=== PATIENT | female | born 1985 | race Caucasian/White ===

== ENCOUNTER → 2017-10-07 16:07 | Outpatient (REF) | payer MEDICARE, MEDICAID, SELFPAY ==
[2017-10-07 19:36] LABS: Amphetamine/Metha Screen,Urine Negative ng/mL (<1000); Barbiturates Screen,Urine Negative ng/mL (<200); Benzodiazepines Screen,Urine Negative ng/mL (<200); Cannabinoid Screen,Urine Negative ng/mL (<50); Cocaine Screen,Urine Negative ng/mL (<300); Methadone Screen,Urine Negative ng/mL (<300); Opiate Screen,Urine Positive ng/mL (<300); Phencyclidine Screen,Urine Negative ng/mL (<25)
== END ==
LOC: LAB 16:07
PROVIDERS: Visit Provider Emergency Medicine
DX: Z79.899 Other long term (current) drug therapy (principal)
CPT/HCPCS: 80305

== ENCOUNTER → 2017-11-17 16:52 | Outpatient (REF) | payer MEDICARE, MEDICAID, SELFPAY | LOC: LAB 16:52 | PROVIDERS: Visit Provider Emergency Medicine | DX: M54.9 Dorsalgia, unspecified (principal); R82.90 Unspecified abnormal findings in urine | CPT/HCPCS: 87086; 87088; 87186 ==

== ENCOUNTER → 2018-01-18 18:11 | Outpatient (CLI) | payer MEDICARE, MEDICAID, SELFPAY ==
[2018-01-18 18:49] LABS: Amphetamine/Metha Screen,Urine Negative ng/mL (<1000); Barbiturates Screen,Urine Negative ng/mL (<200); Benzodiazepines Screen,Urine Negative ng/mL (<200); Cannabinoid Screen,Urine Negative ng/mL (<50); Cocaine Screen,Urine Negative ng/mL (<300); Methadone Screen,Urine Negative ng/mL (<300); Opiate Screen,Urine Negative ng/mL (<300); Phencyclidine Screen,Urine Negative ng/mL (<25)
== END ==
PROVIDERS: Visit Provider Emergency Medicine
DX: Z79.899 Other long term (current) drug therapy (principal)
CPT/HCPCS: 80305

== ENCOUNTER → 2018-02-19 18:17 | Outpatient (CLI) | payer MEDICARE, MEDICAID, SELFPAY ==
[2018-02-19 21:27] LABS: Amphetamine/Metha Screen,Urine Negative ng/mL (<1000); Barbiturates Screen,Urine Negative ng/mL (<200); Benzodiazepines Screen,Urine Negative ng/mL (<200); Cannabinoid Screen,Urine Negative ng/mL (<50); Cocaine Screen,Urine Negative ng/mL (<300); Methadone Screen,Urine Negative ng/mL (<300); Opiate Screen,Urine Negative ng/mL (<300); Phencyclidine Screen,Urine Negative ng/mL (<25)
== END ==
PROVIDERS: Visit Provider Nurse Practitioner Family
DX: Z79.899 Other long term (current) drug therapy (principal)
CPT/HCPCS: 80305

== ENCOUNTER → 2018-02-22 18:06 | Outpatient (CLI) | payer MEDICARE, MEDICAID, SELFPAY ==
[2018-02-22 20:52] LABS: Amphetamine/Metha Screen,Urine Negative ng/mL (<1000); Barbiturates Screen,Urine Negative ng/mL (<200); Benzodiazepines Screen,Urine Negative ng/mL (<200); Cannabinoid Screen,Urine Negative ng/mL (<50); Cocaine Screen,Urine Negative ng/mL (<300); Methadone Screen,Urine Negative ng/mL (<300); Opiate Screen,Urine Positive ng/mL (<300); Phencyclidine Screen,Urine Negative ng/mL (<25)
== END ==
PROVIDERS: Visit Provider Nurse Practitioner Family
DX: Z79.899 Other long term (current) drug therapy (principal)
CPT/HCPCS: 80305

== ENCOUNTER 2019-04-12 18:39 | Observation (INO) ==
--- NOTE | 2019-04-12 19:00 | Emergency Department Note ---
ED Disposition Clinical Impression: Acute exacerbation of chronic low back pain, Severe pain, Cervicodynia, Intractable pain Disposition: Admitted as Observation Condition on Discharge: Good Additional Instructions: Her primary care is Dr. Stephan Lim was covering for Dr. Rothman he agreed to go ahead admit the patient for observation for pain control overnight. Referrals: Kleber Rothman MD [Primary Care Provider] - - Critical Care Critical Care Time: No Attestation: On 04/12/19, the high probability of a clinically significant, sudden or life threatening deterioration of the following system(s) required my full and direct attention, intervention and personal management. The time I documented below is in addition to time spent performing reported procedures but includes the following listed in this critical care notation. Medical Decision Making - Medical Records Medical records reviewed: Yes: I reviewed the patient's medical records. - Juan Luis Inquiry Pt receiving controlled substance: No Vital Signs: 04/12/19 18:41 Temperature 98 F Temperature Source Oral Pulse Rate [Right] 72 Respiratory Rate 20 Blood Pressure [Right Arm] 109/65 L Blood Pressure Mean [Right Arm] 79 02 Sat by Pulse Oximetry 95 - Lab Data Lab results reviewed: Yes: I reviewed the patient's lab results. Lab Results 04/12/19 18:50: WBC 7.9, RBC 4.02 L, Hgb 12.9, Hct 37.8, MCV 93.9, MCH 32.0 H, MCHC 34.0, RDW 12.5, Plt Count 242, MPV 8.1, Neut % (Auto) 55.6, Lymph % (Auto) 36.0, Vance % (Auto) 6.1, Eos % (Auto) 2.0, Baso % (Auto) 0.4, Neut # (Auto) 4.4, Lymph # (Auto) 2.9, Vance # (Auto) 0.5, Eos # (Auto) 0.2, Baso # (Auto) 0.0 04/12/19 18:50: Sodium 134 L, Potassium 3.3 L, Chloride 105, Carbon Dioxide 24, Anion Gap 8.3, BUN 14, Creatinine 0.70, Estimated Creat Clear 150, Estimated GFR 98, Est GFR ( Amer) 118, Glucose 91, Calcium 9.3 Result diagrams: 04/12/19 18:50 04/12/19 18:50 Orders (Tests/Meds): ED MEDICATIONS Generic Name Dose Route Start Last Admin Trade Name Freq PRN Reason Stop Dose Admin Sodium Chloride 1,000 mls @ 999 mls/hr 04/12/19 19:00 04/12/19 19:11 Sod Chlor 0.9% 1000ml Bag IV 04/12/19 20:00 999 mls/hr .Q1H1M MIGUEL A Administration Discontinued Medications Generic Name Dose Route Start Last Admin Trade Name Freq PRN Reason Stop Dose Admin Diazepam 10 mg 04/12/19 18:52 04/12/19 19:11 Valium 10mg/2ml Syringe IV 04/12/19 18:53 10 mg ONCE ONE Administration Hydromorphone HCl 1 mg 04/12/19 19:20 04/12/19 19:25 Dilaudid 2mg/Ml Syringe IM 04/12/19 19:21 1 mg ONCE ONE Administration Ketorolac Tromethamine 30 mg 04/12/19 18:52 04/12/19 19:11 Toradol 30mg/Ml Vial IV 04/12/19 18:53 30 mg ONCE ONE Administration Methylprednisolone Sodium Succinate 125 mg 04/12/19 18:52 04/12/19 19:11 Solu-Medrol 125mg/2ml Vial IV 04/12/19 18:53 125 mg ONCE ONE Administration ORDERS Category Date Time Status Urinalysis and Microscopic Stat Lab 04/12/19 19:18 Received Medical Decision Narrative: Patient did not get any pain relief with the IV Toradol 30 mg she was then given 4 mg of morphine IV no relief and then ultimately she was given 1 mg of Dilaudid and she is finally resting comfortably. General Adult HPI - General Chief complaint: PAIN Stated complaint: increase pain,seizure Time Seen by Provider: 04/12/19 18:55 Mode of Arrival: Ambulatory Limitations: No Limitations Description of Symptoms (Recalled from ER Triage Doc. by RN): C/O PAIN IN HER HEAD AND LEFT ARM AFTER AN ABLASION EARLIER TODAY FOR PAIN DONE AT . - History of Present Illness HPI narrative: 33-year-old female presents to the ED with cervical pain. Patient does have chronic cervical pain and lumbar pain issues. She had a nerve ablation done in her cervical spine today at [facility] pain [facility]. And since then she has been having a lot of spasms in her neck. She denies any motor deficits or any numbness or tingling in her extremities. She rates her pain 7 out of 10 and she classifies it as sharp and it comes and goes and crescendos. She states the exacerbating factors include movement and alleviating factors include lying still. 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 She also has been out of her clonazepam for 2 days as well. She denies any recent fever shakes or chills. No shortness of breath. Patient did tolerate the procedure this morning well. Otherwise patient has no other symptoms. - Related Data Home Medications Medication Instructions Recorded Confirmed Trazodone HCl 100 mg PO DAILY 11/18/18 12/19/18 SUMAtriptan succinate [Sumatriptan 50 mg PO DAILY 12/19/18 12/19/18 Succinate] clonazePAM [Clonazepam] 0.5 mg PO BID 12/19/18 12/19/18 levoFLOXacin [Levaquin 500mg 500 mg PO DAILY 12/19/18 12/19/18 tab] predniSONE [Prednisone 20mg 20 mg PO BID 12/19/18 12/19/18 Tab] Previous Rx's Medication Instructions Recorded metoprolol tartrate 50 mg tablet 50 mg PO BID #180 tab 02/19/18 nitrofurantoin 100 mg PO DAILY PRN #30 cap 02/19/18 monohydrate/macrocrystals 100 mg capsule Benzonatate [Tessalon Perle 100mg 100 mg PO TID PRN #15 cap 12/05/18 Cap*] Albuterol Sulfate [Albuterol HFA 2 puffs IH Q6HP PRN #1 inh 12/10/18 Inhaler] Hydrocodone/Acetaminophen 1 each PO Q6HP PRN 3 Days #12 tab 12/19/18 [Hydrocodone-Acetamin 5-325 mg] Metoprolol Tartrate 50 mg PO BID 3 Days #6 tab 12/19/18 Nitrofurantoin Monohyd/M-Cryst 100 mg PO BID 3 Days #6 cap 12/19/18 [Macrobid 100 mg Capsule] SUMAtriptan succinate [Sumatriptan 50 mg PO DAILY 3 Days #3 tab 12/19/18 Succinate] Trazodone HCl 100 mg PO DAILY 3 Days #3 tab 12/19/18 clonazePAM [Clonazepam] 0.5 mg PO BID 3 Days #6 tab 12/19/18 lamoTRIgine [Lamictal] 100 mg PO BID 3 Days #6 tab 12/19/18 methocarbamoL [Methocarbamol 500mg 500 mg PO BID PRN 5 Days #10 tab 12/22/18 Tablet] cephALEXin [Keflex 500mg Cap] 500 mg PO Q12 7 Days #14 cap 01/02/19 Allergies Allergy/AdvReac Type Severity Reaction Status Date / Time aripiprazole [From Abilify] Allergy Intermediate Seizure Verified 05/29/18 15:10 [facility] History - Hepatitis A Screen Drug use history?: No High risk sexual behaviors?: No History of sexually transmitted infection?: No Currently employed?: No Childcare worker?: No Do you have indoor plumbing?: Yes Do you have electricity?: Yes Attestation statement:: This patient has been screened for Hepatitis A risk factors. I have reviewed the patient's past medical history: Yes Medical History: Reports:: Anxiety, Arrhythmia, Depression, Migraine, Seizures Denies:: Cancer, Diabetes Mellitus Type 1, Diabetes Mellitus Type 2, Internal Pacemaker, MRSA Other Medical History: Reports: Other Other Surgeries: Yes: Other. No: Pacemaker Amputation: No Fractures: No Comment: lipoma removed from spine, spine stimulator removed - Social History Smoking Status: Current every day smoker Tobacco Type: cigarettes # Packs/Day (cigarettes): 1 Alcohol Intake: never Substance Use Type: denies use Occupational Status: disabled Housing: house - Psychiatric History Pschychiatric History:: Reports:: Anxiety, Depression Family Hx:: No significant family history ROS Obtained: Yes All systems reviewed & no additional complaints - Constitutional Constitutional: Reports system reviewed and no additional complaints, except as docu - Eyes Eyes: Reports system reviewed and no additional complaints, except as docu, Denies blurry vision - ENT Ears, Nose, Mouth, and Throat: Reports system reviewed and no additional complaints, except as docu - Cardiovascular Cardiovascular: Reports system reviewed and no additional complaints, except as docu - Respiratory Respiratory: Yes system reviewed and no additional complaints, except as docu - Gastrointestinal Gastrointestingal: Reports: system reviewed and no additional complaints, except as docu - Genitourinary Male Genitourinary: Reports system reviewed and no additional complaints, except as docu Female Genitourinary: Reports system reviewed and no additional complaints, except as docu - Musculoskeletal Musculoskeletal: Reports system reviewed and no additional complaints, except as docu - Integumentary/Breasts Skin/Breast: Reports system reviewed and no additional complaints, except as docu - Neurologic Neurologic: Reports system reviewed and no additional complaints, except as docu - Endocrine Endocrine: Reports system reviewed and no additional complaints, except as docu - Hematologic/Lymphatic Henatologic/Lymphatic: Reports system reviewed and no additional complaints, except as docu - Allergic/Immunologic Allergic/Immunologic: Reports system reviewed and no additional complaints, except as docu Physical Exam - General General appearance: alert, in no apparent distress - Head Head exam: atraumatic, normocephalic - Eye Eye exam: Present: normal appearance - ENT ENT exam: Present: normal exam - Neck Neck exam: Present: normal inspection - Chest Chest inspection: Present: normal inspection - Respiratory Respiratory exam: Present: normal lung sounds bilaterally - Cardiovascular Cardiovascular exam: Present: regular rate - Abdominal Exam Abdominal exam: Present: soft - Extremities Exam Extremities exam: Present: normal inspection - Back Exam Back exam: Present: normal inspection - Neurological Exam Neurological exam: Present: alert, oriented X3 - Psychiatric Psychiatric exam: Present: normal affect - Skin Skin exam: Present: warm, dry, intact - Lymphatic Lymphatic Findings: no adenopathy
[2019-04-12 19:01] LABS: Basophils % 0.4 % (0.1-2.0); Eosinophils # 0.2 K/mm3 (0.0-0.4); Hematocrit 37.8 % (37.0-47.0); Hemoglobin 12.9 g/dL (12.2-16.2); Lymphocytes # 2.9 K/mm3 (0.7-4.5); Mean Corpuscular Volume 93.9 fl (81-99); Mean Platelet Volume 8.1 fl (7.4-10.4); Monocytes # 0.5 K/mm3 (0.1-1.0); Monocytes % 6.1 % (1.7-9.3); Neutrophils # 4.4 K/mm3 (1.8-7.8); Neutrophils % 55.6 % (37.0-80.0); Platelet Count 242 K/mm3 (142-424); Red Blood Count 4.02 M/mm3 (4.20-5.40); Red Cell Distribution Width 12.5 % (11.5-17.5); White Blood Count 7.9 K/mm3 (4.8-10.8)
[2019-04-12 19:06] LABS: Anion Gap 8.3 mEq/L (5-15); Calcium 9.3 mg/dl (8.4-10.2)
[2019-04-12 19:22] LABS: Microscopic, Urine URINE MICROSCOPIC (MICROSCOPIC)
[2019-04-12 19:31] LABS: Appearance,Urine CLEAR (Clear); Bilirubin,Urine Negative (Negative); Blood, Urine Negative (Negative); Color,Urine YELLOW (Yellow); Glucose,Urine (UA) Negative (Negative); Ketones,Urine Negative (Negative); Leukocyte Esterase,Urine Negative (Negative); PH,Urine 6.5 (5.0-8.5); Protein,Urine Negative (Negative); Specific Gravity, Urine 1.025 (1.005-1.030); Urobilinogen,Urine 0.2 EU/dl (0.2)
[2019-04-12 19:41] LABS: Bacteria,Urine Trace /lpf; WBC,Urine Occasional #/hpf (0-3)
--- NOTE | 2019-04-13 07:43 | Pharmacy Consult Notes ---
[facility] Pharmacy VTE Monitoring - Patient Demographics Admission date: 04/12/19 Report Date: 04/13/19 Time: 07:42 Allergies/Adverse Reactions: Patient Allergies aripiprazole [From Abilify] Allergy (Intermediate, Verified 05/29/18 15:10) Seizure Height: 1.65 m Weight: 87.317 kg Patient Problems: Current Active Problems Acute exacerbation of chronic low back pain (Acute) Severe pain (Acute) Cervicodynia (Acute) Intractable pain (Acute) - VTE Risk Labs: VTE Related Lab Results Hgb 12.9 g/dL (12.2-16.2) 04/12/19 18:50 Hct 37.8 % (37.0-47.0) 04/12/19 18:50 Plt Count 242 K/mm3 (142-424) 04/12/19 18:50 BUN 14 mg/dl (7-17) 04/12/19 18:50 Creatinine 0.70 mg/dl (0.52-1.04) 04/12/19 18:50 Estimated Creat Clear 150 mL/min (50-200) 04/12/19 18:50 Was VTE Risk Assessment Performed: No VTE Score: 5 VTE Risk Level: Low Risk - Prophylaxis VTE Prophylaxis Ordered?: Yes Types of VTE Prophylaxis: TEDS Knee High Location of Applied Device: Bilateral Lower Extremeties
--- NOTE | 2019-04-13 08:19 | History & Physical Report ---
*Admission Date: 04/12/19 <Macrina Farrell 04/13/19 08:28> *Chief complaint: neck pain <Macrina Farrell 04/13/19 08:28> *History of present illness: Ms. Harry is a 33-year-old female who presented to the ED with cervical pain. Patient does have chronic cervical pain and lumbar pain issues. She had a nerve ablation done of C2 and C3 yesterday at [facility]. She states she had nerve blocks before the procedure but felt most of the procedure. She continued with significant pain after the procedure and went to try to eat with her mother. She began having pain and spasms in her neck that were so bad they cause pseudoseizures. She had pain that radiated down her shoulder blades and into her arms and down into her hips. She states the left side is worse than the right. Exacerbating factors include movement and alleviating factors include lying still. The interventional pain clinic was closed by the time her symptoms began, therefore she presented to [facility] ED. Of note, patient does have a mood disorder and also chronic pain and pseudoseizures. She has been out of her clonazepam for 2 days as well. She also has a nerve stimulator in her low back and one of the leads has been fractured. She is scheduled for surgery to fix this in the near future. She is always short of breath. She denies any recent fever shakes or chills. <Macrina Farrell 04/13/19 08:28> [facility] History I have reviewed the patient's past medical history: Yes <Macrina Farrell 04/13/19 08:28> Medical History: Reports:: Anxiety, Arrhythmia, Congestive Heart Failure, Depression, Migraine, Seizures Denies:: Cancer, Diabetes Mellitus Type 1, Diabetes Mellitus Type 2, Internal Pacemaker, MRSA <Macrina Farrell 04/13/19 08:28> *Have you ever received a pneumonia vaccine?: No <Macrina Farrell 04/13/19 08:28> *Have you received a flu vaccine this season?: No <Macrina Farrell 04/13/19 08:28> Other Medical History: Reports: Other <Macrina Farrell 04/13/19 08:28> Comment:: Bipolar disorder, intrathecal lipoma, tethered cord s/p resection, neurogenic bowel and bladder, complex regional pain sydrome, cervical spinal stenosis <Macrina Farrell 04/13/19 08:28> Other Surgeries: Yes: Other ([facility] intrathecal lipoma, L4-S1 laminectomy, spinal cord stimulator, ablation). No: Pacemaker <Macrina Farrell 04/13/19 08:28> Amputation: No <Macrina Farrell 04/13/19 08:28> Fractures: No <Macrina Farrell 04/13/19 08:28> - *Social History Educational Level: Completed College <Macrina Farrell 04/13/19 08:28> Smoking Status: Current every day smoker <Macrina Farrell 04/13/19 08:28> Tobacco Type: cigarettes <Macrina Farrell 04/13/19 08:28> # Packs/Day (cigarettes): 1 <Macrina Farrell 04/13/19 08:28> Alcohol Intake: never <Macrina Farrell 04/13/19 08:28> Substance Use Type: denies use <Macrina Farrell 04/13/19 08:28> *Occupational Status:: disabled <Macrina Farrell 04/13/19 08:28> Housing: house <Macrina Farrell 04/13/19 08:28> Household Members: significant other <Macrina Farrell 04/13/19 08:28> *Travel in the last 8 weeks: None <Macrina Farrell 04/13/19 08:28> - Psychiatric History Pschychiatric History:: Reports:: Anxiety, Depression <Macrina Farrell 04/13/19 08:28> Family Hx:: Coronary Artery Disease, Diabetes, Hyperlipidemia, Hypertension <Macrina Farrell 04/13/19 08:28> Review of Systems - Constitutional Reports fatigue, Reports weakness, Denies chills, Denies fever(s) <Macrina Farrell 04/13/19 08:28> - Eyes Denies blurry vision, Denies double vision <Macrina Farrell 04/13/19 08:28> - ENT Denies nasal congestion, Denies sore throat <Macrina Farrell 04/13/19 08:28> - *Cardiovascular Reports shortness of breath, Denies chest pain <Macrina Farrell - 04/13/19 08 :28> - *Respiratory Reports shortness of breath, Denies chest congestion, Denies cough <Macrina Farrell 04/13/19 08:28> - *Gastrointestinal Reports loose stools, Reports nausea, Denies abdominal pain, Denies vomiting <Macrina Farrell 04/13/19 08:28> - *Genitourinary Reports difficulty urinating, Denies painful urination <Macrina Farrell 04/13/19 08:28> - *Musculoskeletal Reports back pain, Reports muscle weakness, Reports neck pain <Macrina Farrell 04/13/19 08:28> - *Neurologic Reports burning sensations (neck), Reports seizure-like activity, Reports numbness, Reports tingling/numbness/burning sensations, Reports weakness <Macrina Farrell 04/13/19 08:28> Meds Home Medications Medication Instructions Recorded Confirmed Type Albuterol Sulfate [Albuterol HFA 2 puffs IH Q6HP PRN #1 inh 12/10/18 04/13/19 Rx Inhaler] SUMAtriptan succinate [Sumatriptan 50 mg PO DAILY PRN 12/19/18 04/13/19 History Succinate] clonazePAM [Clonazepam] 0.5 mg PO BID PRN 12/19/18 04/13/19 History Metoprolol Tartrate 50 mg PO BID 04/12/19 04/13/19 History lamoTRIgine [Lamictal] 100 mg PO BID 04/12/19 04/13/19 History Duloxetine HCl 60 mg PO DAILY 04/13/19 04/13/19 History Hydrocodone/Acetaminophen 1 - 2 tab PO Q6HP PRN 04/13/19 04/13/19 History [Hydrocodone-Acetamin 5-325 mg] Hydromorphone HCl [Dilaudid 2mg 2 mg PO Q4HP PRN #24 tab 04/13/19 Rx tablet] Nitrofurantoin Monohyd/M-Cryst 100 mg PO DAILY 04/13/19 04/13/19 History [Nitrofurantoin Randall-Mcr 100 mg] Trazodone HCl 100 - 300 mg PO HS PRN 04/13/19 04/13/19 History <Kleber Rothman - 04/13/19 15:16> Allergies Allergy/AdvReac Type Severity Reaction Status Date / Time aripiprazole [From Abiliy] Allergy Intermediate Seizure Verified 05/29/18 15:10 <Kleber Rothman - 04/13/19 15:16> Exam Vital signs and Labs for Last 24 Hours: Temp Pulse Resp BP Pulse Ox 98 F 74 18 100/60 L 94 L 04/13/19 08:00 04/13/19 08:00 04/13/19 08:00 04/13/19 08:00 04/13/19 08:00 Laboratory Results - last 24 hr 04/12/19 18:50: WBC 7.9, RBC 4.02 L, Hgb 12.9, Hct 37.8, MCV 93.9, MCH 32.0 H, MCHC 34.0, RDW 12.5, Plt Count 242, MPV 8.1, Neut % (Auto) 55.6, Lymph % (Auto) 36.0, Randall % (Auto) 6.1, Eos % (Auto) 2.0, Baso % (Auto) 0.4, Neut # (Auto) 4.4, Lymph # (Auto) 2.9, Randall # (Auto) 0.5, Eos # (Auto) 0.2, Baso # (Auto) 0.0 04/12/19 18:50: Sodium 134 L, Potassium 3.3 L, Chloride 105, Carbon Dioxide 24, Anion Gap 8.3, BUN 14, Creatinine 0.70, Estimated Creat Clear 150, Estimated GFR 98, Est GFR ( Amer) 118, Glucose 91, Calcium 9.3 04/12/19 19:18: Urine Color Yellow, Urine Appearance Clear, Urine pH 6.5, Ur Specific [place] 1.025, Urine Protein Negative, Urine Glucose (UA) Negative, Urine Ketones Negative, Urine Blood Negative, Urine Nitrate Negative, Urine Bilirubin Negative, Urine Urobilinogen 0.2, Ur Leukocyte Esterase Negative, Urine WBC Occasional, Ur Squamous Epith Cells 3-5, Urine Bacteria Trace <Kleber Rothman - 04/13/19 15:16> Temp Pulse Resp BP Pulse Ox 97.5 F L 67 16 102/55 L 94 L 04/13/19 04:00 04/13/19 04:00 04/13/19 04:00 04/13/19 04:00 04/13/19 04:00 Laboratory Results - last 24 hr 04/12/19 18:50: WBC 7.9, RBC 4.02 L, Hgb 12.9, Hct 37.8, MCV 93.9, MCH 32.0 H, MCHC 34.0, RDW 12.5, Plt Count 242, MPV 8.1, Neut % (Auto) 55.6, Lymph % (Auto) 36.0, Randall % (Auto) 6.1, Eos % (Auto) 2.0, Baso % (Auto) 0.4, Neut # (Auto) 4.4, Lymph # (Auto) 2.9, Randall # (Auto) 0.5, Eos # (Auto) 0.2, Baso # (Auto) 0.0 04/12/19 18:50: Sodium 134 L, Potassium 3.3 L, Chloride 105, Carbon Dioxide 24, Anion Gap 8.3, BUN 14, Creatinine 0.70, Estimated Creat Clear 150, Estimated GFR 98, Est GFR ( Amer) 118, Glucose 91, Calcium 9.3 04/12/19 19:18: Urine Color Yellow, Urine Appearance Clear, Urine pH 6.5, Ur Specific [place] 1.025, Urine Protein Negative, Urine Glucose (UA) Negative, Urine Ketones Negative, Urine Blood Negative, Urine Nitrate Negative, Urine Bilirubin Negative, Urine Urobilinogen 0.2, Ur Leukocyte Esterase Negative, Urine WBC Occasional, Ur Squamous Epith Cells 3-5, Urine Bacteria Trace <Macrina Farrell - 04/13/19 08:28> I & O for Last 24 hours: Intake & Output 04/11/19 04/12/19 04/13/19 04/14/19 11:59 11:59 11:59 11:59 Intake Total 1360 / 1360 Output Total 2300 / 2300 Balance -940 / -940 Weight 192 lb 8 oz <Kleber Rothman - 04/13/19 15:16> Intake & Output 04/10/19 04/11/19 04/12/19 04/13/19 11:59 11:59 11:59 11:59 Intake Total 1000 / 1000 Output Total 2300 / 2300 Balance -1300 / -1300 Weight 192 lb 8 oz <Macrina Farrell 04/13/19 08:28> - Constitutional no acute distress <Macrina Farrell 04/13/19 08:28> - *Routine HEENT Exam Head: Present: normocephalic <Macrina Farrell 04/13/19 08:28> Eye: Present: EOMI, PERRL <Hardy Farrella 04/13/19 08:28> ENT: Present: mucous membranes moist <Hardy Farrella 04/13/19 08:28> - *Routine Neck Exam Present: supple, tenderness (along c-spine). Absent: lymphadenopathy <Hardy Farrella 04/13/19 08:28> Comments: bandages in place along the C-spine, no erythema or drainage <Hardy Farrella 04/13/19 08:28> - *Routine Respiratory Exam Present: CTA bilaterally <Hardy Farrella 04/13/19 08:28> - *Routine Cardiovascular Exam Present: RRR <Hardy Farrella 04/13/19 08:28> - *Routine Abdominal Exam Present: soft, normoactive bowel sounds. Absent: tenderness <Hardy Farrella 04/13/19 08:28> - *Routine Extremities Exam Absent: cyanosis, clubbing, edema <Hardy Farrella 04/13/19 08:28> - *Routine Skin Exam Present: warm. Absent: rash <Hardy Farrella 04/13/19 08:28> - *Routine Neurological Exam Present: alert, oriented X3, sensory deficit (left side of head), motor deficit (weakness upper extremities and lower extremities) <Macrina Farrell 04/13/19 08:28> Assessment and Plan (1) Acute exacerbation of chronic low back pain Status: Acute Category: Medical Code(s): M54.5 - Low back pain; G89.29 - Other chronic pain (2) Cervicodynia Problem details: S/P C2/C3 ablation Status: Acute Category: Medical Code(s): M54.2 - Cervicalgia (3) Hypokalemia Status: Acute Category: Medical Code(s): E87.6 - Hypokalemia (4) Intractable pain Status: Acute Category: Medical Code(s): R52 - Pain, unspecified (5) Seizure Status: Acute Category: Medical Code(s): R56.9 - Unspecified convulsions (6) History of pseudoseizure Status: Chronic Category: Medical Code(s): Z86.69 - Personal history of other diseases of the nervous system and sense organs <Macrina Farrell - 04/13/19 08:14> (1) Acute exacerbation of chronic low back pain Status: Acute Category: Medical Code(s): M54.5 - Low back pain; G89.29 - Other chronic pain (2) Cervicodynia Problem details: S/P C2/C3 ablation Status: Acute Category: Medical Code(s): M54.2 - Cervicalgia (3) Hypokalemia Status: Acute Category: Medical Code(s): E87.6 - Hypokalemia (4) Intractable pain Status: Acute Category: Medical Code(s): R52 - Pain, unspecified (5) Seizure Status: Acute Category: Medical Code(s): R56.9 - Unspecified convulsions (6) History of pseudoseizure Status: Chronic Category: Medical Code(s): Z86.69 - Personal history of other diseases of the nervous system and sense organs <Kleber Rothman - 04/13/19 15:16> - Assessment and plan all Dx Assessment and Plan for all problems:: Patient seen and examined this morning. She seems comfortable at present although states she is still having quite a bit of pain in her neck. She seems a bit anxious. Concur with above assessment. Fiona's mother will contact Dr. Lima with [facility] as to further direction at this point. I think she is experiencing a normal pain response from her procedure yesterday albeit, more exaggerated than anticipated. <Kleber Rothman - 04/13/19 15:16> Patient has been started on Dilaudid which is the only medication that she states helps her pain. She states she still has pain this morning in the left side of her neck and down her left side. The right side of her neck is starting to hurt as well. She has not had a seizure since she has been on the floor. Will discuss further management with Dr. Rothman. <Macrina Farrell - 04/13/19 08:28>
--- NOTE | 2019-04-13 15:20 | Progress Note ---
Internal Medicine - PN: Subj *Date: 04/13/19 *Time: 15:16 Interval history: Marily was able to contact Dr. Lima's office nurse, Ariane, and discussed the situation. Fiona has a follow-up appointment on 04/26/[address] Lima and they wish for her to keep this appointment. In the meantime, he is okay with Dr. Rothman prescribing a small quantity of Dilaudid to get her through the weekend. Exam Vital signs and Labs for Last 24 Hours: Temp Pulse Resp BP Pulse Ox 98 F 74 18 100/60 L 94 L 04/13/19 08:00 04/13/19 08:00 04/13/19 08:00 04/13/19 08:00 04/13/19 08:00 Laboratory Results - last 24 hr 04/12/19 18:50: WBC 7.9, RBC 4.02 L, Hgb 12.9, Hct 37.8, MCV 93.9, MCH 32.0 H, MCHC 34.0, RDW 12.5, Plt Count 242, MPV 8.1, Neut % (Auto) 55.6, Lymph % (Auto) 36.0, Preston % (Auto) 6.1, Eos % (Auto) 2.0, Baso % (Auto) 0.4, Neut # (Auto) 4.4, Lymph # (Auto) 2.9, Preston # (Auto) 0.5, Eos # (Auto) 0.2, Baso # (Auto) 0.0 04/12/19 18:50: Sodium 134 L, Potassium 3.3 L, Chloride 105, Carbon Dioxide 24, Anion Gap 8.3, BUN 14, Creatinine 0.70, Estimated Creat Clear 150, Estimated GFR 98, Est GFR ( Amer) 118, Glucose 91, Calcium 9.3 04/12/19 19:18: Urine Color Yellow, Urine Appearance Clear, Urine pH 6.5, Ur Specific [place] 1.025, Urine Protein Negative, Urine Glucose (UA) Negative, Urine Ketones Negative, Urine Blood Negative, Urine Nitrate Negative, Urine Bilirubin Negative, Urine Urobilinogen 0.2, Ur Leukocyte Esterase Negative, Urine WBC Occasional, Ur Squamous Epith Cells 3-5, Urine Bacteria Trace I & O for Last 24 hours: Intake & Output 0204/12/19 04/13/19 04/14/19 11:59 11:59 11:59 11:59 Intake Total 1360 / 1360 Output Total 2300 / 2300 Balance -940 / -940 Weight 192 lb 8 oz Assessment and Plan (1) Postoperative pain Status: Acute Category: Medical Code(s): G89.18 - Other acute postprocedural pain (2) Cervicodynia Problem details: S/P C2/C3 ablation Status: Acute Category: Medical Code(s): M54.2 - Cervicalgia (3) Acute exacerbation of chronic low back pain Status: Acute Category: Medical Code(s): M54.5 - Low back pain; G89.29 - Oth er chronic pain (4) Hypokalemia Status: Acute Category: Medical Code(s): E87.6 - Hypokalemia (5) Intractable pain Status: Acute Category: Medical Code(s): R52 - Pain, unspecified (6) Pseudoseizure Status: Acute Category: Medical Code(s): F44.5 - Conversion disorder with seizures or convulsions (7) History of pseudoseizure Status: Chronic Category: Medical Code(s): Z86.69 - Personal history of other diseases of the nervous system and sense organs - Assessment and plan all Dx Assessment and Plan for all problems:: She will be discharged home today with a small quantity of Dilaudid for the next 5 days. She will then transition to her hydrocodone which she has at home. She is to follow-up with Dr. Lima on 04/26/2019
--- NOTE | 2019-04-18 13:41 | Discharge Summary ---
General - General Admission date:: 04/12/19 <Kleber Rothman - 04/30/19 08:43> 04/12/19 <Macrina Farrell - 04/18/19 13:42> Discharge date: 04/13/19 <Macrina Farrell - 04/18/19 13:42> HPI HPI: Ms. Harry is a 33-year-old female who presented to the ED with cervical pain. Patient does have chronic cervical pain and lumbar pain issues. She had a nerve ablation done of C2 and C3 on the day of admission at interventional pain clinic. She states she had nerve blocks before the procedure but felt most of the procedure. She continued with significant pain after the procedure and went to try to eat with her mother. She began having pain and spasms in her neck that were so bad they caused pseudoseizures. She had pain that radiated down her shoulder blades and into her arms and down into her hips. She states the left side is worse than the right. Exacerbating factors include movement and alleviating factors include lying still. The [facility] interventional pain clinic was closed by the time her symptoms began, therefore she presented to [facility] ED. Of note, patient does have a mood disorder and also chronic pain and pseudoseizures. She has been out of her clonazepam for 2 days as well. She also has a nerve stimulator in her low back and one of the leads has been fractured. She is scheduled for surgery to fix this in the near future. She is always short of breath. She denies any recent fever shakes or chills. <Macrina Farrell - 04/18/19 13:42> Hospital Course Hospital Course: The patient was admitted for pain control and monitoring. She was started on Dilaudid, which she stated was the only medication that helped her pain. The patient's mother contacted [facility] pain management as for further direction. The patient had a follow-up in their office on 04/26/19 and they wished for her to keep that appointment. In the meantime, they gave permission for Dr. Rothman to prescribe a small quantity of oral Dilaudid to get her through the weekend. She was discharged with Dilaudid for 5 days and will then transition to hydrocodone which she already had at home. <Macrina Farrell - 04/18/19 13:42> Objective Vital signs: Temp Pulse Resp BP Pulse Ox 98 F 74 18 100/60 L 94 L 04/13/19 08:00 04/13/19 08:00 04/13/19 08:00 04/13/19 08:00 04/13/19 08:00 <Kleber Rothman - 04/30/19 08:43> Temp Pulse Resp BP Pulse Ox 98 F 74 18 100/60 L 94 L 04/13/19 08:00 04/13/19 08:00 04/13/19 08:00 04/13/19 08:00 04/13/19 08:00 <Macrina Farrell - 04/18/19 13:42> Narrative: - Constitutional no acute distress - *Routine HEENT Exam Head: Present: normocephalic Eye: Present: EOMI, PERRL ENT: Present: mucous membranes moist - *Routine Neck Exam Present: supple, tenderness (along c-spine). Absent: lymphadenopathy bandages in place along the C-spine, no erythema or drainage - *Routine Respiratory Exam Present: CTA bilaterally - *Routine Cardiovascular Exam Present: RRR - *Routine Abdominal Exam Present: soft, normoactive bowel sounds. Absent: tenderness - *Routine Extremities Exam Absent: cyanosis, clubbing, edema - *Routine Skin Exam Present: warm. Absent: rash - *Routine Neurological Exam Present: alert, oriented X3, sensory deficit (left side of head), motor deficit (weakness upper extremities and lower extremities) <Macrina Farrell - 04/18/19 13:42> DS: Diagnosis - Discharge Diagnosis (1) Postoperative pain Status: Acute (2) Cervicodynia Status: Acute Problem details: S/P C2/C3 ablation (3) Acute exacerbation of chronic low back pain Status: Acute (4) Hypokalemia Status: Acute (5) Intractable pain Status: Acute (6) Pseudoseizure Status: Acute (7) History of pseudoseizure Status: Chronic <Macrina Farrell - 04/18/19 13:37> (1) Postoperative pain Status: Acute (2) Cervicodynia Status: Acute Problem details: S/P C2/C3 ablation (3) Acute exacerbation of chronic low back pain Status: Acute (4) Hypokalemia Status: Acute (5) Intractable pain Status: Acute (6) Pseudoseizure Status: Acute (7) History of pseudoseizure Status: Chronic <Kleber Rothman - 04/30/19 08:43> Discharge Plan - Patient Discharge Instructions ACTIVITY: Continue current activity <Macrina Farrell - 04/18/19 13:42> DIET: continue same diet <Macrina Farrell - 04/18/19 13:42> Patient Instructions: DI for Chronic Pain -- Adult <Kleber Rothman - 04/30/19 08:43> Forms: <Kleber Rothman - 04/30/19 08:43> - Follow up Plan Follow up with: Gavino Lima [Referring] - 04/26/19 1:45 pm <Kleber Rothman - 04/30/19 08:43> Disposition: Home, Self-Care <Kleber Rothman - 04/30/19 08:43> Home Medications: Home Medications Medication Instructions Recorded Confirmed Type Albuterol Sulfate [Albuterol HFA 2 puffs IH Q6HP PRN #1 inh 12/10/18 04/13/19 Rx Inhaler] SUMAtriptan succinate [Sumatriptan 50 mg PO DAILY PRN 12/19/18 04/13/19 History Succinate] clonazePAM [Clonazepam] 0.5 mg PO BID PRN 12/19/18 04/13/19 History Metoprolol Tartrate 50 mg PO BID 04/12/19 04/13/19 History lamoTRIgine [Lamictal] 100 mg PO BID 04/12/19 04/13/19 History Duloxetine HCl 60 mg PO DAILY 04/13/19 04/13/19 History Hydrocodone/Acetaminophen 1 - 2 tab PO Q6HP PRN 04/13/19 04/13/19 History [Hydrocodone-Acetamin 5-325 mg] Hydromorphone HCl [Dilaudid 2mg 2 mg PO Q4HP PRN #24 tab 04/13/19 Rx tablet] Nitrofurantoin Monohyd/M-Cryst 100 mg PO DAILY 04/13/19 04/13/19 History [Nitrofurantoin Custer-Mcr 100 mg] Trazodone HCl 100 - 300 mg PO HS PRN 04/13/19 04/13/19 History <Kleber Rothman - 04/30/19 08:43> Prescriptions/Medication Reconciliation: New Hydromorphone HCl [Dilaudid 2mg tablet] 2 mg PO Q4HP PRN #24 tab PRN Reason: Severe Pain Continued SUMAtriptan succinate [Sumatriptan Succinate] 50 mg PO DAILY PRN PRN Reason: migraines clonazePAM [Clonazepam] 0.5 mg PO BID PRN PRN Reason: Anxiety lamoTRIgine [Lamictal] 100 mg PO BID Metoprolol Tartrate 50 mg PO BID Trazodone HCl 100 - 300 mg PO HS PRN PRN Reason: Sleep Albuterol Sulfate [Albuterol HFA Inhaler] 2 puffs IH Q6HP PRN #1 inh PRN Reason: Shortness Of Breath Or Wheezing Duloxetine HCl 60 mg PO DAILY Hydrocodone/Acetaminophen [Hydrocodone-Acetamin 5-325 mg] 1 - 2 tab PO Q6HP PRN PRN Reason: pain Nitrofurantoin Monohyd/M-Cryst [Nitrofurantoin [place]uster-Mcr 100 mg] 100 mg PO DAILY <Kleber Rothman - 04/30/19 08:43> - Problem Reconciliation Problems Reviewed?: Yes <Kleber Rothman - 04/30/19 08:43> Yes <Macrina Farrell - 04/18/19 13:42> - Additional Information Additional Information: Concur with plan for discharge as outlined above. <Kleber Rothman - 04/30/19 08:43>
== END 2019-04-13 14:06 | disposition home or self-care (01) ==
LOC: 2ND 18:39 → ER 18:39 → 2ND 20:40
PROVIDERS: ADMIT Family Medicine; ATTEND Family Medicine
CPT/HCPCS: 80048; 81001; 85025; 96365; 96375; 99284; G0378

== ENCOUNTER → 2019-06-23 09:18 | Outpatient (CLI) | payer MEDICARE, MEDICAID, SELFPAY ==
--- NOTE | 2019-06-23 | CA_ITS ---
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 Diastolic parameters are inconclusive. Right Ventricle Right atrium and right ventricular normal size and contractility. Aortic Valve Aortic valve is grossly normal, there is no aortic stenosis aortic insufficiency. Mitral Valve Mitral valve is grossly normal, there is trace mitral regurgitation. Tricuspid Valve Tricuspid valve is grossly normal, there is trace tricuspid regurgitation. Pulmonic Valve Pulmonic valve is poorly visualized. Great Vessels Aortic root is normal size. Pericardium No significant pericardial effusion noted. Conclusion 1. Normal left ventricular size, preserved left ventricular systolic function, visually estimated ejection fraction 55% with no regional wall motion abnormality, diastolic parameters are inconclusive. 2. Trace mitral and tricuspid regurgitation. 3. No significant pericardial effusion noted. Electronically signed by : Sohail Dean, 06/23/2019 15:42:57
--- NOTE | 2019-06-23 10:06 | ECG_ITS ---
APPROVED REPORT Exam: Resting ECG HR:67 bpm ECG Measurements Heart Rate 67 AXES SD 134 P 47 QRSd 86 QRS 6 QT 414 T 13 QTc 437 <Conclusion> Normal sinus rhythm Possible Anterior infarct, age undetermined Abnormal ECG Electronically signed by : Faheem Archuleta, 06/23/2019 21:54:53
== END ==
PROVIDERS: PCP Family Medicine; Visit Provider Neurological Surgery
DX: Z01.818 Encounter for other preprocedural examination (principal); D17.79 Benign lipomatous neoplasm of other sites; R06.02 Shortness of breath; Z96.89 Presence of other specified functional implants
CPT/HCPCS: 93005; 93306

== ENCOUNTER 2019-09-29 10:00 | Outpatient (RCR) | payer MEDICARE, MEDICAID, SELFPAY | END 2019-09-29 11:02 | disposition home or self-care (01) | LOC: PT 10:00 | PROVIDERS: PCP Family Medicine; Visit Provider Anesthesiology Pain Medicine | DX: M54.5 Low back pain (principal) | CPT/HCPCS: 97010; 97110; 97112; 97140; 97163; 97164 ==

== ENCOUNTER 2019-10-29 09:08 | Emergency (ER) | payer OTHER, MEDICARE, MEDICAID, SELFPAY ==
[2019-10-29 09:18] VITALS: BP 96/56; PULSE 77; RESP 16; TEMP 36.6; O2SAT 100; BMI 34.1
--- NOTE | 2019-10-29 09:22 | XR_ITS ---
PROCEDURE: XR ELBOW LT MIN 3V Referring Doctor: Gavino Nguyen Patient Age:34Y CLINICAL INDICATION: blunt trauma elbow pain blunt trauma from a pallet, that fell and hit bent elbow. Abrasion, posterior lateral aspect left elbow. COMPARISON: No exams were available for comparison FINDINGS: No fracture or dislocation. No joint effusion. Radial head intact and joint space well maintained No lytic or blastic change. There is normal mineralization. The joint spaces are well-preserved. No significant degenerative/arthritic changes. No erosive changes evident. There may be some scant edema in soft tissues posterior lateral aspect elbow/above elbow joint. IMPRESSION: No fracture. No joint effusion. Left elbow intact Dictated by: Phil Brooks MD 10/29/2019 12:03 Phil Brooks MD in [place] 10/29/2019 12:03
--- NOTE | 2019-10-29 09:26 | HMH.EDGENADL ---
ED Disposition Clinical Impression: Elbow contusion Qualifiers: Encounter type: initial encounter Laterality: left Qualified Code(s): S50.02XA - Contusion of left elbow, initial encounter Disposition: Home, Self-Care Condition on Discharge: Good Instructions: DI for Acute Pain -- Adult Referrals: Kleber Rothman MD [Primary Care Provider] - - Critical Care Critical Care Time: No Attestation: On 10/29/19, the high probability of a clinically significant, sudden or life threatening deterioration of the following system(s) required my full and direct attention, intervention and personal management. The time I documented below is in addition to time spent performing reported procedures but includes the following listed in this critical care notation. Medical Decision Making - Medical Records Medical records reviewed: Yes: I reviewed the patient's medical records. - Juan Luis Inquiry Pt receiving controlled substance: No Vital Signs: 10/29/19 09:18 Temperature 98 F Temperature Source Oral Pulse Rate [Left Radial] 77 Respiratory Rate 16 Blood Pressure [Right Arm] 96/56 L Blood Pressure Mean [Right Arm] 69 Blood Pressure Position [Right Arm] Sitting 02 Sat by Pulse Oximetry 100 Oxygen Delivery Method Room Air Orders (Tests/Meds): ED MEDICATIONS Discontinued Medications Generic Name Dose Route Start Last Admin Trade Name Freq PRN Reason Stop Dose Admin Ketorolac Tromethamine 60 mg 10/29/19 09:23 10/29/19 09:26 Toradol 60mg/2ml Vial IM 10/29/19 09:24 Not Given ONCE ONE ORDERS Category Date Time Status Elbow XR left mininum 3 views [XR elbow LT min 3V] Stat Exams 10/29/19 09:22 Taken - Radiology Data #1 Image(s): Elbow Image Reviewed: Yes I reviewed the patient's radiology image Preliminary Findings: Normal/NAD General Adult HPI - General Chief complaint: PAIN Stated complaint: [id number] left elbow swollen Time Seen by Provider: 10/29/19 09:15 Mode of Arrival: Ambulatory Source of Information: Patient Limitations: No Limitations Description of Symptoms (Recalled from ER Triage Doc. by RN): to ed per pvt car pt c/o lt elbow and arm pain states at work and a 50lb pallet fell on lt arm. abrasion noted to elbow. motrin 800mg given at work - History of Present Illness HPI narrative: This is a 34-year-old female who presents from work due to acute blunt trauma sustained to the left elbow. Patient reports that a plastic palate carrying approximately 50 pounds of material tipped onto her elbow causing an abrasion. Patient reports sharp constant pain. Pain rated at 5 out of 10 in intensity without radiation. Pain worse with extension of the elbow. No other injury or complaint. Onset (ago): minute(s) (Is on hydrocodone) - Related Data Home Medications Medication Instructions Recorded Confirmed SUMAtriptan succinate [Sumatriptan 50 mg PO DAILY PRN 12/19/18 04/13/19 Succinate] clonazePAM [Clonazepam] 0.5 mg PO BID PRN 12/19/18 04/13/19 Metoprolol Tartrate 50 mg PO BID 04/12/19 04/13/19 lamoTRIgine [Lamictal] 100 mg PO BID 04/12/19 04/13/19 Duloxetine HCl 60 mg PO DAILY 04/13/19 04/13/19 Hydrocodone/Acetaminophen 1 - 2 tab PO Q6HP PRN 04/13/19 04/13/19 [Hydrocodone-Acetamin 5-325 mg] Nitrofurantoin Monohyd/M-Cryst 100 mg PO DAILY 04/13/19 04/13/19 [Nitrofurantoin Saunders-Mcr 100 mg] Trazodone HCl 100 - 300 mg PO HS PRN 04/13/19 04/13/19 Previous Rx's Medication Instructions Recorded Albuterol Sulfate [Ventolin HFA 2 puffs IH Q6HP PRN #1 inh 12/10/18 Inhaler] Hydromorphone HCl [Dilaudid 2mg 2 mg PO Q4HP PRN #24 tab 04/13/19 tablet] Allergies Allergy/AdvReac Type Severity Reaction Status Date / Time aripiprazole [From Abilify] Allergy Intermediate Seizure Verified 05/29/18 15:10 [facility] History - Hepatitis A Screen Drug use history?: No High risk sexual behaviors?: No History of sexually transmitted infection?: No
[2019-10-29 09:54] VITALS: BP 100/58; PULSE 79; RESP 15; TEMP 36.6; O2SAT 99
== END 2019-10-29 09:55 | disposition home or self-care (01) ==
PROVIDERS: Emergency Provider Emergency Medicine; PCP Family Medicine
DX: S50.02XA Contusion of left elbow, initial encounter (principal); W22.8XXA Striking against or struck by other objects, initial encounter; Y92.69 Other specified industrial and construction area as the place of occurrence of the external cause; Y99.0 Civilian activity done for income or pay; F41.8 Other specified anxiety disorders; G43.709 Chronic migraine without aura, not intractable, without status migrainosus; G40.909 Epilepsy, unspecified, not intractable, without status epilepticus; F17.210 Nicotine dependence, cigarettes, uncomplicated; Z79.899 Other long term (current) drug therapy
CPT/HCPCS: 73080; 99282

== ENCOUNTER 2019-11-28 12:55 | Emergency (ER) | payer OTHER, MEDICAID, SELFPAY ==
[2019-11-28 13:49] VITALS: BP 126/88; PULSE 76; RESP 19; TEMP 36.9; O2SAT 98; BMI 29.0
--- NOTE | 2019-11-28 14:07 | HMH.EDUTC ---
[facility] [place] Impression: Encounter for laboratory testing for COVID-19 virus Disposition: Home, Self-Care Condition on Discharge: Good Instructions: Preventing the Spread of Coronavirus Discharge Instructions Additional Instructions: *Monitor Temp, Over the counter Motrin or Tylenol as directed/as needed Tylenol every 4 hours and Motrin every 6 hours (as long as your family doctor has told you that you can take it) for fever or pain. and straight to ER if unable to lower temp less than 101.0 after medication given *Warm salt water gargles may help to soothe the throat *Throat Lozenges *Warm fluids like tea with honey may help to soothe the throat *Sleep elevated *Humidifier/Vaporizer Follow up IMMEDIATELY for new or worsening symptoms or no Noticeable improvement over the next 48-72 hours. 911 for difficulty breathing or swallowing You was tested for today for COVID19 your test result should be back later this evening, you may call back later this evening to see if your test results are back and the result You was given a handout with instructions for Self Quarantine and Self isolation for while you wait on test results and what to do if they are positive Referrals: Kleber Rothman MD [Primary Care Provider] - As needed Forms: Work/School Release Time of Disposition: 14:36 Medical Decision Making - Juan Luis Inquiry Pt receiving controlled substance: No Juan Luis was queried for this patient: No Vital Signs: 11/28/19 13:49 11/28/19 14:23 Temperature 98.4 F 98.4 F Temperature Source Oral Pulse Rate 76 Pulse Rate [Right Brachial] 76 Respiratory Rate 19 19 Blood Pressure 126/88 Blood Pressure [Right Arm] 126/88 Blood Pressure Mean [Right Arm] 100 Blood Pressure Source [Right Arm] Automatic Cuff Blood Pressure Position [Right Arm] Sitting 02 Sat by Pulse Oximetry 98 Oxygen Delivery Method Room Air Orders (Tests/Meds): ORDERS Category Date Time Status Covid-19 Nasal PCR ([facility]) Routine Lab 11/28/19 13:43 Received Medical Decision Narrative: Patient was tested in [facility] for COVID, Patient reports that she had cough, Nausea, diarrhea and SOA at times after coughing. Patient was complaining of nausea and viewed medication list to assess for reactions of medications and seen that patient was recently prescribed zofran, asked patient if she had any at home and she started acting irate, patient began yelling and asking if we thought she was abusing her zofran and tried to explain to patient that we asked if she recently got a prescription for zofran due to patient complaining of nausea and appears like patient had zofran filled today which will help with nausea Patient begin yelling and cursing at staff and insulting and swinging her hands Patient informed no one was accusing her of anything just trying to make sure that she had something at home for her nausea and vomiting since that was one of her complaints and again she cursed staff and jumped off the table toward the provider and said I just want tested for COVID I am done and started walking out again tried to explain to patient that she was tested for COVID but she had listed other complaints other than being tested for COVID and we wanted to address those to make sure she didnt have infection and she yelled at staff Patient [place] [facility] [place] - General Stated complaint: sob, nasuea, v/d, fever Time Seen by Provider: 11/28/19 14:08 Mode of Arrival: Ambulatory Source of Information: Patient Limitations: No Limitations Description of Symptoms (Recalled from Triage Doc. by RN): PATIENT C/O NAUSEA, VOMITING, DIARRHEA, FEVER, DRY COUGH, SOA AND HEADACHE. REQUESTING COVID TEST. STATES A COWORKER RECENTLY TESTED POSITIVE HEENT Symptoms (Recalled from RN notes): Yes Resp Symptoms (Recalled from RN notes): No Skin Symptoms (Recalled from RN notes): No MS Symptoms (Recalled from RN notes): No Functional Status (Recalled from RN notes): WNL - His
[2019-11-28 14:23] VITALS: BP 126/88; PULSE 76; RESP 19; TEMP 36.9; O2SAT 98
== END 2019-11-28 14:25 | disposition home or self-care (01) ==
PROVIDERS: Emergency Provider Nurse Practitioner; PCP Family Medicine
DX: Z20.828 Contact with and (suspected) exposure to other viral communicable diseases (principal)
CPT/HCPCS: 99201; U0003

== ENCOUNTER 2020-01-03 12:17 | Emergency (ER) | payer OTHER, MEDICAID, SELFPAY ==
[2020-01-03 12:34] VITALS: BP 112/83; PULSE 71; RESP 14; TEMP 36.7; O2SAT 98; BMI 30.7
--- NOTE | 2020-01-03 12:55 | HMH.EDUTC ---
[facility] [place] Clinical Impression: Viral syndrome UTI (urinary tract infection) Qualifiers: Urinary tract infection type: site unspecified Hematuria presence: without hematuria Qualified Code(s): N39.0 - Urinary tract infection, site not specified Disposition: Home, Self-Care Condition on Discharge: Good Instructions: Urinary Tract Infection, Preventing the Spread of Coronavirus Discharge Instructions Additional Instructions: Drink plenty of fluids. Take tylenol for pain or fever. Return if you begin to have difficulty breathing. Follow up with your regular doctor. GO TO THE ER FOR ANY WORSENING SYMPTOMS Prescriptions: Ciprofloxacin HCl [Cipro 500mg Tab] 500 mg PO BID 7 Days #14 tab Transmission Status: Received by [facility] Referrals: Mono Rothman [Primary Care Provider] - Forms: Work/School Release Time of Disposition: 13:05 Medical Decision Making - Medical Records Medical records reviewed: No: I reviewed the patient's medical records. - Juan Luis Inquiry Pt receiving controlled substance: No Vital Signs: 01/03/20 12:34 01/03/20 13:10 Temperature 98.1 F 98.1 F Temperature Source Oral Oral Pulse Rate 71 Pulse Rate [Radial] 71 Respiratory Rate 14 14 Blood Pressure 112/83 Blood Pressure [Right Arm] 112/83 Blood Pressure Mean [Right Arm] 92 Blood Pressure Source Automatic Cuff Blood Pressure Source [Right Arm] Automatic Cuff Blood Pressure Position Sitting Blood Pressure Position [Right Arm] Sitting 02 Sat by Pulse Oximetry 98 Oxygen Delivery Method Room Air Room Air - Lab Data Lab results reviewed: Yes: I reviewed the patient's lab results. Lab Results 01/03/20 12:23: Urine Color Straw, Urine Appearance Cloudy, Urine pH 5.5, Ur Specific [place] 1.025, Urine Protein 1+, Urine Glucose (UA) Negative, Urine Ketones Negative, Urine Blood 2+, Urine Nitrate Negative, Urine Bilirubin Negative, Urine Urobilinogen 0.2, Ur Leukocyte Esterase 2+ A Orders (Tests/Meds): ORDERS Category Date Time Status Covid-19 Nasal PCR ([facility]) Routine Lab 01/03/20 12:30 Received Urine Culture Stat Micro 01/03/20 12:30 Received [facility] [place] HPI - General Stated complaint: covid test possible uti, drainage Time Seen by Provider: 01/03/20 12:56 Mode of Arrival: Ambulatory Source of Information: Patient Limitations: No Limitations Description of Symptoms (Recalled from Triage Doc. by RN): possible uti, wants covid test. HEENT Symptoms (Recalled from RN notes): No Resp Symptoms (Recalled from RN notes): No Skin Symptoms (Recalled from RN notes): No MS Symptoms (Recalled from RN notes): No Functional Status (Recalled from RN notes): wnl - History of Present Illness Provider Complaint: She c/o that over the past 3 days she has been having nasal congestion, chilling and diarrhea. She also has had strong smelling urine. She has a history of having to self-cath for urination, so she has frequent utis. - Related Data Home Medications Medication Instructions Recorded Confirmed SUMAtriptan succinate [Sumatriptan 50 mg PO DAILY PRN 12/19/18 04/13/19 Succinate] clonazePAM [Clonazepam] 0.5 mg PO BID PRN 12/19/18 04/13/19 Metoprolol Tartrate 50 mg PO BID 04/12/19 04/13/19 lamoTRIgine [Lamictal] 100 mg PO BID 04/12/19 04/13/19 Duloxetine HCl 60 mg PO DAILY 04/13/19 04/13/19 Hydrocodone/Acetaminophen 1 - 2 tab PO Q6HP PRN 04/13/19 04/13/19 [Hydrocodone-Acetamin 5-325 mg] Nitrofurantoin Monohyd/M-Cryst 100 mg PO DAILY 04/13/19 04/13/19 [Nitrofurantoin Arthur-Mcr 100 mg] Trazodone HCl 100 - 300 mg PO HS PRN 04/13/19 04/13/19 Previous Rx's Medication Instructions Recorded Albuterol Sulfate [Ventolin HFA 2 puffs IH Q6HP PRN #1 inh 12/10/18 Inhaler] Hydromorphone HCl [Dilaudid 2mg 2 mg PO Q4HP PRN #24 tab 04/13/19 tablet] Ciprofloxacin HCl [Cipro 500mg 500 mg PO BID 7 Days #14 tab 01/03/20 Tab] Allergies Allergy/AdvReac Type Severit
[2020-01-03 12:58] LABS: Color,Urine Straw (Yellow)
[2020-01-03 12:59] LABS: Apearance,Urine Cloudy (Clear); Glucose,Urine (UA) Negative (Negative); PH,Urine 5.5 (5.0-8.5); Protein,Urine 1+ (Negative); Specific Gravity, Urine 1.025 (1.005-1.030)
[2020-01-03 13:00] LABS: Bilirubin,Urine Negative (Negative); Blood, Urine 2+ (Negative); Ketones,Urine Negative (Negative); UTC Leukocyte Esterase,Urine 2+ (Negative); UTC Nitrate,Urine Negative (Negative); Urobilinogen,Urine 0.2 EU/dl (0.2)
[2020-01-03 13:10] VITALS: BP 112/83; PULSE 71; RESP 14; TEMP 36.7; O2SAT 98
== END 2020-01-03 13:19 | disposition home or self-care (01) ==
PROVIDERS: Emergency Provider Nurse Practitioner Family; PCP Family Medicine
DX: Z20.828 Contact with and (suspected) exposure to other viral communicable diseases (principal); B34.9 Viral infection, unspecified; N39.0 Urinary tract infection, site not specified; G40.919 Epilepsy, unspecified, intractable, without status epilepticus; G43.709 Chronic migraine without aura, not intractable, without status migrainosus; F31.89 Other bipolar disorder; F17.210 Nicotine dependence, cigarettes, uncomplicated; Z79.899 Other long term (current) drug therapy
CPT/HCPCS: 81003; 87086; 99202; U0003

== ENCOUNTER 2020-03-10 14:00 | Emergency (ER) | payer OTHER, SELFPAY ==
[2020-03-10 14:30] VITALS: BP 136/92; PULSE 94; RESP 19; TEMP 36.6; O2SAT 98; BMI 28.7
--- NOTE | 2020-03-10 14:56 | HMH.EDUTC ---
[facility] Clinical Impression: Migraine Qualifiers: Migraine type: unspecified Status migrainosus presence: without status migrainosus Intractability: not intractable Qualified Code(s): G43.909 - Migraine, unspecified, not intractable, without status migrainosus Disposition: Home, Self-Care Condition on Discharge: Good Instructions: Migraine -- Adult, DI for COVID-19 (Suspected or Confirmed ), Coronavirus Disease 2019, Preventing the Spread of Coronavirus Discharge Instructions Additional Instructions: GO home lay down and try to sleep off remainder of Migraine Headache Straight to ER if any life threatening symptoms Return if needed FOllow up with your Family Doctor if no improvement or any worsening of symptoms in the next 48-72 hours You were tested for today for COVID19 your test result should be back in the next 24-48 hours, you may call to the [facility] to see if your test results are back in the next 48 hours [phone] [facility] hours are 9am-9pm You was given a handout with instructions for Self Quarantine and Self isolation for while you wait on test results and what to do if they are positive If you are positive the Health Dept will be contacting you also Referrals: Kleber Rothman MD [Primary Care Provider] - As needed Forms: Work/School Release Time of Disposition: 15:21 Medical Decision Making - Juan Luis Inquiry Pt receiving controlled substance: No Juan Luis was queried for this patient: No Vital Signs: 03/10/20 14:30 03/10/20 15:23 Temperature 97.8 F 97.8 F Temperature Source Oral Pulse Rate 94 H Pulse Rate [Right Brachial] 94 H Respiratory Rate 19 19 Blood Pressure 136/92 H Blood Pressure [Right Arm] 136/92 H Blood Pressure Mean [Right Arm] 106 Blood Pressure Source [Right Arm] Automatic Cuff Blood Pressure Position [Right Arm] Sitting 02 Sat by Pulse Oximetry 98 Oxygen Delivery Method Room Air - Lab Data Lab results reviewed: Yes: I reviewed the patient's lab results. Lab Results 03/10/20 14:48: Urine Color Yellow, Urine Appearance Clear, Urine pH 6.0, Ur Specific Bayard 1.030, Urine Protein Trace, Urine Glucose (UA) Negative, Urine Ketones Trace, Urine Blood 1+, Urine Nitrate Negative, Urine Bilirubin 1+ A, Urine Urobilinogen 0.2, Ur Leukocyte Esterase Negative Orders (Tests/Meds): ED MEDICATIONS Discontinued Medications Generic Name Dose Route Start Last Admin Trade Name Ariel PRN Reason Stop Dose Admin Diphenhydramine HCl 25 mg 03/10/20 14:55 03/10/20 15:03 Diphenhydramine 50mg/Ml Vial IM 03/10/20 14:56 25 mg ONCE ONE Administration Ketorolac Tromethamine 60 mg 03/10/20 14:55 03/10/20 15:03 Ketorolac 60mg/2ml Vial IM 03/10/20 14:56 60 mg ONCE ONE Administration Ondansetron HCl 4 mg 03/10/20 14:55 03/10/20 15:03 Ondansetron 4mg Odt SL 03/10/20 14:56 4 mg ONCE ONE Administration Medical Decision Narrative: Denies , Mother reports that patient has taken Migraine cocktail before without complications or reactions, Torodol, benadryl and zofran Medication discussed with pharmacy Patient reports headache much better after medication Patient advised to go home lay down and sleep off remainder of migraine headache mother agreed pateint to be dc'd [place] [facility] [place] - General Stated complaint: UTI, Covid Test, Headache Time Seen by Provider: 03/10/20 14:57 Mode of Arrival: Ambulatory Source of Information: Patient, Parent(s) Limitations: No Limitations Description of Symptoms (Recalled from Triage Doc. by RN): PATIENT NEEDING COVID TEST TO RETURN TO WORK. C/O MIGRAINE AND POSSIBLE UTI X 2 DAYS HEENT Symptoms (Recalled from RN notes): Yes Resp Symptoms (Recalled from RN notes): No Skin Symptoms (Recalled from RN notes): No MS Symptoms (Recalled from RN notes): No Functional Status (Recalled from RN notes): WNL - History of Present Illness Provider Complaint: Patient state that she has history of migraine headaches and sometimes
[2020-03-10 15:23] VITALS: BP 136/92; PULSE 94; RESP 19; TEMP 36.6; O2SAT 98
[2020-03-10 20:27] LABS: Apearance,Urine Clear (Clear); Color,Urine Yellow (Yellow); Glucose,Urine (UA) Negative (Negative); Ketones,Urine TRACE (Negative); Protein,Urine Trace (Negative)
[2020-03-10 20:28] LABS: Blood, Urine 1+ (Negative)
[2020-03-10 20:29] LABS: Bilirubin,Urine 1+ (Negative); UTC Leukocyte Esterase,Urine Negative (Negative); UTC Nitrate,Urine Negative (Negative); Urobilinogen,Urine 0.2 EU/dl (0.2)
== END 2020-03-10 15:25 | disposition home or self-care (01) ==
PROVIDERS: Emergency Provider Nurse Practitioner; PCP Family Medicine
DX: Z20.822 Contact with and (suspected) exposure to COVID-19 (principal); G43.909 Migraine, unspecified, not intractable, without status migrainosus; G40.909 Epilepsy, unspecified, not intractable, without status epilepticus; F41.8 Other specified anxiety disorders; F17.210 Nicotine dependence, cigarettes, uncomplicated; Z79.899 Other long term (current) drug therapy
CPT/HCPCS: 81003; 96372; 99202; G0463; U0003

== ENCOUNTER 2020-03-11 19:00 | Emergency (ER) | payer MEDICARE, OTHER, MEDICAID, SELFPAY ==
[2020-03-11 19:00] VITALS: BP 114/75; PULSE 102; RESP 16; TEMP 36.7; O2SAT 98; BMI 29.6
[2020-03-11 19:30] VITALS: BP 110/77; PULSE 81; RESP 17; O2SAT 100
[2020-03-11 19:43] LABS: Basophils % 0.4 % (0.1-2.0); Eosinophils # 0.2 K/mm3 (0.0-0.4); Eosinophils % 1.5 % (0.1-12.0); Hematocrit 40.1 % (37.0-47.0); Hemoglobin 13.7 g/dL (12.2-16.2); Lymphocytes # 2.8 K/mm3 (0.7-4.5); Lymphocytes % 26.6 % (10-50); Mean Corpuscular HGB Conc 34.2 g/dL (31.8-35.4); Mean Corpuscular Hemoglobin 30.9 pg (27.0-31.2); Mean Corpuscular Volume 90.3 fl (81-99); Mean Platelet Volume 7.3 fl (7.4-10.4); Monocytes # 0.7 K/mm3 (0.1-1.0); Monocytes % 6.6 % (1.7-9.3); Neutrophils # 6.9 K/mm3 (1.8-7.8); Neutrophils % 64.9 % (37.0-80.0); Platelet Count 240 K/mm3 (142-424); Red Blood Count 4.44 M/mm3 (4.20-5.40); Red Cell Distribution Width 12.6 % (11.5-17.5); White Blood Count 10.7 K/mm3 (4.8-10.8)
[2020-03-11 20:00] VITALS: BP 107/68; PULSE 83; RESP 17; O2SAT 100
[2020-03-11 20:03] LABS: Alanine Aminotransferase 12 U/L (12-78); Albumin Level 4.1 g/dl (3.5-5.0); Albumin/Globulin Ratio 1.4 (1.1-1.8); Alkaline Phosphatase 61 U/L (38-126); Anion Gap 11.4 mEq/L (5-15); Aspartate Amino Transferase 32 U/L (14-36); Bilirubin,Total 0.3 mg/dl (0.2-1.3); Blood Urea Nitrogen 18 mg/dl (7-17); Calcium 9.1 mg/dl (8.4-10.2); Carbon Dioxide 24 mmol/L (22.0-30.0); Chloride 106 mmol/L (98-107); Creatinine Clearance Estimated 172 mL/min (50-200); Estimated Glomerular Filt Rate 116 ml/min (>60); GFR (African American) 140 ML/MIN (>60); Glucose 101 mg/dl (74-100); Potassium 3.4 mmoL/L (3.5-5.1); Sodium 138 mmol/L (136-145); Total Protein,Serum 7.1 g/dl (6.3-8.2)
--- NOTE | 2020-03-11 20:09 | HMH.EDHA ---
ED Disposition Clinical Impression: Headache Qualifiers: Headache type: unspecified Headache chronicity pattern: acute headache Intractability: not intractable Qualified Code(s): R51.9 - Headache, unspecified Disposition: Home, Self-Care Condition on Discharge: Good Instructions: DI for Headache Additional Instructions: call pcp in am Referrals: Kleber Rothman MD [Primary Care Provider] - - Critical Care Critical Care Time: No Attestation: On 03/11/20, the high probability of a clinically significant, sudden or life threatening deterioration of the following system(s) required my full and direct attention, intervention and personal management. The time I documented below is in addition to time spent performing reported procedures but includes the following listed in this critical care notation. Medical Decision Making - Medical Records Medical records reviewed: Yes: I reviewed the patient's medical records. - Juan Luis Inquiry Pt receiving controlled substance: No Vital Signs: 03/11/20 19:00 03/11/20 19:30 03/11/20 20:00 Temperature 98.0 F Temperature Source Oral Pulse Rate [Right] 102 H 81 83 Respiratory Rate 16 17 17 Blood Pressure [Right Arm] 114/75 110/77 107/68 L Blood Pressure Mean [Right Arm] 88 88 81 Blood Pressure Source [Right Arm] Automatic Cuff Automatic Cuff Blood Pressure Position [Right Arm] Supine Supine 02 Sat by Pulse Oximetry 98 100 100 Oxygen Delivery Method Room Air Room Air - Lab Data Lab results reviewed: Yes: I reviewed the patient's lab results. Lab Results 03/11/20 19:15: WBC 10.7, RBC 4.44, Hgb 13.7, Hct 40.1, MCV 90.3, MCH 30.9, MCHC 34.2, RDW 12.6, Plt Count 240, MPV 7.3 L, Neut % (Auto) 64.9, Lymph % (Auto) 26.6, [place] % (Auto) 6.6, Eos % (Auto) 1.5, Baso % (Auto) 0.4, Neut # (Auto) 6.9, Lymph # (Auto) 2.8, [place] # (Auto) 0.7, Eos # (Auto) 0.2, Baso # (Auto) 0.0 03/11/20 19:15: Sodium 138, Potassium 3.4 L, Chloride 106, Carbon Dioxide 24, Anion Gap 11.4, BUN 18 H, Creatinine 0.60, Estimated Creat Clear 172, Estimated GFR 116, Est GFR ( Amer) 140, Glucose 101 H, Calcium 9.1, Total Bilirubin 0.3, AST 32, ALT 12, Alkaline Phosphatase 61, Total Protein 7.1, Albumin 4.1, Globulin 3.0, Albumin/Globulin Ratio 1.4 03/11/20 19:15: ESR 16 03/11/20 19:15: C-Reactive Protein 2.0 Result diagrams: 03/11/20 19:15 03/11/20 19:15 Orders (Tests/Meds): ED MEDICATIONS Generic Name Dose Route Start Last Admin Trade Name Freq PRN Reason Stop Dose Admin Sodium Chloride 1,000 mls @ 999 mls/hr 03/11/20 19:30 03/11/20 19:26 Sod Chlor 0.9% 1000ml Bag IV 03/11/20 20:30 999 mls/hr .Q1H1M MIGUEL A Administration Sodium Chloride 1,000 mls @ 999 mls/hr 03/11/20 20:30 03/11/20 20:22 Sod Chlor 0.9% 1000ml Bag IV 03/11/20 21:30 999 mls/hr .Q1H1M MIGUEL A Administration Sodium Chloride 10 ml 03/11/20 20:46 Sodium Chloride 0.9% 10ml Vial IV 04/10/20 20:45 NEEDED PRN to Dilute Lorazepam inj Discontinued Medications Generic Name Dose Route Start Last Admin Trade Name Freq PRN Reason Stop Dose Admin Diphenhydramine HCl 50 mg 03/11/20 19:17 03/11/20 19:26 Diphenhydramine 50mg/Ml Vial IV 03/11/20 19:18 50 mg ONCE ONE Administration Ketorolac Tromethamine 30 mg 03/11/20 19:17 03/11/20 19:26 Ketorolac 30mg/Ml Vial IV 03/11/20 19:18 30 mg ONCE ONE Administration Lorazepam 0.5 mg 03/11/20 20:46 03/11/20 20:50 Lorazepam 2mg/Ml Vial IV 03/11/20 20:47 0.5 mg ONCE ONE Administration Methylprednisolone Sodium Succinate 125 mg 03/11/20 19:17 03/11/20 19:26 Methylprednisolone Sod Succ 125mg Vial IV 03/11/20 19:18 125 mg ONCE ONE Administration Prochlorperazine Edisylate 10 mg 03/11/20 20:10 03/11/20 20:12 Prochlorperazine 10mg/2ml Vial IV 03/11/20 20:11 10 mg ONCE ONE Administration Promethazine HCl 25 mg 03/11/20 19:17 03/11/20 19:26 Promethazine Hcl 25mg/Ml 1ml Vial IV 03/11/20 19:18 2
[2020-03-11 20:16] LABS: Erythrocyte Sedimentation Rate 16 mm/hr (0-20)
[2020-03-11 21:16] VITALS: BP 125/87; PULSE 80; RESP 14; TEMP 36.8; O2SAT 98
== END 2020-03-11 21:22 | disposition home or self-care (01) ==
PROVIDERS: Emergency Medicine; Emergency Provider Emergency Medicine; PCP Family Medicine
DX: G43.909 Migraine, unspecified, not intractable, without status migrainosus (principal); F41.8 Other specified anxiety disorders; F17.210 Nicotine dependence, cigarettes, uncomplicated; Z79.899 Other long term (current) drug therapy
CPT/HCPCS: 80053; 85025; 85651; 86140; 96366; 96375; 99282

== ENCOUNTER 2020-03-24 16:31 | Emergency (ER) | payer MEDICARE, OTHER, MEDICAID, SELFPAY ==
[2020-03-24 16:34] VITALS: BP 127/80; PULSE 87; RESP 18; TEMP 36.8; O2SAT 98; BMI 25.0
--- NOTE | 2020-03-24 16:59 | HMH.EDGENADL ---
ED Disposition Clinical Impression: Chest wall pain, Pseudoseizure Disposition: Home, Self-Care Condition on Discharge: Good Additional Instructions: Continue your current pain medication and also take ibuprofen for pain. Follow-up with your primary care provider. Referrals: Kleber Rothman MD [Primary Care Provider] - Forms: Work/School Release - Critical Care Critical Care Time: No Attestation: On 03/24/20, the high probability of a clinically significant, sudden or life threatening deterioration of the following system(s) required my full and direct attention, intervention and personal management. The time I documented below is in addition to time spent performing reported procedures but includes the following listed in this critical care notation. Medical Decision Making - Juan Luis Inquiry Pt receiving controlled substance: Yes Juan Luis was queried for this patient: Yes Reference #:: [id number] Risks and benefits of using a controlled substance: were not discussed with pt by me Comment: 26 rxs. last opioid rx 60 norco on 01/17/20 Vital Signs: 03/24/20 16:34 03/24/20 17:14 03/24/20 17:32 Temperature 98.2 F Temperature Source Oral Pulse Rate [Right Radial] 87 73 90 Respiratory Rate 18 Blood Pressure [Right Arm] 127/80 129/84 148/57 H Blood Pressure Mean [Right Arm] 95 99 87 Blood Pressure Source [Right Arm] Automatic Cuff Automatic Cuff Automatic Cuff Blood Pressure Position [Right Arm] Sitting Sitting Sitting 02 Sat by Pulse Oximetry 98 97 97 Oxygen Delivery Method Room Air Room Air Room Air 03/24/20 18:18 Temperature Temperature Source Pulse Rate [Right Radial] 74 Respiratory Rate Blood Pressure [Right Arm] 110/58 L Blood Pressure Mean [Right Arm] 75 Blood Pressure Source [Right Arm] Automatic Cuff Blood Pressure Position [Right Arm] Sitting 02 Sat by Pulse Oximetry 97 Oxygen Delivery Method Room Air - Lab Data Lab Results 03/24/20 17:42: WBC 10.9 H, RBC 4.43, Hgb 13.8, Hct 42.2, MCV 95.4, MCH 31.2, MCHC 32.7, RDW 12.4, Plt Count 250, MPV 7.6, Neut % (Auto) 66.8, Lymph % (Auto) 26.3, Shannon % (Auto) 4.4, Eos % (Auto) 2.1, Baso % (Auto) 0.4, Neut # (Auto) 7.3, Lymph # (Auto) 2.9, Shannon # (Auto) 0.5, Eos # (Auto) 0.2, Baso # (Auto) 0.0 03/24/20 17:42: D-Dimer 0.75 H 03/24/20 17:42: Sodium 139, Potassium 4.0, Chloride 107, Carbon Dioxide 25, Anion Gap 11.0, BUN 14, Creatinine 0.70, Estimated Creat Clear 124, Estimated GFR 97, Est GFR ( Amer) 117, Glucose 106 H, Calcium 9.5, Total Bilirubin 0.3, AST 24, ALT 15, Alkaline Phosphatase 65, Total Protein 7.2, Albumin 4.2, Globulin 3.0, Albumin/Globulin Ratio 1.4, Lipase 61 03/24/20 17:42: Serum HCG, Qual Negative 03/24/20 17:42: Troponin I < 0.01 Result diagrams: 03/24/20 17:42 03/24/20 17:42 Orders (Tests/Meds): ED MEDICATIONS Discontinued Medications Generic Name Dose Route Start Last Admin Trade Name Ariel PRN Reason Stop Dose Admin Iopamidol 70 ml 03/24/20 19:09 03/24/20 19:11 Iopamidol-370 (76%);100ml Bottle IV 03/24/20 19:10 70 ml ONCE ONE Administration Morphine Sulfate 4 mg 03/24/20 17:19 03/24/20 17:50 Morphine 4mg/Ml Syringe IV 03/24/20 17:20 4 mg ONCE ONE Administration Morphine Sulfate 4 mg 03/24/20 19:30 03/24/20 19:31 Morphine 4mg/Ml Syringe IV 03/24/20 19:31 4 mg ONCE ONE Administration Ondansetron HCl 4 mg 03/24/20 17:19 03/24/20 17:50 Ondansetron 4mg/2ml Vial IV 03/24/20 17:20 4 mg ONCE ONE Administration Sodium Chloride 50 ml 03/24/20 19:09 03/24/20 19:11 0.9 % Sodium Chloride 50 Ml Vial IV 03/24/20 19:10 50 ml ONCE ONE Administration Sodium Chloride 10 ml 03/24/20 19:09 03/24/20 19:11 Sodium Chloride 0.9% 10ml Syr (Rad Only) IV 03/24/20 19:10 10 ml ONCE ONE Administration ORDERS Category Date Time Status CT angio chest Stat Cat Scan 03/24/20 18:28 Taken Chest XR 2 view (NOT portable) [XR chest 2V] Stat Exams 03/24/20 17:
[2020-03-24 17:14] VITALS: BP 129/84; PULSE 73; O2SAT 97
--- NOTE | 2020-03-24 17:18 | XR_ITS ---
PROCEDURE: XR CHEST 2V Referring Doctor: Sanjeev Fay Patient Age:34Y CLINICAL HISTORY: right side pain COMPARISON: CR CXR1 CHEST-PORTABLE from 02/15/2015 CR ABDACU ABD ACUTE(MUL VIEWS) from 04/24/2016 CR CXR1VP XR chest portable from 06/03/2017 CR XR CHEST 2V from 11/18/2018 CR XR CHEST 2V from 12/05/2018 FINDINGS: PA and lateral chest performed. The chest appears stable with no significant new findings. The lungs are well expanded and clear The heart is normal in size-cardiomediastinal silhouette and pulmonary vascularity are within normal limits. The lungs are clear without infiltrates, suspicious nodules, or pleural effusions. But stable small density project over the anterior 3rd rib unchanged since April 2016 upright CXR and most compatible with a small old granulomatous density approximate 6 mm size no pneumothorax nor pleural effusion No acute bony abnormalities.. Chest wall in T-spine a satisfactory. There is a stimulator device projected over the posterior aspect of the lower thoracic spinal canal approximately T8-T9 level-this appears to been revised since the November 2018 exam IMPRESSION: No acute findings. The lower lungs clear with nothing acute Dictated by: Phil Brooks MD 03/25/2020 09:12 Phil Brooks MD in [facility] 03/25/2020 09:12
[2020-03-24 17:32] VITALS: BP 148/57; PULSE 90; O2SAT 97
[2020-03-24 18:01] LABS: Basophils % 0.4 % (0.1-2.0); Eosinophils # 0.2 K/mm3 (0.0-0.4); Eosinophils % 2.1 % (0.1-12.0); Hematocrit 42.2 % (37.0-47.0); Hemoglobin 13.8 g/dL (12.2-16.2); Lymphocytes # 2.9 K/mm3 (0.7-4.5); Lymphocytes % 26.3 % (10-50); Mean Corpuscular HGB Conc 32.7 g/dL (31.8-35.4); Mean Corpuscular Hemoglobin 31.2 pg (27.0-31.2); Mean Corpuscular Volume 95.4 fl (81-99); Mean Platelet Volume 7.6 fl (7.4-10.4); Monocytes # 0.5 K/mm3 (0.1-1.0); Monocytes % 4.4 % (1.7-9.3); Neutrophils # 7.3 K/mm3 (1.8-7.8); Neutrophils % 66.8 % (37.0-80.0); Platelet Count 250 K/mm3 (142-424); Red Blood Count 4.43 M/mm3 (4.20-5.40); Red Cell Distribution Width 12.4 % (11.5-17.5); White Blood Count 10.9 K/mm3 (4.8-10.8)
[2020-03-24 18:08] LABS: Chloride 107 mmol/L (98-107); Sodium 139 mmol/L (136-145)
[2020-03-24 18:10] LABS: Blood Urea Nitrogen 14 mg/dl (7-17); Creatinine Clearance Estimated 124 mL/min (50-200); Estimated Glomerular Filt Rate 97 ml/min (>60); GFR (African American) 117 ML/MIN (>60)
[2020-03-24 18:11] LABS: Alanine Aminotransferase 15 U/L (12-78); Albumin Level 4.2 g/dl (3.5-5.0); Albumin/Globulin Ratio 1.4 (1.1-1.8); Alkaline Phosphatase 65 U/L (38-126); Aspartate Amino Transferase 24 U/L (14-36); Bilirubin,Total 0.3 mg/dl (0.2-1.3); Calcium 9.5 mg/dl (8.4-10.2); Carbon Dioxide 25 mmol/L (22.0-30.0); Glucose 106 mg/dl (74-100); Lipase 61 U/L (23-300); Total Protein,Serum 7.2 g/dl (6.3-8.2)
[2020-03-24 18:15] LABS: D-Dimer 0.75 ug/mL (0.0-0.5)
[2020-03-24 18:16] LABS: HCG Qualitative, Serum Negative (Negative)
[2020-03-24 18:18] VITALS: BP 110/58; PULSE 74; O2SAT 97
--- NOTE | 2020-03-24 18:28 | CT_ITS ---
PROCEDURE: CT ANGIO CHEST Referring Doctor: Nya Sanjeev Patient Age:34Y CLINCIAL INDICATION: chest pain, high d-dimer Right-sided chest pain the COMPARISON: CR XR CHEST 2V from 03/24/2020 TECHNIQUE: IV Contrast: Bolus 70ML Isovue 370 followed by 40 mL normal saline Thin-section helical axial images obtained with thick slab MIP volume sagittal and coronal reformats performed by lead cytogenetic technologist on independent workstation, CTA technique. All CT scans at the facility use one or more dose reduction, viz: automated exposure control, ma/kV adjustment per patient size (including targeted exams where dose is matched to indication, i.e. head), or iterative reconstruction technique. FINDINGS: PULMONARY ARTERIES: No pulmonary embolus evident. Excellent enhancement and visualization of pulmonary arteries with no evidence of PE AORTA: No acute finding. No thoracic aortic aneurysm or dissection evident LUNGS: Unremarkable. Well expanded and clear. No mass or consolidation. Airways-there is perhaps borderline thickening of some of the central airways. PLEURAL SPACES: No significant effusion. No evidence of pneumothorax. HEART: Unremarkable. Normal heart size. No significant pericardial effusion. MEDIASTINAL AND HILAR STRUCTURES: No mediastinal or hilar mass evident. No dominant adenopathy minimal residual density anterior mediastinum of from likely regressing thymus BONY STRUCTURES: No acute bony abnormalities apparent. Neurostimulator dorsal column stimulator device is seen at the posterior aspect of thecal sac at lower thoracic spine. LYMPH NODES: No enlarged lymph nodes evident. UPPER ABDOMEN: A prominent solid stool throughout the visualized portions of colon Moderately distended food filled stomach. Generous volume pancreas throughout with no focal mass or inflammatory changes. IMPRESSION: No acute findings no evidence of pulmonary embolism-good quality study Lungs clear no active disease. Dictated by: Phil Brooks MD 03/26/2020 11:22 Phil Brooks MD in [facility] 03/26/2020 11:22
--- NOTE | 2020-03-24 18:32 | ECG_ITS ---
APPROVED REPORT Exam: Resting ECG HR:70 bpm ECG Measurements Heart Rate 70 AXES IN 140 P 50 QRSd 78 QRS 23 QT 394 T 25 QTc 425 Conclusion Normal sinus rhythm Late r wave progression - unchanged from prior Otherwise normal ECG Electronically signed by : Faheem Archuleta, 03/25/2020 06:48:45
[2020-03-24 18:58] LABS: Troponin I < 0.01 ng/ml (0.00-0.034)
[2020-03-24 20:22] VITALS: BP 117/79; PULSE 81; RESP 14; TEMP 36.6; O2SAT 98
== END 2020-03-24 20:26 | disposition home or self-care (01) ==
PROVIDERS: Emergency Provider Emergency Medicine; PCP Family Medicine
DX: F44.5 Conversion disorder with seizures or convulsions (principal); R07.89 Other chest pain; F41.8 Other specified anxiety disorders; G43.709 Chronic migraine without aura, not intractable, without status migrainosus; F17.210 Nicotine dependence, cigarettes, uncomplicated; Z79.899 Other long term (current) drug therapy; Z88.8 Allergy status to other drugs, medicaments and biological substances
CPT/HCPCS: 71046; 71275; 80053; 83690; 84484; 84703; 85025; 85378; 93005; 96375; 96376; 99283; J2405; Q9967

== ENCOUNTER → 2020-03-30 11:13 | Outpatient (CLI) | payer MEDICARE, OTHER, MEDICAID, SELFPAY ==
--- NOTE | 2020-03-30 11:20 | XR_ITS ---
PROCEDURE: XR RIBS RT MIN 3V W CXR1V CLINICAL INDICATION: Unspecified injury of thorax, initial encounter Posttraumatic pain COMPARISON: CR XR CHEST 2V from 11/18/2018 CR XR CHEST 2V from 12/05/2018 CR XR CHEST 2V from 03/24/[address] ANGIO CHEST from 03/24/2020 FINDINGS: A frontal view of the chest shows no acute finding. There is evidence of old granulomatous disease. Multiple views of the right ribs show no obvious fracture. No lytic or blastic change. Consider follow-up in 7-[address] with 3D reformats if pain persists Frontal view of the chest shows no acute finding. There is an epidural stimulator device present in the lower thoracic region. IMPRESSION: No acute findings. Dictated by: Gennaro Bentley MD 03/30/2020 11:43 Gennaro Bentley MD in [facility] 03/30/2020 11:43
== END ==
PROVIDERS: PCP Family Medicine; Visit Provider Family Medicine
DX: S29.9XXA Unspecified injury of thorax, initial encounter (principal)
CPT/HCPCS: 71101

== ENCOUNTER → 2020-04-06 08:31 | Outpatient (CLI) | payer MEDICARE, OTHER, MEDICAID, SELFPAY ==
--- NOTE | 2020-04-06 08:45 | CT_ITS ---
PROCEDURE: CT CHEST WO CON CLINICAL INDICATION: CHEST WALL INJURY Right-sided chest wall pain x1 week, no injury COMPARISON: CT CT ANGIO CHEST from 03/24/2020 TECHNIQUE: Axial images obtained with sagittal and coronal reformats. All CT scans at the facility use one or more dose reduction, viz: automated exposure control, ma/kV adjustment per patient size (including targeted exams where dose is matched to indication, i.e. head), or iterative reconstruction technique. FINDINGS: There has been interval development of a small infiltrate in the right middle lobe with associated atelectasis. There are no suspicious lung nodules or masses. Thyroid gland has an unremarkable unenhanced appearance. Residual thymus tissue is incidentally noted. There is no suspicious thoracic adenopathy. There is no pleural effusion. Aorta and pulmonary arteries are unremarkable at an unremarkable unenhanced appearance. The great vessels have a normal configuration. Limited images of the upper abdomen reveal a nonobstructing 3 millimeter left renal stone. Unenhanced appearance of the upper abdomen is otherwise unremarkable. Spinal stimulator leads are present in the posterior epidural space at the T8 level. IMPRESSION: No right middle lobe infiltrate. 3 millimeter nonobstructing left renal stone. Dictated by: Sharon Iqbal MD 04/06/2020 09:53 Sharon Iqbal MD in [facility] 04/06/2020 09:53
== END ==
PROVIDERS: PCP Family Medicine; Visit Provider Family Medicine
DX: S29.9XXA Unspecified injury of thorax, initial encounter (principal); S20.211A Contusion of right front wall of thorax, initial encounter
CPT/HCPCS: 71250

== ENCOUNTER 2020-05-27 14:06 | Emergency (ER) | payer MEDICARE, OTHER, MEDICAID, SELFPAY ==
[2020-05-27 14:08] VITALS: BP 133/88; PULSE 104; RESP 16; TEMP 36.6; O2SAT 98; BMI 29.9
--- NOTE | 2020-05-27 14:15 | HMH.EDGENADL ---
ED Disposition Clinical Impression: Viral syndrome Disposition: Home, Self-Care Condition on Discharge: Good Referrals: Kleber Rothman MD [Primary Care Provider] - 3 days Time of Disposition: 15:48 - Critical Care Critical Care Time: No Attestation: On , the high probability of a clinically significant, sudden or life threatening deterioration of the following system(s) required my full and direct attention, intervention and personal management. The time I documented below is in addition to time spent performing reported procedures but includes the following listed in this critical care notation. Medical Decision Making - Juan Luis Inquiry Pt receiving controlled substance: No Vital Signs: 05/27/20 14:08 05/27/20 15:00 Temperature 97.8 F Temperature Source Oral Pulse Rate 84 Pulse Rate [Right] 104 H Respiratory Rate 16 Blood Pressure 115/77 Blood Pressure [Right Arm] 133/88 Blood Pressure Mean 87 Blood Pressure Mean [Right Arm] 103 02 Sat by Pulse Oximetry 98 96 - Lab Data Lab results reviewed: Yes: I reviewed the patient's lab results. Lab Results 05/27/20 14:50: WBC 6.5, RBC 4.28, Hgb 12.9, Hct 39.0, MCV 91.0, MCH 30.0, MCHC 33.0, RDW 12.8, Plt Count 214, MPV 7.5, Neut % (Auto) 56.5, Lymph % (Auto) 35.6, [place] % (Auto) 5.7, Eos % (Auto) 1.8, Baso % (Auto) 0.4, Neut # (Auto) 3.7, Lymph # (Auto) 2.3, [place] # (Auto) 0.4, Eos # (Auto) 0.1, Baso # (Auto) 0.0 05/27/20 14:50: Sodium 139, Potassium 4.2, Chloride 111 H, Carbon Dioxide 23, Anion Gap 9.2, BUN 20 H, Creatinine 0.80, Estimated Creat Clear 130, Estimated GFR 83, Est GFR ( Amer) 101, Glucose 102 H, Calcium 9.1, Total Bilirubin 0.3, AST 21, ALT 13, Alkaline Phosphatase 55, Troponin I < 0.01, Total Protein 6.9, Albumin 4.1, Globulin 2.8, Albumin/Globulin Ratio 1.5 Result diagrams: 05/27/20 14:50 05/27/20 14:50 Orders (Tests/Meds): ED MEDICATIONS Discontinued Medications Generic Name Dose Route Start Last Admin Trade Name Jayq PRN Reason Stop Dose Admin Ketorolac Tromethamine 15 mg 05/27/20 15:07 05/27/20 15:16 Ketorolac 30mg/Ml Vial IV 05/27/20 15:08 15 mg ONCE ONE Administration Ondansetron HCl 4 mg 05/27/20 14:24 05/27/20 14:35 Ondansetron 4mg Odt SL 05/27/20 14:25 4 mg ONCE ONE Administration ORDERS Category Date Time Status Troponin I Q3H Lab 05/27/20 17:30 Ordered Troponin I Q3H Lab 05/27/20 20:30 Ordered - Radiology Data #1 Image(s): Chest Image Reviewed: Yes I reviewed the patient's radiology image Preliminary Findings: Normal/NAD No acute finding on chest x-ray and no change as compared to previous study - ECG Data Tracing #1 83 bpm, normal sinus rhythm, no ST elevation or depression, no ectopy, normal intervals. ECG initial impression date: 05/27/20 ECG initial impression time: 14:39 Normal Sinus Rhythm: No Medical Decision Narrative: 34yo F evaluated the emergency department with multiple complaints. Patient is in no acute distress on initial evaluation. Patient received Zofran and Toradol for her symptom management. Her EKG is unremarkable as above. Patient's laboratory studies are benign. Chest x-ray is unchanged from previous study and clear. Reassured the patient and her mother at bedside there is no sign of pneumothorax or hypoinflation. Discussed with the patient her symptoms may be secondary to the fact that she received her second Covid shot on Thursday. Encourage patient stay well-hydrated and follow-up with her PCP in 1 to 2 days. Patient has had no episodes of emesis during her observation in the emergency department. General Adult HPI - General Stated complaint: nausea,lung pain Time Seen by Provider: 05/27/20 14:15 - History of Present Illness HPI narrative: 34yo F with complicated past medical history well-known to the emergency department staff reports the emergency department secondary to rib pain, shortness of breath, one episo
--- NOTE | 2020-05-27 14:16 | XR_ITS ---
PROCEDURE: XR CHEST 2V CLINICAL HISTORY: cough COMPARISON: CR XR CHEST 2V from 12/05/2018 CR XR CHEST 2V from 03/24/2020 CR XR RIBS RT MIN 3V W CXR1V from 03/30/[address] CHEST WO CON from 04/06/2020 FINDINGS: The cardiomediastinal silhouette and pulmonary vascularity are within normal limits. The lungs are clear without infiltrates, suspicious nodules, or pleural effusions. Calcified granuloma is present in the right upper lobe. Epidural stimulator device is present in the mid to lower thoracic region IMPRESSION: No acute findings. Dictated by: Gennaro Bentley MD 05/27/2020 15:30 Gennaro Bentley MD in [facility] 05/27/2020 15:30
[2020-05-27 15:00] VITALS: BP 115/77; PULSE 84; O2SAT 96
[2020-05-27 15:08] LABS: Basophils % 0.4 % (0.1-2.0); Eosinophils # 0.1 K/mm3 (0.0-0.4); Eosinophils % 1.8 % (0.1-12.0); Hemoglobin 12.9 g/dL (12.2-16.2); Lymphocytes # 2.3 K/mm3 (0.7-4.5); Lymphocytes % 35.6 % (10-50); Mean Platelet Volume 7.5 fl (7.4-10.4); Monocytes # 0.4 K/mm3 (0.1-1.0); Monocytes % 5.7 % (1.7-9.3); Neutrophils # 3.7 K/mm3 (1.8-7.8); Neutrophils % 56.5 % (37.0-80.0); Platelet Count 214 K/mm3 (142-424); Red Blood Count 4.28 M/mm3 (4.20-5.40); Red Cell Distribution Width 12.8 % (11.5-17.5); White Blood Count 6.5 K/mm3 (4.8-10.8)
[2020-05-27 15:09] LABS: Chloride 111 mmol/L (98-107); Potassium 4.2 mmoL/L (3.5-5.1); Sodium 139 mmol/L (136-145)
[2020-05-27 15:11] LABS: Blood Urea Nitrogen 20 mg/dl (7-17); Creatinine Clearance Estimated 130 mL/min (50-200); Estimated Glomerular Filt Rate 83 ml/min (>60); GFR (African American) 101 ML/MIN (>60)
[2020-05-27 15:12] LABS: Alanine Aminotransferase 13 U/L (12-78); Albumin Level 4.1 g/dl (3.5-5.0); Albumin/Globulin Ratio 1.5 (1.1-1.8); Alkaline Phosphatase 55 U/L (38-126); Anion Gap 9.2 mEq/L (5-15); Aspartate Amino Transferase 21 U/L (14-36); Bilirubin,Total 0.3 mg/dl (0.2-1.3); Calcium 9.1 mg/dl (8.4-10.2); Carbon Dioxide 23 mmol/L (22.0-30.0); Globulin 2.8 g/dL (1.3-3.2); Glucose 102 mg/dl (74-100); Total Protein,Serum 6.9 g/dl (6.3-8.2)
[2020-05-27 15:31] LABS: Troponin I < 0.01 ng/ml (0.00-0.034)
[2020-05-27 15:51] VITALS: BP 109/76; PULSE 84; RESP 16; TEMP 36.9; O2SAT 97
--- NOTE | 2020-05-28 14:39 | ECG_ITS ---
APPROVED REPORT Exam: Resting ECG HR:83 bpm ECG Measurements Heart Rate 83 AXES MN 128 P 34 QRSd 78 QRS 13 QT 358 T 18 QTc 420 Conclusion Normal sinus rhythm Late r wave progression Abnormal ECG Electronically signed by : Faheem Archuleta, 05/31/2020 14:01:40
== END 2020-05-27 15:53 | disposition home or self-care (01) ==
PROVIDERS: Emergency Provider Family Medicine; PCP Family Medicine
DX: B34.9 Viral infection, unspecified (principal); F41.8 Other specified anxiety disorders; F44.5 Conversion disorder with seizures or convulsions; F17.210 Nicotine dependence, cigarettes, uncomplicated; Z79.899 Other long term (current) drug therapy
CPT/HCPCS: 71046; 80053; 84484; 85025; 93005; 96375; 99283

== ENCOUNTER 2020-05-31 15:00 | Outpatient (RCR) | payer MEDICARE, OTHER, MEDICAID, SELFPAY | END 2020-05-31 15:05 | disposition home or self-care (01) | LOC: PT 15:00 | PROVIDERS: PCP Family Medicine; Visit Provider Family Medicine | DX: R07.89 Other chest pain (principal) | CPT/HCPCS: 97110; 97140; 97163; 97164 ==

== ENCOUNTER 2020-09-27 10:08 | Emergency (ER) | payer MEDICARE, OTHER, MEDICAID, SELFPAY ==
[2020-09-27 10:09] VITALS: BP 142/91; PULSE 103; RESP 18; TEMP 37; O2SAT 98; BMI 29.9
--- NOTE | 2020-09-27 10:46 | HMH.EDUTC ---
[facility] – [place] Disposition Clinical Impression: Scabies Disposition: Home, Self-Care Condition on Discharge: Good Instructions: Scabies, DI for Scabies, Permethrin Topical Additional Instructions: Use cream as prescribed Over the counter benadryl and hydrocortisone cream may help with itching Follow up with your Family Doctor if no improvement or any worsening of symptoms Return if needed Straight to ER if any life threatening symptoms Prescriptions: Permethrin [Elimite 5% cream 60gm tube] 1 applicatio TP ONCE #1 tube Transmission Status: Received by [facility] Referrals: Kleber Rothman MD [Primary Care Provider] - As needed Forms: Work/School Release Medical Decision Making - Juan Luis Inquiry Pt receiving controlled substance: No Juan Luis was queried for this patient: No Vital Signs: 09/27/20 10:09 09/27/20 11:07 Temperature 98.6 F 98.6 F Temperature Source Oral Pulse Rate 103 H Pulse Rate [Left Radial] 103 H Respiratory Rate 18 18 Blood Pressure 142/91 H Blood Pressure [Right Arm] 142/91 H Blood Pressure Mean [Right Arm] 108 Blood Pressure Source [Right Arm] Automatic Cuff Blood Pressure Position [Right Arm] Sitting 02 Sat by Pulse Oximetry 98 Oxygen Delivery Method Room Air Room Air Orders (Tests/Meds): ORDERS Category Date Time Status Covid-19 Nasal PCR ([facility]) Routine Lab 09/27/20 10:15 Received [facility] [place] HPI - General Stated complaint: rash throughout body Time Seen by Provider: 09/27/20 10:47 Mode of Arrival: Ambulatory Source of Information: Patient Limitations: No Limitations Description of Symptoms (Recalled from Triage Doc. by RN): c/o itching, nauseated, welps, blood blisters, toes, legs, hands and head for 2 weeks. congestion, sore throat and cough HEENT Symptoms (Recalled from RN notes): Yes Resp Symptoms (Recalled from RN notes): No Skin Symptoms (Recalled from RN notes): Yes MS Symptoms (Recalled from RN notes): No Functional Status (Recalled from RN notes): na - History of Present Illness Provider Complaint: Patient states that she has had a rash from head to toe and itching in her head, on her belly and on her arms and legs State that she has scratched so much at times it was like blood blisters from the scratching States that she itches worse when she lays down to sleep State that she thought it may have been her detergent but she has changed it all and still having rash so she came in to get checked State that she has also been having stuffy nose and cough and wanted to get tested for COVID - Related Data Home Medications Medication Instructions Recorded Confirmed clonazePAM [Clonazepam] 0.5 mg PO BID PRN 12/19/18 09/27/20 Metoprolol Tartrate 50 mg PO BID 04/12/19 09/27/20 lamoTRIgine [Lamictal] 100 mg PO BID 04/12/19 09/27/20 Hydrocodone/Acetaminophen 1 - 2 tab PO Q6HP PRN 04/13/19 09/27/20 [Hydrocodone-Acetamin 5-325 mg] Trazodone HCl 100 - 300 mg PO HS PRN 04/13/19 09/27/20 Previous Rx's Medication Instructions Recorded Permethrin [Elimite 5% cream 60gm 1 applicatio TP ONCE #1 tube 09/27/20 tube] Allergies Allergy/AdvReac Type Severity Reaction Status Date / Time aripiprazole [From Abilify] Allergy Intermediate Seizure Verified 05/29/18 15:10 - Worker's Comp Is this a Worker's Comp case?: No [facility] History - Hepatitis A Screen Drug use history?: No High risk sexual behaviors?: No History of sexually transmitted infection?: No Currently employed?: No Childcare worker?: No Do you have indoor plumbing?: Yes Do you have electricity?: Yes Attestation statement:: This patient has been screened for Hepatitis A risk factors. I have reviewed the patient's past medical history: Yes Medical History: Reports:: Anxiety, Arrhythmia, Congestive Heart Failure, Depression, Migraine, Seizures Denies:: Cancer, Diabetes Mellitus Type 1, Diabetes Mellitus Type 2, Internal Pacemaker, MRSA Other Medical History: Reports: Other Comment: Bip
[2020-09-27 11:07] VITALS: BP 142/91; PULSE 103; RESP 18; TEMP 37; O2SAT 96
== END 2020-09-27 11:08 | disposition home or self-care (01) ==
PROVIDERS: Emergency Provider Nurse Practitioner; PCP Family Medicine
DX: B86 Scabies (principal); Z20.822 Contact with and (suspected) exposure to COVID-19; F41.8 Other specified anxiety disorders; Z79.899 Other long term (current) drug therapy; F17.210 Nicotine dependence, cigarettes, uncomplicated
CPT/HCPCS: G0463; 99202; U0003

== ENCOUNTER 2020-10-04 14:11 | Emergency (ER) | payer BC, SELFPAY ==
[2020-10-04 15:01] VITALS: BP 00/00; PULSE 0; RESP 0; TEMP -17.7; TEMP 0; O2SAT 0
== END 2020-10-04 15:02 | disposition left against medical advice (07) ==
PROVIDERS: Emergency Provider Nurse Practitioner Family; PCP Family Medicine
DX: Z53.21 Procedure and treatment not carried out due to patient leaving prior to being seen by health care provider (principal)

== ENCOUNTER 2020-10-11 12:13 | Emergency (ER) | payer BC, MEDICARE, MEDICAID, SELFPAY ==
[2020-10-11 13:27] VITALS: BP 137/87; PULSE 92; RESP 18; TEMP 36.8; O2SAT 100; BMI 24.7
--- NOTE | 2020-10-11 13:43 | HMH.EDUTC ---
[facility] [place] Impression: Rash and nonspecific skin eruption Disposition: Home, Self-Care Condition on Discharge: Good Instructions: DI for Rash Additional Instructions: Follow up with Dermatology for further evaluation and treatment of rash Call the office and make appointment Over the counter hydrocortisone cream and Bendadryl may help with itching Follow up with your Family Doctor if needed Referrals: Kleber Rothman MD [Primary Care Provider] - Antwan Nguyen MD [Referring] - (Call office for appointment) Carolina Grajeda MD [Referring] - Medical Decision Making - Juan Luis Inquiry Pt receiving controlled substance: No Juan Luis was queried for this patient: No Vital Signs: 10/11/20 13:27 10/11/20 14:00 Temperature 98.2 F 98.2 F Temperature Source Temporal Artery Scan Oral Pulse Rate 92 H Pulse Rate [Right Brachial] 92 H Respiratory Rate 18 18 Blood Pressure 130/77 Blood Pressure [Right Arm] 137/87 Blood Pressure Mean [Right Arm] 103 Blood Pressure Source [Right Arm] Automatic Cuff 02 Sat by Pulse Oximetry 100 Oxygen Delivery Method Room Air Orders (Tests/Meds): ED MEDICATIONS Discontinued Medications Generic Name Dose Route Start Last Admin Trade Name Freq PRN Reason Stop Dose Admin Methylprednisolone Sodium Succinate 125 mg 10/11/20 13:49 10/11/20 13:57 Methylprednisolone Sod Succ 125mg Vial IM 10/11/20 13:50 125 mg ONCE ONE Administration [facility] - General Stated complaint: itching on arms and legs Time Seen by Provider: 10/11/20 13:43 Mode of Arrival: Ambulatory Source of Information: Patient Limitations: No Limitations Description of Symptoms (Recalled from Triage Doc. by RN): itching on arms and legs HEENT Symptoms (Recalled from RN notes): No Resp Symptoms (Recalled from RN notes): No Skin Symptoms (Recalled from RN notes): Yes MS Symptoms (Recalled from RN notes): No Functional Status (Recalled from RN notes): n/a - History of Present Illness Provider Complaint: Patient state that she has been seen multiple times here and PCP and rash continues to come back and is itchy States that she is here today to see if she can get steriod shot and referral to Dermatology to see what is going on - Related Data Home Medications Medication Instructions Recorded Confirmed clonazePAM [Clonazepam] 0.5 mg PO BID PRN 12/19/18 10/11/20 Metoprolol Tartrate 50 mg PO BID 04/12/19 10/11/20 lamoTRIgine [Lamictal] 100 mg PO BID 04/12/19 10/11/20 Hydrocodone/Acetaminophen 1 - 2 tab PO Q6HP PRN 04/13/19 10/11/20 [Hydrocodone-Acetamin 5-325 mg] Trazodone HCl 100 - 300 mg PO HS PRN 04/13/19 10/11/20 Permethrin [Elimite 5% cream 60gm 1 applicatio TP ONCE 10/11/20 10/11/20 tube] Allergies Allergy/AdvReac Type Severity Reaction Status Date / Time aripiprazole [From Abilify] Allergy Intermediate Seizure Verified 10/11/20 13:25 - Worker's Comp Is this a Worker's Comp case?: No [facility] History - Hepatitis A Screen Drug use history?: No High risk sexual behaviors?: No History of sexually transmitted infection?: No Currently employed?: No Childcare worker?: No Do you have indoor plumbing?: Yes Do you have electricity?: Yes Attestation statement:: This patient has been screened for Hepatitis A risk factors. I have reviewed the patient's past medical history: Yes Medical History: Reports:: Anxiety, Arrhythmia, Congestive Heart Failure, Depression, Migraine, Seizures Denies:: Cancer, Diabetes Mellitus Type 1, Diabetes Mellitus Type 2, Internal Pacemaker, MRSA Other Medical History: Reports: Other Comment: Bipolar disorder, intrathecal lipoma, tethered cord s/p resection, neurogenic bowel and bladder, complex regional pain sydrome, cervical spinal stenosis Laterality Cases: Bilateral: Tonsillectomy Other Surgeries: Yes: Other ( intrathecal lipoma, L4-S1 laminectomy, spinal cord stimulator, ablation). No: Pacemaker Amputation: No Fractures: N
[2020-10-11 14:00] VITALS: BP 130/77; PULSE 92; RESP 18; TEMP 36.8; O2SAT 98
== END 2020-10-11 14:07 | disposition home or self-care (01) ==
PROVIDERS: Emergency Provider Nurse Practitioner; PCP Family Medicine
DX: R21 Rash and other nonspecific skin eruption (principal); F41.8 Other specified anxiety disorders; G40.909 Epilepsy, unspecified, not intractable, without status epilepticus; F31.9 Bipolar disorder, unspecified; F17.210 Nicotine dependence, cigarettes, uncomplicated
CPT/HCPCS: 99202; G0463

== ENCOUNTER 2020-11-22 18:30 | Emergency (ER) | payer BC, MEDICARE, MEDICAID, SELFPAY ==
[2020-11-22 19:33] VITALS: BP 123/84; PULSE 107; RESP 22; TEMP 36.6; O2SAT 100; BMI 29.9
--- NOTE | 2020-11-22 19:38 | HMH.EDUTC ---
[facility] [place] Clinical Impression: Contact dermatitis Qualifiers: Contact dermatitis type: unspecified Contact dermatitis trigger: unspecified trigger Qualified Code(s): L25.9 - Unspecified contact dermatitis, unspecified cause Disposition: Home, Self-Care Condition on Discharge: Good Instructions: DI for Contact Dermatitis, Hydrocortisone Topical Additional Instructions: Use cream as prescribed FOllow up with Dermatology as advised Return if needed Straight to ER If any life threatening symptoms Follow up with Family Doctor if no improvement or any worsening of symptoms Prescriptions: Hydrocortisone [Hydrocortisone 1% Cream 30gm Tube] 1 applicatio TP BID #28.4 gm Transmission Status: Received by [facility] Referrals: Kleber Rothman MD [Primary Care Provider] - As needed Forms: Work/School Release Time of Disposition: 19:47 Medical Decision Making - Juan Luis Inquiry Pt receiving controlled substance: No Juan Luis was queried for this patient: No Vital Signs: 11/22/20 19:33 Temperature 97.9 F Temperature Source Oral Pulse Rate [Right Brachial] 107 H Respiratory Rate 22 Blood Pressure [Right Arm] 123/84 Blood Pressure Mean [Right Arm] 97 Blood Pressure Source [Right Arm] Automatic Cuff Blood Pressure Position [Right Arm] Sitting 02 Sat by Pulse Oximetry 100 Orders (Tests/Meds): ED MEDICATIONS Discontinued Medications Generic Name Dose Route Start Last Admin Trade Name Jayq PRN Reason Stop Dose Admin Methylprednisolone Sodium Succinate 125 mg 11/22/20 19:46 11/22/20 20:05 Methylprednisolone Sod Succ 125mg Vial IM 11/22/20 19:47 125 mg ONCE ONE Administration Medical Decision Narrative: Patient reports no changes since last visit and has taken solu medrol in the past without complications or reactions [facility] [place]PI - General Stated complaint: Rash on stomach Time Seen by Provider: 11/22/20 19:38 Description of Symptoms (Recalled from Triage Doc. by RN): pt c/o rash that extends fom stomach to tops of thighs that has been accuring off and on over the last few months HEENT Symptoms (Recalled from RN notes): No Resp Symptoms (Recalled from RN notes): No Skin Symptoms (Recalled from RN notes): Yes MS Symptoms (Recalled from RN notes): No Functional Status (Recalled from RN notes): wnl - History of Present Illness Provider Complaint: Patient has been breaking out periodically on and off for the last couple of months States that now she is starting to break out again on her abdomen and upper legs States that it is itching and like it has been in the past - Related Data Home Medications Medication Instructions Recorded Confirmed clonazePAM [Clonazepam] 0.5 mg PO BID PRN 12/19/18 10/11/20 Metoprolol Tartrate 50 mg PO BID 04/12/19 10/11/20 lamoTRIgine [Lamictal] 100 mg PO BID 04/12/19 10/11/20 Hydrocodone/Acetaminophen 1 - 2 tab PO Q6HP PRN 04/13/19 10/11/20 [Hydrocodone-Acetamin 5-325 mg] Trazodone HCl 100 - 300 mg PO HS PRN 04/13/19 10/11/20 Permethrin [Elimite 5% cream 60gm 1 applicatio TP ONCE 10/11/20 10/11/20 tube] Previous Rx's Medication Instructions Recorded Hydrocortisone [Hydrocortisone 1% 1 applicatio TP BID #28.4 gm 11/22/20 Cream 30gm Tube] Allergies Allergy/AdvReac Type Severity Reaction Status Date / Time aripiprazole [From Abilify] Allergy Intermediate Seizure Verified 10/11/20 13:25 - Worker's Comp Is this a Worker's Comp case?: No [facility] History - Hepatitis A Screen Drug use history?: No High risk sexual behaviors?: No History of sexually transmitted infection?: No Currently employed?: No Childcare worker?: No Do you have indoor plumbing?: Yes Do you have electricity?: Yes Attestation statement:: This patient has been screened for Hepatitis A risk factors. I have reviewed the patient's past medical history: Yes Medical History: Reports:: Anxiety, Arrhythmia, Congestive Heart Failure, Depression, Migraine, Seizure
[2020-11-22 20:20] VITALS: BP 123/84; PULSE 107; RESP 22; TEMP 36.6; O2SAT 100
== END 2020-11-22 20:24 | disposition home or self-care (01) ==
PROVIDERS: Emergency Provider Nurse Practitioner; PCP Family Medicine
DX: L25.9 Unspecified contact dermatitis, unspecified cause (principal); F17.210 Nicotine dependence, cigarettes, uncomplicated
CPT/HCPCS: 96372; 99202; G0463

== ENCOUNTER → 2020-11-29 11:16 | Outpatient (CLI) | payer BC, SELFPAY | PROVIDERS: PCP Family Medicine; Visit Provider Nurse Practitioner | DX: Z20.822 Contact with and (suspected) exposure to COVID-19 (principal) | CPT/HCPCS: C9803; U0003; U0005 ==

== ENCOUNTER → 2020-12-03 12:33 | Outpatient (CLI) | payer BC, SELFPAY | PROVIDERS: PCP Family Medicine; Visit Provider Nurse Practitioner | DX: Z20.822 Contact with and (suspected) exposure to COVID-19 (principal) | CPT/HCPCS: C9803; U0003; U0005 ==

== ENCOUNTER 2020-12-06 15:58 | Emergency (ER) | payer BC, SELFPAY ==
[2020-12-06 16:21] VITALS: BP 121/81; PULSE 104; RESP 16; TEMP 36.6; O2SAT 98; BMI 29.9
--- NOTE | 2020-12-06 16:44 | HMH.EDUTC ---
[facility] [place]: Ne[place] Disposition: Home, Self-Care Condition on Discharge: Good Instructions: DI for Chronic Pain -- Adult, DI for Chronic Neck Pain, Neck Pain (Alternative Therapy) Additional Instructions: follow up with [place] if symptoms worsen or do not improve return or be seen in ed Referrals: Kleber Rothman MD [Primary Care Provider] - Time of Disposition: 16:48 Medical Decision Making - Juan Luis Inquiry Pt receiving controlled substance: No Vital Signs: 12/06/20 16:21 Temperature 97.9 F Temperature Source Oral Pulse Rate [Left Radial] 104 H Respiratory Rate 16 Blood Pressure [Left Arm] 121/81 Blood Pressure Mean [Left Arm] 94 Blood Pressure Source [Left Arm] Automatic Cuff Blood Pressure Position [Left Arm] Sitting 02 Sat by Pulse Oximetry 98 Oxygen Delivery Method Room Air [facility] [place] - General Chief complaint: [facility] Stated complaint: neck pain Time Seen by Provider: 12/06/20 16:44 Mode of Arrival: Ambulatory Source of Information: Patient Limitations: No Limitations Description of Symptoms (Recalled from Triage Doc. by RN): Pt c/o neck pain HEENT Symptoms (Recalled from RN notes): No Resp Symptoms (Recalled from RN notes): No Skin Symptoms (Recalled from RN notes): No MS Symptoms (Recalled from RN notes): Yes (neck pain) Functional Status (Recalled from RN notes): n/a - History of Present Illness Provider Complaint: 35 yr old female presnets for neck pain. pt states chronic neck pain but over the last 2 days pain has increased. pt states she sees pain mangement [place] and has had injections in the past but none since 2019. pt states she has taken her reg meds and otc meds but nothing helping. - Related Data Home Medications Medication Instructions Recorded Confirmed clonazePAM [Clonazepam] 0.5 mg PO BID PRN 12/19/18 10/11/20 Metoprolol Tartrate 50 mg PO BID 04/12/19 10/11/20 lamoTRIgine [Lamictal] 100 mg PO BID 04/12/19 10/11/20 Hydrocodone/Acetaminophen 1 - 2 tab PO Q6HP PRN 04/13/19 10/11/20 [Hydrocodone-Acetamin 5-325 mg] Trazodone HCl 100 - 300 mg PO HS PRN 04/13/19 10/11/20 Permethrin [Elimite 5% cream 60gm 1 applicatio TP ONCE 10/11/20 10/11/20 tube] Previous Rx's Medication Instructions Recorded Hydrocortisone [Hydrocortisone 1% 1 applicatio TP BID #28.4 gm 11/22/20 Cream 30gm Tube] Allergies Allergy/AdvReac Type Severity Reaction Status Date / Time aripiprazole [From Abilify] Allergy Intermediate Seizure Verified 10/11/20 13:25 - Worker's Comp Is this a Worker's Comp case?: No [facility] History - Hepatitis A Screen Drug use history?: No High risk sexual behaviors?: No History of sexually transmitted infection?: No Currently employed?: No Childcare worker?: No Do you have indoor plumbing?: Yes Do you have electricity?: Yes Attestation statement:: This patient has been screened for Hepatitis A risk factors. I have reviewed the patient's past medical history: Yes Medical History: Reports:: Anxiety, Arrhythmia, Congestive Heart Failure, Depression, Migraine, Seizures Denies:: Cancer, Diabetes Mellitus Type 1, Diabetes Mellitus Type 2, Internal Pacemaker, MRSA Other Medical History: Reports: Other Comment: Bipolar disorder, intrathecal lipoma, tethered cord s/p resection, neurogenic bowel and bladder, complex regional pain sydrome, cervical spinal stenosis Laterality Cases: Bilateral: Tonsillectomy Other Surgeries: Yes: Other ( intrathecal lipoma, L4-S1 laminectomy, spinal cord stimulator, ablation). No: Pacemaker Amputation: No Fractures: No Comment: lipoma removed from spine, spine stimulator removed - Social History Smoking Status: Current every day smoker Tobacco Type: cigarettes # Packs/Day (cigarettes): 1 Alcohol Intake: never Substance Use Type: denies use Occupational Status: employed Housing: house Household Members: family - Psychiatric History Pschychiatric History:: Reports:: Anx
[2020-12-06 16:56] VITALS: BP 121/81; PULSE 104; RESP 16; TEMP 36.6; O2SAT 98
== END 2020-12-06 16:57 | disposition home or self-care (01) ==
PROVIDERS: Emergency Provider Nurse Practitioner Family; PCP Family Medicine
DX: M54.2 Cervicalgia (principal); F41.8 Other specified anxiety disorders; F17.210 Nicotine dependence, cigarettes, uncomplicated
CPT/HCPCS: 96372; 99202; G0463

== ENCOUNTER 2020-12-31 07:58 | Outpatient (RCR) | payer BC, MEDICARE, MEDICAID, SELFPAY | END 2020-12-31 07:59 | disposition home or self-care (01) | LOC: PT 07:58 | PROVIDERS: PCP Family Medicine; Visit Provider Family Medicine | DX: S16.1XXA Strain of muscle, fascia and tendon at neck level, initial encounter (principal) | CPT/HCPCS: 97163 ==

== ENCOUNTER → 2021-01-25 14:50 | Outpatient (CLI) | payer BC, SELFPAY | PROVIDERS: PCP Family Medicine; Visit Provider Nurse Practitioner | DX: Z20.822 Contact with and (suspected) exposure to COVID-19 (principal) | CPT/HCPCS: C9803; U0003; U0005 ==

== ENCOUNTER → 2021-01-31 13:09 | Outpatient (CLI) | payer BC, SELFPAY | PROVIDERS: PCP Family Medicine; Visit Provider Nurse Practitioner | DX: Z20.822 Contact with and (suspected) exposure to COVID-19 (principal) | CPT/HCPCS: C9803; U0003; U0005 ==

== ENCOUNTER 2021-03-22 16:03 | Emergency (ER) | payer BC, SELFPAY ==
[2021-03-22 17:00] VITALS: BP 136/84; PULSE 86; RESP 18; TEMP 37.3; O2SAT 98; BMI 29.9
[2021-03-22 17:11] LABS: UTC Influenza A Antigen Negative (Negative); UTC Influenza B Antigen Negative (Negative)
[2021-03-22 17:18] LABS: Strep Scrn Group A (Rapid) Negative (Negative)
--- NOTE | 2021-03-22 17:20 | HMH.EDUTC ---
[facility] [place] Disposition Clinical Impression: Viral syndrome Pharyngitis Qualifiers: Pharyngitis/tonsillitis etiology: unspecified etiology Qualified Code(s): J02.9 - Acute pharyngitis, unspecified Disposition: Home, Self-Care Condition on Discharge: Good Instructions: Preventing the Spread of Coronavirus Discharge Instructions, DI for COVID-19 (Suspected or Confirmed ) Additional Instructions: Drink plenty of fluids. Take tylenol or ibuprofen for pain or fever. Take the medications as directed. Follow up with your regular doctor. GO TO THE ER FOR ANY WORSENING SYMPTOMS Quarantine until you know the results of your covid-19 test. Notify your school or workplace of your results and follow their instructions regarding return to work/school. The cough medication (promethazine dm) will make you drowsy, so don't drive or operate heavy machinery after taking it. Prescriptions: Promethazine/Dextromethorphan [Promethazine-Dm Syrup] 5 ml PO Q6HP PRN #240 ml PRN Reason: Cough Transmission Status: Pending to [facility] Ondansetron [Zofran 4mg ODT] 4 mg PO Q8HP PRN #20 tab PRN Reason: Nausea Transmission Status: Pending to [facility] guaiFENesin [Mucinex 600mg tablet] 1 - 2 tab PO BIDP PRN #30 tab PRN Reason: Congestion Transmission Status: Pending to [facility] Azithromycin [Z-Sylvester 250mg Tab*] 250 mg PO UD DOSE PK #6 tab Transmission Status: Pending to [facility] Referrals: Kleber Rothman MD [Primary Care Provider] - Forms: Work/School Release Time of Disposition: 17:40 Medical Decision Making - Medical Records Medical records reviewed: No: I reviewed the patient's medical records. - Juan Luis Inquiry Pt receiving controlled substance: No Vital Signs: 03/22/21 17:00 Temperature 99.2 F Temperature Source Oral Pulse Rate [Right Brachial] 86 Respiratory Rate 18 Blood Pressure [Right Arm] 136/84 Blood Pressure Mean [Right Arm] 101 Blood Pressure Source [Right Arm] Automatic Cuff Blood Pressure Position [Right Arm] Sitting 02 Sat by Pulse Oximetry 98 Oxygen Delivery Method Room Air - Lab Data Lab results reviewed: Yes: I reviewed the patient's lab results. Lab Results 03/22/21 16:58: Influenza Type A Ag Negative, Influenza Type B Ag Negative 03/22/21 16:58: Group A Strep Rapid Negative Orders (Tests/Meds): ORDERS Category Date Time Status Covid-19 Nasal PCR ([facility]) Routine Lab 03/22/21 16:50 Received Strep Screen Confirmation Stat Micro 03/22/21 16:58 Received [facility] UTC HPI - General Stated complaint: covid test, sore throat,SOA cough [place]A Time Seen by Provider: 03/22/21 17:21 Mode of Arrival: Ambulatory Source of Information: Patient Limitations: No Limitations Description of Symptoms (Recalled from Triage Doc. by RN): PATIENT C/O CONGESTION, COUGH, SNEEZING, SORE THROAT, AND DRAINAGE X 2 DAYS HEENT Symptoms (Recalled from RN notes): Yes Resp Symptoms (Recalled from RN notes): Yes Skin Symptoms (Recalled from RN notes): No MS Symptoms (Recalled from RN notes): No Functional Status (Recalled from RN notes): WNL - History of Present Illness Provider Complaint: She states that for the past 2 days she has been feeling progressively worse. She c/o sore throat, nonproductive cough, body aches, and low grade fever. She has been vaccinated against covid-19. - Related Data Home Medications Medication Instructions Recorded Confirmed clonazePAM [Clonazepam] 0.5 mg PO BID PRN 12/19/18 03/22/21 Metoprolol Tartrate 50 mg PO BID 04/12/19 03/22/21 Hydrocodone/Acetaminophen 1 - 2 tab PO Q6HP PRN 04/13/19 03/22/21 [Hydrocodone-Acetamin 5-325 mg] Trazodone HCl 100 - 300 mg PO HS PRN 04/13/19 03/22/21 Nitrofurantoin Monohyd/M-Cryst 100 mg PO BID 03/22/21 03/22/21 [Macrobid 100 mg Capsule] Previous Rx's Medication Instructions Recorded Azithromycin [Z-Sylvester 250mg Tab*] 250 mg PO UD DOSE PK #6 tab 03/22/21 Ondansetron [Zofran 4mg O
[2021-03-22 17:42] VITALS: BP 136/84; PULSE 86; RESP 18; TEMP 37.3; O2SAT 98
== END 2021-03-22 17:45 | disposition home or self-care (01) ==
PROVIDERS: Emergency Provider Nurse Practitioner Family; PCP Family Medicine
DX: B34.9 Viral infection, unspecified (principal); U07.1 COVID-19
CPT/HCPCS: 87430; 87804; 99203; C9803; G0463; U0003; U0005

== ENCOUNTER 2021-03-24 13:06 | Emergency (ER) | payer BC, MEDICARE, MEDICAID, SELFPAY ==
[2021-03-24 13:07] VITALS: BP 130/95; PULSE 73; RESP 18; TEMP 36.8; O2SAT 96; BMI 29.9
--- NOTE | 2021-03-24 13:16 | XR_ITS ---
PROCEDURE INFORMATION: Exam: XR Chest Exam date and time: 03/24/2021 1:16 PM Age: 35 years old Clinical indication: Patient HX: Shortness of breath. Covid positive! ; Additional info: Soa/ covid + TECHNIQUE: Imaging protocol: XR of the chest. Views: 1 view. COMPARISON: CR XR CHEST 2V 05/27/2020 2:36 PM FINDINGS: Airway: Patent Lungs: Unremarkable. No consolidation. Pleural spaces: Unremarkable. No pleural effusion. No pneumothorax. Heart/Mediastinum: Unremarkable. No cardiomegaly. Bones/joints: No acute skeletal abnormality or aggressive osseous lesion. IMPRESSION: No acute findings.
--- NOTE | 2021-03-24 13:19 | HMH.EDGENADL ---
ED Disposition Clinical Impression: COVID-19 virus infection Disposition: Home, Self-Care Condition on Discharge: Good Instructions: DI for COVID-19 (Suspected or Confirmed ) Additional Instructions: Rest, drink plenty of fluids. Tylenol or Ibuprofen for fever and/or aches and pains. Monitor your symptoms. IF YOU HAVE AN EMERGENCY WARNING SIGN (INCLUDING WORSENING TROUBLE BREATHING), SEEK EMERGENCY MEDICAL CARE IMMEDIATELY. COVID-19 Isolation: People with COVID-19 should isolate for 5 days. Then if they are asymptomatic (no symptoms) or their symptoms are resolving (without fever for 24 hours), follow that by 5 days of wearing a mask when around others to minimize the risk of infecting people you encounter. If you test positive for COVID-19 and never develop symptoms, day 0 is the day of your positive viral test (based on the date you were tested) and day 1 is the first full day after your positive test. If you develop symptoms after testing positive, your 5-day isolation period must start over. Day 0 is your first day of symptoms. Day 1 is the first full day after your symptoms developed. What to do: Stay in a separate room from other household members, if possible. Use a separate bathroom, if possible. Avoid contact with other members of the household and pets. Don?t share personal household items, like cups, towels, and utensils. Wear a mask when around other people if able. Referrals: Kleber Rothman MD [Primary Care Provider] - - Critical Care Critical Care Time: No Attestation: On 03/24/21, the high probability of a clinically significant, sudden or life threatening deterioration of the following system(s) required my full and direct attention, intervention and personal management. The time I documented below is in addition to time spent performing reported procedures but includes the following listed in this critical care notation. Medical Decision Making - Juan Luis Inquiry Pt receiving controlled substance: No Vital Signs: 03/24/21 13:07 03/24/21 13:46 03/24/21 13:55 Temperature 98.2 F Temperature Source Oral Pulse Rate 71 71 Pulse Rate [Left Radial] 73 Respiratory Rate 18 16 Blood Pressure 139/101 H 140/100 H Blood Pressure [Right Arm] 130/95 H Blood Pressure Mean 116 Blood Pressure Mean [Right Arm] 106 02 Sat by Pulse Oximetry 96 92 L 97 Oxygen Delivery Method Room Air - Lab Data Lab Results 03/24/21 13:40: WBC 5.8, RBC 4.52, Hgb 14.2, Hct 42.9, MCV 95.0, MCH 31.4 H, MCHC 33.0, RDW 12.7, Plt Count 219, MPV 7.9, Neut % (Auto) 51.1, Lymph % (Auto) 37.2, Swisher % (Auto) 7.1, Eos % (Auto) 2.5, Baso % (Auto) 2.0, Neut # (Auto) 3.0, Lymph # (Auto) 2.2, Swisher # (Auto) 0.4, Eos # (Auto) 0.2, Baso # (Auto) 0.1 03/24/21 13:40: Sodium 134 L, Potassium 4.1, Chloride 108 H, Carbon Dioxide 22, Anion Gap 8.1, BUN 12, Creatinine 0.60, Estimated Creat Clear 172, Estimated GFR 115, Est GFR ( Amer) 139, Glucose 101 H, Calcium 8.7, Total Bilirubin 0.3, AST 28, ALT 20, Alkaline Phosphatase 53, Total Protein 7.0, Albumin 4.2, Globulin 2.8, Albumin/Globulin Ratio 1.5 Result diagrams: 03/24/21 13:40 03/24/21 13:40 - Radiology Data #1 Image(s): Chest Image Reviewed: Yes I reviewed the patient's radiology image, Yes I have reviewed radiologist's interpretation Preliminary Findings: Normal/NAD PROCEDURE INFORMATION: Exam: XR Chest Exam date and time: 03/24/2021 1:16 PM Age: 35 years old Clinical indication: Patient HX: Shortness of breath. Covid positive! ; Additional info: Soa/ covid + TECHNIQUE: Imaging protocol: XR of the chest. Views: 1 view. COMPARISON: CR XR CHEST 2V 05/27/2020 2:36 PM FINDINGS: Airway: Patent Lungs: Unremarkable. No consolidation. Pleural spaces: Unremarkable. No pleural effusion. No pneumothorax. Heart/Mediastinum: Unremarkable. No cardiomegaly. Bones/joints: No acute skeletal abnormality or aggressive osseous lesion.
--- NOTE | 2021-03-24 13:23 | ECG_ITS ---
APPROVED REPORT Exam: Resting ECG HR:67 bpm ECG Measurements Heart Rate 67 AXES WA 142 P 39 QRSd 92 QRS -8 QT 382 T 9 QTc 398 Conclusion SINUS RHYTHM POSSIBLE ANTERIOR MYOCARDIAL INFARCTION , PROBABLY OLD [30 ms Q WAVE IN V3/V4, OR R < 0.2 mV IN V4] BORDERLINE ECG UNCONFIRMED REPORT Electronically signed by : Faheem Archuleta MD 03/25/2021 20:36:28
[2021-03-24 13:46] VITALS: BP 139/101; PULSE 71; O2SAT 92
[2021-03-24 13:54] LABS: Chloride 108 mmol/L (98-107)
[2021-03-24 13:55] VITALS: BP 140/100; PULSE 71; RESP 16; O2SAT 97
[2021-03-24 13:55] LABS: Potassium 4.1 mmoL/L (3.5-5.1); Sodium 134 mmol/L (136-145)
[2021-03-24 13:56] LABS: Basophils # 0.1 K/mm3 (0-0.2); Eosinophils # 0.2 K/mm3 (0.0-0.4); Eosinophils % 2.5 % (0.1-12.0); Hematocrit 42.9 % (37.0-47.0); Hemoglobin 14.2 g/dL (12.2-16.2); Lymphocytes # 2.2 K/mm3 (0.7-4.5); Lymphocytes % 37.2 % (10-50); Mean Corpuscular Hemoglobin 31.4 pg (27.0-31.2); Mean Platelet Volume 7.9 fl (7.4-10.4); Monocytes # 0.4 K/mm3 (0.1-1.0); Monocytes % 7.1 % (1.7-9.3); Neutrophils % 51.1 % (37.0-80.0); Platelet Count 219 K/mm3 (142-424); Red Blood Count 4.52 M/mm3 (4.20-5.40); Red Cell Distribution Width 12.7 % (11.5-17.5); White Blood Count 5.8 K/mm3 (4.8-10.8)
[2021-03-24 13:57] LABS: Blood Urea Nitrogen 12 mg/dl (7-17); Creatinine Clearance Estimated 172 mL/min (50-200); Estimated Glomerular Filt Rate 115 ml/min (>60); GFR (African American) 139 ML/MIN (>60)
--- NOTE | 2021-03-24 13:57 | PC.NURSE ---
pt to radiology at this time via wheelchair
[2021-03-24 13:58] LABS: Alanine Aminotransferase 20 U/L (12-78); Albumin Level 4.2 g/dl (3.5-5.0); Albumin/Globulin Ratio 1.5 (1.1-1.8); Alkaline Phosphatase 53 U/L (38-126); Anion Gap 8.1 mEq/L (5-15); Aspartate Amino Transferase 28 U/L (14-36); Bilirubin,Total 0.3 mg/dl (0.2-1.3); Calcium 8.7 mg/dl (8.4-10.2); Carbon Dioxide 22 mmol/L (22.0-30.0); Globulin 2.8 g/dL (1.3-3.2); Glucose 101 mg/dl (74-100)
[2021-03-24 14:54] VITALS: BP 137/89; PULSE 74; RESP 17; TEMP 36.8; O2SAT 97
== END 2021-03-24 14:55 | disposition home or self-care (01) ==
PROVIDERS: Emergency Provider Emergency Medicine; PCP Family Medicine
DX: U07.1 COVID-19 (principal); Z79.899 Other long term (current) drug therapy
CPT/HCPCS: 71045; 80053; 85025; 93005; 99283

== ENCOUNTER 2021-07-18 17:00 | Outpatient (RCR) | payer BC, MEDICARE, MEDICAID, SELFPAY | END 2021-07-18 17:05 | disposition home or self-care (01) | LOC: PT 17:00 | PROVIDERS: Visit Provider Nurse Practitioner Family | DX: M62.838 Other muscle spasm (principal); M54.2 Cervicalgia; M54.12 Radiculopathy, cervical region; G95.9 Disease of spinal cord, unspecified | CPT/HCPCS: 20560; 97110; 97140; 97163; 97164 ==

== ENCOUNTER → 2021-09-03 10:03 | Outpatient (CLI) | payer BC, MEDICARE, MEDICAID, SELFPAY ==
--- NOTE | 2021-09-03 | US_ITS ---
PROCEDURE INFORMATION: Exam: US Right Breast, Complete Exam date and time: 09/03/2021 10:33 AM Age: 36 years old Clinical indication: Right breast pain and focal palpable lump. TECHNIQUE: Imaging protocol: Complete ultrasound of all four quadrants of the Right breast and the retroareolar regions, including ultrasound of the axilla when performed. COMPARISON: No relevant prior studies available. FINDINGS: Breast: Normal dense glandular structures are present. Specifically, in the 10 o'clock region of right breast only dense glandular structures are present. No suspicious solid or cystic mass is present. No benign-appearing solid or cystic mass is present. No architectural distortion or shadowing is present. No axillary adenopathy is present. IMPRESSION: Diagnostic mammogram with spot compression views in the region of palpable concern is recommended in a patient with focal breast symptoms over the age of 30 years No sonographic evidence of malignancy. ASSESSMENT: BI-RADS 0, incomplete, needs additional imaging evaluation
--- NOTE | 2021-09-03 10:05 | US_ITS ---
FINAL REPORT CLINICAL HISTORY: palpable area at xyphoid FINDINGS: US CHEST SOFT TISSUE Limited sonographic images were obtained at a palpable area at the level of the xiphoid. No cyst, mass, or nodule is identified. IMPRESSION: No cyst, mass, or nodule identified at the area of interest. Reviewed, Interpreted and Dictated by David Soliz III, MD Transcribed by Ronnie Duron Authenticated and [facility]
== END ==
PROVIDERS: PCP Family Medicine; Visit Provider Family Medicine
DX: R22.2 Localized swelling, mass and lump, trunk (principal)
CPT/HCPCS: 76604; 76641

== ENCOUNTER → 2021-09-13 13:45 | Outpatient (CLI) | payer BC, MEDICARE, MEDICAID, SELFPAY ==
--- NOTE | 2021-09-13 13:49 | MM_ITS ---
PROCEDURE INFORMATION: Exam: Bilateral Diagnostic Breast Tomosynthesis Exam date and time: 09/13/2021 1:50 PM Age: 36 years old Clinical indication: Right breast pain; palpable abnormality in the right upper inner quadrant. Positive family history of breast cancer: Mother TECHNIQUE: Imaging protocol: Bilateral Diagnostic tomosynthesis and 2D mammography including computer-aided detection (CAD) when performed. Unilateral or bilateral exam. COMPARISON: US BREAST RT COMPLETE 09/03/2021 10:33 AM FINDINGS: Breast composition: The breasts are heterogeneously dense, which may obscure small masses. MAMMOGRAPHY: A skin marker was placed over the palpable abnormality in the right upper inner quadrant. The spot compression views demonstrate normal overlapping fibroglandular structures. There is no stellate mass, architectural distortion or suspicious microcalcifications in either breast to suggest malignancy. No skin thickening or axillary adenopathy. Right breast ultrasound performed 09/03/2021 was reviewed and no suspicious findings were identified. IMPRESSION: Palpable abnormality in the right breast corresponds both mammographically and sonographically to normal fibroglandular structures. There is no mammographic evidence of malignancy. Further evaluation of a palpable abnormality should be based on clinical grounds regardless of radiographic findings or lack thereof. Annual bilateral mammographic screening is recommended to commence at the age of 40 unless otherwise clinically indicated. ASSESSMENT: BI-RADS Category 1: Negative
== END ==
PROVIDERS: PCP Family Medicine; Visit Provider Family Medicine
DX: R92.8 Other abnormal and inconclusive findings on diagnostic imaging of breast (principal); Z80.3 Family history of malignant neoplasm of breast
CPT/HCPCS: 77062; 77066; G0279

== ENCOUNTER → 2021-12-30 10:04 | Outpatient (POV) | payer BC, SELFPAY | PROVIDERS: PCP Family Medicine; Visit Provider Nurse Practitioner Family | DX: M51.16 Intervertebral disc disorders with radiculopathy, lumbar region (principal); M47.26 Other spondylosis with radiculopathy, lumbar region; M47.812 Spondylosis without myelopathy or radiculopathy, cervical region; G89.29 Other chronic pain | CPT/HCPCS: 99202; G0463 ==

== ENCOUNTER 2022-01-07 16:00 | Outpatient (RCR) | payer BC, SELFPAY ==
[2021-12-30 11:05] VITALS: BP 125/89; PULSE 93; RESP 20; O2SAT 96; BMI 36.1
--- NOTE | 2021-12-30 13:10 | EXP.PAIN.OV ---
HPI Data of Consult Patient: new to practice Consult date: 12/30/21 Requesting Physician: Referral Provider, Primary Care Provider: Kleber Rothman MD Consult Narrative Reason for consult: Back pain, bilateral lower extremity pain History of present illness: Ms. Harry is a 36 year old female who presents today as a new patient. She is a referral from Dr. Rothman's office. Patient rates her pain today a 7 out of 10. She states her pain is all along her back with radiating symptoms into her lower extremities. Patient states this is a aching, throbbing sensation that is worse with increased activity. She does states she has numbness and tingling in her bilateral lower extremities. Patient is currently managed at pain management and has an [employer] spinal cord stimulator in place however she presents today for pain pump trial evaluation. Patient states she was just reprogrammed by [employer] in October and this does provide some improvement of her symptoms however she continues to experience significant pain that affects her activities of daily living and ability to function. Patient states she did previously have another stimulator in place however the lead was broken and had to be replaced in 2019. Patient states she is unable to work due to her pain. 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 Patient would like to get back to work and states she has done some injections in the past that have helped a little however have not provided significant long-term relief. Patient states her current pain management facility will not do a pain pump. 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 Patient previously had been very active with golf, soccer, basketball. Patient was sent to [facility] for recovery following this surgery. Patient does continue to have to self cath and take medication daily for her bowels due to the previous tumor. Patient does go yearly to for scans. Patient did have a cervical spine fusion in April 2021. Patient states she continues to have limited range of motion due to her surgery and pain. Patient states she was previously given Lyrica however it caused significant swelling and edema and possible issues with CHF. Patient is currently managed with Neurontin 800 mg 3 times a day. Patient denies any side effects from this medication. Patient does state this medication does help take the edge off her pain however she deals with constant pain. Patient previously had to use a wheelchair due to her inability to walk with the pain however today she is using a cane for ambulation. Patient currently is seeing physical therapy however this only provides minimal improvement patient is also been prescribed Percocet 7.5 mg twice a day and compounding cream from an outside provider. Patient was also prescribed Sachse 7.5 mg in the past. Her Juan Luis is [phone]. It has been reviewed and appropriate. CC: Referral Provider, [facility] Medical History (Updated 12/30/21 @ 13:27 by Eva Lepe APRN) Anxiety Arrhythmia Bipolar 1 disorder CHF (congestive heart failure) Chronic pain Depression Migraines Seizures Spinal cord stimulator status Surgical History (Updated 12/30/21 @ 11:11 by Piedad Cristina RN) H/O neck surgery Previous back surgery Social History (Updated 12/30/21 @ 11:12 by Piedad Cristina RN) Smoking Status: Current every day smoker tobacco type: cigarettes packs per day: 1 second hand exposure: Yes alcohol intake: never substance use type: denies use current occupational status: employed and unemployed Travel in the last 8 weeks: None household members: family housing: house current occupational exp
== END 2022-01-07 16:05 | disposition home or self-care (01) ==
LOC: PT 16:00
PROVIDERS: PCP Family Medicine
DX: M54.50 Low back pain, unspecified (principal)
CPT/HCPCS: 97010; 97110; 97140; 97163; 97164; 97530; 99202; G0463

== ENCOUNTER 2022-02-21 10:00 | Day surgery (SDC) | payer BC, MEDICARE, MEDICAID, SELFPAY ==
[2022-02-21] VITALS (7 sets, daily range): BP systolic 115–142; BP diastolic 80–91; PULSE 70–84; RESP 18; TEMP 36.3; O2SAT 98–100; BMI 36.6
--- NOTE | 2022-02-21 13:26 | EXP.PAIN.PRO ---
Procedure Date: 02/21/22 Time: 13:26 Anesthesiologist:: Mainor Bradshaw MD Complications:: None Pre-procedure Diagnosis:: Postlaminectomy syndrome lumbar spine with lumbar radiculopathy symptoms Post-procedure Diagnosis:: Same Indications for Procedure:: This patient is a pleasant 36-year-old white female who had previous surgery by Dr. Barry. She has history of spina bifida with previous cauda equina syndrome after surgery. She has increasing back pain with lumbar radicular symptoms. She does have a spinal cord stimulator in place. However she still has significant pain. At this point due to her pain symptoms in her back and down her legs it is affecting her function. She is unable to work with this increased pain for symptoms. She has a successful psychological evaluation. She presents for intrathecal pump trial today. Procedure Details:: Pain pump trial Informed consent was obtained and the risk and benefits of the procedure was explained to the patient. The patient was taken to the procedure room and placed prone on the procedure table. Patient was prepped and draped in sterile fashion. C-arm fluoroscopy was used to view the lumbar spine. The skin and subcutaneous tissues were anesthetized using lidocaine. I placed a 18-gauge spinal needle into the L4-5 interspace and advanced until clear CSF was obtained. After this intrathecal catheter was inserted and advanced very easily to the L1 vertebral body. The needle was withdrawn. We were able to freely withdraw clear CSF through the catheter. We then injected intrathecal fentanyl single shot bolus of 25 mcg followed by saline and followed by the previous CSF that was withdrawn. The needle and catheter were then removed and a Band-Aid was placed. Patient tolerated the procedure well with no complications. We reevaluated the patient after 30 minutes to 1 hour. She was also reassessed by physical therapy. Patient had 90 to 100% relief in pain symptoms. She was much more functional. She is walking better and standing longer. This was by all indications of a successful intrathecal pump trial. Patient was discharged home neurologically intact with good relief of pain symptoms. Plan and Disposition:: We will follow-up with this patient in 2 weeks. Will reevaluate symptoms at that time. This seemed to be a successful intrathecal pump trial. We will plan on permanent implant hopefully on March 07. We will plan on implanting her with intrathecal morphine 1 mg/mL to start at 0.1 mg/day. Catheter tip will be the T8 vertebral body. She can remain off of work until she is implanted and recovered 4 weeks after. Given her current pain symptoms is significantly affecting activities of daily living and function patient is unable to work given her current state. Hopefully she will be able to go back to work by middle of March. We will also plan on taking over her gabapentin from Dr. Lima. We will renew gabapentin 800 mg 3 times a day. Juan Luis injection all appropriate.
== END 2022-02-21 13:25 | disposition home or self-care (01) ==
PROVIDERS: PCP Family Medicine; Visit Provider Anesthesiology
DX: M51.16 Intervertebral disc disorders with radiculopathy, lumbar region (principal)
CPT/HCPCS: 62323

== ENCOUNTER → 2022-03-27 10:28 | Outpatient (CLI) | payer MEDICARE, MEDICAID, SELFPAY ==
[2022-03-27 12:12] LABS: Basophils # 0.1 K/mm3 (0-0.2); Basophils % 0.9 % (0.1-2.0); Eosinophils # 0.2 K/mm3 (0.0-0.4); Eosinophils % 2.1 % (0.1-12.0); Hemoglobin 13.3 g/dL (12.2-16.2); Lymphocytes # 2.3 K/mm3 (0.7-4.5); Lymphocytes % 28.7 % (10-50); Mean Corpuscular Hemoglobin 31.6 pg (27.0-31.2); Mean Corpuscular Volume 92.8 fl (81-99); Mean Platelet Volume 7.8 fl (7.4-10.4); Monocytes # 0.5 K/mm3 (0.1-1.0); Monocytes % 5.9 % (1.7-9.3); Neutrophils % 62.4 % (37.0-80.0); Platelet Count 296 K/mm3 (142-424); Red Blood Count 4.21 M/mm3 (4.20-5.40)
[2022-03-27 12:13] LABS: Amphetamine/Metha Screen,Urine Negative ng/ml (<1000); Barbiturates Screen,Urine Negative ng/ml (<200); Benzodiazepines Screen,Urine Negative ng/ml (<200); Cannabinoid Screen,Urine Negative ng/ml (<50); Cocaine Screen,Urine Negative ng/ml (<300); Methadone Screen,Urine Negative ng/ml (<300); Opiate Screen,Urine Negative ng/ml (<300); Phencyclidine Screen,Urine Negative ng/ml (<25)
[2022-03-27 12:48] LABS: Blood Urea Nitrogen 19 mg/dl (7-17); Calcium 8.9 mg/dl (8.4-10.2); Carbon Dioxide 22 mmol/L (22.0-30.0); Chloride 108 mmol/L (98-107); Creatinine Clearance Estimated 119 mL/min (50-200); Estimated Glomerular Filt Rate 114 ml/min (>60); GFR (African American) 138 ML/MIN (>60); Glucose 96 mg/dl (74-100); Sodium 139 mmol/L (136-145)
== END ==
PROVIDERS: PCP Family Medicine; Visit Provider Anesthesiology
DX: Z01.812 Encounter for preprocedural laboratory examination (principal); M51.36 Other intervertebral disc degeneration, lumbar region
CPT/HCPCS: 36415; 80048; 80305; 85025

== ENCOUNTER 2022-03-28 08:03 | Day surgery (SDC) | payer BC, MEDICARE, MEDICAID, SELFPAY ==
[2022-03-25 13:30] VITALS: BMI 53.2
[2022-03-28] VITALS (7 sets, daily range): BP systolic 118–140; BP diastolic 74–94; PULSE 72–83; RESP 16–18; TEMP 36.7–43; O2SAT 97–100
[2022-03-28 08:42] LABS: Urine Pregnancy, HCG Qual. Negative (Negative)
--- NOTE | 2022-03-28 08:50 | EXP.ANES.CKL ---
[facility] Disclaimer: The information contained in this section may have been updated after the patient was seen, as this information can be updated by other users. Medical History Anxiety Arrhythmia Bipolar 1 disorder CHF (congestive heart failure) Chronic pain Depression Emphysema/COPD History of urinary incontinence History of urinary self-catheterization Hypertension Migraines Seizures Sleep apnea Spinal cord stimulator status SVT (supraventricular tachycardia) Surgical History H/O neck surgery Previous back surgery Family History Other Family history of COPD (chronic obstructive pulmonary disease) Family history of cancer Family history of diabetes mellitus type II Family history of hypertension Family history of myocardial infarction No significant family history Social History Smoking Status: Current every day smoker tobacco type: cigarettes packs per day: 1 second hand exposure: Yes alcohol intake: never substance use type: denies use current occupational status: unemployed Travel in the last 8 weeks: None household members: family housing: house current occupational exposures/hazards: No caffeine: Yes [facility] Anesthesia Checklist Patient Identification Patient Identification: Verbal (Name & ) Structural Data Admitted From: Home Planned Operative Procedure/s: pain pump insertion Consent for Planned Operative Procedure(s) Verified: Yes Additional verifications Anesthesia Reactions: No Hx Blood Transfusions: No Airway Assessment C-Spine Mobility Assessed: Yes TMJ Mobility Assessed: Yes Dentition: Good Dentition Neurological Assessment Level of Consciousness: Awake, Alert and Appropriate Anesthesia Plan Anesthesia Risk discussed: Yes Anesthesia Plan: Verified ASA Class: II Anesthesia Type: MAC
--- NOTE | 2022-03-28 09:52 | EXP.ANES.CKL ---
[facility] Disclaimer: The information contained in this section may have been updated after the patient was seen, as this information can be updated by other users. Medical History Anxiety Arrhythmia Bipolar 1 disorder CHF (congestive heart failure) Chronic pain Depression Emphysema/COPD History of urinary incontinence History of urinary self-catheterization Hypertension Migraines Seizures Sleep apnea Spinal cord stimulator status SVT (supraventricular tachycardia) Surgical History H/O neck surgery Previous back surgery Family History Other Family history of COPD (chronic obstructive pulmonary disease) Family history of cancer Family history of diabetes mellitus type II Family history of hypertension Family history of myocardial infarction No significant family history Social History Smoking Status: Current every day smoker tobacco type: cigarettes packs per day: 1 second hand exposure: Yes alcohol intake: never substance use type: denies use current occupational status: unemployed Travel in the last 8 weeks: None household members: family housing: house current occupational exposures/hazards: No caffeine: Yes [facility] Anesthesia Checklist Patient Identification Patient Identification: Verbal (Name & ) Structural Data Admitted From: Home Planned Operative Procedure/s: pain pump insertion Consent for Planned Operative Procedure(s) Verified: Yes Additional verifications Anesthesia Reactions: No Hx Blood Transfusions: No Airway Assessment C-Spine Mobility Assessed: Yes TMJ Mobility Assessed: Yes Dentition: Good Dentition Neurological Assessment Level of Consciousness: Awake, Alert and Appropriate Anesthesia Plan Anesthesia Risk discussed: Yes Anesthesia Plan: Verified ASA Class: II Anesthesia Type: MAC
--- NOTE | 2022-03-28 13:11 | EXP.OP.NOTE ---
Date of procedure: 03/28/22 Pre-op Diagnosis:: Postlaminectomy syndrome lumbar spine with lumbar radiculopathy symptoms Post-op Diagnosis:: Same Procedure performed:: Intrathecal pump implant with catheter and tunneling and pain pump battery implant Surgeon:: Mainor Bradshaw MD Anesthesia: MAC Estimated blood loss (mL): 5 Clinical Note:: This patient is a pleasant 36-year-old white female who had previous surgery by Dr. Barry. She does have a history of spina bifida with previous cauda equina syndrome after surgery. She has increasing back pain with lumbar radicular symptoms. She does have a spinal cord stimulator in place. She does have significant axial low back pain. Pain symptoms in her back and down her legs affect her function. She did very well with her intrathecal pump trial. She also does have a successful psychological evaluation. She presents for permanent placement of her intrathecal pain pump today. Operative findings:: None Operative note:: Informed consent was obtained and the risk and benefits of the procedure were explained to the patient. The patient was taken the operating room placed prone on the procedure table. The patient was prepped and draped in sterile fashion. C-arm fluoroscopy was used to view the right flank. An incision was made between the 12th rib and the iliac crest. A pocket was created for the pump. Ray-Maria Esther's were placed in the pocket for hemostasis. C-arm fluoroscopy was then used to view the lumbar spine. The skin and subcutaneous tissues adjacent to the L4-5 and L5-S1 interspace were Using lidocaine. An incision was made. We dissected down to the lumbar paraspinous fascia. A 17-gauge spinal needle was inserted and advanced into the L5-S1 interspace until clear CSF was obtained. After this intrathecal catheter was inserted and advanced very easily to the T8 vertebral body. Catheter placement was posterior based on lateral view. The stylette of the catheter and the needle withdrawn. The catheter was secured to the fascia with an anchoring vice and 2-0 Prolene. I feel the pump was 20 mils of intrathecal bupivacaine 5 mg per ml. I tunneled catheter from the back to the pump pocket and attached catheter to the pump. The Ray-Maria Esther's were removed from the pocket. We were able to freely withdraw clear fluid from the sideport again. Both incisions were irrigated with antibiotic solution. Both incisions were then closed with 2-0 Vicryl followed by 4-0 nylon and christa. A wound VAC was placed over both incisions. The patient was placed in an abdominal binder and taken recovery in stable condition. Pump was interrogated and started 2.5 mg/day of intrathecal bupivacaine. Patient was discharged home neurologically intact with good relief of pain symptoms. Plan and disposition: We will follow-up with this patient in 1 week for wound check and reprogramming if needed. We will follow-up in 2 to 3 weeks for suture and staple. If patient has any problems or questions they are to call us back in the pain clinic. Condition: stable Disposition: PACU Complications:: None
== END 2022-03-28 11:40 | disposition home or self-care (01) ==
PROVIDERS: PCP Family Medicine; Visit Provider Anesthesiology
DX: M96.1 Postlaminectomy syndrome, not elsewhere classified; M54.16 Radiculopathy, lumbar region; F17.210 Nicotine dependence, cigarettes, uncomplicated; Z79.899 Other long term (current) drug therapy
CPT/HCPCS: 62350; 62362; 36415; 80048; 80305; 81025; 85025; 96374; C1755; C1772; J3370

== ENCOUNTER → 2022-04-04 11:00 | Outpatient (POV) | payer BC, MEDICARE, MEDICAID, SELFPAY ==
[2022-04-04 12:36] VITALS: BP 147/99; PULSE 108; RESP 20; O2SAT 97; BMI 37.4
--- NOTE | 2022-04-04 12:38 | EXP.PAIN.SOA ---
[facility] Pain Management SOAP Note Subjective:: This patient is a very pleasant 36-year-old female that comes our clinic today for follow-up visit after receiving intrathecal pain pump implant on 03/28/2022. Patient has a history of spina bifida and previous cauda equina syndrome following surgery. Also, degenerative disc multiple levels lumbar spine. Patient currently being managed with morphine sulfate 1 mg/mL at 0.1 mg/day. Patient states today overall she is 75% better than prior to the intrathecal pain pump placement. However, she does have a complaint today of intermittent bilateral lower leg radiculopathy symptoms. Minimal to no lumbar back pain. Patient states 4 out of the last 7 days she has been up, dressed, outdoors and active with minimal pain. Other than the bilateral leg radicular symptoms. Patient and her mother today are requesting an increase in the intrathecal pain pump rate. Also, we will set her up with PTM ability. Patient's incisions are clean and dry. No sign of infection. Objective:: Patient is awake alert [place] x3. In no acute distress. Flexion-extension lumbar spine somewhat guarded secondary to pain. Deep tendon reflexes upper lower extremities normal. Motor strength upper and lower extremities normal. There is no gross sensory deficit. Gait is normal Assessment:: Degenerative disc disease lumbar spine multilevels. Lumbar radiculopathy. Lumbar postlaminectomy syndrome Plan:: Discussed in detail treatment options with the patient and her mother. They are requesting an increase in the intrathecal pain pump rate. Also, implementing PTM doses. I think this will be reasonable. Her new intrathecal pain pump rate will be 0.11 mg/day. Her PTM rate will be 0.01 mg 4 times daily. Patient continues taking gabapentin 800 mg 1 p.o. 3 times daily. Her Juan Luis #[id number] is been reviewed and appropriate. Her UDS is been appropriate in the past patient will return to the clinic in 2 weeks for staple/suture removal. [facility] Disclaimer: The information contained in this section may have been updated after the patient was seen, as this information can be updated by other users. Medical History Anxiety Arrhythmia Bipolar 1 disorder CHF (congestive heart failure) Chronic pain Depression Emphysema/COPD History of urinary incontinence History of urinary self-catheterization Hypertension Migraines Seizures Sleep apnea Spinal cord stimulator status SVT (supraventricular tachycardia) Surgical History H/O neck surgery Previous back surgery Family History Other Family history of COPD (chronic obstructive pulmonary disease) Family history of cancer Family history of diabetes mellitus type II Family history of hypertension Family history of myocardial infarction No significant family history Social History Smoking Status: Current every day smoker tobacco type: cigarettes packs per day: 1 second hand exposure: Yes alcohol intake: never substance use type: denies use current occupational status: unemployed Travel in the last 8 weeks: None household members: family housing: house current occupational exposures/hazards: No caffeine: Yes
== END ==
PROVIDERS: PCP Family Medicine; Visit Provider Nurse Anesthetist, Certified Registered
DX: Z45.1 Encounter for adjustment and management of infusion pump (principal); M51.16 Intervertebral disc disorders with radiculopathy, lumbar region; M96.1 Postlaminectomy syndrome, not elsewhere classified; F17.210 Nicotine dependence, cigarettes, uncomplicated; Z79.899 Other long term (current) drug therapy
CPT/HCPCS: 62368; 99213; G0463

== ENCOUNTER → 2022-04-21 14:10 | Outpatient (POV) | payer BC, MEDICARE, MEDICAID, SELFPAY ==
--- NOTE | 2022-04-21 14:40 | EXP.PAIN.PRO ---
Procedure Date: 04/21/22 Time: 14:40 Anesthesiologist:: Eva Lepe APRN Complications:: None Pre-procedure Diagnosis:: Degenerative disc disease of lumbar spine with lumbar radiculopathy symptoms, postlaminectomy syndrome Post-procedure Diagnosis:: Same Indications for Procedure:: Patient is a pleasant 36-year-old female who presents today for follow-up of intrathecal pain pump implant on 03/28/2022. We are currently treating the patient for degenerative disc disease of lumbar spine multilevels with lumbar radiculopathy symptoms, postlaminectomy syndrome. Today she rates her pain a 5 out of 10. Patient denies any new trauma or injury following her procedure. Patient denies any change to location or type of pain she experiences. She does state that she has some incisional pain as well as some pain around her midline scar from her previous surgery. Patient does have a history of spina bifida and cauda equina syndrome in her past following surgeries. She is currently managed with intrathecal morphine 1 mg/mL with a daily dose of 0.11 mg/day. Patient denies any side effects from this medication. She is also managed with gabapentin 800 mg 3 times a day. Patient denies any side effects from this medication. She is requesting a refill at today's visit. Her Juan Luis is [id number]. Its been reviewed and appropriate. Physical exam General: Alert and oriented x3, no acute distress, pleasant and cooperative Lungs: Respirations even and unlabored, symmetrical chest expansion Eyes: PERRL Musculoskeletal: Flexion and extension of lumbar [spine] somewhat guarded secondary to pain, [antalgic gait noted] Neurological: Speech clear, no gross sensory deficit Procedure Details:: Informed consent was obtained and the risk and benefits of the procedure were explained to the patient. Patient was taken to the procedure room where noninvasive monitoring was placed including noninvasive blood pressure cuff and pulse oximeter. Patient's pump was interrogated and was reprogrammed to morphine 0.1 to 1 mg/day. The patient tolerated the procedure well with no complications. Plan and Disposition:: I will refill the patient's gabapentin 800 mg 3 times a day and provide a 1 month supply of this medication. I have counseled the patient continue her postop restrictions including minimal bending, lifting, twisting no submerging in water and to continue wearing her abdominal binder. Patient's incision site was clean, dry, well approximated with minimal erythema. Her christa were all removed during today's visit except for 2 at her midline incision. Sutures will be removed at her next appointment next week if indicated. Patient will return to clinic in 1 week for reevaluation of symptoms and plan of care. Patient has been instructed to contact the clinic with any concerns before the next appointment. Dr. Bradshaw has reviewed this note and agrees with this plan of care. This note was dictated using voice recognition software and make contain errors or omissions. -- It Is medically necessary for this patient to continue to have their intrathecal pump refilled at regular intervals. This patient had an intrathecal pain pump implanted after meeting criteria of chronic intractable pain for greater than 3 months and failing conservative treatments. Patient has committed and been compliant to the treatment plan and all planned follow up care. Since implantation of the intrathecal pain pump, the patient has had decreased pain and been more functional. Oral medications have been reduced including intake of oral opioids. Patient continues to do well with intrathecal therapy with decrease in pain symptoms and increase in functional status. Stopping intrathecal medications can lead to life threatening withdrawal, seizures, cardiac arrest, severe pain, and possible . Pumps that are not refilled at regular intervals can be damages and cause and need for replacement. We continually ti
[2022-04-21 15:41] VITALS: BP 155/98; PULSE 112; RESP 20; O2SAT 97; BMI 37.4
== END | disposition home or self-care (01) ==
PROVIDERS: PCP Family Medicine; Visit Provider Nurse Practitioner Family
DX: Z45.1 Encounter for adjustment and management of infusion pump (principal); M51.16 Intervertebral disc disorders with radiculopathy, lumbar region; M96.1 Postlaminectomy syndrome, not elsewhere classified
CPT/HCPCS: 62368; 99213; G0463

== ENCOUNTER → 2022-04-28 14:19 | Outpatient (POV) | payer BC, SELFPAY ==
--- NOTE | 2022-04-28 15:22 | EXP.PAIN.PRO ---
Procedure Date: 04/28/22 Time: 14:30 Anesthesiologist:: Eva Lepe APRN Complications:: None Pre-procedure Diagnosis:: Degenerative disc disease of lumbar spine multilevels with lumbar radiculopathy symptoms, postlaminectomy syndrome Post-procedure Diagnosis:: Same Indications for Procedure:: Patient is a pleasant 36-year-old female who presents today for intrathecal reprogramming adjustment.? We are currently treating the patient for degenerative disc disease of lumbar spine multilevels with lumbar radiculopathy symptoms, postlaminectomy syndrome.? Today she rates her pain a 6 out of 10.? Patient denies any new trauma or injury following her procedure.? Patient denies any change to location or type of pain she experiences.? Patient did have her intrathecal pain pump placed 03/28/2022. Patient denies any problems following this procedure. She does state that she has increased her activity over the last week and is having some additional pain in her low back and legs. She does states she is continuing to wear her back brace and abdominal binder. Patient does have a history of spina bifida and cauda equina syndrome in her past following surgeries.? She is currently managed with intrathecal morphine 1 mg/mL with a daily dose of 0.121 mg/day.? Patient denies any side effects from this medication.? She is also managed with gabapentin 800 mg 3 times a day.? Patient denies any side effects from this medication.? Her Juan Luis is [id number].? Its been reviewed and appropriate. Physical Exam: General: Alert and oriented x3, no acute distress, pleasant and cooperative Lungs: Respirations even and unlabored, symmetrical chest expansion Eyes: PERRL Musculoskeletal: Flexion and extension of lumbar [spine] somewhat guarded secondary to pain, [antalgic gait noted] Neurological: Speech clear, no gross sensory deficit Skin: Incision sites clean, dry, well approximated with minimal erythema and christa intact Procedure Details:: Informed consent was obtained and the risk and benefits of the procedure were explained to the patient. Patient was taken to the procedure room where noninvasive monitoring was placed including noninvasive blood pressure cuff and pulse oximeter. Patient's pump was interrogated and was reprogrammed to morphine 0.1329 mg/day. The patient tolerated the procedure well with no complications. Plan and Disposition:: Patient was given a 10% increase during today's visit for her increased pain in her low back and legs. She did have the remainder of her christa removed at today's visit with Steri-Strips applied. I have counseled the patient to continue her postop restrictions with minimal bending, lifting and twisting and no submerging in water until her incision is fully healed. I have counseled the patient that she can discontinue her back brace if she is not getting additional improvement with this device however did continue to use her abdominal binder to minimize seroma formation. Patient will return to clinic in 2 weeks for reevaluation of symptoms and plan of care. Patient has been instructed to contact the clinic with any concerns before the next appointment. Dr. Bradshaw has reviewed this note and agrees with this plan of care. This note was dictated using voice recognition software and make contain errors or omissions. -- It Is medically necessary for this patient to continue to have their intrathecal pump refilled at regular intervals. This patient had an intrathecal pain pump implanted after meeting criteria of chronic intractable pain for greater than 3 months and failing conservative treatments. Patient has committed and been compliant to the treatment plan and all planned follow up care. Since implantation of the intrathecal pain pump, the patient has had decreased pain and been more functional. Oral medications have been reduced including intake of oral opioids. Patient continues to do well with intrathecal therapy with decrease in pain sym
[2022-04-28 15:57] VITALS: BP 134/98; PULSE 90; RESP 18; O2SAT 98; BMI 35.7
== END | disposition home or self-care (01) ==
PROVIDERS: PCP Family Medicine; Visit Provider Nurse Practitioner Family
DX: M51.16 Intervertebral disc disorders with radiculopathy, lumbar region (principal); M96.1 Postlaminectomy syndrome, not elsewhere classified; Z45.1 Encounter for adjustment and management of infusion pump
CPT/HCPCS: 62368; 99213; G0463

== ENCOUNTER → 2022-05-14 10:03 | Outpatient (POV) | payer BC, SELFPAY ==
--- NOTE | 2022-05-14 10:30 | EXP.PAIN.PRO ---
Procedure Date: 05/14/22 Time: 10:30 Anesthesiologist:: Eva Lepe APRN Complications:: None Pre-procedure Diagnosis:: Degenerative disc disease of lumbar spine multilevels with lumbar radiculopathy symptoms, postlaminectomy syndrome Post-procedure Diagnosis:: Same Indications for Procedure:: Patient is a pleasant 36-year-old female who presents today for intrathecal pain pump reprogramming adjustment. The patient is being treated for degenerative disc disease of lumbar spine with lumbar radiculopathy symptoms, postlaminectomy syndrome lumbar spine. Patient is currently being managed with morphine 1 mg/mL with a daily dose of 0.1329 mg/day. Patient is also managed with gabapentin 800 mg 3 times a day. Patient denies any side effects from this medication. She does get clonazepam 0.5 mg twice a day from her primary care doctor. Patient denies any side effects from these medications. She does state that she has noticed some rash on her chest and upper shoulder/neck. Patient does state that her recently tried a new laundry detergent and believes this is from this change and unrelated to her pump. Patient rates pain a 7 out of 10. Drug screen is appropriate. Juan Luis [id number] has been reviewed and is appropriate. Physical exam General: Alert and oriented x3, no acute distress, pleasant and cooperative Lungs: Respirations even and unlabored, symmetrical chest expansion Eyes: PERRL Musculoskeletal: Flexion and extension of lumbar [spine] somewhat guarded secondary to pain, [antalgic gait noted] Neurological: Speech clear, no gross sensory deficit Skin: Incisions are clean, dry, well approximated with no erythema noted Procedure Details:: Informed consent was obtained and the risk and benefits of the procedure were explained to the patient. Patient was taken to the procedure room where noninvasive monitoring was placed including noninvasive blood pressure cuff and pulse oximeter. Patient's pump was interrogated and was reprogrammed to morphine 0.1461 mg/day. The patient tolerated the procedure well with no complications. Plan and Disposition:: Patient was given a 10% increase in her intrathecal pump settings during today's visit. Patient was monitored in the clinic setting for a short period of time following in discharge neurologically intact. Patient will return to clinic in 2 weeks for reevaluation of symptoms and plan of care. Patient has been instructed to contact the clinic with any concerns before the next appointment. Dr. Bradshaw has reviewed this note and agrees with this plan of care. This note was dictated using voice recognition software and make contain errors or omissions. -- It Is medically necessary for this patient to continue to have their intrathecal pump refilled at regular intervals. This patient had an intrathecal pain pump implanted after meeting criteria of chronic intractable pain for greater than 3 months and failing conservative treatments. Patient has committed and been compliant to the treatment plan and all planned follow up care. Since implantation of the intrathecal pain pump, the patient has had decreased pain and been more functional. Oral medications have been reduced including intake of oral opioids. Patient continues to do well with intrathecal therapy with decrease in pain symptoms and increase in functional status. Stopping intrathecal medications can lead to life threatening withdrawal, seizures, cardiac arrest, severe pain, and possible . Pumps that are not refilled at regular intervals can be damages and cause and need for replacement. We continually titrate dose and concentration to optimize pain relief and function. We are limited in concentration for certain drugs to safely deliver medications through the pump and stay within the recommendations from the [employer] Guidelines. Depending on dose and concentration these pumps may need to be refilled sooner than 3 months
[2022-05-14 10:47] VITALS: BP 130/77; PULSE 90; RESP 18; O2SAT 98; BMI 37.3
== END | disposition home or self-care (01) ==
PROVIDERS: Visit Provider Nurse Practitioner Family
DX: Z45.1 Encounter for adjustment and management of infusion pump (principal); M51.16 Intervertebral disc disorders with radiculopathy, lumbar region; M96.1 Postlaminectomy syndrome, not elsewhere classified
CPT/HCPCS: 62368; 99213; G0463

== ENCOUNTER → 2022-05-28 11:10 | Outpatient (POV) | payer BC, SELFPAY ==
--- NOTE | 2022-05-28 11:39 | EXP.PAIN.PRO ---
Procedure Date: 05/28/22 Time: 11:39 Anesthesiologist:: Eva Lepe APRN Complications:: None Pre-procedure Diagnosis:: Degenerative disc disease of lumbar spine with lumbar radiculopathy symptoms, postlaminectomy syndrome Post-procedure Diagnosis:: Same Indications for Procedure:: Patient is a pleasant 36-year-old female who presents today for intrathecal pain pump reprogramming adjustment. The patient is being treated for degenerative disc disease of lumbar spine with lumbar radiculopathy symptoms, postlaminectomy syndrome. Patient is currently being managed with morphine 1 mg/mL with a daily dose of 0.1461 mg/day. Patient denies any side effects from this medication. Patient rates pain a 7 out of 10. Patient denies any new trauma or injury. She states she has been increasing her activity and helping out at home with cleaning or doing yard work which has caused a little bit more pain. She is also managed with gabapentin 800 mg 3 times a day from our office and clonazepam 0.5 mg twice a day from her primary care doctor. Patient denies any side effects from these medications. Drug screen is appropriate. [facility] [id number]. It has been reviewed and is appropriate. Physical exam General: Alert and oriented x3, no acute distress, pleasant and cooperative Lungs: Respirations even and unlabored, symmetrical chest expansion Eyes: PERRL Musculoskeletal: Flexion and extension of lumbar [spine] somewhat guarded secondary to pain, [antalgic gait noted] Neurological: Speech clear, no gross sensory deficit Procedure Details:: Informed consent was obtained and the risk and benefits of the procedure were explained to the patient. Patient was taken to the procedure room where noninvasive monitoring was placed including noninvasive blood pressure cuff and pulse oximeter. Patient's pump was interrogated and was reprogrammed to morphine 0.1606 mg/day. The patient tolerated the procedure well with no complications. Plan and Disposition:: Patient's incision sites are fully healed following her intrathecal pain pump implant. I have counseled the patient that she is no longer on postop restrictions. Patient tolerated her intrathecal increase with no complication and was discharged neurologically intact. I will refill her gabapentin 800 mg 3 times a day and provide a 1 month supply of this medication. Patient will return to clinic in 2 weeks for reevaluation of her symptoms, possible intrathecal adjustment and plan of care. Patient has been instructed to contact the clinic with any concerns before the next appointment. Dr. Bradshaw has reviewed this note and agrees with this plan of care. This note was dictated using voice recognition software and make contain errors or omissions. -- It Is medically necessary for this patient to continue to have their intrathecal pump refilled at regular intervals. This patient had an intrathecal pain pump implanted after meeting criteria of chronic intractable pain for greater than 3 months and failing conservative treatments. Patient has committed and been compliant to the treatment plan and all planned follow up care. Since implantation of the intrathecal pain pump, the patient has had decreased pain and been more functional. Oral medications have been reduced including intake of oral opioids. Patient continues to do well with intrathecal therapy with decrease in pain symptoms and increase in functional status. Stopping intrathecal medications can lead to life threatening withdrawal, seizures, cardiac arrest, severe pain, and possible . Pumps that are not refilled at regular intervals can be damages and cause and need for replacement. We continually titrate dose and concentration to optimize pain relief and function. We are limited in concentration for certain drugs to safely deliver medications through the pump and stay within the recommendations from the [employer] Consensus Committee Guidelines. Depending on dose and
[2022-05-28 12:49] VITALS: BP 105/83; PULSE 96; RESP 19; O2SAT 96; BMI 36.6
== END | disposition home or self-care (01) ==
PROVIDERS: PCP Family Medicine; Visit Provider Nurse Practitioner Family
DX: M51.16 Intervertebral disc disorders with radiculopathy, lumbar region (principal); M96.1 Postlaminectomy syndrome, not elsewhere classified; Z45.1 Encounter for adjustment and management of infusion pump
CPT/HCPCS: 62368; 99213; G0463

== ENCOUNTER → 2022-07-03 09:01 | Outpatient (POV) | payer BC, SELFPAY ==
[2022-07-03 09:52] VITALS: BP 138/93; PULSE 79; RESP 20; BMI 36.6
--- NOTE | 2022-07-03 10:00 | EXP.PAIN.PRO ---
Procedure Date: 07/03/22 Time: 09:44 Anesthesiologist:: Eva Lepe APRN Complications:: None Pre-procedure Diagnosis:: Degenerative disc disease of lumbar spine with lumbar radiculopathy symptoms, postlaminectomy syndrome Post-procedure Diagnosis:: Pain Indications for Procedure:: Patient is a pleasant 36-year-old female who presents today for follow-up and intrathecal pain pump reprogramming adjustment.? The patient is being treated for degenerative disc disease of lumbar spine with lumbar radiculopathy symptoms, postlaminectomy syndrome. She rates her pain today a 7 out of 10. She denies any change to location or type of pain she experiences. She does state that she has had a few falls since our last visit. She states that she will just randomly be walking and her legs give out. Patient states that she does believe this is completely unrelated to her intrathecal pain pump medication. She does state that she has had previous issues with numbness in her lower extremities prior to the device being implanted. Patient is currently being managed with morphine 1 mg/mL with a daily dose of 0. 02/21/2005 mg/day. Patient denies any side effects from this medication. She is also managed with gabapentin 800 mg 3 times a day from our office and clonazepam 0.5 mg twice a day from her primary care doctor.? Patient denies any side effects from these medications.? Patient did just have her gabapentin refilled and does not need any additional prescriptions on this drug screen is appropriate.? Juan Luis [id number]. It has been reviewed and is appropriate.? ? Physical exam General: Alert and oriented x3, no acute distress, pleasant and cooperative Lungs: Respirations even and unlabored, symmetrical chest expansion Eyes: PERRL Musculoskeletal: Flexion and extension of lumbar [spine] somewhat guarded secondary to pain, [antalgic gait noted] Neurological: Speech clear,? no gross sensory deficit ? Procedure Details:: Informed consent was obtained and the risk and benefits of the procedure were explained to the patient. Patient was taken to the procedure room where noninvasive monitoring was placed including noninvasive blood pressure cuff and pulse oximeter. Patient's pump was interrogated and was reprogrammed to morphine 0.1764 mg/day. The patient tolerated the procedure well with no complications. Plan and Disposition:: I have counseled the patient that she may benefit from using her cane again when walking long distances or going downstairs as a precaution to minimize injury from possible falls since her legs give out at random times. I have also discussed with the patient regarding her spinal cord stimulator with [employer] Patient states that it has been sometime since she has had this device reprogrammed. I will contact [employer] goodwill representative and give them her follow-up visit so someone can be present and do reprogramming for her device. Patient did tolerate her intrathecal increase with no complications and was discharged neurologically intact. Patient is scheduled for a intrathecal refill on her before July 19. Patient will return to clinic for her intrathecal refill and spinal cord stimulator reprogramming on July 15 at 1:30 PM. We will see the patient back in the clinic at the next intrathecal refill. Patient has been instructed to contact the clinic with any concerns before the next appointment. Dr. Bradshaw has reviewed this note and agrees with this plan of care. This note was dictated using voice recognition software and make contain errors or omissions. -- It Is medically necessary for this patient to continue to have their intrathecal pump refilled at regular intervals. This patient had an intrathecal pain pump implanted after meeting criteria of chronic intractable pain for greater than 3 months and failing conservative treatments. Patient has committed and been compliant to the treatment plan and all planned follow up care. Since implantation of the intrathec
== END | disposition home or self-care (01) ==
PROVIDERS: PCP Family Medicine; Visit Provider Nurse Practitioner Family
DX: Z45.1 Encounter for adjustment and management of infusion pump (principal); M51.16 Intervertebral disc disorders with radiculopathy, lumbar region; M96.1 Postlaminectomy syndrome, not elsewhere classified
CPT/HCPCS: 62368

== ENCOUNTER 2022-07-15 13:26 | Day surgery (SDC) | payer BC, SELFPAY ==
[2022-07-15 13:48] VITALS: BP 148/89; PULSE 80; RESP 18; TEMP 36.2; O2SAT 97; BMI 35.6
--- NOTE | 2022-07-15 14:31 | EXP.PAIN.PRO ---
Procedure Date: 07/15/22 Time: 14:30 Anesthesiologist:: Jae Marino CRNA Complications:: None Pre-procedure Diagnosis:: Degenerative disc sees lumbar spine multilevels. Lumbar radiculopathy. Lumbar postlaminectomy syndrome Post-procedure Diagnosis:: Same. Indications for Procedure:: Patient is a very pleasant 36-year-old female comes our clinic today for intrathecal pain pump interrogation refill. Patient currently being managed with morphine sulfate 1 mg/mL at 0.16 mg/day. Patient requesting a increase in her rate today. Having some increased soreness in the lumbar area. We will increase the rate to 0.1764 mg/day Procedure Details:: Details of procedure explained to the patient. Patient taken to procedure room placed in sitting position. The area over the pump was cleansed using chlorhexidine as a cleansing solution. The pump was interrogated. The pump was accessed with ease using a 22-gauge inch and a half needle. 3 mL of solution was withdrawn and discarded appropriately. Pump was then filled incrementally with 20 cc of morphine sulfate 1 mg/mL. The rate was increased by 10%. The new rate is 0.1764 mg/day. Patient tolerated procedure without difficulty. There are no complications Plan and Disposition:: Patient was discharged without incident.
[2022-07-15 14:35] VITALS: BP 129/89; PULSE 71; RESP 18; O2SAT 97
== END 2022-07-15 14:35 | disposition home or self-care (01) ==
PROVIDERS: PCP Family Medicine; Visit Provider Nurse Anesthetist, Certified Registered
DX: M51.16 Intervertebral disc disorders with radiculopathy, lumbar region (principal); M96.1 Postlaminectomy syndrome, not elsewhere classified; Z45.1 Encounter for adjustment and management of infusion pump
CPT/HCPCS: 62370

== ENCOUNTER → 2022-08-11 09:49 | Outpatient (POV) | payer BC, SELFPAY ==
--- NOTE | 2022-08-11 10:45 | EXP.PAIN.PRO ---
Procedure Date: 08/11/22 Time: 10:45 Anesthesiologist:: Eva Lepe APRN Complications:: None Pre-procedure Diagnosis:: Degenerative disc disease of cervical and lumbar spine with cervical and lumbar radiculopathy symptoms, lumbar postlaminectomy syndrome, status post cervical fusion, bilateral hip pain Post-procedure Diagnosis:: Same Indications for Procedure:: Degenerative disc disease of cervical and lumbar spine with cervical and lumbar radiculopathy symptoms, lumbar postlaminectomy syndrome, status post cervical fusion. Today she rates her pain a 8 out of 10. Patient denies any new trauma or injury. Patient does state that she has been experiencing more pain in her bilateral hips as well as some numbness into her left arm. She does describe the pain in her hips as an aching sensation that is worse with increased activity and is often affected with the weather. Patient does state the pain does interfere with her ability perform activities of daily living such as cooking and cleaning. Patient also states she continues to have low back pain as she has been increasing her activity following her intrathecal pain pump placement. Patient is currently managed with morphine 1 mg/mL with a daily dose of 0.194mg/day. Patient denies any side effects from this medication. She does state that this medication does help manage some of her pain symptoms. She is requesting an increase at today's visit. Patient is managed with gabapentin 800 mg 3 times a day. Patient denies any side effects from this medication. Her Juan Luis is [phone]. Its been reviewed and appropriate. Physical Exam: General: Alert and oriented x3, no acute distress, pleasant and cooperative Lungs: Respirations even and unlabored, symmetrical chest expansion Eyes: PERRL Musculoskeletal: Flexion and extension of lumbar [spine] somewhat guarded secondary to pain, [antalgic gait noted] Neurological: Speech clear, no gross sensory deficit Procedure Details:: Informed consent was obtained and the risk and benefits of the procedure were explained to the patient. Patient was taken to the procedure room where noninvasive monitoring was placed including noninvasive blood pressure cuff and pulse oximeter. Patient's pump was interrogated and was reprogrammed to morphine 0.2132 mg/day. The patient tolerated the procedure well with no complications. Plan and Disposition:: Patient is experiencing significant pain in her bilateral hips as well as increased numbness into her left arm. I have discussed with the patient that I will order x-ray imaging of her cervical spine and bilateral hips. I have also discussed with the patient that she may benefit from bilateral hip intra-articular injections. Risk and benefits were discussed with the patient and she would like to proceed forward with this plan of care. I have discussed with her that in the future following her imaging she may benefit from cervical epidural however we will discuss this at future visits. We will schedule the patient for bilateral hip intra-articular injections. Patient has been instructed to contact the clinic with any concerns before the next appointment. Dr. Bradshaw has reviewed this note and agrees with this plan of care. This note was dictated using voice recognition software and make contain errors or omissions. -- It Is medically necessary for this patient to continue to have their intrathecal pump refilled at regular intervals. This patient had an intrathecal pain pump implanted after meeting criteria of chronic intractable pain for greater than 3 months and failing conservative treatments. Patient has committed and been compliant to the treatment plan and all planned follow up care. Since implantation of the intrathecal pain pump, the patient has had decreased pain and been more functional. Oral medications have been reduced including intake of oral opioids. Patient continues to do well with intrathecal therapy with decrease
[2022-08-11 11:41] VITALS: BP 158/94; PULSE 78; RESP 18; O2SAT 98; BMI 36.3
== END | disposition home or self-care (01) ==
PROVIDERS: PCP Family Medicine; Visit Provider Nurse Practitioner Family
DX: M50.10 Cervical disc disorder with radiculopathy, unspecified cervical region (principal); M51.16 Intervertebral disc disorders with radiculopathy, lumbar region; M96.1 Postlaminectomy syndrome, not elsewhere classified; M43.22 Fusion of spine, cervical region; M25.551 Pain in right hip; M25.552 Pain in left hip
CPT/HCPCS: 62368; 99213; G0463

== ENCOUNTER → 2022-08-11 10:49 | Outpatient (CLI) | payer BC, SELFPAY ==
--- NOTE | 2022-08-11 10:55 | XR_ITS ---
FINAL REPORT CLINICAL HISTORY: Left hip pain without known injury COMPARISON: None FINDINGS: LEFT HIP: Three views of the left hip including the AP view of the pelvis demonstrate no acute fracture or dislocation. The joint spaces appear normal. The visualized bony structures are well aligned. No soft tissue abnormality is seen. IMPRESSION: No acute bony abnormality. Reviewed, Interpreted and Dictated by David Soliz III, MD Transcribed by Aleksandra Kate Authenticated and . [facility]
--- NOTE | 2022-08-11 10:56 | XR_ITS ---
FINAL REPORT CLINICAL HISTORY: Neck pain without known injury COMPARISON: None FINDINGS: CERVICAL SPINE 5 views were obtained. Postoperative changes from fusion of C5-6. There is no acute fracture or malalignment. Inter-vertebral disc and vertebral body heights are preserved. Cervical lordosis is preserved. Facet joints are properly aligned. No significant degenerative changes are present. IMPRESSION: No acute process. Reviewed, Interpreted and Dictated by David Soliz III, MD Transcribed by Aleksandra Kate Authenticated and [facility]
--- NOTE | 2022-08-11 12:05 | XR_ITS ---
FINAL REPORT CLINICAL HISTORY: Right hip pain COMPARISON: None FINDINGS: RIGHT HIP Two views of the right hip demonstrate no acute fracture or dislocation. The joint spaces appear normal. The visualized bony structures are well aligned. No soft tissue abnormality is seen. IMPRESSION: No acute bony abnormality. Reviewed, Interpreted and Dictated by David Soliz III, MD Transcribed by Aleksandra Kate Authenticated and . [facility]
== END ==
PROVIDERS: PCP Family Medicine; Visit Provider Nurse Practitioner Family
DX: M54.2 Cervicalgia (principal); M25.551 Pain in right hip; M25.552 Pain in left hip
CPT/HCPCS: 72050; 73502

== ENCOUNTER → 2022-08-20 12:14 | Outpatient (CLI) | payer MEDICARE, MEDICAID, SELFPAY ==
[2022-08-20 13:45] LABS: Hemoglobin A1C 5.5 % (4.0-6.0)
[2022-08-20 13:46] LABS: Alanine Aminotransferase 21 U/L (12-78); Albumin Level 4.3 g/dl (3.5-5.0); Albumin/Globulin Ratio 1.6 (1.1-1.8); Alkaline Phosphatase 86 U/L (38-126); Anion Gap 12.6 mEq/L (5-15); Aspartate Amino Transferase 27 U/L (14-36); Bilirubin,Total 0.2 mg/dl (0.2-1.3); Blood Urea Nitrogen 18 mg/dl (7-17); Carbon Dioxide 24 mmol/L (22.0-30.0); Chloride 108 mmol/L (98-107); Chol/HDL Ratio 4.7 (1-3.5); Cholesterol 198 mg/dl (140-200); Estimated Glomerular Filt Rate 114 ml/min (>60); GFR (African American) 138 ML/MIN (>60); Globulin 2.7 g/dL (1.3-3.2); Glucose 123 mg/dl (74-100); HDL Cholesterol 42 mg/dl (40-60); Potassium 3.6 mmoL/L (3.5-5.1); Sodium 141 mmol/L (136-145); Triglycerides 324 mg/dl (30-150); VLDL Cholesterol 65 mg/dL (0-40)
[2022-08-20 13:58] LABS: Direct LDL Cholesterol 95.97 mg/dL (100-129)
[2022-08-20 14:17] LABS: Thyroid Stimulating Hormone 2.79 uIU/mL (0.465-4.68)
== END ==
PROVIDERS: PCP Family Medicine; Visit Provider Family Medicine
DX: M79.2 Neuralgia and neuritis, unspecified (principal); R63.1 Polydipsia; F41.8 Other specified anxiety disorders; Z13.220 Encounter for screening for lipoid disorders; Z79.899 Other long term (current) drug therapy
CPT/HCPCS: 36415; 80053; 80061; 83036; 84443

== ENCOUNTER 2022-08-26 10:39 | Day surgery (SDC) | payer MEDICARE, MEDICAID, SELFPAY ==
[2022-08-26 10:55] VITALS: BP 116/69; PULSE 90; RESP 18; TEMP 36.4; O2SAT 98; BMI 34.1
[2022-08-26 10:59] VITALS: BP 134/86; PULSE 90; RESP 18; O2SAT 96
[2022-08-26 11:00] VITALS: BP 134/86; PULSE 87; RESP 18; O2SAT 96
--- NOTE | 2022-08-26 11:02 | EXP.PAIN.PRO ---
Procedure Date: 08/26/22 Time: 10:50 Anesthesiologist:: Jae Marino CRNA Complications:: None Pre-procedure Diagnosis:: Chronic bilateral hip pain. Degenerative disc disease cervical spine multilevels. Postlaminectomy syndrome lumbar spine. Lumbar postlaminectomy syndrome. Lumbar radiculopathy. Lumbar back pain. Bilateral hip pain. Post-procedure Diagnosis:: Same. Indications for Procedure:: Patient is a pleasant 37-year-old female that comes our clinic today for bilateral hip injections. Patient complains of bilateral hip pain and rates her pain 8/10. Patient also complains of low back pain as well as bilateral leg radicular symptoms at times. Patient states pain increases when standing or ambulating for any length of time. Procedure Details:: Details of the procedure were explained to the patient. The patient was taken to procedure room placed in the supine position. The area over the bilateral hip was cleaned using chlorhexidine as a cleansing solution. Using fluoroscopy guidance a 3 and half inch 22-gauge spinal needle was used to access the bilateral hip joint without difficulty. After negative aspiration 3 cc of 1% lidocaine +3 cc of 0.25% Marcaine and 40 mg of Depo-Medrol was injected. Needle was withdrawn. Band-Aid applied. Patient tolerated procedure without difficulty. There are no complications. Plan and Disposition:: Patient was discharged without incident.
[2022-08-26 11:06] VITALS: BP 113/79; PULSE 96; RESP 18; O2SAT 98
== END 2022-08-26 11:06 | disposition home or self-care (01) ==
PROVIDERS: PCP Family Medicine; Visit Provider Nurse Anesthetist, Certified Registered
DX: M25.551 Pain in right hip (principal); M25.552 Pain in left hip; G89.29 Other chronic pain; M96.1 Postlaminectomy syndrome, not elsewhere classified; M54.16 Radiculopathy, lumbar region
CPT/HCPCS: 20610; 77002; J1040

== ENCOUNTER → 2022-09-10 13:50 | Outpatient (POV) | payer MEDICARE, SELFPAY ==
[2022-09-10 14:00] VITALS: BP 129/88; PULSE 80; RESP 20; BMI 32.3
--- NOTE | 2022-09-10 14:31 | EXP.PAIN.PRO ---
Procedure Date: 09/10/22 Time: 14:31 Anesthesiologist:: Eva Lepe APRN Complications:: None Pre-procedure Diagnosis:: Degenerative disc disease of cervical and lumbar spine with cervical and lumbar radiculopathy symptoms, lumbar postlaminectomy syndrome, low back pain, bilateral hip pain Post-procedure Diagnosis:: Same Indications for Procedure:: Patient is a pleasant 37-year-old female who presents today for intrathecal pain pump reprogramming adjustment. The patient is being treated for degenerative disc disease of cervical and lumbar spine with cervical and lumbar radiculopathy symptoms, lumbar postlaminectomy syndrome, low back pain, bilateral hip pain. Patient is currently being managed with morphine 1 mg/mL with a daily dose of 0.2132 mg/day. Patient denies any side effects from this medication. Patient rates pain a 8 out of 10. Drug screen is appropriate. Patient is also managed with gabapentin 800 mg 3 times a day from our office and clonazepam 0.5 mg twice a day from her primary care doctor. Juan Luis [id number] has been reviewed and is appropriate. Physical exam General: Alert and oriented x3, no acute distress, pleasant and cooperative Lungs: Respirations even and unlabored, symmetrical chest expansion Eyes: PERRL Musculoskeletal: Flexion and extension of cervical, lumbar [spine] somewhat guarded secondary to pain, [antalgic gait noted] Neurological: Speech clear, no gross sensory deficit Procedure Details:: Informed consent was obtained and the risk and benefits of the procedure were explained to the patient. Patient was taken to the procedure room where noninvasive monitoring was placed including noninvasive blood pressure cuff and pulse oximeter. Patient's pump was interrogated and was reprogrammed to morphine 0.256 mg/day. The patient tolerated the procedure well with no complications. Plan and Disposition:: Patient tolerated her intrathecal increase with no complications and was discharged neurologically intact. I will refill the patient's gabapentin 800 mg 3 times a day and provide a 1 month supply of this medication. Patient will return to clinic in 2 weeks for reevaluation of symptoms and plan of care. Patient has been instructed to contact the clinic with any concerns before the next appointment. Dr. Bradshaw has reviewed this note and agrees with this plan of care. This note was dictated using voice recognition software and make contain errors or omissions. -- It Is medically necessary for this patient to continue to have their intrathecal pump refilled at regular intervals. This patient had an intrathecal pain pump implanted after meeting criteria of chronic intractable pain for greater than 3 months and failing conservative treatments. Patient has committed and been compliant to the treatment plan and all planned follow up care. Since implantation of the intrathecal pain pump, the patient has had decreased pain and been more functional. Oral medications have been reduced including intake of oral opioids. Patient continues to do well with intrathecal therapy with decrease in pain symptoms and increase in functional status. Stopping intrathecal medications can lead to life threatening withdrawal, seizures, cardiac arrest, severe pain, and possible . Pumps that are not refilled at regular intervals can be damages and cause and need for replacement. We continually titrate dose and concentration to optimize pain relief and function. We are limited in concentration for certain drugs to safely deliver medications through the pump and stay within the recommendations from the Polyanalges[employer] Consensus Committee Guidelines. Depending on dose and concentration these pumps may need to be refilled sooner than 3 months as we titrate.
== END | disposition home or self-care (01) ==
PROVIDERS: PCP Family Medicine; Visit Provider Nurse Practitioner Family
DX: M50.10 Cervical disc disorder with radiculopathy, unspecified cervical region (principal); M51.16 Intervertebral disc disorders with radiculopathy, lumbar region; M96.1 Postlaminectomy syndrome, not elsewhere classified; M25.551 Pain in right hip; M25.552 Pain in left hip
CPT/HCPCS: 62368

== ENCOUNTER 2022-09-16 12:57 | Day surgery (SDC) | payer MEDICARE, MEDICAID, SELFPAY ==
[2022-09-16 13:06] VITALS: BP 141/96; PULSE 80; RESP 18; O2SAT 98
[2022-09-16 13:09] VITALS: BP 136/89; PULSE 71; RESP 18; O2SAT 98; BMI 33.9
--- NOTE | 2022-09-16 13:11 | EXP.PAIN.PRO ---
Procedure Date: 09/16/22 Time: 13:15 Anesthesiologist:: Jae Marino CRNA Complications:: None Pre-procedure Diagnosis:: Degenerative disease lumbar spine multilevels. Lumbar radiculopathy. Lumbar postlaminectomy syndrome. Chronic lumbar back pain. Post-procedure Diagnosis:: Same. Indications for Procedure:: Patient is a pleasant 37-year-old female comes our clinic for intrathecal pain pump interrogation refill. Patient currently being managed with morphine sulfate 1 mg/mL. She is currently running at 0.2560 mg/day. Patient complaining of low back pain she describes as constant, dull, aching. Patient also complained of bilateral hip and leg radicular symptoms to the knees. She rates her pain 8/10. Patient had 20% increase 6 days ago. Patient requesting increase today as well. Procedure Details:: Details of the procedure explained to the patient. The patient taken to procedure room placed in sitting position. The area of the pump was cleansed using chlorhexidine cleansing solution. The pump was interrogated. The pump was accessed with ease using a 22-gauge inch and half needle. 6 mL of solution was drawn discarded appropriately. The pump was then filled with 20 cc of morphine sulfate 1 mg/mL. The pump rate will be increased to 0.3070 mg/day. Patient tolerated procedure without difficulty. No complications. Plan and Disposition:: Patient was discharged without incident.
[2022-09-16 13:34] VITALS: BP 118/83; PULSE 75; RESP 18; O2SAT 98
== END 2022-09-16 13:34 | disposition home or self-care (01) ==
PROVIDERS: PCP Family Medicine; Visit Provider Nurse Anesthetist, Certified Registered
DX: M51.16 Intervertebral disc disorders with radiculopathy, lumbar region (principal); M96.1 Postlaminectomy syndrome, not elsewhere classified; M54.50 Low back pain, unspecified; G89.29 Other chronic pain
CPT/HCPCS: 95991

== ENCOUNTER 2022-10-21 13:28 | Day surgery (SDC) | payer MEDICARE, MEDICAID, SELFPAY ==
[2022-10-21 13:46] VITALS: BP 139/94; PULSE 75; RESP 18; O2SAT 98; BMI 35.6
[2022-10-21 14:00] VITALS: BP 151/91; PULSE 74; RESP 18
[2022-10-21 14:01] VITALS: BP 151/91; PULSE 74; RESP 18; O2SAT 97
--- NOTE | 2022-10-21 14:13 | EXP.PAIN.PRO ---
Procedure Date: 10/21/22 Time: 14:00 Anesthesiologist:: Jae Marino CRNA Complications:: None Pre-procedure Diagnosis:: Degenerative disc lumbar spine multilevels. Lumbar radiculopathy. Lumbar postlaminectomy syndrome. Chronic low back pain. Post-procedure Diagnosis:: Same Indications for Procedure:: Patient is a very pleasant 37-year-old female that comes our clinic today for intrathecal pain pump interrogation refill. Patient currently being managed with morphine sulfate 1 mg/mL. Intrathecal pain pump rate is 0.3070 mg/day. We will change the patient's concentration to 2 mg/mL of morphine sulfate. Also, we will increase patient by 10% in terms of rate today. Her new rate will be 0.3380 mg/day Procedure Details:: Details of the procedure explained to the patient. Patient taken the procedure room placed in the sitting position. The area of the pump was cleansed using chlorhexidine as a cleansing solution. The pump was interrogated. The pump was accessed with ease using 22-gauge inch and half needle. 6 mL of solution was withdrawn and discarded appropriately. The pump was then filled incrementally with 20 cc of a solution containing morphine sulfate 2 mg/mL. The pump will be increased by 10% to 0.3380 mg/day. Patient tolerated procedure without difficulty. There are no complications. Plan and Disposition:: Patient was discharged without incident.
[2022-10-21 14:30] VITALS: BP 132/97; PULSE 65; RESP 20
[2022-10-25 19:38] LABS: Acetone <.010 g/dL (0.000-0.010); Butalbital <1 ug/mL (1-10); Chlordiazepoxide <0.1 ug/mL (0.1-0.9); Diazepam <0.1 ug/mL (0.1-0.9); Ethanol <.010 g/dL (0.000-0.010); Isopropanol <.010 g/dL (0.000-0.010); Pentobarbital <1 ug/mL (1-5)
== END 2022-10-21 14:30 | disposition home or self-care (01) ==
PROVIDERS: Anesthesiology; PCP Family Medicine; Visit Provider Nurse Anesthetist, Certified Registered
DX: M51.16 Intervertebral disc disorders with radiculopathy, lumbar region (principal); M96.1 Postlaminectomy syndrome, not elsewhere classified; G89.29 Other chronic pain; Z97.8 Presence of other specified devices
CPT/HCPCS: 36415; 80306; 80307; 95991

== ENCOUNTER → 2022-10-29 09:49 | Outpatient (CLI) | payer MEDICARE, MEDICAID, SELFPAY ==
--- NOTE | 2022-10-29 09:49 | US_ITS ---
PROCEDURE: US TRANSVAGINAL CLINICAL INDICATION: pelvic pain; abnormal uterine bleeding COMPARISON: No exams were available for comparison FINDINGS: Transvaginal sonographic images of the pelvis were obtained. UTERUS: 7.2 cm x 3.8 cmx 4.2 cm with a combined endometrial thickness of 6.3mm. Uterus is retroflexed. LEFT OVARY: 5.3 cmx3.6 cmx2.8 cm with a volume of 28.7ml.There are 2 follicles within the left ovary. The left ovary is enlarged. Follicle 1. Measures 3.0 cm x 2.4 cm x 2.3 cm. It has a simple appearance. Follicle 2. Measures 2.0 cm x 2.0 cm. It has a lacy appearance consistent with old blood. RIGHT OVARY: 3.0 cmx 1.8x 2.5 cm with a volume of 7.2ml. It has a polycystic appearance. Both ovaries are seen. Doppler flow to both ovaries are seen. There is no fluid in the cul-de-sac. IMPRESSION: 1. Retroflexed uterus normal shaped size. The endometrium appears normal. 2. The left ovary is enlarged. It measures 5.3 cm. 3. The left ovary has 2 follicles. Follicle 1 measures 3 cm and the 2nd follicle measures 2 cm and has a lacy appearance consistent with old blood. 4. The right ovary has a polycystic appearance. 5. No fluid in the cul sac Dictated by: Bairon Bro MD 10/30/2022 08:47 Bairon Bro MD in [place] 10/30/2022 08:47
== END ==
PROVIDERS: PCP Family Medicine; Visit Provider Obstetrics & Gynecology
DX: N93.9 Abnormal uterine and vaginal bleeding, unspecified (principal); R10.2 Pelvic and perineal pain
CPT/HCPCS: 76830

== ENCOUNTER 2022-11-29 16:05 | Emergency (ER) | payer MEDICARE, SELFPAY ==
[2022-11-29 16:06] VITALS: BP 128/83; PULSE 73; RESP 17; TEMP 36.4; O2SAT 100; BMI 32.3
[2022-11-29 16:30] VITALS: BP 123/78; PULSE 70; RESP 16; O2SAT 100
--- NOTE | 2022-11-29 16:37 | XR_ITS ---
PROCEDURE INFORMATION: Exam: XR Right Femur Exam date and time: 11/29/2022 5:30 PM Age: 37 years old Clinical indication: Injury or trauma; Fall; Blunt trauma; Thigh or upper leg; Right; Additional info: Fall, acute on chronic R hip pain TECHNIQUE: Imaging protocol: Radiologic exam of the right femur. Views: 2 views. COMPARISON: CT BONY PELVIS 11/29/2022 5:26 PM FINDINGS: Tubes, catheters and devices: Partial visualization of a spinal stimulator. Bones/joints: The osseous structures appear intact with no evidence of acute fracture, dislocation, or malalignment. Joint spaces are preserved. No abnormal bone density or destructive lesions are noted. Soft tissues: Soft tissues appear unremarkable. Gastrointestinal tract: There is moderate stool in the rectal vault. IMPRESSION: At the time of imaging, there is no evidence for acute osseous abnormalities. Clinical correlation is advised for comprehensive assessment.
--- NOTE | 2022-11-29 16:37 | XR_ITS ---
PROCEDURE INFORMATION: Exam: XR Right Ankle Exam date and time: 11/29/2022 5:26 PM Age: 37 years old Clinical indication: Injury or trauma; Fall; Blunt trauma; Ankle; Right; Additional info: Fall, acute on chronic R ankle pain TECHNIQUE: Imaging protocol: Radiologic exam of the right ankle. Views: 3 or more views. COMPARISON: CR XR FOOT RT MIN 3V 11/29/2022 5:25 PM FINDINGS: Bones/joints: Multiple views were obtained. The osseous structures appear intact with no evidence of acute fracture, dislocation, or malalignment. Joint spaces are preserved. No abnormal bone density or destructive lesions are noted. There is an os trigonum . Soft tissues: Soft tissue swelling is observed, and further clinical correlation is advised. IMPRESSION: At the time of imaging, the skeletal radiograph demonstrates no acute osseous abnormalities but does show soft tissue swelling. Clinical correlation is strongly advised for a comprehensive assessment.
--- NOTE | 2022-11-29 16:37 | CT_ITS ---
PROCEDURE INFORMATION: Exam: CT Pelvis Without Contrast; Skeletal Exam date and time: 11/29/2022 5:26 PM Age: 37 years old Clinical indication: Injury or trauma; Fall; Blunt trauma (contusions or hematomas); Right; Hip; Additional info: Fall, acute on chronic R hip pain TECHNIQUE: Imaging protocol: Computed tomography of the pelvis without contrast. Exam focused on the skeleton. Radiation optimization: All CT scans at this facility use at least one of these dose optimization techniques: automated exposure control; mA and/or kV adjustment per patient size (includes targeted exams where dose is matched to clinical indication); or iterative reconstruction. REPORTING DATA: Count of CT and Cardiac NM exams in prior 12 months: This patient has received 0 known CTs and 0 known cardiac nuclear medicine studies in the 12 months prior to the current study. COMPARISON: CR XR HIP LT 2-3V W/PELVIS 08/11/2022 11:21 AM FINDINGS: Tubes, catheters and devices: Two spinal stimulators are in place. Stomach and bowel: There is large volume stool throughout the colon. There is moderate stool in the rectal vault. Appendix: The appendix is normal. Urinary bladder: There is mild bladder wall thickening, possibly due to under distention and a nonspecific finding. Reproductive: There is prominence of the right adnexa with a suspected underlying cyst measuring up to 3.6 cm (image 51 series 4), consider ultrasound for more complete evaluation. Mild prominence of the left adnexa is also noted although this appears to be within the realm of normal in a premenopausal female. Bones/joints: Unremarkable. No acute fracture. No dislocation. Soft tissues: There is a small fat containing umbilical hernia. IMPRESSION: 1. There is prominence of the right adnexa with a suspected underlying cyst measuring up to 3.6 cm (image 51 series 4), consider ultrasound for more complete evaluation. 2. No acute osseous abnormalities are identified.
--- NOTE | 2022-11-29 16:37 | XR_ITS ---
PROCEDURE INFORMATION: Exam: XR Right Foot Exam date and time: 11/29/2022 5:25 PM Age: 37 years old Clinical indication: Injury or trauma; Fall; Blunt trauma; Foot; Right; Additional info: Fall, acute on chronic R ankle pain TECHNIQUE: Imaging protocol: Radiologic exam of the right foot. Views: 3 or more views. COMPARISON: No relevant prior studies available. FINDINGS: Bones/joints: There is some lucency through the intermediate cuneiform which may reflect prominent nutrient foramina and is best seen on the oblique radiograph, correlate with any point tenderness. No definite fracture or dislocation. Soft tissues: Mild diffuse soft tissue swelling. IMPRESSION: There is some lucency through the intermediate cuneiform which may reflect prominent nutrient foramina and is best seen on the oblique radiograph, correlate with any point tenderness.
--- NOTE | 2022-11-29 16:37 | XR_ITS ---
PROCEDURE INFORMATION: Exam: XR Right Hip Exam date and time: 11/29/2022 5:29 PM Age: 37 years old Clinical indication: Injury or trauma; Fall; Blunt trauma (contusions or hematomas); Right; Hip; Additional info: Fall, acute on chronic R hip pain TECHNIQUE: Imaging protocol: Radiologic exam of the right hip. Views: 2 or 3 views hip with pelvis when performed. COMPARISON: CT BONY PELVIS 11/29/2022 5:26 PM FINDINGS: Tubes, catheters and devices: Two spinal stimulators are noted. Bones/joints: The osseous structures appear intact with no evidence of acute fracture, dislocation, or malalignment. Joint spaces are preserved. No abnormal bone density or destructive lesions are noted. Soft tissues: Soft tissues appear unremarkable. IMPRESSION: At the time of imaging, there is no evidence for acute osseous abnormalities. Clinical correlation is advised for comprehensive assessment.
--- NOTE | 2022-11-29 16:37 | CT_ITS ---
PROCEDURE INFORMATION: Exam: CT Lumbar Spine Without Contrast Exam date and time: 11/29/2022 5:22 PM Age: 37 years old Clinical indication: Injury or trauma; Fall; Blunt trauma (contusions or hematomas); Additional info: Fall, acute on chronic midline pain TECHNIQUE: Imaging protocol: Computed tomography of the lumbar spine without contrast. Radiation optimization: All CT scans at this facility use at least one of these dose optimization techniques: automated exposure control; mA and/or kV adjustment per patient size (includes targeted exams where dose is matched to clinical indication); or iterative reconstruction. REPORTING DATA: Count of CT and Cardiac NM exams in prior 12 months: This patient has received 0 known CTs and 0 known cardiac nuclear medicine studies in the 12 months prior to the current study. COMPARISON: CR XR HIP LT 2-3V W/PELVIS 08/11/2022 11:21 AM FINDINGS: Tubes, catheters and devices: There are two spinal stimulators in place. Bones/joints: Nonspecific lower thoracic wedge deformities without compression injury identified. The osseous structures appear intact with no evidence of acute fracture, dislocation, or malalignment. Joint spaces are preserved. No abnormal bone density or destructive lesions are noted. Stomach and bowel: There is moderate stool in the rectal vault. Soft tissues: Soft tissues appear unremarkable. IMPRESSION: At the time of imaging, there is no evidence for acute osseous abnormalities. Clinical correlation is advised for comprehensive assessment.
--- NOTE | 2022-11-29 16:46 | HMH.EDGENADL ---
Discharge Plan Disposition Patient Disposition: Home, Self-Care Chief Complaint: Fall Prescriptions Prescriptions: No Action cyclobenzaprine 10 mg tablet 10 mg PO DAILY duloxetine 60 mg capsule,delayed release(DR/EC) 60 mg PO DAILY meloxicam 7.5 mg tablet 7.5 mg PO DAILY nitrofurantoin monohyd/m-cryst 100 MG capsule 100 mg PO BID ondansetron 4 MG tablet,disintegrating 4 mg PO Q8HP PRN (Reason: Nausea) Qty: 20 0RF clonazepam 0.5 MG tablet 0.5 mg PO BID PRN (Reason: Anxiety) metoprolol tartrate 50 MG tablet 50 mg PO BID trazodone 100 MG tablet 100 - 300 mg PO HS PRN (Reason: Sleep) amitriptyline 10 mg tablet 1 mg PO HS lamotrigine 100 mg tablet 1 mg PO DAILY morphine (PF) 1 mg/mL Solution 0.1 mg continuous epidural CONT Rx Instructions: 0.11MG/DAY gabapentin [Neurontin] 800 mg tablet 800 mg PO TID Qty: 90 2RF Referrals Follow up/Referrals: Kleber Rothman MD [Primary Care Provider] - See instructions Activity Restrictions/Add. Instructions Additional Instructions/Restrictions: Call your family doctor to establish care for this visit to the emergency department and schedule follow-up within 48 hours to ensure improvement. If you have any worsening of your condition or any other concerning signs or symptoms, return to the emergency department or your primary care doctor for further evaluation. Clinical Impressions Clinical Impression: Lower back pain, Acute pain of right foot Discharge ED Provider: Ronn Person General Adult HPI General Chief complaint: Fall Stated complaint: AO 11/29 fall, right leg pain Time Seen by Provider: 11/29/22 16:11 Mode of Arrival: Wheelchair Source of Information: Patient and Spouse Limitations: Physical Limitations Description of Symptoms (Recalled from ER Triage Doc. by RN): pt presents with fall from step stool. pt states that she was reaching up painting and lost balance. pt fell. pt reports pain in back and right leg. History of Present Illness HPI narrative: 37-year-old female history of chronic back pain status post lipoma removal now with nerve stimulator and pain pump presenting with pain after fall. Patient states that she has chronic back and hip pain. Fell about 2 feet off of a stepladder onto grass while outside painting. Landed on her right foot and now is having pain in her right foot and right hip. Has not tried ambulating on it. Also having. In her lower back worse than usual. States is 10 out of 10, does not radiate, throbbing/burning pain. No further neurovascular deficits. No anticoagulation and no head trauma. Related Data Home Medications Medication Instructions Recorded Confirmed clonazepam 0.5 mg tablet 0.5 mg PO BID PRN Anxiety 12/19/18 11/13/22 metoprolol tartrate 50 mg tablet 50 mg PO BID heart rate 04/12/19 11/13/22 trazodone 100 mg tablet 100 - 300 mg PO HS PRN Sleep 04/13/19 11/13/22 nitrofurantoin 100 mg PO BID . 03/22/21 11/13/22 monohydrate/macrocrystals 100 mg capsule amitriptyline 10 mg tablet 1 mg PO HS migraines 03/25/22 11/13/22 lamotrigine 100 mg tablet 1 mg PO DAILY mood 03/28/22 11/13/22 morphine (PF) 1 mg/mL injection 0.1 mg continuous epidural CONT 04/04/22 11/13/22 solution Pain cyclobenzaprine 10 mg tablet 10 mg PO DAILY 10/24/22 11/13/22 duloxetine 60 mg capsule,delayed 60 mg PO DAILY 10/24/22 11/13/22 release meloxicam 7.5 mg tablet 7.5 mg PO DAILY 10/24/22 11/13/22 Previous Rx's Medication Instructions Recorded ondansetron 4 mg disintegrating 4 mg PO Q8HP PRN Nausea #20 tabs 03/22/21 tablet gabapentin 800 mg tablet 800 mg PO TID Pain #90 tabs 11/27/22 (Neurontin) Allergies Allergy/AdvReac Type Severity Reaction Status Date / Time aripiprazole [From Abilify] Allergy Intermediate Seizure Verified 11/29/22 16:42 sulfamethoxazole Allergy Rash Verified 11/29/22 16:42 [From Bactrim] trimethoprim [From Bactri
[2022-11-29 17:00] VITALS: BP 143/86; PULSE 73; RESP 18; O2SAT 100
[2022-11-29 17:00] LABS: HCG Qualitative, Serum Negative (Negative)
[2022-11-29 18:01] VITALS: BP 118/67; PULSE 68; RESP 20; O2SAT 99
[2022-11-29 18:30] VITALS: BP 124/73; PULSE 73; RESP 20; O2SAT 96
[2022-11-29 18:51] VITALS: BP 124/73; PULSE 74; RESP 18; TEMP 36.7; O2SAT 99
== END 2022-11-29 18:56 | disposition home or self-care (01) ==
PROVIDERS: Emergency Provider Emergency Medicine; PCP Family Medicine
DX: M54.50 Low back pain, unspecified (principal); M79.671 Pain in right foot; F17.210 Nicotine dependence, cigarettes, uncomplicated; J44.9 Chronic obstructive pulmonary disease, unspecified; I11.0 Hypertensive heart disease with heart failure; I50.9 Heart failure, unspecified; I49.9 Cardiac arrhythmia, unspecified; G47.30 Sleep apnea, unspecified; F31.9 Bipolar disorder, unspecified; F41.9 Anxiety disorder, unspecified; W11.XXXA Fall on and from ladder, initial encounter
CPT/HCPCS: 72131; 72192; 73502; 73552; 73610; 73630; 84703; 96374; 99285

== ENCOUNTER 2023-01-06 13:54 | Day surgery (SDC) | payer MEDICARE, SELFPAY ==
[2023-01-06 14:16] VITALS: BP 133/94; PULSE 86; RESP 16; TEMP 36.4; O2SAT 97; BMI 32.5
[2023-01-06 14:24] VITALS: BP 172/85; PULSE 82; O2SAT 95
[2023-01-06 14:31] VITALS: PULSE 78; O2SAT 96
--- NOTE | 2023-01-06 14:33 | EXP.PAIN.PRO ---
Procedure Date: 01/06/23 Time: 14:22 Anesthesiologist:: Jae Marino CRNA Complications:: None Pre-procedure Diagnosis:: Degenerative disc multiple levels lumbar spine. Lumbar radiculopathy. Lumbar postlaminectomy syndrome. Chronic low back pain. Post-procedure Diagnosis:: Same. Indications for Procedure:: Patient is a very pleasant 37-year-old female comes our clinic today for intrathecal pain pump interrogation refill. Patient currently being managed with morphine sulfate 1 mg/mL. Her current rate is 0.3380 mg/day. The patient requesting increase in her intrathecal pain pump rate due to pain increasing in the low back as well as bilateral hip and leg radicular symptoms. She rates her pain today 7/10. Procedure Details:: Details of the procedure explained to the patient. Patient taken procedure room placed in the sitting position. The area over the pump is cleansed using chlorhexidine's cleansing solution. The pump was interrogated. The pump was accessed with ease using a 22-gauge inch and half needle. 6.5 mL of solution was withdrawn discarded appropriate. The pump was then filled with 20 cc of a solution containing morphine sulfate 1 mg/mL. The pump was interrogated and the rate was increased by 20%. Her new rate will be 0.4059 milligrams per day. Patient tolerated procedure without difficulty. There were no complications. Plan and Disposition:: Patient was discharged without incident.
[2023-01-06 14:40] VITALS: BP 148/94; PULSE 75; RESP 16; O2SAT 97
== END 2023-01-06 14:40 | disposition home or self-care (01) ==
PROVIDERS: PCP Family Medicine; Visit Provider Nurse Anesthetist, Certified Registered
DX: M51.16 Intervertebral disc disorders with radiculopathy, lumbar region (principal); M96.1 Postlaminectomy syndrome, not elsewhere classified; M54.50 Low back pain, unspecified; G89.29 Other chronic pain
CPT/HCPCS: 95991

== ENCOUNTER 2023-03-03 13:35 | Day surgery (SDC) | payer MEDICARE, SELFPAY ==
[2023-03-03 13:48] VITALS: BP 128/89; PULSE 83; RESP 18; TEMP 36.5; O2SAT 97; BMI 32.9
[2023-03-03 13:58] VITALS: BP 140/89; PULSE 89; RESP 18; O2SAT 97
[2023-03-03 14:10] VITALS: BP 133/95; PULSE 79; RESP 18; O2SAT 97
--- NOTE | 2023-03-03 14:10 | EXP.PAIN.PRO ---
Procedure Date: 03/03/23 Time: 14:00 Anesthesiologist:: Jae Marino CRNA Complications:: None Pre-procedure Diagnosis:: Generative disc lumbar spine multilevels. Lumbar radiculopathy. Lumbar postlaminectomy syndrome. Chronic back pain. Post-procedure Diagnosis:: Same. Indications for Procedure:: Patient's a 37-year-old female comes to clinic today for intrathecal pain pump interrogation refill. She is currently being managed with morphine sulfate 2 mg/mL. Will be changing her concentration to 4 mg/mL today. Patient reporting increasing low back pain as well as bilateral hip and leg radicular symptoms. She rates her pain 10/10. We will increase her pump by 20% today. Will see her in the office in 2 weeks for potential increase again. However, I informed the patient we would not be able to help her with her pain if she did not make and keep an appointment to see us in the office. Procedure Details:: Details of the procedure explained to the patient. Patient taken procedure and placed in the sitting position. The area of the pump was cleaned using chlorhexidine's cleansing solution. The pump was interrogated. The pump was accessed with ease using a 22-gauge inch and half needle. 7.2 mL of solution was withdrawn discarded appropriately. The pump was then filled with 20 cc of a solution containing morphine sulfate 4 mg/ml. The pump was increased by 20%. The new rate will be 0.4875 mg/day. Patient tolerated procedure without difficulty. There are no complications. Plan and Disposition:: She was discharged without incident.
== END 2023-03-03 14:10 | disposition home or self-care (01) ==
LOC: SC.PAINP 13:36
PROVIDERS: PCP Family Medicine; Visit Provider Nurse Anesthetist, Certified Registered
DX: M51.16 Intervertebral disc disorders with radiculopathy, lumbar region (principal); M96.1 Postlaminectomy syndrome, not elsewhere classified; G89.29 Other chronic pain; Z97.8 Presence of other specified devices; Z45.1 Encounter for adjustment and management of infusion pump
CPT/HCPCS: 95991

== ENCOUNTER → 2023-04-01 14:28 | Outpatient (POV) | payer MEDICARE, SELFPAY ==
[2023-04-01 14:54] VITALS: BP 152/108; PULSE 110; RESP 18; O2SAT 98; BMI 31.8
--- NOTE | 2023-04-01 15:01 | P.PCN_ITS ---
Procedure Date: 04/01/23 Time: 15:01 Anesthesiologist:: Eva Lepe APRN Complications:: None Pre-procedure Diagnosis:: Degenerative disc disease of lumbar spine with lumbar radiculopathy symptoms, lumbar postlaminectomy syndrome Post-procedure Diagnosis:: Same Indications for Procedure:: Patient is a pleasant 37-year-old female who presents today for intrathecal adjustment and reprogram. We are currently treating the patient for degenerative disc disease of lumbar spine with lumbar radiculopathy symptoms, lumbar postlaminectomy syndrome. Today she rates her pain a 8 out of 10. Patient denies any new trauma or injury. Patient is currently managed with morphine 4 mg/mL with a daily dose of 0.4875 mg/day. Patient denies any side effects from this medication however she states she does not notice significant relief with her last increase. Patient does continue to use her bolus device as well. Patient is prescribed gabapentin 800 mg 3 times a day from our office and clonazepam 0.5 mg twice daily from her primary care provider. Patient does states she continues to have difficulty sleeping even with taking her trazodone at night. Her Juan Luis has been reviewed and is appropriate. Physical Exam: General: Alert and oriented x3, no acute distress, pleasant and cooperative Lungs: Respirations even and unlabored, symmetrical chest expansion Eyes: PERRL Musculoskeletal: Flexion and extension of lumbar [spine] somewhat guarded secondary to pain, [antalgic gait noted] Neurological: Speech clear, no gross sensory deficit Procedure Details:: Informed consent was obtained and the risk and benefits of the procedure were e xplained to the patient. Patient was taken to the procedure room where noninvasive monitoring was placed including noninvasive blood pressure cuff and pulse oximeter. Patient's pump was interrogated and was reprogrammed to morphine 0.5844 mg/day. The patient tolerated the procedure well with no complications. Plan and Disposition:: Patient tolerated her intrathecal increase with no complications and was discharged neurologically intact. Patient did have her bolus device increased as well. I will send in a 14-day supply of tizanidine 4 mg at at bedtime. Patient will return to clinic in 2 weeks for reevaluation of symptoms and plan of care. We will see the patient back in the clinic at the next intrathecal refill. Patient has been instructed to contact the clinic with any concerns before the next appointment. Dr. Bradshaw has reviewed this note and agrees with this plan of care. This note was dictated using voice recognition software and make contain errors or omissions. -- It Is medically necessary for this patient to continue to have their intrathecal pump refilled at regular intervals. This patient had an intrathecal pain pump implanted after meeting criteria of chronic intractable pain for greater than 3 months and failing conservative treatments. Patient has committed and been compliant to the treatment plan and all planned follow up care. Since implantation of the intrathecal pain pump, the patient has had decreased pain and been more functional. Oral medications have been reduced including intake of oral opioids. Patient continues to do well with intrathecal therapy with decrease in pain symptoms and increase in functional status. Stopping intrathecal medications can lead to life threatening withdrawal, seizures, cardiac arrest, severe pain, and possible . Pumps that are not refilled at regular intervals can be damages and cause and need for replacement. We continually titrate dose and concentration to optimize pain relief and function. We are limited in concentration for certain drugs to safely deliver medications through the pump and stay within the recommendations from the Polyanalgesic Consensus Committee Guidelines. Depending on dose and concentration these pumps may need to be refilled sooner than 3 months as we titrate.
== END | disposition home or self-care (01) ==
PROVIDERS: PCP Family Medicine; Visit Provider Nurse Practitioner Family
DX: M51.16 Intervertebral disc disorders with radiculopathy, lumbar region (principal); M96.1 Postlaminectomy syndrome, not elsewhere classified; Z97.8 Presence of other specified devices; Z45.1 Encounter for adjustment and management of infusion pump
CPT/HCPCS: 62368; 99213; G0463

== ENCOUNTER 2023-04-16 14:45 | Outpatient (POV) | payer MEDICARE, SELFPAY ==
[2023-04-16 15:34] VITALS: BP 148/101; PULSE 73; RESP 18; O2SAT 97; BMI 31.8
--- NOTE | 2023-04-16 15:40 | EXP.PAIN.PRO ---
Procedure Date: 04/16/23 Time: 15:14 Anesthesiologist:: Eva Lepe APRN Complications:: None Pre-procedure Diagnosis:: Degenerative disc disease of lumbar spine with lumbar radiculopathy symptoms, lumbar postlaminectomy syndrome Post-procedure Diagnosis:: Same Indications for Procedure:: Patient is a pleasant 37-year-old female who presents today for intrathecal adjustment and reprogram. We are currently treating the patient for degenerative disc disease of lumbar spine with lumbar radiculopathy symptoms, lumbar postlaminectomy syndrome. Today she rates her pain a 9 out of 10. Patient states that she was doing more window washing a couple of days ago and really feels like she aggravated her overall back symptoms. Patient denies any new injuries. She is currently managed with intrathecal morphine 4 mg/mL with a daily dose of 0.5844 mg/day. Patient denies any side effects from this medication. Her Juan Luis has been reviewed and is appropriate. Physical Exam: General: Alert and oriented x3, no acute distress, pleasant and cooperative Lungs: Respirations even and unlabored, symmetrical chest expansion Eyes: PERRL Musculoskeletal: Flexion and extension of lumbar [spine] somewhat guarded secondary to pain, [antalgic gait noted] Neurological: Speech clear, no gross sensory deficit Procedure Details:: Informed consent was obtained and the risk and benefits of the procedure were explained to the patient. Patient was taken to the procedure room where noninvasive monitoring was placed including noninvasive blood pressure cuff and pulse oximeter. Patient's pump was interrogated and was reprogrammed to morphine 0.6425 mg/day. The patient tolerated the procedure well with no complications. Plan and Disposition:: Patient tolerated her intrathecal increase with no complications and was discharged neurologically intact. Patient will return to clinic in 2 weeks for possible readjustment and reprogram. Patient did have questions regarding anything mild was an option for her. I have reviewed over her imaging and there was no ligamentum flavum hypertrophy noted on her previous lumbar CT. Patient has been instructed to contact the clinic with any concerns before the next appointment. Dr. Bradshaw has reviewed this note and agrees with this plan of care. This note was dictated using voice recognition software and make contain errors or omissions. -- It Is medically necessary for this patient to continue to have their intrathecal pump refilled at regular intervals. This patient had an intrathecal pain pump implanted after meeting criteria of chronic intractable pain for greater than 3 months and failing conservative treatments. Patient has committed and been compliant to the treatment plan and all planned follow up care. Since implantation of the intrathecal pain pump, the patient has had decreased pain and been more functional. Oral medications have been reduced including intake of oral opioids. Patient continues to do well with intrathecal therapy with decrease in pain symptoms and increase in functional status. Stopping intrathecal medications can lead to life threatening withdrawal, seizures, cardiac arrest, severe pain, and possible . Pumps that are not refilled at regular intervals can be damages and cause and need for replacement. We continually titrate dose and concentration to optimize pain relief and function. We are limited in concentration for certain drugs to safely deliver medications through the pump and stay within the recommendations from the Polyanalgesic Consensus Committee Guidelines. Depending on dose and concentration these pumps may need to be refilled sooner than 3 months as we titrate.
== END 2023-04-16 23:59 | disposition home or self-care (01) ==
PROVIDERS: PCP Family Medicine; Visit Provider Nurse Practitioner Family
DX: M51.16 Intervertebral disc disorders with radiculopathy, lumbar region (principal); M96.1 Postlaminectomy syndrome, not elsewhere classified; Z97.8 Presence of other specified devices; Z45.1 Encounter for adjustment and management of infusion pump
CPT/HCPCS: 62368; 99213; G0463

== ENCOUNTER 2023-04-29 15:34 | Outpatient (POV) | payer MEDICARE, SELFPAY ==
--- NOTE | 2023-04-29 15:39 | EXP.PAIN.PRO ---
Procedure Date: 04/29/23 Time: 15:39 Anesthesiologist:: Eva Lepe APRN Complications:: None Pre-procedure Diagnosis:: Degenerative disc disease of cervical and lumbar spine with cervical and lumbar radiculopathy symptoms, cervical fusion history, lumbar postlaminectomy syndrome Post-procedure Diagnosis:: Same; migraines/headaches Indications for Procedure:: marin is a pleasant 37-year-old female who presents today for intrathecal adjustment and reprogram. We are currently treating the patient for degenerative disc disease of lumbar spine with lumbar radiculopathy symptoms, lumbar postlaminectomy syndrome. Today she rates her pain a 8 out of 10. She states that she has been doing laundry and states that her back is sitting to be a little bit better however she still will occasionally have pain into her legs and feet. Today she does state that she is having more issues with her neck and upper extremities as well as increase in headaches and migraines. She states the pain does interfere with her ability perform activities of daily living such as cooking and cleaning. She does describe the pain as an aching, throbbing sensation with occasional sharp shooting pains and numbness and tingling. She has tried [id number] medications such as Tylenol and ibuprofen along with heat and ice and topicals with minimal relief. Patient does states she continues to use a heating pad for some temporary relief. Patient has had multiple episodes of physical therapy with minimal relief. Patient has also had prior cervical surgery however she continues to get these added symptoms. She does state that she gets botox at .she does state that she is interested in our office taking over this procedure. She is currently managed with intrathecal morphine 4 mg/mL with a daily dose of 0. 6425 mg/day. Patient denies any side effects from this medication. Patient is also managed with gabapentin 800 mg 3 times daily. She denies any side effects from this medication. Patient does not need any refills at this time. Patient back in March it was prescribed tizanidine 4 mg at at bedtime and she states that it did help and is requesting refills.her Juan Luis has been reviewed and is appropriate. Physical Exam: General: Alert and oriented x3, no acute distress, pleasant and cooperative Lungs: Respirations even and unlabored, symmetrical chest expansion Eyes: PERRL Musculoskeletal: Flexion and extension of cervical [spine] somewhat guarded secondary to pain, [antalgic gait noted] positive Spurling's test Neurological: Speech clear, no gross sensory deficit Procedure Details:: Informed consent was obtained and the risk and benefits of the procedure were explained to the patient. Patient was taken to the procedure room where noninvasive monitoring was placed including noninvasive blood pressure cuff and pulse oximeter. Patient's pump was interrogated and was reprogrammed to morphine 0.7715 mg/day mg/day. The patient tolerated the procedure well with no complications. Plan and Disposition:: Patient tolerated her intrathecal increase with no complications and was discharged neurologically intact. Patient is experiencing worsening pain in her neck and upper extremities. Patient had limited range of motion and a positive Spurling's test. I have discussed with the patient that she may benefit from cervical epidural steroid injection. Risk and benefits were discussed with the patient and she would like to proceed forward with this plan of care. I will also order the patient a compounded cream and refill her tizanidine 4 mg at bedtime and provide a 3-month supply of this medication. We will plan on taking over her botox procedures and call [facility] for a copy of her records. Patient has tried and failed conservative therapy such as oral medications, heat and ice, topicals, physical therapy, at home stretching exercise for longer than 6 weeks, failed back surgery. Patient will be scheduled for a ANTONIO C6-C7 under fluoroscopy. Patient has been instructed to contact the clinic with any concerns before the next appointment. Dr. Bradshaw has reviewed this note and agrees with this plan of care. This note was dictated using voice recognition software and make contain errors or omissions. -- It Is medically necessary for this patient to continue to have their intrathecal pump refilled at regular intervals. This patient had an intrathecal pain pump implanted after meeting criteria of chronic intractable pain for greater than 3 months and failing conservative treatments. Patient has committed and been compliant to the treatment plan and all planned follow up care. Since implantation of the intrathecal pain pump, the patient has had decreased pain and been more functional. Oral medications have been reduced including intake of oral opioids. Patient continues to do well with intrathecal therapy with decrease in pain symptoms and increase in functional status. Stopping intrathecal medications can lead to life threatening withdrawal, seizures, cardiac arrest, severe pain, and possible . Pumps that are not refilled at regular intervals can be damages and cause and need for replacement. We continually titrate dose and concentration to optimize pain relief and function. We are limited in concentration for certain drugs to safely deliver medications through the pump and stay within the recommendations from the Polyanalgesic Consensus Committee Guidelines. Depending on dose and concentration these pumps may need to be refilled sooner than 3 months as we titrate.
[2023-04-29 15:55] VITALS: BP 134/88; PULSE 79; RESP 18; O2SAT 95; BMI 31.8
== END 2023-04-29 23:59 | disposition home or self-care (01) ==
PROVIDERS: PCP Family Medicine; Visit Provider Nurse Practitioner Family
DX: M51.16 Intervertebral disc disorders with radiculopathy, lumbar region; M43.22 Fusion of spine, cervical region; M96.1 Postlaminectomy syndrome, not elsewhere classified; Z97.8 Presence of other specified devices; Z45.1 Encounter for adjustment and management of infusion pump; M50.123 Cervical disc disorder at C6-C7 level with radiculopathy
CPT/HCPCS: 62368; 99213; G0463

== ENCOUNTER 2023-05-06 13:43 | Outpatient (POV) | payer MEDICARE, SELFPAY ==
[2023-05-06 14:43] VITALS: BP 148/99; PULSE 85; RESP 18; O2SAT 97; BMI 31.8
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
== END 2023-05-06 23:59 | disposition home or self-care (01) ==
PROVIDERS: Visit Provider Nurse Practitioner Family
DX: M50.10 Cervical disc disorder with radiculopathy, unspecified cervical region (principal); M51.16 Intervertebral disc disorders with radiculopathy, lumbar region; M43.22 Fusion of spine, cervical region; M96.1 Postlaminectomy syndrome, not elsewhere classified; G43.909 Migraine, unspecified, not intractable, without status migrainosus; Z97.8 Presence of other specified devices; Z45.1 Encounter for adjustment and management of infusion pump
CPT/HCPCS: 62368; 99213; G0463

== ENCOUNTER 2023-05-12 09:08 | Day surgery (SDC) | payer MEDICARE, SELFPAY ==
[2023-05-12 09:24] VITALS: BP 149/97; PULSE 85; RESP 16; TEMP 36.3; O2SAT 95; BMI 36.2
--- NOTE | 2023-05-12 09:49 | EXP.PAIN.PRO ---
Procedure Date: 05/12/23 Time: 09:49 Anesthesiologist:: Jae Marino CRNA Complications:: None Pre-procedure Diagnosis:: Degenerative disc disease lumbar spine with lumbar radiculopathy symptoms. Post-procedure Diagnosis:: Same Indications for Procedure:: Patient is a 37-year-old female that presents to the clinic today for lumbar epidural steroid injection. Patient reports significant low back and bilateral leg pain. Procedure Details:: Procedure: Lumbar epidural steroid injection under fluoroscopy Informed consent was obtained and the risks and benefits of the procedure were explained to the patient. The patient was taken to the procedure room and noninvasive monitors placed, including noninvasive blood pressure cuff and pulse oximeter. The back was viewed using C-arm Fluoroscopy and prepped using Chloraprep as a cleansing solution and the L4-L5 interspace was palpated. Skin and subcutaneous tissues were anesthetized using lidocaine 1.5% and a 25-gauge needle. After this, an 18-gauge Touhy epidural needle was placed into the L4-L5 interspace and advanced using fluoroscopic guidance and loss of resistance to air until the epidural space was encountered. After confirmation of needle placement in the epidural space, with dye, a solution containing normal saline, 3 mL and Depo-Medrol 80 mg were incrementally injected into the lumbar epidural space. The patient tolerated the procedure well with no complications. The patient was observed in the Pain Clinic and then discharged home neurologically intact. Plan and Disposition:: Patient was discharged from the clinic in stable condition.
[2023-05-12 09:53] VITALS: BP 150/108; PULSE 87; RESP 18; O2SAT 96
[2023-05-12 09:59] VITALS: BP 150/108; PULSE 87; RESP 18; O2SAT 96
[2023-05-12 10:00] VITALS: BP 137/84; PULSE 84; RESP 18; O2SAT 95
== END 2023-05-12 10:00 | disposition home or self-care (01) ==
PROVIDERS: PCP Family Medicine; Visit Provider Nurse Anesthetist, Certified Registered
DX: M51.16 Intervertebral disc disorders with radiculopathy, lumbar region (principal)
CPT/HCPCS: 62323

== ENCOUNTER 2023-05-25 07:40 | Outpatient (CLI) | payer MEDICARE, SELFPAY ==
[2023-05-25 08:30] VITALS: PULSE 93; PULSE 96
[2023-05-25] MEDS: ALBUTEROL 0.083% 2.5 MG/3 ML NEB IH (08:30)
== END 2023-05-25 23:59 | disposition home or self-care (01) ==
LOC: RT 07:40
PROVIDERS: PCP Family Medicine; Visit Provider Family Medicine
DX: R06.00 Dyspnea, unspecified (principal)
CPT/HCPCS: 94060; 94640; 94726; 94729

== ENCOUNTER 2023-05-26 13:18 | Day surgery (SDC) | payer MEDICARE, SELFPAY ==
[2023-05-26 13:33] VITALS: BP 104/83; PULSE 101; RESP 18; TEMP 36.9; O2SAT 97; BMI 36.6
--- NOTE | 2023-05-26 13:45 | EXP.PAIN.PRO ---
Procedure Date: 05/26/23 Time: 13:35 Anesthesiologist:: Jae Marino CRNA Complications:: None Pre-procedure Diagnosis:: Degenerative disc lumbar spine multilevels. Lumbar radiculopathy. Lumbar postlaminectomy syndrome. Post-procedure Diagnosis:: Same. Indications for Procedure:: Patient's a 37-year-old female comes our clinic today for intrathecal pain pump interrogation refill. She is currently being managed with morphine sulfate 4 mg/mL at a rate of 1.00 to 7 mg/day. She is requesting increase today due to increase in low back pain that she describes as constant, dull, sharp, stabbing. She rates her pain 8/10. We will increase her by 20% today. She mentions today she will be discussing at her follow-up adding bupivacaine to the pump. I also think this is a reasonable option for her. Her new rate will be 1.2014 milligrams per day. Procedure Details:: Details of the procedure explained to the patient. The patient taken procedure room placed in the sitting position. They over the pumps cleansed using chlorhexidine's cleansing solution. The pump was interrogated. The pump was accessed with ease using a 22-gauge inch and half needle. 1/2 mL of solution was withdrawn discarded appropriate. The pump was then filled with 20 cc of solution containing morphine sulfate 4 mg/mL. Pump rate was increased by 20% today. Her new rate will be 1.2014 mg/day. Patient tolerated procedure without difficulty. There are no complications. Plan and Disposition:: Patient was discharged without incident.
[2023-05-26 13:50] VITALS: BP 104/83; PULSE 101; RESP 18; TEMP 36.9; O2SAT 97
[2023-06-05 08:16] LABS: Miscellaneous Test SCANNED IMAGE
== END 2023-05-26 13:50 | disposition home or self-care (01) ==
PROVIDERS: Anesthesiology; PCP Family Medicine; Visit Provider Nurse Anesthetist, Certified Registered
DX: M51.16 Intervertebral disc disorders with radiculopathy, lumbar region (principal); M96.1 Postlaminectomy syndrome, not elsewhere classified; Z97.8 Presence of other specified devices; Z45.1 Encounter for adjustment and management of infusion pump
CPT/HCPCS: 36415; 62370; 80307

== ENCOUNTER 2023-05-29 13:25 | Outpatient (POV) | payer MEDICARE, SELFPAY ==
[2023-05-29 13:45] VITALS: BP 115/81; PULSE 78; RESP 18; TEMP 36.6; O2SAT 93; BMI 36.6
--- NOTE | 2023-05-29 14:54 | A.OFFVIS_ITS ---
[facility] Pain Management SOAP Note Subjective:: This patient is a pleasant 37-year-old white female who we are treating for low back pain with lumbar radicular symptoms. She does have an intrathecal morphine pain pump in place. She has had some lumbar epidural steroid injections to help with her pain symptoms. She has had adjustments to her intrathecal morphine infusion she is at 1.2 mg/day. She continues to have low back pain and leg pain. We will plan on switching her intrathecal medication to fentanyl and bupivacaine. Objective:: Alert and oriented x 3 no acute distress. Patient does have antalgic gait. Motor strength of lower extremities is 5/5. There is no gross sensory deficit. Assessment:: Degenerative disc disease of lumbar spine with lumbar radiculopathy symptoms Plan:: We will switch this patient's medication over to intrathecal fentanyl 500 mcg per ml plus bupivacaine 5 mg/mL. Will start at 100 mcg/day. Will bring her back in to refill her pump next week. She does have enough medication to last until July 12 currently. We will reorder her medication today. [facility] Disclaimer: The information contained in this section may have been updated after the patient was seen, as this information can be updated by other users. Medical History Anxiety Arrhythmia Bipolar 1 disorder CHF (congestive heart failure) Chronic pain Depression Emphysema/COPD History of urinary incontinence History of urinary self-catheterization Hypertension Migraines Seizures Sleep apnea Spinal cord stimulator status SVT (supraventricular tachycardia) Surgical History H/O neck surgery FUSION Previous back surgery SPINAL CORD TUMOR DEBULKING Family History Mother Cancer Other Family history of COPD (chronic obstructive pulmonary disease) Family history of diabetes mellitus type II Family history of hypertension Family history of myocardial infarction Social History (Updated 05/29/23 @ 13:56 by Gail Souza RN) Smoking Status: Current every day smoker tobacco type: cigarettes packs per day: 1 second hand exposure: Yes alcohol intake: never substance use type: denies use current occupational status: unemployed Travel in the last 8 weeks: None household members: family housing: house current occupational exposures/hazards: No caffeine: Yes
== END 2023-05-29 23:59 | disposition home or self-care (01) ==
PROVIDERS: PCP Family Medicine; Visit Provider Anesthesiology
DX: M51.16 Intervertebral disc disorders with radiculopathy, lumbar region (principal); Z97.8 Presence of other specified devices
CPT/HCPCS: 62368; 99212; G0463

== ENCOUNTER 2023-06-02 14:25 | Day surgery (SDC) | payer MEDICARE, SELFPAY ==
[2023-06-02 14:36] VITALS: BP 149/101; PULSE 89; RESP 18; O2SAT 95; BMI 37.3
[2023-06-02] MEDS: IOPAMIDOL-200 (41%);10ML VIAL 2 ML IV (15:02)
[2023-06-02] MEDS: methylPREDNISolone ACETATE 80MG/ML VIAL 80 MG (15:05)
[2023-06-02 15:06] VITALS: BP 159/93; PULSE 76; RESP 18; TEMP 36.7; O2SAT 97
--- NOTE | 2023-06-02 15:08 | P.PCN_ITS ---
Procedure Date: 06/02/23 Time: 15:00 Anesthesiologist:: Jae Marino CRNA Complications:: None Pre-procedure Diagnosis:: Degenerative disc cervical spine multilevels. Cervical radiculopathy. Cervical postlaminectomy syndrome. Degenerative disc lumbar spine multilevels. Lumbar radiculopathy. Lumbar postlaminectomy syndrome. Post-procedure Diagnosis:: Same. Indications for Procedure:: Patient is a pleasant 37-year-old female comes our clinic today for cervical epidural steroid injection. Patient reports cervical neck pain with cervical radiculopathy. Patient is status post anterior cervical discectomy C6-7. Patient is also being managed with intrathecal pain pump. Currently being managed with morphine sulfate 4 mg/mL at a rate of 1.2014 mg/day. Procedure Details:: Procedure:Cervical epidural steroid injection Informed consent was obtained and the risks and benefits of the procedure were explained to the patient. The patient was taken to the procedure room and noninvasive monitors placed, including noninvasive blood pressure cuff and pulse oximeter. The neck was prepped using Chloraprep as a cleansing solution. The C7- T1 interspace was viewed using fluroscopy. The skin and subcutaneous tissues were anesthetized using lidocaine 1.5% and a 25-gauge needle. After this an 18- gauge Touhy epidural needle was placed into the C7-T1 interspace under fluroscopy guidance and advanced using loss of resistance to air until the epidural space was encountered. After confirmation of needle placement in the epidural space using contrast dye, a solution containing normal saline, 2 mL and Depo-Medrol 80 mg was incrementally injected into the cervical epidural space.~ The patient tolerated the procedure well with no complications. The patient was observed in the Pain Clinic and then discharged home neurologically intact. Plan and Disposition:: Patient was discharged without incident.
== END 2023-06-02 15:11 | disposition home or self-care (01) ==
PROVIDERS: PCP Family Medicine; Visit Provider Nurse Anesthetist, Certified Registered
DX: M50.13 Cervical disc disorder with radiculopathy, cervicothoracic region (principal); M96.1 Postlaminectomy syndrome, not elsewhere classified; M51.16 Intervertebral disc disorders with radiculopathy, lumbar region
CPT/HCPCS: 62321; J1010; Q9966

== ENCOUNTER 2023-06-09 13:01 | Day surgery (SDC) | payer MEDICARE, SELFPAY ==
[2023-06-09 13:25] VITALS: BP 146/85; PULSE 71; RESP 18; TEMP 36.7; O2SAT 99; BMI 36.6
--- NOTE | 2023-06-09 13:50 | P.PCN_ITS ---
Procedure Date: 06/09/23 Time: 13:30 Anesthesiologist:: Jae Marino CRNA Complications:: None Pre-procedure Diagnosis:: Degenerative disc lumbar spine multilevels. Lumbar radiculopathy. Post-procedure Diagnosis:: Same Indications for Procedure:: Patient is a pleasant 37-year-old female that comes to our clinic today for intrathecal pain pump interrogation and medication exchange and reprogram. Patient currently being managed with morphine sulfate at a rate of 1.2 mg/day. We will exchange her medication for fentanyl 500 mcg/mL plus bupivacaine 5 mg/mL. Her rate will be fentanyl 100 mcg/day. Bupivacaine 1.0 mg/day. Procedure Details:: Details of the procedure explained to the patient. The patient taken the procedure room placed in the prone position on fluoroscopy table. The area of the pump was cleansed using chlorhexidine as a cleansing solution. The pump was interrogated. The pump was accessed with ease using a 22-gauge inch and a half needle. 14.5 mL of solution was withdrawn discarded appropriately. The pump wa s then filled with 20 cc of solution containing fentanyl 500 mcg/mL and bupivacaine 5 mg/mL. The rate will be fentanyl 100 mcg/day. Bupivacaine 1 mg/day. Patient tolerated the procedure without difficulty. There are no complications. Plan and Disposition:: I informed the patient to contact us as needed for intrathecal pain pump increases if needed. Patient was discharged out incident.
[2023-06-09 13:54] VITALS: BP 138/84; PULSE 80; RESP 18; O2SAT 100
== END 2023-06-09 13:55 | disposition home or self-care (01) ==
PROVIDERS: PCP Family Medicine; Visit Provider Nurse Anesthetist, Certified Registered
DX: M51.16 Intervertebral disc disorders with radiculopathy, lumbar region (principal); Z97.8 Presence of other specified devices; Z45.1 Encounter for adjustment and management of infusion pump
CPT/HCPCS: 62370

== ENCOUNTER 2023-06-12 08:25 | Emergency (ER) | payer MEDICARE, SELFPAY ==
[2023-06-12 08:27] VITALS: BP 140/102; PULSE 125; RESP 15; TEMP 36.5; O2SAT 99; BMI 36.6
[2023-06-12 08:31] VITALS: BMI 29.5
--- NOTE | 2023-06-12 08:33 | PC.NURSE ---
Dr. Auguste at bedside
--- NOTE | 2023-06-12 08:34 | ECG_ITS ---
APPROVED REPORT Exam: Resting ECG HR:121 bpm ECG Measurements Heart Rate 121 AXES CA 112 P 56 QRSd 81 QRS 73 QT 332 T 25 QTc 404 Conclusion SINUS TACHYCARDIA WITH SHORT CA INTERVAL Electronically signed by : BRADLY EASON, 06/13/2023 00:26:09
--- NOTE | 2023-06-12 08:39 | HMH.EDGENADL ---
Discharge Plan Disposition Patient Disposition: Home, Self-Care Condition: Good Prescriptions Prescriptions: No Action cyclobenzaprine 10 mg tablet 10 mg PO DAILY duloxetine 60 mg capsule,delayed release(DR/EC) 60 mg PO DAILY nitrofurantoin monohyd/m-cryst 100 MG capsule 100 mg PO BID ondansetron 4 MG tablet,disintegrating 4 mg PO Q8HP PRN (Reason: Nausea) Qty: 20 0RF gabapentin [Neurontin] 800 mg tablet 800 mg PO TID Qty: 90 2RF clonazepam 0.5 MG tablet 0.5 mg PO BID PRN (Reason: Anxiety) metoprolol tartrate 50 MG tablet 50 mg PO BID trazodone 100 MG tablet 100 - 300 mg PO HS PRN (Reason: Sleep) lamotrigine 100 mg tablet 1 mg PO DAILY morphine (PF) 1 mg/mL Solution 0.1 mg continuous epidural CONT Rx Instructions: 0.11MG/DAY tizanidine [Zanaflex] 4 mg tablet 4 mg PO HS Qty: 30 2RF meloxicam 7.5 mg tablet 7.5 mg PO DAILY Qty: 30 5RF amitriptyline 10 mg tablet 10 mg PO HS Qty: 30 2RF Referrals Follow up/Referrals: Mainor Bradshaw MD [Staff Physician] - 06/15/23 10:00 am (06/14 10 AM) Kleber Rothman MD [Primary Care Provider] - See instructions Activity Restrictions/Add. Instructions Additional Instructions/Restrictions: You were seen in the ED today due to anxiety. This is likely due to recent medication change and condition should improve over the weekend. Please follow-up with Dr. Bradshaw on Thursday. Return to the ED if symptoms worsen or if new concerning symptoms arise. Clinical Impressions Clinical Impression: Anxiety Instructions Patient Instructions: Anxiety and Panic Attacks (Alternative Therapy) Discharge ED Provider: Brennan Auguste General Adult HPI General Chief complaint: Anxiety Stated complaint: meds was changed 06/07 pain pump high heart rate Time Seen by Provider: 06/12/23 08:32 History of Present Illness HPI narrative: Patient is a 37-year-old female with history of HTN, spinal cord stimulator, anxiety/depression who presents due to anxiety. Patient's mother is present to help provide history. Patient states 3 days ago she had medications in her pain pump exchanged. She had previously been on morphine and had this switched to fentanyl and bupivacaine. Patient states since yesterday she has been extremely anxious. She believes she is having an anxiety attack. She has complained of being short of breath. Patient denies any pain at this time. Denies any chest or abdominal pain. Denies any recent illness. Patient is requesting medications for anxiety. Related Data Home Medications Medication Instructions Recorded Confirmed clonazepam 0.5 mg tablet 0.5 mg PO BID PRN Anxiety 12/19/18 06/02/23 metoprolol tartrate 50 mg tablet 50 mg PO BID heart rate 04/12/19 06/02/23 trazodone 100 mg tablet 100 - 300 mg PO HS PRN Sleep 04/13/19 06/02/23 nitrofurantoin 100 mg PO BID . 03/22/21 06/02/23 monohydrate/macrocrystals 100 mg capsule lamotrigine 100 mg tablet 1 mg PO DAILY mood 03/28/22 06/02/23 morphine (PF) 1 mg/mL injection 0.1 mg continuous epidural CONT 04/04/22 06/02/23 solution Pain cyclobenzaprine 10 mg tablet 10 mg PO DAILY 10/24/22 06/02/23 duloxetine 60 mg capsule,delayed 60 mg PO DAILY 10/24/22 06/02/23 release Previous Rx's Medication Instructions Recorded ondansetron 4 mg disintegrating 4 mg PO Q8HP PRN Nausea #20 tabs 03/22/21 tablet gabapentin 800 mg tablet 800 mg PO TID Pain #90 tabs 03/16/23 (Neurontin) tizanidine 4 mg tablet (Zanaflex) 4 mg PO HS #30 tabs 04/29/23 meloxicam 7.5 mg tablet 7.5 mg PO DAILY #30 tabs 05/06/23 amitriptyline 10 mg tablet 10 mg PO HS migraines #30 tabs 05/25/23 Allergies Allergy/AdvReac Type Severity Reaction Status Date / Time aripiprazole [From Abilify] Allergy Intermediate Seizure Verified 06/02/23 14:38 sulfamethoxazole Allergy Rash Verified 06/02/23 14:38 [From Bactrim] trimethoprim [From Bactrim] Allergy Rash Verified 06/02/23 14:38 PFSH PFS Disclaimer: The information contained in this section may have been updated after the patient was seen, as this information can be updated by other users. Medical History Anxiety Arrhythmia Bipolar 1 disorder CHF (congestive heart failure) Chronic pain Depression Emphysema/COPD History of urinary incontinence History of urinary self-catheterization Hypertension Migraines Seizures Sleep apnea Spinal cord stimulator status SVT (supraventricular tachycardia) Surgical History H/O neck surgery FUSION Previous back surgery SPINAL CORD TUMOR DEBULKING Family History Mother Cancer Other Family history of COPD (chronic obstructive pulmonary disease) Family history of diabetes mellitus type II Family history of hypertension Family history of myocardial infarction Social History Smoking Status: Current every day smoker tobacco type: cigarettes packs per day: 1 second hand exposure: Yes alcohol intake: never substance use type: denies use current occupational status: unemployed Travel in the last 8 weeks: None household members: family housing: house current occupational exposures/hazards: No caffeine: Yes ROS Obtained: Yes All systems reviewed & no additional complaints except as documented Physical Exam General General appearance: alert Comment: Anxious and uncomfortable appearing. Head Head exam: atraumatic, normocephalic and normal inspection Eye Eye exam: Present normal appearance, PERRL and EOMI ENT ENT exam: Present normal exam, normal oropharynx, mucous membranes moist, TM's normal bilaterally and normal external ear exam Neck Neck exam: Present normal inspection, full ROM and trachea midline; Absent meningismus or lymphadenopathy Chest Chest inspection: Present normal inspection and symmetric chest wall rise; Absent tenderness Respiratory Respiratory exam: Present normal lung sounds bilaterally; Absent respiratory distress Cardiovascular Cardiovascular exam: Present regular rate and normal rhythm; Absent JVD Abdominal Exam Abdominal exam: Present soft and normal bowel sounds; Absent distention, tenderness or guarding Extremities Exam Extremities exam: Present normal inspection, full ROM and normal capillary refill; Absent calf tenderness Back Exam Back exam: Present normal inspection; Absent tenderness Neurological Exam Neurological exam: Present alert and oriented X3 Psychiatric Psychiatric exam: Present normal affect, normal mood and anxious Skin Skin exam: Present warm, dry, intact and normal color Lymphatic Lymphatic Findings: no adenopathy Medical Decision Making Juan Luis Inquiry Pt receiving controlled substance: No Vital Signs: 06/12/23 08:27 06/12/23 09:17 06/12/23 09:30 Temperature 97.7 F Temperature Source Oral Pulse Rate 89 95 H Pulse Rate [Left Radial] 125 H Respiratory Rate 15 Blood Pressure 137/95 H 149/102 H Blood Pressure [Right Arm] 140/102 H Blood Pressure Mean [Right Arm] 114 02 Sat by Pulse Oximetry 99 98 98 Oxygen Delivery Method Room Air Room Air Room Air 06/12/23 10:01 06/12/23 10:30 Temperature Temperature Source Pulse Rate 113 H 111 H Pulse Rate [Left Radial] Respiratory Rate Blood Pressure 131/83 146/85 H Blood Pressure [Right Arm] Blood Pressure Mean [Right Arm] 02 Sat by Pulse Oximetry 98 100 Oxygen Delivery Method Lab Data Lab Results 06/12/23 08:45: WBC 12.9 H, RBC 4.50, Hgb 14.2, Hct 42.3, MCV 94.0, MCH 31.5 H, MCHC 33.5, RDW 13.8, Plt Count 383, MPV 7.8, Neut % (Auto) 83.4 H, Lymph % (Auto) 12.4, [place] % (Auto) 3.7, Eos % (Auto) 0.1, Baso % (Auto) 0.4, Neut # (Auto) 10.8 H, Lymph # (Auto) 1.6, [place] # (Auto) 0.5, Eos # (Auto) 0.0, Baso # (Auto) 0.1, Sodium 139, Potassium 3.8, Chloride 105, Carbon Dioxide 22, Anion Gap 15.8 H, BUN 16, Creatinine 0.50 L, Estimated Creat Clear 225, Estimated GFR 140, Est GFR ( Amer) 170, Glucose 124 H, Calcium 10.0, Total Bilirubin 0.6, AST 37 H, ALT 40, Alkaline Phosphatase 103, Total Protein 7.7, Albumin 4.5, Globulin 3.2, Albumin/Globulin Ratio 1.4, TSH 1.21, Free T4 0.84 06/12/23 08:45 06/12/23 08:45 Orders (Tests/Meds): ED MEDICATIONS Generic Name Dose Route Start Last Admin Trade Name Freq PRN Reason Stop Dose Admin Lorazepam 1 mg 06/12/23 10:59 Lorazepam 1mg Tablet PO 04/26/24 11:00 ONCE ONE Sodium Chloride 10 ml 06/12/23 08:38 Sodium Chloride 0.9% 10ml Vial IV 07/12/23 08:37 NEEDED PRN to Dilute Lorazepam inj Sodium Chloride 10 ml 06/12/23 09:20 Sodium Chloride 0.9% 10ml Flush Syringe IV 07/12/23 09:19 NEEDED PRN Maintain IV Site Sodium Chloride 10 ml 06/12/23 10:11 Sodium Chloride 0.9% 10ml Vial IV 07/12/23 10:10 NEEDED PRN to Dilute Lorazepam inj Discontinued Medications Generic Name Dose Route Start Last Admin Trade Name Freq PRN Reason Stop Dose Admin Lorazepam 1 mg 06/12/23 08:38 06/12/23 09:01 Lorazepam 2mg/Ml Vial IV 06/12/23 08:39 1 mg ONCE ONE Administration Lorazepam 1 mg 06/12/23 10:11 06/12/23 10:17 Lorazepam 2mg/Ml Vial IV 06/12/23 10:12 1 mg ONCE ONE Administration ORDERS Category Date Time Status CBC w/Auto Diff [Complete Blood Count Auto Diff] Stat Lab 06/12/23 08:45 Completed CMP [Comprehensive Metabolic Panel] Stat Lab 06/12/23 08:45 Completed Free T4 (Free Thyroxine) Stat Lab 06/12/23 08:45 Completed TSH [Thyroid Stimulating Hormone] Stat Lab 06/12/23 08:45 Completed ECG Data Tracing #1: I reviewed this ECG and interpreted as documented below: EKG obtained and interpreted by me showing sinus tachycardia with short NH interval, ventricular rate 121, no signs of acute ischemia. Medical Decision Narrative: In summary, patient is a 37-year-old female with history of spinal cord stimulator, pain pump, evaluated in the emergency department today due to anxiety. On arrival, patient is tachycardic but hemodynamically stable, otherwise afebrile with normal vital signs. On examination, patient is anxious and uncomfortable appearing. Differential diagnosis includes but is not limited to anxiety attack, medication side effect, underlying metabolic abnormality. Patient given 1 mg IV Ativan. Workup initiated including CBC, CMP, TSH, free T4. Labs independently interpreted by me, no significant findings seen. On reevaluation, patient had improvement in anxiety however was again starting to feel very anxious. Additional 1 mg IV Ativan given. Patient was observed in the ED and again had improvement in anxiety. Dr. Bradshaw was contacted by phone and I spoke with him. He reports patient's current condition could very well be due to recent medication change with possible component of withdrawal. He states he expects her condition to resolve within the next 1 to 2 days and he will see her in clinic on 06/14. In shared decision-making with patient and family, they are comfortable with this plan. Patient given additional 1 mg oral Ativan prior to departure. Patient and family counseled on home care, given strict return precautions and agreeable to plan. Additional history was provided by mother. I considered the utility of obtaining imaging, but decided against this because this would not supervisor records change. I considered the utility of treatment with prescription for benzodiazepines, but decided against this because patient has existing prescription. I considered admitting the patient to the hospital for observation, and in shared decision-making with patient and family, decided on outpatient management. Critical Care Critical Care Time Critical Care Time: No
--- NOTE | 2023-06-12 08:46 | PC.NURSE ---
Rounded on patient, provided sheet and fan for patient at this time.
[2023-06-12] MEDS: LORazepam 2MG/ML VIAL 1 MG IV ×2 (09:01→10:17)
[2023-06-12 09:06] LABS: Chloride 105 mmol/L (98-107); Potassium 3.8 mmoL/L (3.5-5.1); Sodium 139 mmol/L (136-145)
[2023-06-12 09:08] LABS: Alanine Aminotransferase 40 U/L (12-78); Alkaline Phosphatase 103 U/L (38-126); Aspartate Amino Transferase 37 U/L (14-36); Bilirubin,Total 0.6 mg/dl (0.2-1.3); Blood Urea Nitrogen 16 mg/dl (7-17); Creatinine Clearance Estimated 225 mL/min (50-200); Estimated Glomerular Filt Rate 140 ml/min (>60); GFR (African American) 170 ML/MIN (>60)
[2023-06-12 09:09] LABS: Albumin Level 4.5 g/dl (3.5-5.0); Albumin/Globulin Ratio 1.4 (1.1-1.8); Anion Gap 15.8 mEq/L (5-15); Carbon Dioxide 22 mmol/L (22.0-30.0); Globulin 3.2 g/dL (1.3-3.2); Glucose 124 mg/dl (74-100); Total Protein,Serum 7.7 g/dl (6.3-8.2)
[2023-06-12 09:12] LABS: Basophils # 0.1 K/mm3 (0-0.2); Basophils % 0.4 % (0.1-2.0); Eosinophils % 0.1 % (0.1-12.0); Hematocrit 42.3 % (37.0-47.0); Hemoglobin 14.2 g/dL (12.2-16.2); Lymphocytes # 1.6 K/mm3 (0.7-4.5); Lymphocytes % 12.4 % (10-50); Mean Corpuscular HGB Conc 33.5 g/dL (31.8-35.4); Mean Corpuscular Hemoglobin 31.5 pg (27.0-31.2); Mean Platelet Volume 7.8 fl (7.4-10.4); Monocytes # 0.5 K/mm3 (0.1-1.0); Monocytes % 3.7 % (1.7-9.3); Neutrophils # 10.8 K/mm3 (1.8-7.8); Neutrophils % 83.4 % (37.0-80.0); Platelet Count 383 K/mm3 (142-424); Red Cell Distribution Width 13.8 % (11.5-17.5); White Blood Count 12.9 K/mm3 (4.8-10.8)
[2023-06-12 09:17] VITALS: BP 137/95; PULSE 89; O2SAT 98
[2023-06-12 09:25] LABS: Free T4 (Free Thyroxine) 0.84 ng/dl (0.78-2.19)
[2023-06-12 09:30] VITALS: BP 149/102; PULSE 95; O2SAT 98
[2023-06-12 09:40] LABS: Thyroid Stimulating Hormone 1.21 uIU/mL (0.465-4.68)
[2023-06-12 10:01] VITALS: BP 131/83; PULSE 113; O2SAT 98
[2023-06-12 10:30] VITALS: BP 146/85; PULSE 111; O2SAT 100
--- NOTE | 2023-06-12 10:37 | PC.NURSE ---
on phone with dr callahan
[2023-06-12 11:05] VITALS: BP 144/89; PULSE 92; RESP 19; TEMP 36.5; O2SAT 99
[2023-06-12] MEDS: LORazepam 1MG TABLET 1 MG PO (11:06)
== END 2023-06-12 11:07 | disposition home or self-care (01) ==
PROVIDERS: Emergency Provider Student in an Organized Health Care Education/Training Program; PCP Family Medicine
DX: R00.0 Tachycardia, unspecified (principal); F41.1 Generalized anxiety disorder; I10 Essential (primary) hypertension; F17.210 Nicotine dependence, cigarettes, uncomplicated
CPT/HCPCS: 80053; 84439; 84443; 85025; 93005; 96374; 99284

== ENCOUNTER 2023-06-15 10:03 | Outpatient (POV) | payer MEDICARE, SELFPAY ==
--- OUTSIDE RECORDS SUMMARY | 2023-06-15 10:05 | XMS_ITS | Summary of Care ---
Author Name Unknown Organization [facility] Address [address] [place] [address]- Encounter 11/26/15 - 11/26/15 [facility] [address] [place] [address] Discharge Disposition: Discharged to Home or Self Care Attending Physician: Desire Antunez DO Referring Physician: Desire Antunez DO Vital Signs Most recent to oldest [Reference Range]: 1 Peripheral Pulse Rate [60-100 bpm] 87 bp m (11/26/15 1:14 PM) Blood Pressure [90-140/60-90 mmHg] 107/7 3mmHg (11/26/15 1:14 PM) Problem List No data available for this section Allergies, Adverse Reactions, Alerts Substance Reaction Severity Status Abilify Active Medications baclofen 10 mg oral tablet 10 mg, = 1 tab, Oral, TID, 90 tab, Refills 0 Start Date: 01/31/15 Status: Ordered cetirizine 10 mg oral tablet 10 mg, = 1 tab, Oral, Daily, 30 tab, Refills 0 Start Date: 11/26/15 Status: Ordered clonazePAM 1 mg oral tablet 1 mg, = 1 tab, Tab, Oral, Daily PRN, Refills 0, Anxiety Start Date: 01/31/15 Status: Ordered docusate sodium 100 mg oral capsule 200 mg, = 2 cap, Oral, BID, Refills 0 Start Date: 01/31/15 Status: Ordered Duragesic-75 transdermal film, extended release 1 patch, Film, TD, q3day, Refills 0, 0 Start Date: 11/26/15 Status: Ordered esomeprazole 40 mg oral delayed release capsule 40 mg, 1 cap, Cap-DR, Oral, Before breakfast, 30 cap, Refills 0 Start Date: 11/26/15 Status: Ordered furosemide 20 mg oral tablet 20 mg, = 1 tab, Oral, BIDWM, 30 tab, Refills 0 Start Date: 11/26/15 Status: Ordered gabapentin 400 mg oral capsule 800 mg, = 2 cap, Cap, Oral, QID, 240 cap, Refills 5, Print Requisition, 5 Start Date: 11/26/15 Status: Ordered lidocaine 3% topical gel 1 elicia, TOP, BID, 60 gm, Refills 1, Print Requisition, 1 Start Date: 01/31/15 Status: Ordered Macrobid 100 mg oral capsule mg, cap, Oral, QHS, Refills 0 Start Date: 01/31/15 Status: Ordered [place] 5 mg-325 mg oral tablet 1 tab, Oral, q4hr PRN, Refills 0, for pain, 0 Start Date: 01/31/15 Status: Ordered Pristiq 50 mg oral tablet, extended release 50 mg, = 1 tab, Tab-ER, Oral, Daily, 30 tab, Refills 0 Start Date: 11/26/15 Status: Ordered ranitidine 150 mg oral capsule 150 mg, = 1 cap, Cap, Oral, QHS, 60 cap, Refills 0 Start Date: 11/26/15 Status: Ordered senna 8.6 mg oral tablet mg, tab, Oral, QHS, Refills 0 Start Date: 01/31/15 Status: Ordered TEGretol 300 mg, BID, Refills 0 Start Date: 11/26/15 Status: Ordered Zofran 4 mg oral tablet 4 mg, = 1 tab, Tab, Oral, Once PRN, 3 tab, Refills 0, nausea Start Date: 01/31/15 Status: Ordered Results No data available for this section Immunizations Vaccine Date Refusal Reason influenza virus vaccine, inactivated 11/26/15 Procedures No data available for this section Social History No data available for this section Assessment and Plan No data available for this section
--- OUTSIDE RECORDS SUMMARY | 2023-06-15 10:05 | XMS_ITS | Summary of Care ---
Author Name Unknown Organization [facility] Address [address] [place] [address]- Encounter 04/29/17 - 04/29/17 [facility] [address] [place] [address] Discharge Disposition: Discharged to Home or Self Care Attending Physician: Desire Antunez DO Referring Physician: Desire Antunez DO Vital Signs Most recent to oldest [Reference Range]: 1 Peripheral Pulse Rate [60-100 bpm] 95 bp m (04/29/17 2:26 PM) Respiratory Rate [14-20 br/min] 16 br/mi n (04/29/17 2:26 PM) Systolic Blood Pressure [90-140 mmHg] 12 1 mmHg (04/29/17 2:26 PM) Allergies, Adverse Reactions, Alerts Substance Reaction Severity Status Abilify Active Medications baclofen 10 mg oral tablet 10 mg = 1 tab, Tab, Oral, TID, 90 tab, 5 Refill(s), Print Requisition Start Date: 04/29/17 Status: Ordered cetirizine 10 mg oral tablet 10 mg, = 1 tab, Oral, Daily, 30 tab, Refills 0 Start Date: 11/26/15 Status: Ordered clonazePAM 1 mg oral tablet 1 mg = 1 tab, Tab, Oral, BID, 0 Refill(s) Start Date: 04/29/17 Status: Ordered clonazePAM 1 mg oral tablet [...] Refills 0 Start Date: 11/26/15 Status: Ordered Fetzima Oral, Daily, 0 Refill(s) Start Date: 04/29/17 Status: Ordered Fetzima 80 mg oral capsule, extended release mg, cap, Oral, Daily, Refills 0 Start Date: 05/26/16 Status: Ordered HYDROcodone Oral, 0 Refill(s) Start Date: 04/29/17 Status: Ordered LaMICtal Oral, Daily, 0 Refill(s) Start Date: 04/29/17 Status: Ordered LaMICtal 100 mg oral tablet mg, tab, Oral, Daily, Refills 0 Start Date: 05/26/16 Status: Ordered lidocaine 3% topical gel 1 elicia, TOP, BID, 60 gm, Refills 1, Print Requisition, 1 Start Date: 01/31/15 Status: Ordered Macrobid 100 mg oral capsule mg, cap, Oral, QHS, Refills 0 Start Date: 01/31/15 Status: Ordered Macrobid 100 mg oral capsule mg, cap, Oral, BID, 0 Refill(s) Start Date: 04/29/17 Status: Ordered metoprolol 50 mg, Oral, BID, 0 Refill(s) Start Date: 04/29/17 Status: Ordered Miscellaneous Non-Medication See Instructions, B foot drop refurbish B DMU as broken, if not feasible please replace, 1, EA, 0 Refill(s), Maintenance, Print Requisition, Instructions Replace Required Details, [id number], Constant Indicator Start Date: 04/29/17 Status: Ordered [place] 5 mg-325 mg oral tablet 1 tab, [...] Refills 0 Start Date: 01/31/15 Status: Ordered traZODone 100 mg oral tablet 100 mg = 1 tab, Tab, Oral, TID, 90 tab, 0 Refill(s) Start Date: 04/29/17 Status: Ordered Zofran 4 mg oral tablet 4 mg, = 1 tab, Tab, Oral, Once PRN, 3 tab, Refills 0, nausea Start Date: 01/31/15 Status: Ordered Immunizations Given and Recorded Vaccine Date Status Refusal Reason influenza virus vaccine, inactivated 11/26/15 Give n
--- OUTSIDE RECORDS SUMMARY | 2023-06-15 10:05 | XMS_ITS | Summary of Care ---
Author Name Unknown Organization [facility] Address [address] [place] [address]- Encounter 05/26/16 - 05/26/16 [facility] [address] [place] [address] Discharge Disposition: Discharged to Home or Self Care Attending Physician: Desire Antunez DO Referring Physician: Desire Antunez DO Vital Signs Most recent to oldest [Reference Range]: 1 Peripheral Pulse Rate [60-100 bpm] 78 bp m (05/26/16 11:45 AM) Blood Pressure [90-140/60-90 mmHg] 137/9 2mmHg (05/26/16 11:45 AM) Problem List No data available for this [...] 0 Start Date: 11/26/15 Status: Ordered Fetzima 80 mg oral capsule, extended release mg, cap, Oral, Daily, Refills 0 Start Date: 05/26/16 Status: Ordered furosemide 20 mg oral tablet 20 mg, = 1 tab, Oral, BIDWM, 30 tab, Refills 0 Start Date: 11/26/15 Status: Ordered gabapentin 400 mg oral capsule 800 mg, = 2 cap, Cap, Oral, QID, 240 cap, Refills 5, Print Requisition, 5 Start Date: 05/26/16 Status: Ordered LaMICtal 100 mg oral tablet mg, tab, Oral, Daily, Refills 0 Start Date: 05/26/16 Status: Ordered lidocaine 3% topical gel 1 elicia, TOP, BID, 60 gm, Refills 1, Print Requisition, 1 Start Date: 01/31/15 Status: Ordered Macrobid 100 mg oral capsule mg, cap, Oral, QHS, Refills 0 Start Date: 01/31/15 Status: Ordered [place] 5 mg-325 mg oral tablet 1 tab, [...] 0 Start Date: 01/31/15 Status: Ordered TEGretol 200 mg oral tablet 300 mg, Tab, Oral, BID, 60 tab, Refills 5, Print Requisition, 5 Start Date: 05/26/16 Status: Ordered Zofran 4 mg oral tablet 4 mg, = 1 tab, Tab, Oral, Once PRN, 3 tab, Refills 0, nausea Start Date: 01/31/15 Status: Ordered Results LABORATORY Most recent to oldest [Reference Range]: 1 Carbamazepine HSL [4.0-12.0 mcg/mL] 2.0 mcg/mL *LOW* (05/26/16 12:56 PM) Immunizations Vaccine Date Refusal Reason influenza virus vaccine, inactivated 11/26/15 Procedures No data available for this section Social History No data available for this section Assessment and Plan No data available for this section
[2023-06-15 10:36] VITALS: BP 133/99; PULSE 116; RESP 18; O2SAT 98; BMI 41.7
--- NOTE | 2023-06-15 12:10 | EXP.PAIN.SOA ---
[facility] Pain Management SOAP Note Subjective:: Patient is a pleasant 37-year-old female who presents today for follow-up. Today she rates her pain a 10 out of 10. Patient denies any new trauma or injury. She does state however when they changed her to her new pump medication that there was a bridge over and that she had a lot of anxiety related to the idea that there would be a discrepancy or a lag in the medicine. Patient states that she did end up getting really upset and that everything was on high alert. Patient states that she did have a day and a half where she had had minimal sleep and was not eating as well at this her stress level was up. Patient states that she was not taking her clonazepam as regularly as she should. Patient states that she ended up coming Thursday to see our office however no one was available. Patient states that she ended up going to the ER for the extreme anxiety and panic attack. Patient states that she even had very sensitive smelling during that timeframe. Patient states that she is much better now and overall her pain is great. Patient does state that she did reschedule her last Botox injections there at and still would like our office to take over them. Patient is currently managed with fentanyl 500 mcg/mL with a daily dose of 100 mcg/day and bupivacaine 5 mg/mL with a daily dose of bupivacaine 1 mg/day. She denies any side effects from this medication. Patient is also managed with gabapentin from our office. She states that this does help however she has weaned herself down to where she is not taking it on a regular basis. Her Juan Luis has been reviewed and is appropriate. Review of Systems: General: No recent weight changes, no fever, no sleep disturbances Respiratory: No cough, no shortness of air, no recurring pulmonary infections Cardiovascular/peripheral vascular: No chest pain, no palpitations, no edema, no shortness of breath Gastrointestinal: No new onset incontinence, normal bowel movements reported Genitourinary: No new onset incontinence Musculoskeletal: Low back pain Psychiatric: [Normal mood/affect] Neurological: [Denies weakness in extremities], [denies balance issues] Objective:: Physical Exam: General: Alert and oriented x3, no acute distress, pleasant and cooperative Lungs: Respirations even and unlabored, symmetrical chest expansion Eyes: PERRL Musculoskeletal: Flexion and extension of lumbar [spine] somewhat guarded secondary to pain, [antalgic gait noted] Neurological: Speech clear, no gross sensory deficit Assessment:: Degenerative disc disease of cervical and lumbar spine with cervical and lumbar radiculopathy symptoms, chronic pain syndrome, migraines Plan:: I did discuss at length with the patient regarding her pump medication as well as her Blue stimulator. I have discussed with the patient that it is very beneficial that she does take her medication as prescribed and that making better choices regarding nutrition and sleep will also overall affect her anxiety and pain. I have counseled the patient where she is getting significant relief with her pump medications that we will not make any adjustments today. Patient does already have a follow-up coming up and we will follow-up with her at this visit. At our last visit we did discuss regarding taking over the Botox injections however I have counseled the patient that per her request we did not reach out to her provider for the notes regarding Botox. Patient is still planning on doing another round of Botox at since its already been approved through her insurance. Patient states that she will let us know once this occurs and that she will get a copy of her documentation or will let us know for us to get a copy of these notes from the provider once this last set of injections are given. We will follow-up with the patient at future visits regarding this. We will see the patient back in the clinic at the next intrathecal refill. Patient has been instructed to contact the clinic with any concerns before the next appointment. Dr. Bradshaw has reviewed this note and agrees with this plan of care. This note was dictated using voice recognition software and make contain errors or omissions. -- It Is medically necessary for this patient to continue to have their intrathecal pump refilled at regular intervals. This patient had an intrathecal pain pump implanted after meeting criteria of chronic intractable pain for greater than 3 months and failing conservative treatments. Patient has committed and been compliant to the treatment plan and all planned follow up care. Since implantation of the intrathecal pain pump, the patient has had decreased pain and been more functional. Oral medications have been reduced including intake of oral opioids. Patient continues to do well with intrathecal therapy with decrease in pain symptoms and increase in functional status. Stopping intrathecal medications can lead to life threatening withdrawal, seizures, cardiac arrest, severe pain, and possible . Pumps that are not refilled at regular intervals can be damages and cause and need for replacement. We continually titrate dose and concentration to optimize pain relief and function. We are limited in concentration for certain drugs to safely deliver medications through the pump and stay within the recommendations from the Polyanalgesic Consensus Committee Guidelines. Depending on dose and concentration these pumps may need to be refilled sooner than 3 months as we titrate. [facility] Disclaimer: The information contained in this section may have been updated after the patient was seen, as this information can be updated by other users. Medical History Anxiety Arrhythmia Bipolar 1 disorder CHF (congestive heart failure) Chronic pain Depression Emphysema/COPD History of urinary incontinence History of urinary self-catheterization Hypertension Migraines Seizures Sleep apnea Spinal cord stimulator status SVT (supraventricular tachycardia) Surgical History H/O neck surgery FUSION Previous back surgery SPINAL CORD TUMOR DEBULKING Family History Mother Cancer Other Family history of COPD (chronic obstructive pulmonary disease) Family history of diabetes mellitus type II Family history of hypertension Family history of myocardial infarction Social History Smoking Status: Current every day smoker tobacco type: cigarettes packs per day: 1 second hand exposure: Yes alcohol intake: never substance use type: denies use current occupational status: disabled Travel in the last 8 weeks: None household members: family housing: house current occupational exposures/hazards: No caffeine: Yes
== END 2023-06-15 23:59 | disposition home or self-care (01) ==
LOC: SC.PAIN 10:04
PROVIDERS: PCP Family Medicine; Visit Provider Nurse Practitioner Family
DX: M50.10 Cervical disc disorder with radiculopathy, unspecified cervical region (principal); M51.16 Intervertebral disc disorders with radiculopathy, lumbar region; G89.4 Chronic pain syndrome; G43.909 Migraine, unspecified, not intractable, without status migrainosus; Z97.8 Presence of other specified devices
CPT/HCPCS: 99212; G0463

== ENCOUNTER 2023-06-23 13:37 | Outpatient (POV) | payer MEDICARE, SELFPAY ==
[2023-06-23 13:54] VITALS: BP 119/87; PULSE 90; RESP 16; TEMP 36.7; O2SAT 99; BMI 34.9
--- NOTE | 2023-06-23 14:20 | A.OFFVIS_ITS ---
[facility] Pain Management SOAP Note Subjective:: Patient is a 37-year-old female comes our clinic today for follow-up visit regarding her intrathecal pain pump. Patient reports her overall pain score is 2/10. She would like to add PTM. However, she did not bring her PTM device. We will reschedule her to come to the clinic later in the week. She is currently being managed with fentanyl 500 mcg/mL at 100 mcg/day. And bupivacaine 5 mg/mL 1 mg/day. Objective:: Patient is awake alert [place] x 3. No acute distress. Flexion-extension lumbar spine somewhat guarded secondary to pain. Deep tendon reflexes upper lower extremities normal. Motor strength upper lower extremities normal. There is no gross sensory deficits. Gait is normal. Assessment:: Degenerative disc lumbar spine multilevels. Lumbar radiculopathy. Lumbar postlaminectomy syndrome. Lumbar spondylosis. Plan:: Will schedule the patient to come to the office later this week for intrathecal pain pump interrogation and reprogram. We will add PTM at 10% of her daily dose 4 times daily. [facility] Disclaimer: The information contained in this section may have been updated after the patient was seen, as this information can be updated by other users. Medical History Anxiety Arrhythmia Bipolar 1 disorder CHF (congestive heart failure) Chronic pain Depression Emphysema/COPD History of urinary incontinence History of urinary self-catheterization Hypertension Migraines Seizures Sleep apnea Spinal cord stimulator status SVT (supraventricular tachycardia) Surgical History H/O neck surgery FUSION Previous back surgery SPINAL CORD TUMOR DEBULKING Family History Mother Cancer Other Family history of COPD (chronic obstructive pulmonary disease) Family history of diabetes mellitus type II Family history of hypertension Family history of myocardial infarction Social History Smoking Status: Current every day smoker tobacco type: cigarettes packs per day: 1 second hand exposure: Yes alcohol intake: never substance use type: denies use current occupational status: other Travel in the last 8 weeks: None household members: family housing: house current occupational exposures/hazards: No caffeine: Yes
== END 2023-06-23 23:59 | disposition home or self-care (01) ==
LOC: SC.PAIN 13:38
PROVIDERS: PCP Family Medicine; Visit Provider Nurse Anesthetist, Certified Registered
DX: M51.16 Intervertebral disc disorders with radiculopathy, lumbar region (principal); M96.1 Postlaminectomy syndrome, not elsewhere classified; M47.26 Other spondylosis with radiculopathy, lumbar region; Z97.8 Presence of other specified devices
CPT/HCPCS: 62368; 99212; G0463

== ENCOUNTER 2023-06-24 09:38 | Outpatient (POV) | payer MEDICARE, SELFPAY ==
[2023-06-24 10:23] VITALS: BP 129/92; PULSE 100; RESP 20; O2SAT 95; BMI 34.9
--- NOTE | 2023-06-24 12:33 | EXP.PAIN.SOA ---
[facility] Pain Management SOAP Note Subjective:: Patient is a pleasant 37-year-old female who presents today for setting up her bolus device. Patient did come to the clinic yesterday and had her intrathecal pump refill with no complications. She states that they did recommend her come in today at clinic in order to have her PTM device set up. She states that her spouse recently misplaced her PTM device and she has not found it yet but is hoping to soon. Patient does state that her pain is still doing well with the pump and denies any side effects from the medications however occasionally with the breakthrough pain she would like that is an option. Patient does state that she is scheduled to go to a stress test after our visit. Patient also mentions that she has been having some constipation issues and has been using stool softeners. Patient is currently managed with fentanyl 500 mcg/mL with a daily dose of 100.1 mcg/day and bupivacaine 5 mg mL with a daily dose of 1.0001 mg/day. Patient denies any side effects from this medication. Her Juan Luis has been reviewed and is appropriate. Review of Systems: General: No recent weight changes, no fever, no sleep disturbances Respiratory: No cough, no shortness of air, no recurring pulmonary infections Cardiovascular/peripheral vascular: No chest pain, no palpitations, no edema, no shortness of breath Gastrointestinal: No new onset incontinence, normal bowel movements reported Genitourinary: No new onset incontinence Musculoskeletal: Low back pain Psychiatric: [Normal mood/affect] Neurological: [Denies weakness in extremities], [denies balance issues] Objective:: Physical Exam: General: Alert and oriented x3, no acute distress, pleasant and cooperative Lungs: Respirations even and unlabored, symmetrical chest expansion Eyes: PERRL Musculoskeletal: Flexion and extension of lumbar [spine] somewhat guarded secondary to pain, [antalgic gait noted] Neurological: Speech clear, no gross sensory deficit Assessment:: Degenerative disc disease of lumbar spine with lumbar radiculopathy symptoms, lumbar postlaminectomy syndrome Plan:: Patient's pump settings were left unchanged however we did activate her bolus device options with up to 4 additional boluses available in a 24-hour. I have counseled the patient that in order to use these boluses she will have to find her PTM device. She acknowledges understanding. I have counseled her if this still continues to be an issue in future that we can see about reaching out and having her device replaced. I have also discussed with the patient if she continues to have constipation issues I would highly recommend that she increase her fluid intake and add MiraLAX daily to help with these issues. Patient will return to clinic on or before her next intrathecal refill for reevaluation of symptoms and plan of care. We will see the patient back in the clinic at the next intrathecal refill. Patient has been instructed to contact the clinic with any concerns before the next appointment. Dr. Bradshaw has reviewed this note and agrees with this plan of care. This note was dictated using voice recognition software and make contain errors or omissions. -- It Is medically necessary for this patient to continue to have their intrathecal pump refilled at regular intervals. This patient had an intrathecal pain pump implanted after meeting criteria of chronic intractable pain for greater than 3 months and failing conservative treatments. Patient has committed and been compliant to the treatment plan and all planned follow up care. Since implantation of the intrathecal pain pump, the patient has had decreased pain and been more functional. Oral medications have been reduced including intake of oral opioids. Patient continues to do well with intrathecal therapy with decrease in pain symptoms and increase in functional status. Stopping intrathecal medications can lead to life threatening withdrawal, seizures, cardiac arrest, severe pain, and possible . Pumps that are not refilled at regular intervals can be damages and cause and need for replacement. We continually titrate dose and concentration to optimize pain relief and function. We are limited in concentration for certain drugs to safely deliver medications through the pump and stay within the recommendations from the Polyanalgesic Consensus Committee Guidelines. Depending on dose and concentration these pumps may need to be refilled sooner than 3 months as we titrate. [facility] Disclaimer: The information contained in this section may have been updated after the patient was seen, as this information can be updated by other users. Medical History Anxiety Arrhythmia Bipolar 1 disorder CHF (congestive heart failure) Chronic pain Depression Emphysema/COPD History of urinary incontinence History of urinary self-catheterization Hypertension Migraines Seizures Sleep apnea Spinal cord stimulator status SVT (supraventricular tachycardia) Surgical History H/O neck surgery FUSION Previous back surgery SPINAL CORD TUMOR DEBULKING Family History Mother Cancer Other Family history of COPD (chronic obstructive pulmonary disease) Family history of diabetes mellitus type II Family history of hypertension Family history of myocardial infarction Social History Smoking Status: Current every day smoker tobacco type: cigarettes packs per day: 1 second hand exposure: Yes alcohol intake: never substance use type: denies use current occupational status: unemployed Travel in the last 8 weeks: None household members: family housing: house current occupational exposures/hazards: No caffeine: Yes
== END 2023-06-24 23:59 | disposition home or self-care (01) ==
LOC: SC.PAIN 09:39
PROVIDERS: PCP Family Medicine; Visit Provider Nurse Practitioner Family
DX: M54.50 Low back pain, unspecified (principal); Z76.0 Encounter for issue of repeat prescription
CPT/HCPCS: 62368; 99213; G0463

== ENCOUNTER 2023-06-24 10:37 | Outpatient (CLI) | payer MEDICARE, SELFPAY ==
--- NOTE | 2023-06-24 | CA_ITS ---
APPROVED REPORT Exam: Exercise Treadmill Technologist: Julianne Guerin, Ht: 5 ft 5 in Wt: 210 lbs BSA: 2.02 m2 HR: 91 bpm BP: 131/96 mmHg Rhythm: NSR Indications: Tachycardia Medical History Medications: Gabapentin,,,,, Metoprolol Tartrate,,,,, MeLOXICAM,,,,, DulOXETINE,,,,, AmiTRIPTYLINE,,,,, Cyclobenzaprine,,,,, LaMotrigine,,,,, Trazodone,,,,, Zofran,,,,, Macrobid,,,,, Stress Test Details Test: Stu HR Resting HR: 96 bpm Max Heart Rate (APMHR): 185 bpm Max HR Achieved: 123 bpm Target HR (85% APMHR): 157 bpm % of APMHR: 66 Recovery HR: 90 bpm HR response to stress: Blunted HR response to stress BP Resting BP: 131.0/96.0 mmHg Max BP: 168.0/103.0 mmHg Recovery BP: 147.0/95.0 mmHg BP response to stress: Normal blood pressure response to stress. ECG Resting ECG: NSR, low voltage QRS, cannot R/O old anterior IA Stress ECG: <0.[address] depression Arrhythmia: None Recovery ECG: Return to baseline within 3 minutes of recovery Recovery Arrhythmia: None Clinical Exercise duration: 06:29 min Highest Stage Achieved: III Exercise capacity: 7.0 METs Overall Exercise Capacity for Age: Fair Stress ECG Conclusion Suboptimal stress test in the setting of inability to achieve target HR. The patient exercised for 6:29 on Stu Protocol. She achieved a total of 7.0 METS. Post exercise, the patient developed brief tonic-clonic activity on 2 occasions, concerning for seizure post exercise. At the time, no ECG changes that were noted. The patient was recommended to undergo ER evaluation. However the patient and her family declined. Eventually the patient recovered and was hemodynamically stable. She left in stable condition. Max HR:123 % of PM: 66% Max BP: 168/103 METs:7.0 Test stopped due to: Back pain, CP, SOA Symptoms: Sharp, stabbing CP, lower back pain, SOA. Arrhythmias/Ectopy: None ST-T Changes: Normal ST response to exercise. Conclusion: Suboptimal and nondiagnostic stress test in the setting of inability to achieve target HR No ECG changes at max HR achieved. Post exercise, the patient developed brief tonic-clonic activity on 2 occasions, concerning for seizure post exercise. At the time, no ECG changes that were noted. The patient was recommended to undergo ER evaluation. However the patient and her family declined. Eventually the patient recovered and was hemodynamically stable. She left in stable condition. GXT only (no imaging) Further evaluation with ischemic workup, including imaging modality (e.g. nuclear stress test or CCTA) is recommended in the setting of inability to achieve target HR and non-diagnostic treadmill exercise stress test. Test Summary REST . . . . . . . Sitting REST . . . . . . . Standing REST 03:03 0.0 0.0 96 . 131/ 96 . . Stage 1 01:00 10.0 1.7 102 . . . . Stage 1 02:00 10.0 1.7 109 . . . . Stage 1 03:00 10.0 1.7 112 . . . . Stage 2 01:00 12.0 2.5 116 . . . . Stage 2 02:00 12.0 2.5 120 . . . . Stage 2 03:00 12.0 2.5 120 . . . . Stage 3 00:29 14.0 3.4 122 . . . Stop exercise at 06:29 RECOVERY 01:00 0.0 0.0 113 . . . . RECOVERY . . . . . . . Chest pain RECOVERY 02:00 0.0 0.0 90 . . . . RECOVERY 03:00 0.0 0.0 94 . 168/103 . . RECOVERY 04:00 0.0 0.0 89 . 168/103 . . RECOVERY 05:00 0.0 0.0 86 . 154/ 91 . . RECOVERY 06:00 0.0 0.0 93 . 154/ 91 . . RECOVERY 07:00 0.0 0.0 106 . 154/ 91 . . RECOVERY 08:00 0.0 0.0 104 . 154/ 91 . . RECOVERY 09:00 0.0 0.0 85 . 154/ 91 . . RECOVERY 10:00 0.0 0.0 96 . 154/ 91 . . RECOVERY 11:00 0.0 0.0 99 . 154/ 91 . . RECOVERY 12:00 0.0 0.0 97 . 154/ 91 . . RECOVERY 13:00 0.0 0.0 87 . 154/ 91 . . RECOVERY 14:00 0.0 0.0 89 . 154/ 91 . . RECOVERY 15:00 0.0 0.0 91 . 154/ 91 . . RECOVERY 16:00 0.0 0.0 91 . 147/ 95 . . RECOVERY 17:00 0.0 0.0 87 . 147/ 95 . . RECOVERY 18:00 0.0 0.0 86 . 147/ 95 . . RECOVERY 19:00 0.0 0.0 89 . 147/ 95 . . RECOVERY 20:00 0.0 0.0 91 . 147/ 95 . . RECOVERY 21:00 0.0 0.0 88 . 147/ 95 . . RECOVERY 21:41 0.0 0.0 92 . 147/ 95 . . Electronically signed by : Carlotta Chowdary MD 06/25/2023 14:56:29
== END 2023-06-24 23:59 | disposition home or self-care (01) ==
LOC: RT 10:37
PROVIDERS: PCP Family Medicine; Visit Provider Family Medicine
DX: M54.50 Low back pain, unspecified (principal); Z76.0 Encounter for issue of repeat prescription; M51.16 Intervertebral disc disorders with radiculopathy, lumbar region; M96.1 Postlaminectomy syndrome, not elsewhere classified; Z97.8 Presence of other specified devices
CPT/HCPCS: 62368; 93017; 93018; 99212; 99213; G0463

== ENCOUNTER 2023-07-14 08:32 | Day surgery (SDC) | payer MEDICARE, SELFPAY ==
[2023-07-14 08:39] VITALS: BP 129/81; PULSE 76; RESP 20; O2SAT 96
[2023-07-14 08:45] VITALS: BP 141/95; PULSE 81; RESP 18; TEMP 36.6; O2SAT 98; BMI 34.9
--- NOTE | 2023-07-14 09:12 | MR_ITS ---
FINAL REPORT CLINICAL HISTORY: S/P CERVICAL SPINAL INFUSION, CERVICALGIA COMPARISON: None FINDINGS: Multi planar MR imaging was obtained of the cervical spine. There is abnormal decreased signal throughout the cervical discs. There is magnetic susceptibility artifact secondary to a anterior and interbody cervical fusion at the C5-6 level. The vertebrae are of normal height. There is no malalignment. The cervical cord demonstrates normal signal and configuration. C2-C3: There is no evidence of significant disc bulge or protrusion. There is no significant facet hypertrophy. C3-C4: There is no evidence of significant disc bulge or protrusion. There is no significant facet hypertrophy. C4-C5: There is no evidence of significant disc bulge or protrusion. There is no significant facet hypertrophy. C5-C6: There is mild to moderate endplate hypertrophy, greater on the right than on the left. There is mild right neural foraminal narrowing. C6-C7: There is mild endplate hypertrophy and mild left neural foraminal narrowing. C7-T1: There is no evidence of significant disc bulge or protrusion. There is no significant facet hypertrophy. IMPRESSION: Prior C5-6 anterior cervical fusion as described. Mild degenerative change at the C5-6 and C6-7 levels. Reviewed, Interpreted and Dictated by Donte Rodgers MD Transcribed by Charlotte Cloud Authenticated and [facility]
[2023-07-14 10:15] VITALS: BP 150/84; PULSE 77; RESP 18; O2SAT 96
[2023-07-14 10:18] VITALS: BP 150/84; PULSE 80; RESP 18; O2SAT 96
--- NOTE | 2023-07-14 10:20 | EXP.PAIN.PRO ---
Procedure Date: 07/14/23 Time: 09:00 Anesthesiologist:: Jae Marino CRNA Complications:: None Pre-procedure Diagnosis:: Degenerative disc lumbar spine multilevels. Lumbar radiculopathy. Lumbar postlaminectomy syndrome. Degenerative disc cervical spine. Cervical radiculopathy. Post-procedure Diagnosis:: Same Indications for Procedure:: Patient is a pleasant 37-year-old female comes our clinic today for intrathecal pain pump medication removal and refill following cervical MRI. Patient currently being managed with fentanyl 500 mcg/mL at a daily dose of 100.1 mcg/day. And bupivacaine 5 mg/mL daily dose of 1.48747 mg/day patient reports having some increased pain in the cervical spine as well as lumbar spine over the last 2 weeks. She rates her pain today 6/10. Patient requesting increase in the intrathecal pain pump daily dose. I will increase her 10%. Procedure Details:: Details of the procedure explained to the patient. The patient taken to procedure room placed in the sitting position. The area of the pump is cleansed using chlorhexidine's cleansing solution. The pump was accessed using a 22-gauge inch and half needle. 12 cc of solution was removed and saved. The pump was interrogated. Patient will be transported by wheelchair to [facility]. Patient returned from [facility]. The area over the pump was cleansed using chlorhexidine's cleansing solution. The pump was accessed with ease using a 22-gauge inch and half needle. 12 mL of solution was replaced in the intrathecal pain pump. Patient tolerated procedure without difficulty. There are no complications. Patient is intrathecal pain pump rate was increased by 10%. Her new rate will be bupivacaine 1.0999 mg/day. Fentanyl 109.99 mcg/day. Plan and Disposition:: Patient was discharged without incident.
[2023-07-14 10:23] VITALS: BP 146/99; PULSE 74; RESP 18; O2SAT 98
== END 2023-07-14 10:25 | disposition home or self-care (01) ==
PROVIDERS: PCP Family Medicine; Visit Provider Neurological Surgery
DX: M51.16 Intervertebral disc disorders with radiculopathy, lumbar region (principal); M96.1 Postlaminectomy syndrome, not elsewhere classified; M50.10 Cervical disc disorder with radiculopathy, unspecified cervical region; Z97.8 Presence of other specified devices; Z45.1 Encounter for adjustment and management of infusion pump
CPT/HCPCS: 62370; 72141

== ENCOUNTER 2023-07-16 14:04 | Emergency (ER) | payer MEDICARE, SELFPAY ==
[2023-07-16 14:04] VITALS: BP 130/90; PULSE 79; RESP 18; TEMP 37.1; O2SAT 96; BMI 34.9
--- NOTE | 2023-07-16 14:06 | ED_ITS ---
<Statement entered by Eva Tirado DO - 07/16/23 15:53> I was consulted by the LUCY, and we discussed the complexity of the problems being addressed. I approved the treatment and management plan for this patient's care in the emergency department, thus performing a substantive portion of the medical decision making. Eva Tirado DO Discharge Plan Disposition Patient Disposition: Home, Self-Care Condition: Good Prescriptions Prescriptions: No Action cyclobenzaprine 10 mg tablet 10 mg PO DAILY duloxetine 60 mg capsule,delayed release(DR/EC) 60 mg PO DAILY nitrofurantoin monohyd/m-cryst 100 MG capsule 100 mg PO BID ondansetron 4 MG tablet,disintegrating 4 mg PO Q8HP PRN (Reason: Nausea) Qty: 20 0RF clonazepam 0.5 MG tablet 0.5 mg PO BID PRN (Reason: Anxiety) metoprolol tartrate 50 MG tablet 50 mg PO BID trazodone 100 MG tablet 100 - 300 mg PO HS PRN (Reason: Sleep) lamotrigine 100 mg tablet 1 mg PO DAILY tizanidine [Zanaflex] 4 mg tablet 4 mg PO HS Qty: 30 2RF meloxicam 7.5 mg tablet 7.5 mg PO DAILY Qty: 30 5RF amitriptyline 10 mg tablet 10 mg PO HS Qty: 30 2RF gabapentin [Neurontin] 800 mg tablet 800 mg PO TID Qty: 90 2RF fentanyl (PF)-bupivacaine-NaCl 1.5 mcg/mL- 0.125 % Syringe 20 ml epidural CONT Rx Instructions: ACTUAL DOSING IS FENTANYL 500MCG/ML, BUPIVACAINE 5MG/ML SEE EMR FOR CURRENT DAILY DOSE. Referrals Follow up/Referrals: Kleber Rothman MD [Primary Care Provider] - See instructions Activity Restrictions/Add. Instructions Additional Instructions/Restrictions: Follow-up with cardiology as scheduled. Follow-up with pain management as scheduled. Return to the ER for any worsening signs or symptoms. Clinical Impressions Clinical Impression: Chest pain Qualifiers: Chest pain type: unspecified Qualified Code(s): R07.9 - Chest pain, unspecified Discharge ED Provider: Eva Tirado General Adult HPI General Chief complaint: Chest Pain Stated complaint: Chest Pain Time Seen by Provider: 07/16/23 14:05 History of Present Illness HPI narrative: Patient presents for evaluation of chest pain.. Patient states that she has had chest pain that began 30 minutes prior to arrival. Patient has had this intermittently for quite some time and was recently evaluated on 07/08/2023 by cardiology. However patient was unable to complete a stress test and thus further testing has been ordered by cardiology. Patient reports the pain occurs at rest and with exercise nothing makes it better nothing makes it worse does not radiate. Patient does have a history of chronic pain in her cauda equina syndrome and she is followed by Dr. Bradshaw. She has both a pain pump and spinal stimulator in place. She denies shortness of breath fever chills hemoptysis hematochezia melena nausea vomit diarrhea. Related Data Home Medications Medication Instructions Recorded Confirmed clonazepam 0.5 mg tablet 0.5 mg PO BID PRN Anxiety 12/19/18 07/08/23 metoprolol tartrate 50 mg tablet 50 mg PO BID heart rate 04/12/19 07/08/23 trazodone 100 mg tablet 100 - 300 mg PO HS PRN Sleep 04/13/19 07/08/23 nitrofurantoin 100 mg PO BID . 03/22/21 07/08/23 monohydrate/macrocrystals 100 mg capsule lamotrigine 100 mg tablet 1 mg PO DAILY mood 03/28/22 07/08/23 cyclobenzaprine 10 mg tablet 10 mg PO DAILY 10/24/22 07/08/23 duloxetine 60 mg capsule,delayed 60 mg PO DAILY 10/24/22 07/08/23 release fentanyl(PF) 90 mcg/60 mL (1.5 20 ml epidural CONT Pain 06/24/23 07/08/23 mcg/mL)-bupiv 0.125%-NaCl epidural syr Previous Rx's Medication Instructions Recorded ondansetron 4 mg disintegrating 4 mg PO Q8HP PRN Nausea #20 tabs 03/22/21 tablet tizanidine 4 mg tablet (Zanaflex) 4 mg PO HS #30 tabs 04/29/23 meloxicam 7.5 mg tablet 7.5 mg PO DAILY #30 tabs 05/06/23 amitriptyline 10 mg tablet 10 mg PO HS migraines #30 tabs 05/25/23 gabapentin 800 mg tablet 800 mg PO TID Pain #90 tabs 06/18/23 (Neurontin) Allergies Allergy/AdvReac Type Severity Reaction Status Date / Time aripiprazole [From Abilify] Allergy Intermediate Seizure Verified 07/08/23 10:56 sulfamethoxazole Allergy Rash Verified 07/08/23 10:56 [From Bactrim] trimethoprim [From Bactrim] Allergy Rash Verified 07/08/23 10:56 [facility] Disclaimer: The information contained in this section may have been updated after the patient was seen, as this information can be updated by other users. Medical History (Updated 07/16/23 @ 15:45 by GLORIA Bansal) Family history of early CAD Dyspnea SVT (supraventricular tachycardia) History of urinary incontinence History of urinary self-catheterization Emphysema/COPD Sleep apnea Hypertension Spinal cord stimulator status Chronic pain Bipolar 1 disorder Seizures Migraines Depression CHF (congestive heart failure) Arrhythmia Anxiety Surgical History H/O neck surgery Previous back surgery Family History Mother Cancer breast Other Family history of COPD (chronic obstructive pulmonary disease) Family history of diabetes mellitus type II Family history of hypertension Family history of myocardial infarction Social History Smoking Status: Current every day smoker tobacco type: cigarettes packs per day: 1 second hand exposure: Yes alcohol intake: never substance use type: denies use current occupational status: unemployed Travel in the last 8 weeks: None household members: family housing: house current occupational exposures/hazards: No caffeine: Yes ROS Obtained: Yes Systems reviewed as appropriate & no additional complaints except as documented Physical Exam General General appearance: alert and in no apparent distress Respiratory Respiratory exam: Present normal lung sounds bilaterally Cardiovascular Cardiovascular exam: Present regular rate and normal rhythm Extremities Exam Extremities exam: Present normal inspection and full ROM Back Exam Back exam: Present normal inspection and full ROM Neurological Exam Neurological exam: Present alert and oriented X3 Medical Decision Making Medical Records Medical records reviewed: Yes I reviewed the patient's medical records. Juan Luis Inquiry Pt receiving controlled substance: No Vital Signs: 07/16/23 14:04 07/16/23 17:09 07/16/23 17:30 Temperature 98.7 F Temperature Source Oral Pulse Rate 73 69 Pulse Rate [Left Radial] 79 Respiratory Rate 18 16 Blood Pressure 133/86 123/87 Blood Pressure [Right Arm] 130/90 Blood Pressure Mean [Right Arm] 103 Blood Pressure Source [Right Arm] Automatic Cuff Blood Pressure Position [Right Arm] Sitting 02 Sat by Pulse Oximetry 96 97 98 Oxygen Delivery Method Room Air Room Air Room Air 07/16/23 17:51 Temperature 98.1 F Temperature Source Oral Pulse Rate 67 Pulse Rate [Left Radial] Respiratory Rate 16 Blood Pressure 123/87 Blood Pressure [Right Arm] Blood Pressure Mean [Right Arm] Blood Pressure Source [Right Arm] Blood Pressure Position [Right Arm] 02 Sat by Pulse Oximetry Oxygen Delivery Method Room Air Lab Data Lab results reviewed: Yes I reviewed the patient's lab results. Lab Results 07/16/23 14:18: WBC 8.8, RBC 4.18 L, Hgb 13.0, Hct 39.0, MCV 93.4, MCH 31.2, MCHC 33.4, RDW 13.3, Plt Count 281, MPV 7.1 L, Neut % (Auto) 65.0, Lymph % (Auto) 28.1, [place] % (Auto) 4.3, Eos % (Auto) 1.9, Baso % (Auto) 0.7, Neut # (Auto) 5.7, Lymph # (Auto) 2.5, [place] # (Auto) 0.4, Eos # (Auto) 0.2, Baso # (Auto) 0.1, PT 10.0 L, INR 0.92, D-Dimer 0.28, Sodium 139, Potassium 4.2, Chloride 103, Carbon Dioxide 29, Anion Gap 11.2, BUN 17, Creatinine 0.80, Estimated Creat Clear 146, Estimated GFR 81, Est GFR ( Amer) 98, Glucose 91, Calcium 9.4, Magnesium 2.0, Total Bilirubin 0.2, AST 27, ALT 22, Alkaline Phosphatase 74, Troponin I < 0.01, NT-Pro-B Natriuret Pep 169 H, Total Protein 7.1, Albumin 4.1, Globulin 3.0, Albumin/Globulin Ratio 1.4, TSH 3.38 07/16/23 14:50: Urine Color Yellow, Urine Appearance Clear, Urine pH 5.5, Ur Specific [place] 1.025, Urine Protein Negative, Urine Glucose (UA) Negative, Urine Ketones Negative, Urine Blood Negative, Urine Nitrate Negative, Urine Bilirubin Negative, Urine Urobilinogen 0.2, Ur Leukocyte Esterase Negative, Urine RBC None, Urine WBC None, Ur Squamous Epith Cells Occasional, Urine Bacteria Trace, Urine Mucus Trace, Urine Yeast 1+, Urine HCG, Qual Negative 07/16/23 16:55: Troponin I < 0.01 07/16/23 14:18 07/16/23 14:18 Orders (Tests/Meds): ED MEDICATIONS Discontinued Medications Generic Name Dose Route Start Last Admin Trade Name Jayq PRN Reason Stop Dose Admin Acetaminophen 1,000 mg 07/16/23 14:11 07/16/23 14:19 Acetaminophen 1,000mg/100ml Vial IV 07/16/23 14:12 1,000 mg ONCE ONE Administration Belladonna Alkaloids 60 ml 07/16/23 14:11 07/16/23 14:19 Belladonna Alkaloids 60 Ml Ml PO 07/16/23 14:12 60 ml ONCE ONE Administration Lactated Ringer's 1,000 mls @ 999 mls/hr 07/16/23 14:11 07/16/23 14:18 Lactated Ringer's 1000 Ml Bag IV 07/16/23 15:11 999 mls/hr .Q1H1M ONE Administration Ketorolac Tromethamine 15 mg 07/16/23 14:11 07/16/23 14:19 Ketorolac 30mg/Ml Vial IV 07/16/23 14:12 15 mg ONCE ONE Administration Ondansetron HCl 4 mg 07/16/23 14:11 07/16/23 14:32 Ondansetron 4mg/2ml Vial IV 07/16/23 14:12 4 mg ONCE ONE Administration ORDERS Category Date Time Status Chest XR -- portable [XR chest portable] Stat Exams 07/16/23 14:11 Completed BNP [NT Pro Brain Natriuretic Pep.] Stat Lab 07/16/23 14:18 Completed CBC w/Auto Diff [Complete Blood Count Auto Diff] Stat Lab 07/16/23 14:18 Completed CMP [Comprehensive Metabolic Panel] Stat Lab 07/16/23 14:18 Completed D-Dimer Stat Lab 07/16/23 14:18 Completed INR [Prothrombin Time INR] Stat Lab 07/16/23 14:18 Completed Magnesium Stat Lab 07/16/23 14:18 Completed TSH [Thyroid Stimulating Hormone] Stat Lab 07/16/23 14:18 Completed Trop I [Troponin I] Stat Lab 07/16/23 14:18 Completed Troponin I Q3H Lab 07/16/23 16:55 Completed UA [Urinalysis and Microscopic] Stat Lab 07/16/23 14:50 Completed Urine , HCG Qual. Stat Lab 07/16/23 14:50 Completed HEART Score History (anamnesis): Slightly suspicious ECG: Normal Age: <45 years Risk factors: 1-2 risk factors Medical Decision Narrative: In summary patient is a 38-year-old female who presents to the emergency department for evaluation of chest pain. Patient is hemodynamically stable upon arrival, afebrile. Physical exam is unremarkable and nonfocal including normal breath sounds normal heart sounds no pain reproducible on exam.. Differential diagnosis includes ACS versus gastritis versus esophagitis versus pancreatitis etc. Initial workup will be conducted with hematologic labs, twelve-lead EKG, plain film chest x-ray, urinalysis.. Initial interventions include crystalloid bolus, Toradol Tylenol GI cocktail continuous cardiac monitoring and continuous pulse oximetry. Initial workup reviewed by me shows that her hematologic labs are nonactionable including an undetectable troponin and my informal interpretation of her chest x-ray shows no acute processes per the radiologist read.. Upon repeat evaluation patient is continuing to ask for pain medication including opiates and ketamine. Given this the patient was placed in observation status at 1545. Medical necessity for observational status is serial troponins. The patient was provided serial reevaluations continuous cardiac monitoring and continuous pulse oximetry while awaiting results. Shows that her troponin is still undetectable. 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 Total time in observation was 120 minutes. Critical Care Critical Care Time Critical Care Time: No
--- NOTE | 2023-07-16 14:06 | ECG_ITS ---
APPROVED REPORT Exam: Resting ECG HR:79 bpm ECG Measurements Heart Rate 79 AXES DC 141 P 50 QRSd 91 QRS -10 QT 368 T 26 QTc 402 Conclusion SINUS RHYTHM LOW QRS VOLTAGE IN PRECORDIAL LEADS [QRS DEFLECTION < 1.0 mV IN CHEST LEADS] POSSIBLE ANTERIOR MYOCARDIAL INFARCTION , OF INDETERMINATE AGE [30 ms Q WAVE IN V3/V4, OR R < 0.2 mV IN V4] ABNORMAL ECG Electronically signed by : BRADLY EASON, 07/16/2023 16:08:01
--- NOTE | 2023-07-16 14:11 | XR_ITS ---
FINAL REPORT CLINICAL HISTORY: Precordial chest pain COMPARISON: 03/24/2021 FINDINGS: The heart size is normal. The mediastinum is normal. The lungs are underinflated. There are mild chronic changes at the lung bases. There are no pleural effusions. There is no pneumothorax. There has been interval placement of cervical fusion hardware. IMPRESSION: No acute cardiopulmonary process Reviewed, Interpreted and Dictated by Donte Rodgers MD Transcribed by Aleksandra Kate Authenticated and [facility]
[2023-07-16] MEDS: LACTATED RINGERS 1000ML 1,000 ML 999 ML IV (14:18)
[2023-07-16] MEDS: KETOROLAC 30MG/ML VIAL 15 MG IV (14:19)
[2023-07-16] MEDS: ACETAMINOPHEN 1,000MG/100ML VIAL 1000 MG IV (14:19)
[2023-07-16] MEDS: BELLADONNA ALKALOIDS 60 ML ML PO (14:19)
[2023-07-16 14:24] LABS: Basophils # 0.1 K/mm3 (0-0.2); Basophils % 0.7 % (0.1-2.0); Eosinophils # 0.2 K/mm3 (0.0-0.4); Eosinophils % 1.9 % (0.1-12.0); Lymphocytes # 2.5 K/mm3 (0.7-4.5); Lymphocytes % 28.1 % (10-50); Mean Corpuscular HGB Conc 33.4 g/dL (31.8-35.4); Mean Corpuscular Hemoglobin 31.2 pg (27.0-31.2); Mean Corpuscular Volume 93.4 fl (81-99); Mean Platelet Volume 7.1 fl (7.4-10.4); Monocytes # 0.4 K/mm3 (0.1-1.0); Monocytes % 4.3 % (1.7-9.3); Neutrophils # 5.7 K/mm3 (1.8-7.8); Platelet Count 281 K/mm3 (142-424); Red Blood Count 4.18 M/mm3 (4.20-5.40); Red Cell Distribution Width 13.3 % (11.5-17.5); White Blood Count 8.8 K/mm3 (4.8-10.8)
--- NOTE | 2023-07-16 14:24 | PC.NURSE ---
respiratory aware of vbg
[2023-07-16] MEDS: ONDANSETRON 4MG/2ML VIAL 4 MG IV (14:32)
[2023-07-16 14:33] LABS: INR 0.92 (0.9-1.1)
[2023-07-16 14:40] LABS: Alanine Aminotransferase 22 U/L (12-78); Albumin Level 4.1 g/dl (3.5-5.0); Albumin/Globulin Ratio 1.4 (1.1-1.8); Alkaline Phosphatase 74 U/L (38-126); Anion Gap 11.2 mEq/L (5-15); Aspartate Amino Transferase 27 U/L (14-36); Bilirubin,Total 0.2 mg/dl (0.2-1.3); Blood Urea Nitrogen 17 mg/dl (7-17); Calcium 9.4 mg/dl (8.4-10.2); Carbon Dioxide 29 mmol/L (22.0-30.0); Chloride 103 mmol/L (98-107); Creatinine Clearance Estimated 146 mL/min (50-200); Estimated Glomerular Filt Rate 81 ml/min (>60); GFR (African American) 98 ML/MIN (>60); Glucose 91 mg/dl (74-100); Potassium 4.2 mmoL/L (3.5-5.1); Sodium 139 mmol/L (136-145); Total Protein,Serum 7.1 g/dl (6.3-8.2)
[2023-07-16 14:56] LABS: Microscopic, Urine URINE MICROSCOPIC (MICROSCOPIC)
[2023-07-16 15:01] LABS: Appearance,Urine CLEAR (Clear); Bilirubin,Urine Negative (Negative); Blood, Urine Negative (Negative); Color,Urine YELLOW (Yellow); Glucose,Urine (UA) Negative (Negative); Ketones,Urine Negative (Negative); Leukocyte Esterase,Urine Negative (Negative); Nitrate,Urine Negative (Negative); PH,Urine 5.5 (5.0-8.5); Protein,Urine Negative (Negative); Specific Gravity, Urine 1.025 (1.005-1.030); Urobilinogen,Urine 0.2 EU/dl (0.2)
[2023-07-16 15:03] LABS: Urine Pregnancy, HCG Qual. Negative (Negative)
[2023-07-16 15:37] LABS: Bacteria,Urine Trace /lpf; Mucus,Urine Trace /lpf; Squamous Epithelial Cell,Urine Occasional #/hpf (0-5); Yeast,Urine 1+ /lpf
[2023-07-16 15:37] LABS: D-Dimer 0.28 ug/mL (0.0-0.5)
[2023-07-16 15:38] LABS: NT Pro Brain Natriuretic Pep. 169 pg/mL (0-125)
[2023-07-16 15:39] LABS: Troponin I < 0.01 ng/ml (0.00-0.034)
[2023-07-16 15:56] LABS: Thyroid Stimulating Hormone 3.38 uIU/mL (0.465-4.68)
[2023-07-16 17:09] VITALS: BP 133/86; PULSE 73; O2SAT 97
[2023-07-16 17:30] VITALS: BP 123/87; PULSE 69; RESP 16; O2SAT 98
[2023-07-16 17:34] LABS: Troponin I < 0.01 ng/ml (0.00-0.034)
[2023-07-16 17:51] VITALS: BP 123/87; PULSE 67; RESP 16; TEMP 36.7; O2SAT 99
== END 2023-07-16 18:06 | disposition home or self-care (01) ==
PROVIDERS: Physician Assistant; Emergency Provider Emergency Medicine; PCP Family Medicine
DX: R07.9 Chest pain, unspecified (principal); F17.210 Nicotine dependence, cigarettes, uncomplicated; I10 Essential (primary) hypertension; F31.9 Bipolar disorder, unspecified
CPT/HCPCS: 71045; 80053; 81001; 81025; 83735; 83880; 84443; 84484; 85025; 85378; 85610; 93005; 96361; 96374; 96375; 99285; J0131; J2405; J7120

== ENCOUNTER 2023-07-23 12:02 | Outpatient (CLI) | payer MEDICARE, SELFPAY ==
[2023-07-23] VITALS (10 sets, daily range): BP systolic 120–140; BP diastolic 84–93; PULSE 64–88; RESP 16; TEMP 36.1; O2SAT 97; BMI 34.9
--- NOTE | 2023-07-23 12:03 | CT_ITS ---
APPROVED REPORT Wiper Blender: CLINICAL INDICATION Chest Pain, tachycardia TECHNIQUE Image Acquisition: A 128 slice MDCT scanner (tweetTVa View) was used for data acquisition. A noncontrast coronary calcium scan was performed. A CT attenuation threshold of 130 Hounsfield units (HU) was used for the detection of calcium in contiguous voxels of 1 sq mm in area to be counted as individual lesions. Bolus tracking in the ascending aorta with a threshold of 180 HU was performed. Immediately afterwards, ECG synchronized cardiac CT was then performed from the cardiac base to apex using retrospective gating with ECG tube current modulation. A total of 85 mL of Isovue 370 mg/mL contrast medium was administered at 5 mL/sec followed by a saline flush using a biphasic injection protocol. A tube voltage of 120 KVp was used. The patient received the following medications prior to the cardiac CT. 100 mg of oral metoprolol 25 mg of intravenous metoprolol 15 mg of oral ivabradine 0.8 mg of sublingual nitroglycerin The average heart rate at the time of acquisition was 72 bpm and regular. Image Reconstruction Transaxial images were reconstructed at 0.67 mm slide thickness. Data was reviewed interactively on an advanced workstation capable of 2 and 3-dimensional displays in all conventional reconstruction formats, including multiplanar reformations, maximum intensity projections, curved multiplanar reformations, and volume rendered reconstructions. When applicable, selected routine images describing the relevant coronary anatomy and pathology were saved and sent to PACS. Complications None Technical Quality Overall image quality was good. Coronary artery opacification was adequate. Total DLP (Dose-Length Product) is 1890.2 mGy-cm. The reported value represents the total of one or more individual components during the CT acquisition of this date and at this time, and as such, the same value may appear in more than one CT report depending on the interpreting/reporting physicians. COMPARISON None FINDINGS CT Coronary Calcium Scoring LMA (Left Main Artery) = 0 LAD (Left Anterior Descending) = 0 LCX (Left Coronary Circumflex) = 0 RCA (Right Coronary Artery) = 0 Total Calcium Score = 0 using the AJ-130 method. The interpretation of the calcium heart score is based on the following continuum*: 0 = no calcified plaque detected (risk of coronary artery disease is very low ??? less than 5%) 1-10 = calcium detected in extremely minimal levels (risk of coronary diseases is still low ??? less than 10%) 11-100 = mild levels of plaque detected with certainty (mild or minimal narrowing of heart arteries is likely) 101-400 = definite,at least moderate levels of plaque detected (relatively high risk of a heart attack within 3-5 years) >401-999 = extensive levels of plaque detected (high risk of heart attack, high levels of vascular disease are present, high likelihood of at least one significant coronary narrowing) *The calcium heart score quantifies the burden of coronary calcification/plaque in the coronary arteries. The calcium heart score is not able to evaluate the presence or burden of non-calcified (i.e. soft) plaque. There is not identifiable calcification in the aortic valve, mitral annulus or mitral valve, pericardium, or myocardium. Coronary CT Angiography The coronary arterial system is right dominant. Quantitative Stenosis Grading: Left Main (LM): The left main originates normally from the left sinus of Valsalva. The LM bifurcates into the left anterior descending artery and left circumflex artery. The LM is patent with no evidence of atherosclerosis. Left Anterior Descending (LAD) and Diagonal Branches: The LAD gives off 2 diagonal branch(es). The LAD and its branches are patent with no evidence of atherosclerosis. There is no evidence of LAD-myocardial bridge. Left Circumflex (LCX) and Obtuse Marginals (OM): The LCX gives off 1 Obtuse Marginal (OM) branch(es). The LCX and its branches are patent with no evidence of atherosclerosis. Right Coronary Artery (RCA): The RCA originates normally from the right sinus of Valsalva. The RCA gives off a posterior descending artery (PDA) and posterolateral (PL) branches. The RCA and its branches are patent with no evidence of atherosclerosis. Non-Coronary Cardiac Findings: Analysis of the left ventricular (LV) structure and function was performed after 3-D reconstruction of the LV from axial images, with user-corrected automatic contouring for assessment of LV volumes and user-defined reconstruction from oblique planes for measurement of 3-D cardiac structure and function. -The left ventricle systolic function is normal. -There is no left atrial appendage filling defect. Two right pulmonary veins and two left pulmonary veins drain normally into the left atrium. -No pericardial thickening or calcification. -Central and branch pulmonary arteries in the [id number] are unremarkable. -Thoracic aorta within the visualized thoracic aortic-branches in the [id number] is unremarkable. Extracardiac Structures No significant extra-cardiac findings. Note, however, that this study is focused on the cardiac findings. IMPRESSION -No coronary calcification with an Agatston score = 0 using the AJ-130 method. -No evidence of significant flow-limiting atherosclerosis of the coronary arteries. -No evidence of coronary anomalies or myocardial bridges. -CAD-RADS 0. Management recommendations per ACC/AHA guidelines*, as clinically appropriate. *Recommendations: CAD RADS 0: Reassurance. Consider non-atherosclerotic causes of chest pain. CAD RADS 1: Consider non-atherosclerotic causes of chest pain. Consider preventive therapy and risk factor modification. CAD RADS 2: Consider non-atherosclerotic causes of chest pain. Consider preventive therapy and risk factor modification, particularly for patients with nonobstructive plaque in multiple segments. CAD RADS 3: Consider further functional testing. Consider symptom-guided anti-ischemic and preventive pharmacotherapy as well as risk factor modification per published guideline statements. CAD RADS 4A: Consider further functional testing or invasive coronary angiography with revascularization per published guideline statements. Consider symptom-guided anti-ischemic and preventive pharmacotherapy as well as risk factor modification per published guideline statements. CAD RADS 4B: Invasive coronary angiography recommended with revascularization per published guideline statements. Consider symptom-guided anti-ischemic and preventive pharmacotherapy as well as risk factor modification per published guideline statements. CAD RADS 5: Consider invasive angiography and/or viability assessment with revascularization per published guideline statements. Consider symptom-guided anti-ischemic and preventive pharmacotherapy as well as risk factor modification per published guideline statements. CRITICAL RESULT None COMMUNICATION Per this written report The coronary and cardiac findings of this CCTA were reviewed, reported, and signed by Teddy Chowdary MD (Textile Stylist) Conclusion Electronically signed by : Carlotta Chowdary MD 07/28/2023 00:08:35
--- NOTE | 2023-07-23 12:51 | CA_ITS ---
APPROVED REPORT EXAM: Comprehensive 2D, Doppler, and color-flow Echocardiogram Transferrer: Ashley Mcdonnell RVT Ht: 5 ft 5 in Wt: 210lbs BSA: 2.02 BP: 113/83 mmHg Indications: DYSPENA,CP,SMOKER,HTN,CHF,SEIZURES TDS-PT BODY HABITUS 2D Dimensions IVSd 1.35 cm F: 0.6-1.0 LVEF (Visual) 67.80 % PWd 0.95 cm F: 0.6 - 1.0 LA Volume 32.80 mL LVDd 4.05 cm F: 3.9 - 5.3 LA Volume Index 16.24 mL/m2 (M/F) 16-34 LVDs 2.54 cm F: 2.2 - 3.5 M-Mode Dimensions LA Diam 3.80 cm (1.9-4.0) TAPSE 1.98 (<1.7) LV Diastology E Decel Time 213 (160-240 msec) E/A Ratio 0.9 Aortic Valve VELMA Index 1.44 cm2/m2 AoV Peak Deangelo. 134.0 (50-130 cm/s) AO Peak GR. 7.20 mmHg AO Mean GR. 4.10 (<5 mmHg) AO VTI 27.3 (18-25 cm) VELMA (VTI) 2.98 (2.5-4.5 cm2) Mitral Valve MV E Max Deangelo. 68.0 (40-130 cm/s) MV A Velocity 77.0 (40-130 cm/s) E/A Ratio 0.88 MV PHT 62.0 ms Pulmonary Valve PV Peak Velocity 50.0 (50-150 cm/s) Tricuspid Valve TR P. Velocity 166.00 cm/s RAP Estimate 10.00 mmHg RVSP 21.10 mmHg Left Ventricle The left ventricle is normal size. The left ventricular systolic function is normal. The left ventricular ejection fraction is within the normal range. There is increased LV wall thickness. There is normal LV segmental wall motion. Transmitral Doppler flow pattern suggests impaired LV relaxation. LVEF is 55%. Right Ventricle The right ventricle is mildly dilated. The right ventricular systolic function is normal. Atria The left atrium size is normal. The right atrium size is normal. There is no Doppler evidence of interatrial shunt. Aortic Valve The aortic valve opens well. There is no aortic valvular stenosis. Trace aortic regurgitation. Mitral Valve The mitral valve is normal in structure. No evidence of mitral valve stenosis. Trace mitral regurgitation. Tricuspid Valve The tricuspid valve leaflets are thin and pliable. Trace tricuspid regurgitation. There is insufficient TR jet to estimate RVSP. Pulmonic Valve The pulmonary valve is normal in structure. Trace pulmonic regurgitation. Great Vessels The aortic root is normal in size. The ascending aorta is not well-visualized. IVC is normal in size and collapses >50% with inspiration. Pericardium There is no pericardial effusion. Other Information Study Quality: Fair Conclusion Normal biventricular systolic function. Mild RV dilation. No significant valvular stenosis or regurgitation. Electronically signed by : Carlotta Chowdary MD 07/26/2023 23:42:58
[2023-07-23] MEDS: IVABRADINE HCL 7.5MG TABLET PO (13:03)
[2023-07-23] MEDS: METOPROLOL TARTRATE 50MG TABLET PO (13:03)
[2023-07-23] MEDS: METOPROLOL TARTRATE 25MG TABLET 25 MG (13:47)
[2023-07-23] MEDS: NITROGLYCERIN 0.4MG SL TABLET SL (14:15)
[2023-07-23] MEDS: METOPROLOL TARTRATE 5MG/5ML VIAL 5 MG IV ×5 (14:18→14:43)
[2023-07-23 14:19] LABS: HCG Qualitative, Serum Negative (Negative)
[2023-07-23] MEDS: 0.9 % SODIUM CHLORIDE 50 ML VIAL IV (14:52)
[2023-07-23] MEDS: IOPAMIDOL-370 (76%);100ML BOTTLE 85 ML IV (14:53)
[2023-07-23] MEDS: SODIUM CHLORIDE 0.9% 10ML SYR (RAD ONLY) 10 ML IV (14:53)
== END 2023-07-23 15:11 | disposition home or self-care (01) ==
PROVIDERS: PCP Family Medicine; Visit Provider Nurse Practitioner Family
DX: R07.89 Other chest pain (principal); R06.00 Dyspnea, unspecified; Z82.49 Family history of ischemic heart disease and other diseases of the circulatory system
CPT/HCPCS: 75574; 84703; 93306; Q9967

== ENCOUNTER 2023-08-25 13:00 | Day surgery (SDC) | payer MEDICARE, SELFPAY ==
[2023-08-25 13:11] VITALS: BP 117/87; PULSE 87; RESP 18; TEMP 36.8; O2SAT 98; BMI 34.9
--- NOTE | 2023-08-25 13:21 | EXP.PAIN.PRO ---
Procedure Date: 08/25/23 Time: 13:15 Anesthesiologist:: Jae Marino CRNA Complications:: None Pre-procedure Diagnosis:: Degenerative disc lumbar spine multilevels. Lumbar radiculopathy. Lumbar postlaminectomy syndrome. Degenerative disc cervical spine. Cervical radiculopathy. Post-procedure Diagnosis:: Same. Indications for Procedure:: Patient is a 38-year-old female comes our clinic today for intrathecal pain pump interrogation and refill. She is currently being managed with fentanyl 500 mcg/mL and bupivacaine 5 mg/mL. Fentanyl rate is 1.0999 mg/day. Bupivacaine rate is 1.5 mg/day. Patient is doing well with her current settings. She is not requesting any changes. She does not reporting side effects or complications. Procedure Details:: Details of the procedure explained to the patient. The patient taken procedure and placed in the sitting position. The area of the pump was cleansed using chlorhexidine's cleansing solution. Pump was interrogated. The pump was accessed with ease using a 22-gauge inch and half needle. 5 mL of solution was withdrawn discarded appropriate. The pump was then filled with 20 cc of solution containing fentanyl 500 mcg/mL and bupivacaine 5 mg/mL. Patient tolerated procedure without difficulty. There are no complications. Plan and Disposition:: Patient was discharged without incident.
[2023-08-25 13:27] VITALS: BP 128/81; PULSE 75; RESP 16; O2SAT 98
[2023-08-29 09:08] LABS: Miscellaneous Test SCANNED IMAGE
== END 2023-08-25 13:27 | disposition home or self-care (01) ==
PROVIDERS: Anesthesiology; PCP Family Medicine; Visit Provider Nurse Anesthetist, Certified Registered
DX: G89.29 Other chronic pain (principal); M54.16 Radiculopathy, lumbar region; M96.1 Postlaminectomy syndrome, not elsewhere classified; M51.36 Other intervertebral disc degeneration, lumbar region
CPT/HCPCS: 36415; 95991

== ENCOUNTER 2023-09-14 11:20 | Outpatient (POV) | payer MEDICARE, SELFPAY ==
[2023-09-14 11:48] VITALS: BP 135/86; PULSE 87; RESP 18; O2SAT 96; BMI 34.9
--- NOTE | 2023-09-14 15:02 | P.PCN_ITS ---
Procedure Date: 09/14/23 Time: 12:23 Anesthesiologist:: Eva Lepe APRN Complications:: None Pre-procedure Diagnosis:: Degenerative disc disease of cervical and lumbar spine with cervical and lumbar radiculopathy symptoms, cervical and lumbar postlaminectomy syndrome Post-procedure Diagnosis:: Same Indications for Procedure:: Patient is a pleasant 38-year-old female who presents today for intrathecal adjustment and reprogram as well as follow-up. Today she rates her pain a 7 out of 10. Patient denies any new trauma or injury. She does state that she has been experiencing worsening pain throughout her low back with radiating symptoms into her legs. She states this is a constant aching, throbbing sensation with some numbness and tingling. Patient does have an [email or web address] spinal cord stimulator in place however states that it is not doing anything for this pain. Patient does state that she did end up meeting with [email or web address] patient relations representative in the past and at that time they told her that her paddle leads were not in the best location and that they could not get the communication in order to get coverage into her legs. Patient does state that she has tried injections in the past and they were only very temporary and not worth proceeding forward with these additionally. Patient does have a intrathecal pain pump with fentanyl 500 mcg/mL with a daily dose of 109.99 mcg/day and bupivacaine 5 mg/mL with a daily dose of 1.2096 mg/day. She denies any side effects from this medication. She is asking for an increase. Patient is also prescribed Flexeril 10 mg daily, gabapentin 800 mg 3 times daily, meloxicam 7.5 mg daily. She denies any side effects from this medication. Patient has also done Botox injections for migraine from a [facility] provider and was wanting to see about having our office take over these injections. Patient states she is still open to this option. Her Juan Luis has been reviewed and is appropriate. Physical Exam: General: Alert and oriented x3, no acute distress, pleasant and cooperative Lungs: Respirations even and unlabored, symmetrical chest expansion Eyes: PERRL Musculoskeletal: Flexion and extension of lumbar [spine] somewhat guarded secondary to pain, [antalgic gait noted] Neurological: Speech clear, no gross sensory deficit Procedure Details:: Informed consent was obtained and the risk and benefits of the procedure were explained to the patient. Patient was taken to the procedure room where noninvasive monitoring was placed including noninvasive blood pressure cuff and pulse oximeter. Patient's pump was interrogated and was reprogrammed to fentanyl 120.96 mcg/day and bupivacaine 1.2096 mg/day. The patient tolerated the procedure well with no complications. Plan and Disposition:: Patient tolerated her intrathecal increase with no complications and was discharged neurologically intact. I did discuss with the patient that she may benefit from lumbar epidural steroid injections however due to not getting significant improvement with her current [employer] spinal cord stimulator I have discussed that in future it may be beneficial to replace the device and possibly use a different company such as [email or web address]. Risk and benefits were discussed with the patient and I have recommended that she talk it over with her family and weigh her options between injection therapy and the revision. Patients Blue paddle leads are compatible with the [employer] device and would be able to just switch out the generator battery. Patient does state that she is really leaning towards this option. I have requested that the patient can get records from [facility] where she had her paddle lead placed and follow back up in our office after. We have tried to get records from [facility] for her Botox however we have still not gotten copies of this and the patient was notified of regarding this at today's visit as well. Patient will return to clinic in 2 weeks for reevaluation of symptoms and plan of care. Patient has been instructed to contact the clinic with any concerns before the next appointment. Dr. Bradshaw has reviewed this note and agrees with this plan of care. This note was dictated using voice recognition software and make contain errors or omissions. -- It Is medically necessary for this patient to continue to have their intrathecal pump refilled at regular intervals. This patient had an intrathecal pain pump implanted after meeting criteria of chronic intractable pain for greater than 3 months and failing conservative treatments. Patient has committed and been compliant to the treatment plan and all planned follow up care. Since implantation of the intrathecal pain pump, the patient has had decreased pain and been more functional. Oral medications have been reduced including intake of oral opioids. Patient continues to do well with intrathecal therapy with decrease in pain symptoms and increase in functional status. Stopping intrathecal medications can lead to life threatening withdrawal, seizures, ca rdiac arrest, severe pain, and possible . Pumps that are not refilled at regular intervals can be damages and cause and need for replacement. We continually titrate dose and concentration to optimize pain relief and function. We are limited in concentration for certain drugs to safely deliver medications through the pump and stay within the recommendations from the Polyanalges[employer] Consensus Committee Guidelines. Depending on dose and concentration these pumps may need to be refilled sooner than 3 months as we titrate.
== END 2023-09-14 23:59 | disposition home or self-care (01) ==
PROVIDERS: PCP Family Medicine; Visit Provider Nurse Practitioner Family
DX: G89.29 Other chronic pain (principal); M51.36 Other intervertebral disc degeneration, lumbar region; M54.16 Radiculopathy, lumbar region; M96.1 Postlaminectomy syndrome, not elsewhere classified
CPT/HCPCS: 62368; 99213; G0463

== ENCOUNTER 2023-10-05 08:43 | Outpatient (POV) | payer MEDICARE, SELFPAY ==
[2023-10-05 09:02] VITALS: BP 146/92; PULSE 84; RESP 16; O2SAT 97; BMI 34.9
--- NOTE | 2023-10-05 09:18 | EXP.PAIN.PRO ---
Procedure Date: 10/05/23 Time: 09:18 Anesthesiologist:: Eva Lepe APRN Complications:: None Pre-procedure Diagnosis:: Degenerative disc disease of cervical and lumbar spine with cervical and lumbar radiculopathy symptoms Post-procedure Diagnosis:: Same Indications for Procedure:: Patient is a pleasant 38-year-old female who presents today for follow-up and medication refill as well as intrathecal adjustment and reprogram. Patient rates her pain today an 8 out of 10. She denies any new injuries or trauma. Patient does state that she feels like she has been having more frequent episodes of choking on her food and then it seeming to aspirate. Patient is planning on going to see Dr. Rothman today or soon related to this. Patient does state that she continues to have chronic pain throughout her low back and legs with more weakness. She does state that she is using her cane today just out of precaution. Patient does also states she still has chronic pain along the right side of her neck. Patient is scheduled to go back to this week for follow-up. Patient is currently managed with gabapentin 800 mg 3 times a day, meloxicam 7.5 mg daily and intrathecal fentanyl 500 mcg/mL with a daily dose of 120.96 mcg/day and bupivacaine 5 mg/mL with a daily dose of 1.2096 mg/day. She denies any side effects from this medication. Physical Exam: General: Alert and oriented x3, no acute distress, pleasant and cooperative Lungs: Respirations even and unlabored, symmetrical chest expansion Eyes: PERRL Musculoskeletal: Flexion and extension of lumbar [spine] somewhat guarded secondary to pain, [antalgic gait noted] Neurological: Speech clear, no gross sensory deficit Procedure Details:: Informed consent was obtained and the risk and benefits of the procedure were explained to the patient. Patient was taken to the procedure room where noninvasive monitoring was placed including noninvasive blood pressure cuff and pulse oximeter. Patient's pump was interrogated and was reprogrammed to fentanyl 126.98 mcg/day and bupivacaine 1.2698 mg/day. The patient tolerated the procedure well with no complications. Plan and Disposition:: I will refill the patient's meloxicam and gabapentin and provide a 3-month supply of this medication. Patient tolerated her intrathecal increase with no complications and was discharged neurologically intact. I did discuss with the patient due to her frequency of feeling like she aspirates that it may be beneficial to follow-up with GI and see about a upper EGD scope. I also talked to her regarding her increased weakness in her legs and that physical therapy may be very beneficial. Patient states that she does have someone that she can reach out to for possible therapy. We will follow-up with this at her next visit. Patient will return to clinic in 1 month for reevaluation of symptoms and plan of care. We will see the patient back in the clinic at the next intrathecal refill. Patient has been instructed to contact the clinic with any concerns before the next appointment. Dr. Bradshaw has reviewed this note and agrees with this plan of care. This note was dictated using voice recognition software and make contain errors or omissions. -- It Is medically necessary for this patient to continue to have their intrathecal pump refilled at regular intervals. This patient had an intrathecal pain pump implanted after meeting criteria of chronic intractable pain for greater than 3 months and failing conservative treatments. Patient has committed and been compliant to the treatment plan and all planned follow up care. Since implantation of the intrathecal pain pump, the patient has had decreased pain and been more functional. Oral medications have been reduced including intake of oral opioids. Patient continues to do well with intrathecal therapy with decrease in pain symptoms and increase in functional status. Stopping intrathecal medications can lead to life threatening withdrawal, seizures, cardiac arrest, severe pain, and possible . Pumps that are not refilled at regular intervals can be damages and cause and need for replacement. We continually titrate dose and concentration to optimize pain relief and function. We are limited in concentration for certain drugs to safely deliver medications through the pump and stay within the recommendations from the Polyanalgesic Consensus Committee Guidelines. Depending on dose and concentration these pumps may need to be refilled sooner than 3 months as we titrate.
== END 2023-10-05 23:59 | disposition home or self-care (01) ==
PROVIDERS: PCP Family Medicine; Visit Provider Nurse Practitioner Family
DX: M50.30 Other cervical disc degeneration, unspecified cervical region (principal); M51.36 Other intervertebral disc degeneration, lumbar region
CPT/HCPCS: 62368; 99213; G0463

== ENCOUNTER 2023-10-26 13:28 | Day surgery (SDC) | payer MEDICARE, SELFPAY ==
[2023-10-26 14:10] VITALS: BP 126/85; PULSE 79; RESP 16; TEMP 36.2; O2SAT 99; BMI 34.9
[2023-10-26 14:17] VITALS: BP 117/84; PULSE 81; RESP 16; O2SAT 97
[2023-10-26 14:41] VITALS: BP 120/76; PULSE 78; RESP 16; O2SAT 98
--- NOTE | 2023-10-26 14:54 | EXP.PAIN.PRO ---
Procedure Date: 10/26/23 Time: 14:13 Anesthesiologist:: Eva Lepe APRN Complications:: None Pre-procedure Diagnosis:: Degenerative disc disease of cervical and lumbar spine with cervical and lumbar radiculopathy symptoms Post-procedure Diagnosis:: Same Indications for Procedure:: Patient is a pleasant 38-year-old female who presents today for intrathecal refill and reprogram. Today she rates her pain an 8 out of 10. Patient does state that she has not had any new injuries or trauma however she is experiencing worsening pain in her neck that does radiate down into her right side with numbness and tingling. Patient is currently managed with fentanyl 500 mcg/mL with a daily dose of 126.98 mcg/day with bupivacaine 5 mg/mL with a daily dose of 1.2698 mg/day. She denies any side effects from this medication. She is also managed with Flexeril 10 mg, gabapentin 800 mg 3 times a day. Her Juan Luis has been reviewed and is appropriate. Physical Exam: General: Alert and oriented x3, no acute distress, pleasant and cooperative Lungs: Respirations even and unlabored, symmetrical chest expansion Eyes: PERRL Musculoskeletal: Flexion and extension of cervical [spine] somewhat guarded secondary to pain, [antalgic gait noted] Neurological: Speech clear, no gross sensory deficit Procedure Details:: Informed consent was obtained and the risk and benefits of the procedure were explained to the patient. The patient was taken to the procedure room where noninvasive monitoring was placed including noninvasive blood pressure cuff and pulse oximeter. Patient's pump was interrogated. The area over the pump was cleansed with chlorhexidine as a cleansing solution. In sterile fashion the pump was accessed with a 22-gauge needle. Approximately 4 mls of the pump solution was removed and discarded appropriately. The pump was then refilled with 20 mL's of fentanyl 500 mcg/mL and bupivacaine 5 mg/ml. The needle was withdrawn and a bandage was placed over the puncture site. The infusion rate was reprogrammed and increased to fentanyl 139.78 mcg/day and bupivacaine 1.3979 mg/day. The patient tolerated well with no complication. Plan and Disposition:: We will see the patient back in the clinic at the next intrathecal refill. Patient has been instructed to contact the clinic with any concerns before the next appointment. Dr. Bradshaw has reviewed this note and agrees with this plan of care. This note was dictated using voice recognition software and make contain errors or omissions. -- It Is medically necessary for this patient to continue to have their intrathecal pump refilled at regular intervals. This patient had an intrathecal pain pump implanted after meeting criteria of chronic intractable pain for greater than 3 months and failing conservative treatments. Patient has committed and been compliant to the treatment plan and all planned follow up care. Since implantation of the intrathecal pain pump, the patient has had decreased pain and been more functional. Oral medications have been reduced including intake of oral opioids. Patient continues to do well with intrathecal therapy with decrease in pain symptoms and increase in functional status. Stopping intrathecal medications can lead to life threatening withdrawal, seizures, cardiac arrest, severe pain, and possible . Pumps that are not refilled at regular intervals can be damages and cause and need for replacement. We continually titrate dose and concentration to optimize pain relief and function. We are limited in concentration for certain drugs to safely deliver medications through the pump and stay within the recommendations from the Polyanalgesic Consensus Committee Guidelines. Depending on dose and concentration these pumps may need to be refilled sooner than 3 months as we titrate.
== END 2023-10-26 14:41 | disposition home or self-care (01) ==
LOC: SC.PAINP 13:30
PROVIDERS: PCP Family Medicine; Visit Provider Nurse Practitioner Family
DX: M50.10 Cervical disc disorder with radiculopathy, unspecified cervical region (principal); M51.16 Intervertebral disc disorders with radiculopathy, lumbar region; Z97.8 Presence of other specified devices
CPT/HCPCS: 62370

== ENCOUNTER 2023-11-05 09:19 | Outpatient (POV) | payer MEDICARE, SELFPAY ==
--- NOTE | 2023-11-05 09:55 | A.OFFVIS_ITS ---
[facility] Disclaimer: The information contained in this section may have been updated after the patient was seen, as this information can be updated by other users. Medical History Family history of early CAD Dyspnea SVT (supraventricular tachycardia) History of urinary incontinence History of urinary self-catheterization Emphysema/COPD Sleep apnea Hypertension Spinal cord stimulator status Chronic pain Bipolar 1 disorder Seizures Migraines Depression CHF (congestive heart failure) Arrhythmia Anxiety Surgical History H/O neck surgery FUSION Previous back surgery SPINAL CORD TUMOR DEBULKING Family History Mother Cancer breast Other Family history of COPD (chronic obstructive pulmonary disease) Family history of diabetes mellitus type II Family history of hypertension Family history of myocardial infarction Social History Smoking Status: Current every day smoker tobacco type: cigarettes packs per day: 1 second hand exposure: Yes alcohol intake: never substance use type: denies use current occupational status: unemployed Travel in the last 8 weeks: None household members: family housing: house current occupational exposures/hazards: No caffeine: Yes PM Subjective & Objective Subjective Subjective:: Patient is a pleasant 38-year-old female who presents today for follow-up. She does rate her pain today a 6 out of 10. Patient denies any new trauma or injury. She does state that she is still having a lot more of the numbness and tingling down on her right arm. Patient is currently managed with fentanyl 500 mcg/mL with a daily dose of 139.78 mcg/day and bupivacaine 5 mg/mL with a daily dose of 1.3979 mg/day. She denies any side effects from this medication. Patient does also states she has been having a lot more leg cramps in her lower calves. Patient states this does happen at night as well as through the day. Patient is currently managed with Flexeril 10 mg, gabapentin 800 mg 3 times a day and compounded cream. She denies any side effects from this medication. Her Juan Luis has been reviewed and is appropriate. Review of Systems: General: No recent weight changes, no fever, no sleep disturbances Respiratory: No cough, no shortness of air, no recurring pulmonary infections Cardiovascular/peripheral vascular: No chest pain, no palpitations, no edema, no shortness of breath Gastrointestinal: No new onset incontinence, normal bowel movements reported Genitourinary: No new onset incontinence Musculoskeletal: Lower leg cramps, right arm numbness tingling Psychiatric: [Normal mood/affect] Neurological: [Denies weakness in extremities], [denies balance issues] Pain at rest (0-10 scale): 6 Objective Objective:: Physical Exam: General: Alert and oriented x3, no acute distress, pleasant and cooperative Lungs: Respirations even and unlabored, symmetrical chest expansion Eyes: PERRL Musculoskeletal: Flexion and extension of lumbar [spine] somewhat guarded secondary to pain, [antalgic gait noted] Neurological: Speech clear, no gross sensory deficit Has patient had previous pain injection?: No Conservative treatment options previously tried: Prescription medications Length of treatment: Longer than 12 weeks Meds Home Medications and Allergies Home Medications ?Medication ?Instructions ?Recorded ?Confirmed ?Type clonazepam 0.5 mg tablet 0.5 mg PO BID PRN Anxiety 12/19/18 11/05/23 History metoprolol tartrate 50 mg tablet 50 mg PO BID heart rate 04/12/19 11/05/23 History trazodone 100 mg tablet 100 - 300 mg PO HS PRN Sleep 04/13/19 11/05/23 History nitrofurantoin 100 mg PO BID . 03/22/21 11/05/23 History monohydrate/macrocrystals 100 mg capsule ondansetron 4 mg disintegrating 4 mg PO Q8HP PRN Nausea #20 tabs 03/22/21 11/05/23 Rx tablet lamotrigine 100 mg tablet 1 mg PO DAILY mood 03/28/22 11/05/23 History cyclobenzaprine 10 mg tablet 10 mg PO DAILY 10/24/22 11/05/23 History duloxetine 60 mg capsule,delayed 60 mg PO DAILY 10/24/22 11/05/23 History release tizanidine 4 mg tablet (Zanaflex) 4 mg PO HS #30 tabs 04/29/23 11/05/23 Rx amitriptyline 10 mg tablet 10 mg PO HS migraines #30 tabs 05/25/23 11/05/23 Rx fentanyl(PF) 90 mcg/60 mL (1.5 20 ml epidural CONT Pain 06/24/23 11/05/23 History mcg/mL)-bupiv 0.125%-NaCl epidural syr gabapentin 800 mg tablet 800 mg PO TID Pain #90 tabs 10/05/23 11/05/23 Rx (Neurontin) meloxicam 7.5 mg tablet 7.5 mg PO DAILY #30 tabs 10/05/23 11/05/23 Rx New Prescriptions to Start Prescriptions: Allergies Allergy/AdvReac Type Severity Reaction Status Date / Time aripiprazole [From Abilify] Allergy Intermediate Seizure Verified 11/05/23 09:25 sulfamethoxazole Allergy Rash Verified 11/05/23 09:25 [From Bactrim] trimethoprim [From Bactrim] Allergy Rash Verified 11/05/23 09:25 Assessment and Plan *Assessment and plan (1) Lumbar radiculopathy: Status: Acute Category: Medical Code(s): M54.16 - Radiculopathy, lumbar region (2) Degenerative joint disease of cervical and lumbar spine: Status: Acute Category: Medical Code(s): M47.812 - Spondylosis without myelopathy or radiculopathy, cervical region; M47.816 - Spondylosis without myelopathy or radiculopathy, lumbar region Plan I did discuss with the patient that we will start her on ropinirole 0.25 mg twice daily and provide a 2-week supply of this medication. Patient is scheduled to return to clinic for her next intrathecal refill date in November. I have counseled her to call us and let us know if the restless leg medication helps and if she would like refills. Patient agrees with this plan of care. We will see the patient back in the clinic at the next intrathecal refill. Patient has been instructed to contact the clinic with any concerns before the next appointment. Dr. Bradshaw has reviewed this note and agrees with this plan of care. This note was dictated using voice recognition software and make contain errors or omissions. -- It Is medically necessary for this patient to continue to have their intrathecal pump refilled at regular intervals. This patient had an intrathecal pain pump implanted after meeting criteria of chronic intractable pain for greater than 3 months and failing conservative treatments. Patient has committed and been compliant to the treatment plan and all planned follow up care. Since implantation of the intrathecal pain pump, the patient has had decreased pain and been more functional. Oral medications have been reduced including intake of oral opioids. Patient continues to do well with intrathecal therapy with decrease in pain symptoms and increase in functional status. Stopping intrathecal medications can lead to life threatening withdrawal, seizures, cardiac arrest, severe pain, and possible . Pumps that are not refilled at regular intervals can be damages and cause and need for replacement. We continually titrate dose and concentration to optimize pain relief and function. We are limited in concentration for certain drugs to safely deliver medications through the pump and stay within the recommendations from the Polyanalgesic Consensus Committee Guidelines. Depending on dose and concentration these pumps may need to be refilled sooner than 3 months as we titrate.
[2023-11-05 10:10] VITALS: BP 150/91; PULSE 72; RESP 18; O2SAT 99; BMI 34.9
== END 2023-11-05 23:59 | disposition home or self-care (01) ==
PROVIDERS: PCP Family Medicine; Visit Provider Nurse Practitioner Family
DX: M47.812 Spondylosis without myelopathy or radiculopathy, cervical region; M47.26 Other spondylosis with radiculopathy, lumbar region; Z97.8 Presence of other specified devices; F17.210 Nicotine dependence, cigarettes, uncomplicated
CPT/HCPCS: 99212; G0463

== ENCOUNTER 2023-11-18 15:29 | Emergency (ER) | payer MEDICARE, SELFPAY ==
[2023-11-18 15:47] VITALS: BP 129/78; PULSE 74; RESP 16; TEMP 36.6; O2SAT 97; BMI 34.4
[2023-11-18 15:50] VITALS: BMI 34.4
[2023-11-18] MEDS: TET/DIPHTH/PERT-ADULT 0.5ML SYRINGE 0.5 ML IM (15:56)
[2023-11-18 16:08] VITALS: BP 129/78; PULSE 74; RESP 20; TEMP 36.6
== END 2023-11-18 16:08 | disposition home or self-care (01) ==
LOC: UTC 15:36
PROVIDERS: Emergency Provider Nurse Practitioner; PCP Family Medicine
DX: S61.217A Laceration without foreign body of left little finger without damage to nail, initial encounter (principal); W26.0XXA Contact with knife, initial encounter
CPT/HCPCS: 12001; 90471; 90715; 99213; G0381

== ENCOUNTER 2023-12-08 12:58 | Emergency (ER) | payer MEDICARE, SELFPAY ==
[2023-12-08 13:00] VITALS: BP 130/96; PULSE 73; RESP 20; TEMP 36.9; O2SAT 98; BMI 33.3
--- NOTE | 2023-12-08 13:17 | ED_ITS ---
Discharge Plan Disposition Patient Disposition: Home, Self-Care Prescriptions Prescriptions: No Action cyclobenzaprine 10 mg tablet 10 mg PO DAILY duloxetine 60 mg capsule,delayed release(DR/EC) 60 mg PO DAILY gabapentin 800 mg tablet See Rx Instructions .ROUTE .COMPLEX Qty: 90 2RF Dose Instruction: TAKE 1 TABLET BY MOUTH THREE TIMES A DAY FOR PAIN MAY CAUSE DROWSINESS Rx Instructions: TAKE 1 TABLET BY MOUTH THREE TIMES A DAY FOR PAIN MAY CAUSE DROWSINESS ropinirole 0.25 mg tablet See Rx Instructions .ROUTE .COMPLEX Qty: 60 2RF Dose Instruction: TAKE 1 TABLET ORALLY TWICE A DAY Rx Instructions: TAKE 1 TABLET ORALLY TWICE A DAY nitrofurantoin monohyd/m-cryst 100 MG capsule 100 mg PO BID ondansetron 4 MG tablet,disintegrating 4 mg PO Q8HP PRN (Reason: Nausea) Qty: 20 0RF clonazepam 0.5 MG tablet 0.5 mg PO BID PRN (Reason: Anxiety) metoprolol tartrate 50 MG tablet 50 mg PO BID trazodone 100 MG tablet 100 - 300 mg PO HS PRN (Reason: Sleep) lamotrigine 100 mg tablet 1 mg PO DAILY tizanidine [Zanaflex] 4 mg tablet 4 mg PO HS Qty: 30 2RF amitriptyline 10 mg tablet 10 mg PO HS Qty: 30 2RF fentanyl (PF)-bupivacaine-NaCl 1.5 mcg/mL- 0.125 % Syringe 20 ml epidural CONT Rx Instructions: ACTUAL DOSING IS FENTANYL 500MCG/ML, BUPIVACAINE 5MG/ML SEE EMR FOR CURRENT DAILY DOSE. meloxicam 7.5 mg tablet 7.5 mg PO DAILY Qty: 30 2RF Referrals Follow up/Referrals: Kleber Rothman MD [Primary Care Provider] - See instructions Activity Restrictions/Add. Instructions Additional Instructions/Restrictions: Wear gloves while woodworking. Please return the ED with any new, concerning, worsening symptoms including but not limited to signs concerning for infection including redness, swelling, discharge. Clinical Impressions Clinical Impression: Laceration Instructions Patient Instructions: DI for Laceration Repair Print Language Print Language: Iranian Discharge ED Provider: Jovon Hutton General Adult HPI General Chief complaint: Wound/Laceration Stated complaint: AO cut on pinky left Time Seen by Provider: 12/08/23 13:05 Mode of Arrival: Ambulatory Source of Information: Patient Limitations: No Limitations History of Present Illness HPI narrative: This is a 38-year-old female who presents with a laceration of fifth digit of the left hand. States that she accidentally cut it on a pocket knife. States that it was just recently sharpened. Reports tetanus 1 month ago. Related Data Home Medications ?Medication ?Instructions ?Recorded ?Confirmed clonazepam 0.5 mg tablet 0.5 mg PO BID PRN Anxiety 12/19/18 11/05/23 metoprolol tartrate 50 mg tablet 50 mg PO BID heart rate 04/12/19 11/05/23 trazodone 100 mg tablet 100 - 300 mg PO HS PRN Sleep 04/13/19 11/05/23 nitrofurantoin 100 mg PO BID . 03/22/21 11/05/23 monohydrate/macrocrystals 100 mg capsule lamotrigine 100 mg tablet 1 mg PO DAILY mood 03/28/22 11/05/23 cyclobenzaprine 10 mg tablet 10 mg PO DAILY 10/24/22 11/05/23 duloxetine 60 mg capsule,delayed 60 mg PO DAILY 10/24/22 11/05/23 release fentanyl(PF) 90 mcg/60 mL (1.5 20 ml epidural CONT Pain 06/24/23 11/05/23 mcg/mL)-bupiv 0.125%-NaCl epidural syr Previous Rx's ?Medication ?Instructions ?Recorded ondansetron 4 mg disintegrating 4 mg PO Q8HP PRN Nausea #20 tabs 03/22/21 tablet tizanidine 4 mg tablet (Zanaflex) 4 mg PO HS #30 tabs 04/29/23 amitriptyline 10 mg tablet 10 mg PO HS migraines #30 tabs 05/25/23 meloxicam 7.5 mg tablet 7.5 mg PO DAILY #30 tabs 10/05/23 gabapentin 800 mg tablet See Rx Instructions .Route 12/02/23 .COMPLEX #90 tabs ropinirole 0.25 mg tablet See Rx Instructions .Route 12/02/23 .COMPLEX #60 tabs Allergies Allergy/AdvReac Type Severity Reaction Status Date / Time aripiprazole [From Abilify] Allergy Intermediate Seizure Verified 11/05/23 09:25 sulfamethoxazole Allergy Rash Verified 11/05/23 09:25 [From Bactrim] trimethoprim [From Bactrim] Allergy Rash Verified 11/05/23 09:25 [facility] Disclaimer: The information contained in this section may have been updated after the patient was seen, as this information can be updated by other users. Medical History Family history of early CAD Dyspnea SVT (supraventricular tachycardia) History of urinary incontinence History of urinary self-catheterization Emphysema/COPD Sleep apnea Hypertension Spinal cord stimulator status Chronic pain Bipolar 1 disorder Seizures Migraines Depression CHF (congestive heart failure) Arrhythmia Anxiety Surgical History H/O neck surgery FUSION Previous back surgery SPINAL CORD TUMOR DEBULKING Family History Mother Cancer breast Other Family history of COPD (chronic obstructive pulmonary disease) Family history of diabetes mellitus type II Family history of hypertension Family history of myocardial infarction Social History Smoking Status: Current every day smoker tobacco type: cigarettes packs per day: 1 second hand exposure: Yes alcohol intake: never substance use type: denies use current occupational status: unemployed Travel in the last 8 weeks: None household members: family housing: house current occupational exposures/hazards: No caffeine: Yes Other Medical History Have you received the Flu Vaccine for this season: No Have you received the Pneumonia Vaccine: No ROS Obtained: Yes All systems reviewed & no additional complaints except as documented Physical Exam General General appearance: alert and in no apparent distress Eye Eye exam: Present normal appearance, PERRL and EOMI Respiratory Respiratory exam: Present normal lung sounds bilaterally; Absent respiratory distress Cardiovascular Cardiovascular exam: Present regular rate and normal rhythm Abdominal Exam Abdominal exam: Present soft and distention; Absent tenderness, guarding or rebound Extremities Exam Extremities exam: Present other (L hand: Superficial, 2 cm laceration overlying the middle phalanx/PIP of the lateral aspect of fifth digit. Neurovascular intact distally.) Neurological Exam Neurological exam: Present alert and oriented X3 Skin Skin exam: Present warm and dry Medical Decision Making Medical Records Medical records reviewed: Yes I reviewed the patient's medical records. Screening: Per USPSTF and CDC recommendations, given the prevalence of disease in our region, it is our hospital?s policy to screen for HIV and viral Hepatitis for all patients aged 18 and over and those with ongoing risk factors. Juan Luis Inquiry Pt receiving controlled substance: No Vital Signs: 12/08/23 13:00 Temperature 98.5 F Temperature Source Oral Pulse Rate [Right Radial] 73 Respiratory Rate 20 Blood Pressure [Right Arm] 130/96 H Blood Pressure Mean [Right Arm] 107 02 Sat by Pulse Oximetry 98 Oxygen Delivery Method Room Air Medical Decision Narrative: In summary, this 38-year-old female presents to the emergency department today with laceration of left pinky finger. On initial evaluation patient is hemodynamically stable, nontoxic-appearing, hemostatic. Differential diagnosis includes but is not limited to laceration, foreign body, neurovascular injury. Patient cut herself with the clean edge of a pocket knife. No foreign body. No neurovascular injury. Patient's wound approximated very well and was repaired w ith Dermabond. No indication for antimicrobials. Tdap up-to-date. Discharged in stable condition. Procedures Laceration Laceration 1: Site: finger Side (If applicable): left Size (cm): 2 Description: linear Depth: simple, single layer Pre-repair: wound explored and irrigated extensively Skin layer closed with: Dermabond Critical Care Critical Care Time Critical Care Time: No
[2023-12-08 13:36] VITALS: BP 130/78; PULSE 80; RESP 20; TEMP 36.8; O2SAT 98
== END 2023-12-08 13:37 | disposition home or self-care (01) ==
PROVIDERS: Emergency Provider Student in an Organized Health Care Education/Training Program; PCP Family Medicine
DX: S61.217A Laceration without foreign body of left little finger without damage to nail, initial encounter (principal); M79.642 Pain in left hand; W26.0XXA Contact with knife, initial encounter; Y93.9 Activity, unspecified; Y92.9 Unspecified place or not applicable
CPT/HCPCS: 12001; 99282

== ENCOUNTER 2023-12-15 13:21 | Day surgery (SDC) | payer MEDICARE, SELFPAY ==
[2023-12-15 13:24] VITALS: BP 138/96; PULSE 109; RESP 16; TEMP 36.6; O2SAT 98; BMI 33.3
--- NOTE | 2023-12-15 13:45 | EXP.PAIN.PRO ---
Procedure Date: 12/15/23 Time: 13:35 Anesthesiologist:: Jae Marino CRNA Complications:: None Pre-procedure Diagnosis:: Degenerative disc lumbar spine multilevels. Lumbar radiculopathy. Lumbar postlaminectomy syndrome. Post-procedure Diagnosis:: Same. Indications for Procedure:: Patient is a pleasant 38-year-old female who comes our clinic today for intrathecal pain pump interrogation refill. Patient currently being managed with fentanyl 500 mcg/mL at a rate of 139.78 mcg/day. Also, bupivacaine 5 mg/mL at a daily dose of 1.3979 mg/day. Patient doing very well with her current settings. She is not requesting any changes. She does not report any side effects or complications. Patient is awake alert [place] x 3. In no acute distress. Flexion-extension lumbar spine somewhat guarded secondary to pain. Deep tendon reflexes upper lower extremities normal. Motor strength upper and lower extremities normal. There is no gross sensory deficit. Gait is normal. Procedure Details:: Details of the procedure explained to the patient. The patient taken the procedure room placed in the sitting position. The over the pumps cleansed using chlorhexidine as a cleansing solution. The pump was interrogated. The pump was accessed with ease using a 22-gauge inch and half needle. 5.5 mL of solution was withdrawn discarded appropriate. The pump was then filled with 20 cc of solution containing fentanyl 500 mcg/mL and bupivacaine 5 mg/mL. Patient tolerated procedure without difficulty. There are no complications. Plan and Disposition:: Patient was discharged without incident.
[2023-12-15 14:00] VITALS: BP 146/96; PULSE 110; RESP 16; O2SAT 94
== END 2023-12-15 14:00 | disposition home or self-care (01) ==
PROVIDERS: PCP Family Medicine; Visit Provider Nurse Anesthetist, Certified Registered
DX: M51.16 Intervertebral disc disorders with radiculopathy, lumbar region (principal); M96.1 Postlaminectomy syndrome, not elsewhere classified
CPT/HCPCS: 95991

== ENCOUNTER 2023-12-30 09:11 | Outpatient (POV) | payer MEDICARE, SELFPAY ==
[2023-12-30 10:25] VITALS: BP 111/76; PULSE 88; RESP 16; O2SAT 99; BMI 33.3
--- NOTE | 2023-12-30 10:58 | EXP.PAIN.PRO ---
Procedure Date: 12/30/23 Time: 09:54 Anesthesiologist:: Eva Lepe APRN Complications:: None Pre-procedure Diagnosis:: Degenerative disc disease of cervical and lumbar spine with cervical and lumbar radiculopathy symptoms, chronic pain syndrome Post-procedure Diagnosis:: Same Indications for Procedure:: Patient is a pleasant 38-year-old female who presents today for severe pain. Today she rates her pain a 10 out of 10. She denies any new trauma or injury. She states that she has been making wooden Brittney trees out in her garage and that this weekend just started having severe pain. Patient states that it is all across her low back and radiates down her entire lower extremities. Patient states she has numbness and tingling and that any little movement causes severe pain. She states it is constant and nothing she denies has made it any better. Patient does worry that something is going on. Patient states that she has tried her continued medications of Flexeril 10 mg 3 times daily, gabapentin 800 mg 3 times daily, meloxicam 7.5 mg daily and the compounded cream and nothing seems like it is making a difference. Patient is also managed with fentanyl 500 mcg/mL with a daily dose of 139. 7 8 mcg/day along with bupivacaine 5 mg/mL with a daily dose of 1.3979 mg/day. She denies any side effects from this medication. Patient does also have a spinal cord stimulator in place however she states she has not been able to get a hold of any of the [employer] representatives to see about reprogramming. Her Juan Luis has been reviewed and is appropriate. Physical Exam: General: Alert and oriented x3, no acute distress, pleasant and cooperative Lungs: Respirations even and unlabored, symmetrical chest expansion Eyes: PERRL Musculoskeletal: Flexion and extension of lumbar [spine] somewhat guarded secondary to pain, [antalgic gait noted] positive leg raise Neurological: Speech clear, no gross sensory deficit Procedure Details:: Informed consent was obtained and the risk and benefits of the procedure were explained to the patient. Patient was taken to the procedure room where noninvasive monitoring was placed including noninvasive blood pressure cuff and pulse oximeter. Patient's pump was interrogated and was reprogrammed to fentanyl 153.98 mcg/day and bupivacaine 1.5398 mg/day. The patient tolerated the procedure well with no complications. Plan and Disposition:: Patient tolerated her intrathecal increase with no complications and was discharged neurologically intact. I did discuss with the patient that I would send in a 5-day dose of prednisone 20 mg twice daily and put refills on her Flexeril and her meloxicam. Patient did recently have her gabapentin refilled and does not need refills at this time. I did discuss with her due to the worsening pain and severity that I will order x-ray with MRI of her lumbar spine without contrast to follow to rule out any herniated disc. Patient did have limited range of motion of her lumbar spine and a positive leg raise. I discussed that I do believe she would benefit from a lumbar epidural steroid injection. Risk and benefits were discussed with the patient and she would like to proceed forward with this plan of care. Patient has tried and failed conservative therapy including continued at home stretching exercise for longer than 12 weeks. Patient will be scheduled for an LESI L4-L5 under fluoroscopy. I will also reach out to [employer] account representative and make sure that they contact her for reprogramming of her stimulator. Patient has been instructed to contact the clinic with any concerns before the next appointment. Dr. Bradshaw has reviewed this note and agrees with this plan of care. This note was dictated using voice recognition software and make contain errors or omissions. All injections are used with Lidocaine or Bupivacaine and Depo Medrol.
== END 2023-12-30 23:59 | disposition home or self-care (01) ==
PROVIDERS: PCP Family Medicine; Visit Provider Nurse Practitioner Family
DX: M50.10 Cervical disc disorder with radiculopathy, unspecified cervical region (principal); M51.16 Intervertebral disc disorders with radiculopathy, lumbar region; G89.4 Chronic pain syndrome
CPT/HCPCS: 62368; 72110; 99212; G0463

== ENCOUNTER 2024-01-12 08:44 | Day surgery (SDC) | payer MEDICARE, SELFPAY ==
[2024-01-12 08:49] VITALS: BP 142/88; PULSE 90; RESP 16; TEMP 36.6; O2SAT 97; BMI 33.3
[2024-01-12] MEDS: methylPREDNISolone ACETATE 80MG/ML VIAL 80 MG (09:07)
[2024-01-12 09:08] VITALS: BP 151/90; PULSE 79; RESP 18; O2SAT 96
[2024-01-12 09:09] VITALS: BP 151/90; PULSE 79; RESP 18; O2SAT 96
[2024-01-12 09:17] VITALS: BP 144/88; PULSE 81; RESP 16; O2SAT 98
--- NOTE | 2024-01-12 11:38 | EXP.PAIN.PRO ---
Procedure Date: 01/12/24 Time: 09:00 Anesthesiologist:: Jae Marino CRNA Complications:: None Pre-procedure Diagnosis:: Degenerative disc cervical spine multilevels. Cervical radiculopathy. Cervical postlaminectomy syndrome. Degenerative disc lumbar spine multilevels. Lumbar radiculopathy. Lumbar postlaminectomy syndrome. Chronic pain syndrome. Post-procedure Diagnosis:: Same. Indications for Procedure:: Patient is a 38-year-old female who comes our clinic today for lumbar L4-5 epidural steroid injection. However, after reviewing the lumbar spine under C arm the injection will be given at the L3-4 level. This is due to prior extensive lumbar decompression surgery at the L4-5 and L5-S1 level. Patient describes back pain as well as left hip and leg radicular symptoms. Some urinary incontinence. The above described symptoms have come on over the last 2 weeks. We currently manage the patient with intrathecal pain pump. Fentanyl 500 mcg of the 139 mcg/day. Also bupivacaine 5 mg/mL at 1.39 mg/day. Procedure Details:: Procedure: Lumbar epidural steroid injection under fluoroscopy Informed consent was obtained and the risks and benefits of the procedure were explained to the patient. The patient was taken to the procedure room and noninvasive monitors placed, including noninvasive blood pressure cuff and pulse oximeter. The back was viewed using C-arm Fluoroscopy and prepped using Chloraprep as a cleansing solution and the L3-4 interspace was palpated. Skin and subcutaneous tissues were anesthetized using lidocaine 1.5% and a 25-gauge needle. After this, an 18-gauge Touhy epidural needle was placed into the L3-4 interspace and advanced using fluoroscopic guidance and loss of resistance to air until the epidural space was encountered. After confirmation of needle placement in the epidural space, with dye, a solution containing normal saline, 3 mL and Depo-Medrol 80 mg were incrementally injected into the lumbar epidural space. The patient tolerated the procedure well with no complications. The patient was observed in the Pain Clinic and then discharged home neurologically intact. Plan and Disposition:: Patient was discharged without incident.
== END 2024-01-12 09:17 | disposition home or self-care (01) ==
LOC: SC.PAINP 08:45
PROVIDERS: PCP Family Medicine; Visit Provider Nurse Anesthetist, Certified Registered
DX: M50.10 Cervical disc disorder with radiculopathy, unspecified cervical region (principal); M96.1 Postlaminectomy syndrome, not elsewhere classified; M51.16 Intervertebral disc disorders with radiculopathy, lumbar region; G89.4 Chronic pain syndrome
CPT/HCPCS: 62323; J1010

== ENCOUNTER 2024-01-19 09:40 | Outpatient (CLI) | payer MEDICARE, SELFPAY ==
--- NOTE | 2024-01-19 09:44 | MR_ITS ---
FINAL REPORT CLINICAL HISTORY: LBP left sided back and left leg pain COMPARISON: None FINDINGS: Multiplanar MR imaging of the lumbar spine was performed without contrast. Magnetic susceptibility artifact is noted posterior to the L3-4 level which may represent postoperative change or foreign body. On the sagittal T2-weighted images, no significant disc degeneration is seen. The vertebral alignment is normal. There is no evidence of fracture. No bony mass is identified. The conus has an unremarkable appearance. No significant canal stenosis is identified. L1-2: No significant central canal stenosis or neuroforaminal narrowing. L2-3: Annular disc bulge. No significant central canal stenosis or neuroforaminal narrowing. L3-4: Annular disc bulge. No significant central canal stenosis or neuroforaminal narrowing. L4-5: Annular disc bulge and facet arthropathy. No significant central canal stenosis or neuroforaminal narrowing. L5-S1: Facet arthropathy. No significant central canal stenosis or neuroforaminal narrowing. IMPRESSION: No significant central canal stenosis or neuroforaminal narrowing. Disc bulges at multiple levels. Reviewed, Interpreted and Dictated by David Soliz III, MD Transcribed by Aleksandra Kate Authenticated and [facility]
== END 2024-01-19 23:59 | disposition home or self-care (01) ==
LOC: RAD 09:41
PROVIDERS: PCP Family Medicine; Visit Provider Nurse Practitioner Family
DX: M54.50 Low back pain, unspecified (principal)
CPT/HCPCS: 72148

== ENCOUNTER 2024-01-22 09:02 | Day surgery (SDC) | payer MEDICARE, SELFPAY ==
--- NOTE | 2024-01-22 09:29 | P.PCN_ITS ---
Procedure Date: 01/22/24 Time: 09:29 Anesthesiologist:: Eva Lepe APRN Complications:: None Pre-procedure Diagnosis:: Degenerative disc disease of cervical and lumbar spine with cervical and lumbar radiculopathy symptoms, chronic pain syndrome Post-procedure Diagnosis:: Same Indications for Procedure:: Patient is a pleasant 38-year-old female who presents today for intrathecal refill and reprogram and follow-up of lumbar epidural steroid injection L3-L4 on 01/12/2024. Today she rates her pain a 10 out of 10. Patient states she is still experiencing severe pain along her low back more prominent on the left side and does go into her left groin. Patient states that she did not notice any improvement with the lumbar epidural. We are also reviewing over her most recent MRI findings. Patient is currently managed with fentanyl 500 mcg/mL with a daily dose of 153.98 mcg/day and bupivacaine 5 mg/mL with a daily dose of 1.5398 mg/day. She denies any side effects from this medication. Patient is also managed with gabapentin 800 mg 3 times daily, meloxicam 7.5 mg daily and co mpounded cream. Her Juan Luis has been reviewed and is appropriate. Physical Exam: General: Alert and oriented x3, no acute distress, pleasant and cooperative Lungs: Respirations even and unlabored, symmetrical chest expansion Eyes: PERRL Musculoskeletal: Flexion and extension of lumbar [spine] somewhat guarded secondary to pain, [antalgic gait noted] point tenderness along left SI and left greater trochanteric bursa with positive left Kim's, Bri's, Gaenslen's, compression and distraction exam Neurological: Speech clear, no gross sensory deficit Procedure Details:: Informed consent was obtained and the risk and benefits of the procedure were explained to the patient. The patient had noninvasive monitoring placed including noninvasive blood pressure cuff and pulse oximeter. Patient's pump was interrogated. The area over the pump was cleansed with chlorhexidine as a cleansing solution. In sterile fashion the pump was accessed with a 22-gauge needle. Approximately 8.2 mls of the pump solution was removed and discarded appropriately. The pump was then refilled with 20 mL's of 500 mcg/mL of fentanyl and 5 mg of bupivacaine per mL. The needle was withdrawn and a bandage was placed over the puncture site. The infusion rate was reprogrammed and fentanyl 185.13 mcg/day and bupivacaine 1.8513 mg/day. The patient tolerated well with no complication. Plan and Disposition:: Patient tolerated her intrathecal refill and reprogram with no complications and was discharged logically intact. Patient did have extreme point tenderness along her left SI and left greater trochanteric bursa with a positive left Kim's, Bri's, Gaenslen's, compression and distraction exam. I did discuss with the patient that I do believe she would benefit from injections in both her left SI and left bursa. Risk and benefits were discussed with the patient and she would like to proceed forward with this plan of care. Patient has been dealing with this worsening pain for longer than 3 months unrelated to any specific trauma or injury. Patient has also continued conservative treatment of oral medication, heat and ice, physical therapy and continued at home stretching exercise for longer than 12 weeks. Patient will be ordered a left SI and left bursa injection under fluoroscopy. I did also review over the patient's MRI findings with no significant changes or findings that would be consistent with her increased pain. Patient has been instructed to contact the clinic with any concerns before the next appointment. Dr. Bradshaw has reviewed this note and agrees with this plan of care. This note was dictated using voice recognition software and make contain errors or omissions. All injections are used with Lidocaine or Bupivacaine and Depo Medrol.
[2024-01-22 09:31] VITALS: BP 131/94; BP 137/92; PULSE 76; PULSE 79; RESP 16; RESP 18; TEMP 36.8; O2SAT 94; O2SAT 97; BMI 33.3
[2024-01-22 09:33] VITALS: BP 131/94; PULSE 79; RESP 18; O2SAT 97
[2024-01-22 09:50] VITALS: BP 119/83; PULSE 73; RESP 16; O2SAT 96
== END 2024-01-22 09:50 | disposition home or self-care (01) ==
PROVIDERS: PCP Family Medicine; Visit Provider Nurse Practitioner Family
DX: M51.16 Intervertebral disc disorders with radiculopathy, lumbar region (principal); M50.10 Cervical disc disorder with radiculopathy, unspecified cervical region; G89.4 Chronic pain syndrome
CPT/HCPCS: 62370; 99212; G0463

== ENCOUNTER 2024-01-29 15:53 | Outpatient (POV) | payer MEDICARE, SELFPAY ==
--- NOTE | 2024-01-29 15:59 | A.OFFVIS_ITS ---
[facility] Disclaimer: The information contained in this section may have been updated after the patient was seen, as this information can be updated by other users. Medical History Family history of early CAD Dyspnea SVT (supraventricular tachycardia) History of urinary incontinence History of urinary self-catheterization Emphysema/COPD Sleep apnea Hypertension Spinal cord stimulator status Chronic pain Bipolar 1 disorder Seizures Migraines Depression CHF (congestive heart failure) Arrhythmia Anxiety Surgical History H/O neck surgery FUSION Previous back surgery SPINAL CORD TUMOR DEBULKING Family History Mother Cancer breast Other Family history of COPD (chronic obstructive pulmonary disease) Family history of diabetes mellitus type II Family history of hypertension Family history of myocardial infarction Social History Smoking Status: Current every day smoker tobacco type: cigarettes packs per day: 1 second hand exposure: Yes alcohol intake: never substance use type: denies use current occupational status: other Travel in the last 8 weeks: None household members: family housing: house current occupational exposures/hazards: No caffeine: Yes Have you lived/traveled outside US in past 30 days?: No Contact w/someone who lives/traveled outside US past 30 days?: No Exposure to someone with infectious disease in past 14 days?: No Do you have a fever (greater than 100.4 F or 38 C)?: No Have you tested positive for COVID-19: No Exposed to someone with COVID-19 in past 14 days?: No Do you have a sore throat?: No Do you have a cough?: No Do you have any weakness?: No Do you have any diarrhea?: No Are you experiencing any unusual bleeding?: No Do you have any muscle aches/pain?: No Do you have any abdominal pain?: No Are you experiencing loss of taste or smell?: No PM Subjective & Objective Subjective Subjective:: This patient presents with some increasing pain in her low back and left hip. She is tender over her left SI joint she has a order pending for left SI joint injection diagnostic. She recently received an increase her intrathecal fentanyl/bupivacaine pain pump which did not give her any benefit. She continues on gabapentin 800 mg 3 times a day meloxicam 7.5 mg daily and compounded pain cream. She has not had increased pain but she has not had any relief from her last increase. Pain at rest (0-10 scale): 8 Objective Objective:: Alert and oriented x 3 no acute distress. Patient is in a wheelchair today. She does have antalgic gait. Motor strength of lower extremities is 5/5. There is no gross sensory deficit. She does have tenderness over the left SI joint. She has a positive Kim's test on the left side. She has positive Veronica test on left side. She has positive SI joint compression test on the left side. Has patient had previous pain injection?: No Conservative treatment options previously tried: NSAIDS Length of treatment: N/a and Home exercise plan Length of treatment: N/a Meds Home Medications and Allergies Home Medications ?Medication ?Instructions ?Recorded ?Confirmed ?Type clonazepam 0.5 mg tablet 0.5 mg PO BID PRN Anxiety 12/19/18 01/22/24 History metoprolol tartrate 50 mg tablet 50 mg PO BID heart rate 04/12/19 01/22/24 History trazodone 100 mg tablet 100 - 300 mg PO HS PRN Sleep 04/13/19 01/22/24 History nitrofurantoin 100 mg PO BID . 03/22/21 01/22/24 History monohydrate/macrocrystals 100 mg capsule ondansetron 4 mg disintegrating 4 mg PO Q8HP PRN Nausea #20 tabs 03/22/21 01/22/24 Rx tablet lamotrigine 100 mg tablet 1 mg PO DAILY mood 03/28/22 01/22/24 History duloxetine 60 mg capsule,delayed 60 mg PO DAILY 10/24/22 01/22/24 History release tizanidine 4 mg tablet (Zanaflex) 4 mg PO HS #30 tabs 04/29/23 01/22/24 Rx amitriptyline 10 mg tablet 10 mg PO HS migraines #30 tabs 05/25/23 01/22/24 Rx fentanyl(PF) 90 mcg/60 mL (1.5 20 ml epidural CONT Pain 06/24/23 01/22/24 History mcg/mL)-bupiv 0.125%-NaCl epidural syr gabapentin 800 mg tablet See Rx Instructions .Route 12/02/23 01/22/24 Rx .COMPLEX #90 tabs ropinirole 0.25 mg tablet See Rx Instructions .Route 12/02/23 01/22/24 Rx .COMPLEX #60 tabs cyclobenzaprine 10 mg tablet 10 mg PO TID #90 tabs 12/30/23 01/22/24 Rx meloxicam 7.5 mg tablet 7.5 mg PO DAILY #30 tabs 12/30/23 01/22/24 Rx prednisone 20 mg tablet 20 mg PO BID #10 tabs 12/30/23 01/22/24 Rx New Prescriptions to Start Prescriptions: Allergies Allergy/AdvReac Type Severity Reaction Status Date / Time aripiprazole (From Abilify) Allergy Intermediate Seizure Verified 11/05/23 09:25 sulfamethoxazole (From Allergy Rash Verified 11/05/23 09:25 Bactrim) trimethoprim (From Bactrim) Allergy Rash Verified 11/05/23 09:25 Assessment and Plan *Assessment and plan (1) Lumbar radiculopathy: Status: Acute Category: Medical Code(s): M54.16 - Radiculopathy, lumbar region (2) Low back pain: Status: Acute Category: Medical Code(s): M54.50 - Low back pain, unspecified (3) Degenerative joint disease of cervical and lumbar spine: Status: Acute Category: Medical Code(s): M47.812 - Spondylosis without myelopathy or radiculopathy, cervical region; M47.816 - Spondylosis without myelopathy or radiculopathy, lumbar region (4) Sacroiliitis: Status: Acute Category: Medical Code(s): M46.1 - Sacroiliitis, not elsewhere classified Plan I believe most of her pain is coming from her left SI joint. She is scheduled for left SI joint on February 15. At that time I have encouraged that she start physical therapy and we may consider decreasing her intrathecal pain pump infusion at that time if it is not helping.
[2024-01-29 16:03] VITALS: BP 131/87; PULSE 69; O2SAT 97; BMI 33.3
== END 2024-01-29 23:59 | disposition home or self-care (01) ==
LOC: SC.PAIN 15:55
PROVIDERS: Visit Provider Anesthesiology
DX: M47.26 Other spondylosis with radiculopathy, lumbar region (principal); M54.50 Low back pain, unspecified; M47.812 Spondylosis without myelopathy or radiculopathy, cervical region; M46.1 Sacroiliitis, not elsewhere classified; F17.210 Nicotine dependence, cigarettes, uncomplicated
CPT/HCPCS: 99212; G0463

== ENCOUNTER 2024-03-08 09:25 | Day surgery (SDC) | payer MEDICARE, SELFPAY ==
[2024-03-08 10:15] VITALS: BP 117/86; PULSE 87; RESP 18; O2SAT 97; BMI 33.3
--- NOTE | 2024-03-08 10:25 | EXP.PAIN.PRO ---
Procedure Date: 03/08/24 Time: 10:20 Anesthesiologist:: Jae Marino CRNA Complications:: None Pre-procedure Diagnosis:: Left sacroiliitis. Left greater trochanter bursitis. Post-procedure Diagnosis:: Same. Indications for Procedure:: Patient is a pleasant 38-year-old female who comes our clinic today for left sacroiliac joint injection of cortisone and local anesthetic. Also, left trochanteric bursa injection. Patient describes pain in both areas as constant, dull, sharp, stabbing. She has extreme point tenderness over the left sacroiliac joint as well as the left trochanteric bursa. She rates her pain 7/10. Procedure Details:: Procedure: Left sacroiliac injection under fluoroscopy Informed consent was obtained and the risk and benefits of the procedure were explained to the patient.~ The patient was taken to the procedure room and noninvasive monitors were placed including noninvasive blood pressure cuff and pulse oximeter.~ The patient was placed prone on the procedure table.~ The~ left hip was cleansed using Betadine as a cleansing solution.~ C-arm fluorosocpy was used to view the left SI joint.~ The skin and subcutaneous tissues were anesthetized using Lidocaine 1.5% and a 25-gauge needle.~ After this, a 22-gauge spinal needle was inserted under fluoroscopic guidance into the inferior aspect of the left SI joint.~ Omnipaque dye was injected and a good spread was seen throughout the joint.~ After this, approximately 5 mL of bupivacaine 0.25% and Depo-Medrol 40 mg was incrementally injected into the sacroiliac joint.~ The patient tolerated the procedure well with no complications.~ The patient was observed in the Pain Clinic for a period of 30-45 minutes, then discharged home neurologically intact.~ Procedure:Left trochanteric bursa injection under fluoroscopy We then moved to the left trochanteric bursa.~ C-arm fluoroscopy was used to view the left greater trochanter.~ The skin and subcutaneous tissues overlying the left greater trochanter were anesthetized using lidocaine, 1.5% and a 25-gauge needle.~ After this, a 22-gauge spinal needle was inserted and advanced until it contacted the left greater trochanter.~ Dye was injected and good spread was seen throughout the left trochanteric bursa. After this, approximately 5 mL of bupivacaine, 0.25% and Depo-Medrol, 40 mg was incrementally injected into the left trochanteric bursa.~ The patient tolerated the procedure well with no complications. Plan and Disposition:: Patient was discharged without incident.
[2024-03-08 10:36] VITALS: BP 126/55; PULSE 80; RESP 18; O2SAT 96
[2024-03-08] MEDS: methylPREDNISolone ACETATE 80MG/ML VIAL 80 MG (10:36)
[2024-03-08] MEDS: LIDOCAINE 1% 5ML PF VIAL 5 ML (10:36)
[2024-03-08] MEDS: BUPIVACAINE 0.25% 10ML INJ 25 MG IJ (10:38)
[2024-03-08 10:40] VITALS: BP 127/95; PULSE 82; RESP 18; O2SAT 96
== END 2024-03-08 10:27 | disposition home or self-care (01) ==
PROVIDERS: PCP Family Medicine; Visit Provider Nurse Anesthetist, Certified Registered
DX: M46.1 Sacroiliitis, not elsewhere classified (principal); M70.62 Trochanteric bursitis, left hip
CPT/HCPCS: 20610; 27096; G0260; J1010

== ENCOUNTER 2024-03-09 12:50 | Day surgery (SDC) | payer MEDICARE, SELFPAY ==
[2024-03-09 13:30] VITALS: BP 146/96; PULSE 84; RESP 16; O2SAT 95; BMI 35.4
[2024-03-09 13:50] VITALS: BP 132/92; PULSE 76; RESP 16; O2SAT 98
[2024-03-09 13:55] VITALS: BP 132/92; PULSE 76; RESP 16; O2SAT 98
[2024-03-09 14:02] VITALS: BP 122/87; PULSE 76; RESP 16; O2SAT 97
--- NOTE | 2024-03-09 14:08 | EXP.PAIN.PRO ---
Procedure Date: 03/09/24 Time: 13:15 Anesthesiologist:: Eva Lepe APRN Complications:: None Pre-procedure Diagnosis:: Degenerative disc disease of lumbar spine with lumbar radiculopathy symptoms, chronic pain syndrome Post-procedure Diagnosis:: Same Indications for Procedure:: Patient is a pleasant 38-year-old female who presents today for intrathecal refill and reprogram. Patient rates her pain today a 9 out of 10. She denies any new trauma or injury. She does state that she is still having chronic pain from her low back down and that she does have her Blue stimulator however states it is not working well. Patient states that she has had this stimulator since 2016 and it is not providing good coverage and feels like its at its end-of-life. Patient states that in the past she has had significant improvement with the stimulators and would like to see about replacing this device. Patient is interested in the [employer] program. Patient is currently managed with fentanyl 500 mcg/mL with a daily dose of 185.13 mcg/day and bupivacaine 5 mg/mL with a daily dose of 1.8513 mg/day. She denies any side effects from this medication. Patient is also managed with gabapentin 800 mg 3 times a day along with Flexeril 10 mg 3 times a day. She denies any side effects from this medication. Her Juan Luis has been reviewed and is appropriate. Physical Exam: General: Alert and oriented x3, no acute distress, pleasant and cooperative Lungs: Respirations even and unlabored, symmetrical chest expansion Eyes: PERRL Musculoskeletal: Flexion and extension of lumbar [spine] somewhat guarded secondary to pain, [antalgic gait noted] Neurological: Speech clear, no gross sensory deficit Procedure Details:: Informed consent was obtained and the risk and benefits of the procedure were explained to the patient. The patient had noninvasive monitoring placed including noninvasive blood pressure cuff and pulse oximeter. Patient's pump was interrogated. The area over the pump was cleansed with chlorhexidine as a cleansing solution. In sterile fashion the pump was accessed with a 22-gauge needle. Approximately 2.1 mls of the pump solution was removed and discarded appropriately. The pump was then refilled with 20 mL's of fentanyl 500 mcg/mL and bupivacaine 5 mg/mL. The needle was withdrawn and a bandage was placed over the puncture site. The infusion rate was reprogrammed and decreased 10% to fentanyl 166.68 mcg/day and bupivacaine 1.6668 mg/day. The patient tolerated well with no complication. Plan and Disposition:: Patient tolerated her intrathecal refill and reprogram with no complications. We did decrease her down at Dr. Bradshaw's discretion. At his last visit with her he did want to see her come down 20%. We will continue to monitor her progress. I did review over with her due to her nonfunctioning Blue stimulator that we can submit for insurance approval to have her device replaced. Patient's stimulator paddle leads are compatible with the [employer] device. We will submit just for the generator replacement. Patient has had significant improvement in the past with the stimulator however has not within the last couple of years had good coverage. The device has been in place since 2016. I will also verify that she does have refills on her Flexeril, gabapentin oral medications. Patient will return to clinic on or before her next intrathecal refill date and will also be submitted for her spinal cord stimulator generator replacement. This will be done in the operating room under fluoroscopic guidance. Patient has been instructed to contact the clinic with any concerns before the next appointment. Dr. Bradshaw has reviewed this note and agrees with this plan of care. This note was dictated using voice recognition software and make contain errors or omissions. All injections are used with Lidocaine, Bupivacaine and Depo Medrol. Occasionally urine drug screen is needed to verify patient's compliance with our office pain contract. This is ordered based off specific treatments related to chronic pain with the potential to abuse certain medications.
== END 2024-03-09 14:05 | disposition home or self-care (01) ==
PROVIDERS: PCP Family Medicine; Visit Provider Nurse Practitioner Family
DX: M51.16 Intervertebral disc disorders with radiculopathy, lumbar region (principal); G89.4 Chronic pain syndrome; R00.0 Tachycardia, unspecified
CPT/HCPCS: 62370; 93225; 93227

== ENCOUNTER 2024-03-22 13:49 | Outpatient (POV) | payer MEDICARE, SELFPAY ==
--- NOTE | 2024-03-22 14:09 | EXP.PAIN.SOA ---
[facility] Disclaimer: The information contained in this section may have been updated after the patient was seen, as this information can be updated by other users. Medical History Family history of early CAD Dyspnea SVT (supraventricular tachycardia) History of urinary incontinence History of urinary self-catheterization Emphysema/COPD Sleep apnea Hypertension Spinal cord stimulator status Chronic pain Bipolar 1 disorder Seizures Migraines Depression CHF (congestive heart failure) Arrhythmia Anxiety Surgical History H/O neck surgery FUSION Previous back surgery SPINAL CORD TUMOR DEBULKING Family History Mother Cancer breast Other Family history of COPD (chronic obstructive pulmonary disease) Family history of diabetes mellitus type II Family history of hypertension Family history of myocardial infarction Social History Smoking Status: Current every day smoker tobacco type: cigarettes packs per day: 1 second hand exposure: Yes alcohol intake: never substance use type: denies use current occupational status: other Travel in the last 8 weeks: None household members: family housing: house current occupational exposures/hazards: No caffeine: Yes PM Subjective & Objective Subjective Subjective:: Patient is a pleasant 38-year-old female who presents today for follow-up of left SI injection and left bursa injection on 03/08/2024. Today she rates her pain a 8 out of 10. She denies any new trauma or injury. She does state that she did get approximately 95% improvement from those injections and feels like it still working well. She does state today she is having more mid back pain that does radiate into her neck around her left rib area and does radiate down. Patient describes this as an aching, throbbing sensation with numbness and tingling that does interfere with her ability perform activities of daily living such as cooking and cleaning. Patient does state that she is interested in additional injection therapy for this pain. Patient does currently have a intrathecal pain pump with fentanyl 500 mcg/mL with a daily dose of 166.68 mcg/day and bupivacaine 5 mg/mL with a daily dose of 1.6668 mg/day. Patient does also have a [employer] stimulator in place that we are planning to replace with a [employer]. Patient is also prescribed with gabapentin 800 mg 3 times a day and Flexeril 10 mg 3 times a day. She denies any side effects from this medication. Patient was just given refills at our last appointment and does not need any additional at this time. Patient does also make mention that here recently she did have to wear a heart monitor due to episodes of SVT. Patient states they are continuing to monitor this. Her Juan Luis has been reviewed and is appropriate. Review of Systems: General: No recent weight changes, no fever, no sleep disturbances Respiratory: No cough, no shortness of air, no recurring pulmonary infections Cardiovascular/peripheral vascular: No chest pain, no palpitations, no edema, no shortness of breath Gastrointestinal: No new onset incontinence, normal bowel movements reported Genitourinary: No new onset incontinence Musculoskeletal: Mid back pain, rib pain, low back pain Psychiatric: [Normal mood/affect] Neurological: [Denies weakness in extremities], [denies balance issues] Pain at rest (0-10 scale): 8 Objective Objective:: Physical Exam: General: Alert and oriented x3, no acute distress, pleasant and cooperative Lungs: Respirations even and unlabored, symmetrical chest expansion Eyes: PERRL Musculoskeletal: Flexion and extension of thoracic [spine] somewhat guarded secondary to pain, [antalgic gait noted] Neurological: Speech clear, no gross sensory deficit Has patient had previous pain injection?: Yes Percent improvement in pain since last injection: 95% Conservative treatment options previously tried: Home exercise plan Length of treatment: Longer than 12 weeks Meds Home Medications and Allergies Home Medications ?Medication ?Instructions ?Recorded ?Confirmed ?Type clonazepam 0.5 mg tablet 0.5 mg PO BID PRN Anxiety 12/19/18 03/22/24 History metoprolol tartrate 50 mg tablet 50 mg PO BID heart rate 04/12/19 03/22/24 History trazodone 100 mg tablet 100 - 300 mg PO HS PRN Sleep 04/13/19 03/22/24 History nitrofurantoin 100 mg PO BID . 03/22/21 03/22/24 History monohydrate/macrocrystals 100 mg capsule ondansetron 4 mg disintegrating 4 mg PO Q8HP PRN Nausea #20 tabs 03/22/21 03/22/24 Rx tablet lamotrigine 100 mg tablet 1 mg PO DAILY mood 03/28/22 03/22/24 History duloxetine 60 mg capsule,delayed 60 mg PO DAILY 10/24/22 03/22/24 History release tizanidine 4 mg tablet (Zanaflex) 4 mg PO HS #30 tabs 04/29/23 03/22/24 Rx amitriptyline 10 mg tablet 10 mg PO HS migraines #30 tabs 05/25/23 03/22/24 Rx fentanyl(PF) 90 mcg/60 mL (1.5 20 ml epidural CONT Pain 06/24/23 03/22/24 History mcg/mL)-bupiv 0.125%-NaCl epidural syr ropinirole 0.25 mg tablet See Rx Instructions .Route 12/02/23 03/22/24 Rx .COMPLEX #60 tabs meloxicam 7.5 mg tablet 7.5 mg PO DAILY #30 tabs 12/30/23 03/22/24 Rx prednisone 20 mg tablet 20 mg PO BID #10 tabs 12/30/23 03/22/24 Rx cyclobenzaprine 10 mg tablet 10 mg PO TID #90 tabs 03/09/24 03/22/24 Rx gabapentin 800 mg tablet See Rx Instructions .Route 03/09/24 03/22/24 Rx .COMPLEX #90 tabs New Prescriptions to Start Prescriptions: Allergies Allergy/AdvReac Type Severity Reaction Status Date / Time aripiprazole (From Abilify) Allergy Intermediate Seizure Verified 11/05/23 09:25 sulfamethoxazole (From Allergy Rash Verified 11/05/23 09:25 Bactrim) trimethoprim (From Bactrim) Allergy Rash Verified 11/05/23 09:25 Assessment and Plan *Assessment and plan (1) Sacroiliitis: Status: Acute Category: Medical Code(s): M46.1 - Sacroiliitis, not elsewhere classified (2) Lower back pain: Status: Acute Category: Medical Code(s): M54.50 - Low back pain, unspecified (3) Degenerative joint disease of cervical and lumbar spine: Status: Acute Category: Medical Code(s): M47.812 - Spondylosis without myelopathy or radiculopathy, cervical region; M47.816 - Spondylosis without myelopathy or radiculopathy, lumbar region (4) Chronic pain syndrome: Status: Acute Category: Medical Code(s): G89.4 - Chronic pain syndrome (5) Degenerative disc disease, thoracic: Status: Acute Category: Medical Code(s): M51.34 - Other intervertebral disc degeneration, thoracic region (6) Thoracic radiculopathy: Status: Acute Category: Medical Code(s): M54.14 - Radiculopathy, thoracic region Plan Patient is experiencing worsening pain in her mid/low back with numbness and tingling radiating into her ribs bilaterally as well as into her lower extremities. Patient did have limited range of motion of her thoracic spine with a positive leg raise. I did discuss with patient that I do believe they would benefit from a epidural steroid injection at the level of T12-L1. Risk and benefits were discussed with patient and the patient would like to proceed forward with this plan of care. Patient is is not on any blood thinners. Patient has tried and failed conservative therapy including continued at home stretching exercise for longer than 12 weeks between injections. Patient did previously have a cervical epidural back in May 2023 that provided more than 50% relief and lasted longer than 3 months. Patient does not appear to have had any prior epidurals at the T12-L1 level. Patient has had this pain for longer than 3 months and progressively worsening. Patient does have a longstanding history of both neck and low back fusion/surgeries. We will schedule the patient for an T BABATUNDE T12-L1 under fluoroscopy. Patient has been instructed to contact the clinic with any concerns before the next appointment. Dr. Bradshaw has reviewed this note and agrees with this plan of care. This note was dictated using voice recognition software and make contain errors or omissions. All injections are used with Lidocaine, Bupivacaine and Depo Medrol. Occasionally urine drug screen is needed to verify patient's compliance with our office pain contract. This is ordered based off specific treatments related to chronic pain with the potential to abuse certain medications. We will see the patient back in the clinic at the next intrathecal refill. Patient has been instructed to contact the clinic with any concerns before the next appointment. Dr. Bradshaw has reviewed this note and agrees with this plan of care. This note was dictated using voice recognition software and make contain errors or omissions. -- It Is medically necessary for this patient to continue to have their intrathecal pump refilled at regular intervals. This patient had an intrathecal pain pump implanted after meeting criteria of chronic intractable pain for greater than 3 months and failing conservative treatments. Patient has committed and been compliant to the treatment plan and all planned follow up care. Since implantation of the intrathecal pain pump, the patient has had decreased pain and been more functional. Oral medications have been reduced including intake of oral opioids. Patient continues to do well with intrathecal therapy with decrease in pain symptoms and increase in functional status. Stopping intrathecal medications can lead to life threatening withdrawal, seizures, cardiac arrest, severe pain, and possible . Pumps that are not refilled at regular intervals can be damages and cause and need for replacement. We continually titrate dose and concentration to optimize pain relief and function. We are limited in concentration for certain drugs to safely deliver medications through the pump and stay within the recommendations from the Polyanalgesic Consensus Committee Guidelines. Depending on dose and concentration these pumps may need to be refilled sooner than 3 months as we titrate. A UDS is needed to verify patient's compliance with our office pain contract. This is ordered based off specific treatments related to chronic pain with the potential to abuse certain medications.
[2024-03-22 14:39] VITALS: BP 135/95; PULSE 84; RESP 16; O2SAT 98; BMI 34.9
== END 2024-03-22 23:59 | disposition home or self-care (01) ==
LOC: SC.PAIN 13:50
PROVIDERS: PCP Family Medicine; Visit Provider Nurse Practitioner Family
DX: M46.1 Sacroiliitis, not elsewhere classified (principal); M54.50 Low back pain, unspecified; M47.812 Spondylosis without myelopathy or radiculopathy, cervical region; M47.816 Spondylosis without myelopathy or radiculopathy, lumbar region; G89.4 Chronic pain syndrome; M51.14 Intervertebral disc disorders with radiculopathy, thoracic region; F17.210 Nicotine dependence, cigarettes, uncomplicated; Z73.89 Other problems related to life management difficulty
CPT/HCPCS: 99212; G0463

== ENCOUNTER 2024-04-12 14:18 | Day surgery (SDC) | payer MEDICARE, SELFPAY ==
[2024-04-12 14:33] VITALS: BP 151/91; PULSE 76; RESP 16; O2SAT 97; BMI 34.9
[2024-04-12 14:48] VITALS: BP 149/66; PULSE 83; RESP 18; O2SAT 98
[2024-04-12] MEDS: methylPREDNISolone ACETATE 80MG/ML VIAL 80 MG (14:48)
[2024-04-12 14:49] VITALS: BP 149/66; PULSE 83; RESP 18; O2SAT 98
[2024-04-12] MEDS: IOPAMIDOL-200 (41%);10ML VIAL 10 ML IV (14:54)
--- NOTE | 2024-04-12 14:58 | EXP.PAIN.PRO ---
Procedure Date: 04/12/24 Time: 14:50 Anesthesiologist:: Jae Marino CRNA Complications:: None Pre-procedure Diagnosis:: Degenerative disc lumbar spine multilevels. Lumbar radiculopathy. Lumbar postlaminectomy syndrome. Post-procedure Diagnosis:: Same. Indications for Procedure:: Patient is a pleasant 38-year-old female who comes our clinic today for T12-L1 epidural steroid injection. Patient describes having anterior pelvis and anterior thigh pain bilaterally. Left greater than right. Procedure Details:: Procedure: Lumbar epidural steroid injection under fluoroscopy Informed consent was obtained and the risks and benefits of the procedure were explained to the patient. The patient was taken to the procedure room and noninvasive monitors placed, including noninvasive blood pressure cuff and pulse oximeter. The back was viewed using C-arm Fluoroscopy and prepped using Chloraprep as a cleansing solution and the T12-L1 interspace was palpated. Skin and subcutaneous tissues were anesthetized using lidocaine 1.5% and a 25-gauge needle. After this, an 18-gauge Touhy epidural needle was placed into the T12-L1 interspace and advanced using fluoroscopic guidance and loss of resistance to air until the epidural space was encountered. After confirmation of needle placement in the epidural space, with dye, a solution containing normal saline, 3 mL and Depo-Medrol 80 mg were incrementally injected into the lumbar epidural space. The patient tolerated the procedure well with no complications. The patient was observed in the Pain Clinic and then discharged home neurologically intact. Plan and Disposition:: Patient was discharged without incident.
[2024-04-12 15:20] VITALS: BP 135/90; PULSE 76; RESP 16; O2SAT 96
== END 2024-04-12 15:25 | disposition home or self-care (01) ==
PROVIDERS: PCP Family Medicine; Visit Provider Nurse Anesthetist, Certified Registered
DX: M51.16 Intervertebral disc disorders with radiculopathy, lumbar region (principal); M96.1 Postlaminectomy syndrome, not elsewhere classified
CPT/HCPCS: 62323; J1010; Q9966

== ENCOUNTER 2024-04-15 10:01 | Day surgery (SDC) | payer MEDICARE, SELFPAY ==
[2024-04-15 10:00] VITALS: BP 127/98; PULSE 98; RESP 16; TEMP 36.6; O2SAT 95; BMI 34.9
--- NOTE | 2024-04-15 10:15 | EXP.PAIN.PRO ---
Procedure Date: 04/15/24 Time: 10:20 Anesthesiologist:: Eva Lepe APRN Complications:: None Pre-procedure Diagnosis:: Degenerative disc disease of cervical, thoracic and lumbar spine with cervical, thoracic and lumbar radiculopathy symptoms, chronic pain syndrome Post-procedure Diagnosis:: Same Indications for Procedure:: Patient is a pleasant 38-year-old female who presents today for intrathecal refill and reprogram. Patient rates her pain today a 7 out of 10. She denies any new trauma or injury. Patient is currently managed with clonazepam from an outside provider and Flexeril, gabapentin, ropinirole from our office. Patient is currently managed with fentanyl 500 mcg/mL with a daily dose of 166.68 mcg/day bupivacaine 5 mg/mL with a daily dose of 1.6668 mg/day. She denies any side effects. Patient does also have a nonfunctioning Le[employer] stimulator in place that we are working trying to replace with a [employer]. Patient did just have a thoracic epidural on Thursday however felt like she has not yet noticed significant improvement as of today. Her Juan Luis has been reviewed and is appropriate. Physical Exam: General: Alert and oriented x3, no acute distress, pleasant and cooperative Lungs: Respirations even and unlabored, symmetrical chest expansion Eyes: PERRL Musculoskeletal: Flexion and extension of lumbar [spine] somewhat guarded secondary to pain, [antalgic gait noted] Neurological: Speech clear, no gross sensory deficit Procedure Details:: Informed consent was obtained and the risk and benefits of the procedure were explained to the patient. The patient had noninvasive monitoring placed including noninvasive blood pressure cuff and pulse oximeter. Patient's pump was interrogated. The area over the pump was cleansed with chlorhexidine as a cleansing solution. In sterile fashion the pump was accessed with a 22-gauge needle. Approximately 7.5 mls of the pump solution was removed and discarded appropriately. The pump was then refilled with 20 mL's of fentanyl 500 mcg/mL. The needle was withdrawn and a bandage was placed over the puncture site. The infusion rate was reprogrammed and continued at current dosage. The patient tolerated well with no complication. Plan and Disposition:: Patient tolerated the procedure well with no complications and was discharged neurologically intact. I did discuss with the patient that we will still follow-up on her thoracic epidural results in future. Patient was seen whether or not if there was something we could do for adjustment on her pain however at our last visit with Dr. Bradshaw had wanted her to be decreased down. I did residential child care counselor her that I will follow-up with him and confirm if he would like as to still continue to titrate down or keep her on her current dosage. We will let her know. Patient will return to clinic on or before their next intrathecal refill date. We will see the patient back in the clinic at the next intrathecal refill. Patient has been instructed to contact the clinic with any concerns before the next appointment. Dr. Bradshaw has reviewed this note and agrees with this plan of care. This note was dictated using voice recognition software and make contain errors or omissions. -- It Is medically necessary for this patient to continue to have their intrathecal pump refilled at regular intervals. This patient had an intrathecal pain pump implanted after meeting criteria of chronic intractable pain for greater than 3 months and failing conservative treatments. Patient has committed and been compliant to the treatment plan and all planned follow up care. Since implantation of the intrathecal pain pump, the patient has had decreased pain and been more functional. Oral medications have been reduced including intake of oral opioids. Patient continues to do well with intrathecal therapy with decrease in pain symptoms and increase in functional status. Stopping intrathecal medications can lead to life threatening withdrawal, seizures, cardiac arrest, severe pain, and possible . Pumps that are not refilled at regular intervals can be damages and cause and need for replacement. We continually titrate dose and concentration to optimize pain relief and function. We are limited in concentration for certain drugs to safely deliver medications through the pump and stay within the recommendations from the Polyanalgesic Consensus Committee Guidelines. Depending on dose and concentration these pumps may need to be refilled sooner than 3 months as we titrate. A UDS is needed to verify patient's compliance with our office pain contract. This is ordered based off specific treatments related to chronic pain with the potential to abuse certain medications.
[2024-04-15 10:20] VITALS: BP 132/93; PULSE 74; RESP 18; O2SAT 96
[2024-04-15 10:21] VITALS: BP 132/93; PULSE 79; RESP 18; O2SAT 97
[2024-04-15 10:38] VITALS: BP 134/96; PULSE 94; RESP 16; O2SAT 97
== END 2024-04-15 10:38 | disposition home or self-care (01) ==
PROVIDERS: PCP Family Medicine; Visit Provider Nurse Practitioner Family
DX: M50.30 Other cervical disc degeneration, unspecified cervical region (principal); M51.15 Intervertebral disc disorders with radiculopathy, thoracolumbar region; G89.4 Chronic pain syndrome
CPT/HCPCS: 62370

== ENCOUNTER 2024-04-22 12:24 | Outpatient (CLI) | payer MEDICARE, SELFPAY ==
[2024-04-22 12:52] VITALS: BMI 34.9
[2024-04-22 12:57] LABS: Basophils % 0.4 % (0.1-2.0); Eosinophils # 0.2 K/mm3 (0.0-0.4); Eosinophils % 2.2 % (0.1-12.0); Hematocrit 36.4 % (37.0-47.0); Hemoglobin 12.6 g/dL (12.2-16.2); Lymphocytes # 2.3 K/mm3 (0.7-4.5); Mean Corpuscular HGB Conc 34.6 g/dL (31.8-35.4); Mean Corpuscular Hemoglobin 31.4 pg (27.0-31.2); Mean Corpuscular Volume 90.8 fl (81-99); Mean Platelet Volume 9.3 fl (7.4-10.4); Monocytes # 0.7 K/mm3 (0.1-1.0); Monocytes % 8.4 % (1.7-9.3); Neutrophils # 4.7 K/mm3 (1.8-7.8); Neutrophils % 59.7 % (37.0-80.0); Platelet Count 257 K/mm3 (142-424); Red Blood Count 4.01 M/mm3 (4.20-5.40); Red Cell Distribution Width 11.5 % (11.5-17.5); White Blood Count 7.9 K/mm3 (4.8-10.8)
[2024-04-22 13:18] LABS: Chloride 104 mmol/L (98-107); Sodium 136 mmol/L (136-145)
[2024-04-22 13:21] LABS: Blood Urea Nitrogen 19 mg/dl (7-17); Carbon Dioxide 27 mmol/L (22.0-30.0); Creatinine Clearance Estimated 195 mL/min (50-200); Estimated Glomerular Filt Rate 113 ml/min (>60); GFR (African American) 137 ML/MIN (>60); Glucose 93 mg/dl (74-100)
== END 2024-04-22 23:59 | disposition home or self-care (01) ==
LOC: PREOP 12:26
PROVIDERS: PCP Family Medicine; Visit Provider Anesthesiology
DX: Z01.812 Encounter for preprocedural laboratory examination (principal)
CPT/HCPCS: 80048; 85025

== ENCOUNTER 2024-04-29 09:40 | Day surgery (SDC) | payer MEDICARE, SELFPAY ==
[2024-04-22 12:57] VITALS: BMI 34.9
[2024-04-29 11:14] VITALS: BP 130/89; PULSE 62; RESP 16; TEMP 36.4; O2SAT 94
[2024-04-29] MEDS: LACTATED RINGERS 1000ML 1,000 ML 25 ML IV (11:27)
[2024-04-29 11:47] LABS: HCG Qualitative, Serum Negative (Negative)
[2024-04-29] MEDS: VANCOMYCIN/WATER FOR INJ (PEG) 1.5 GM/300 ML PIGGYBACK IV (12:30)
--- NOTE | 2024-04-29 12:44 | P.PNANES_ITS ---
[facility] Disclaimer: The information contained in this section may have been updated after the patient was seen, as this information can be updated by other users. Medical History Family history of early CAD Dyspnea SVT (supraventricular tachycardia) History of urinary incontinence History of urinary self-catheterization Emphysema/COPD Sleep apnea Hypertension Spinal cord stimulator status Chronic pain Bipolar 1 disorder Seizures Migraines Depression CHF (congestive heart failure) Arrhythmia Anxiety Surgical History History of wisdom tooth extraction H/O neck surgery Previous back surgery Family History Mother Cancer breast Other Family history of COPD (chronic obstructive pulmonary disease) Family history of diabetes mellitus type II Family history of hypertension Family history of myocardial infarction Social History (Updated 04/22/24 @ 12:41 by Chucho Iyer RN) Smoking Status: Current every day smoker tobacco type: cigarettes packs per day: 1 second hand exposure: Yes alcohol intake: never substance use type: denies use current occupational status: disabled and other Travel in the last 8 weeks: None household members: family housing: house current occupational exposures/hazards: No caffeine: Yes Have you lived/traveled outside [place] in past 30 days?: No Contact w/someone who lives/traveled outside [place] past 30 days?: No Exposure to someone with infectious disease in past 14 days?: No Do you have a fever (greater than 100.4 F or 38 C)?: No Have you tested positive for COVID-19: No Exposed to someone with COVID-19 in past 14 days?: No Do you have a sore throat?: No Do you have a cough?: No Do you have any weakness?: No Do you have any diarrhea?: No Are you experiencing any unusual bleeding?: No Do you have any muscle aches/pain?: No Do you have any abdominal pain?: No Are you experiencing loss of taste or smell?: No [facility] Anesthesia Checklist Patient Identification Patient Identification: Arm Band, Family and Verbal (Name & ) Structural Data Admitted From: Home Planned Operative Procedure/s: S. cord stimulator generator replacement Consent for Planned Operative Procedure(s) Verified: Yes Verified Documents: Surgical Consent and History and Physical NPO Status Verified Time NPO: 19:00 Chart Verification Results Verified: CBC, BMP, ECG, Chest Xray and HCG Additional verifications Patient : No Anesthesia Reactions: No Hx Blood Transfusions: No Blood Transfusion Reaction: No Cardiovascular Assessment Heart Sounds: S1 & S2 Pulse Rhythm: Irregular Peripheral Edema: No Airway Assessment Mallampati Score:: Class II C-Spine Mobility Assessed: Yes (limited extension/flexion d/t ACDF) TMJ Mobility Assessed: Yes Dentition: Good Dentition (Nothing loose per pt.) Neurological Assessment Level of Consciousness: Awake, Alert, Appropriate and Follows Commands Hx Seizures: Yes (Pseudoseizures) Numbness or tingling in extremities: Yes (Chronic cervical/thoracic/lumbar back pain) Anesthesia Plan Anesthesia Risk discussed: Yes Anesthesia Plan: Verified ASA Class: III Anesthesia Type: MAC
[2024-04-29] MEDS: LIDOCAINE 2% w/EPI 1:200,000 20ML VIAL 40 ML (13:28)
[2024-04-29 13:45] VITALS: BP 140/93; PULSE 87; RESP 16; O2SAT 95
[2024-04-29 13:55] VITALS: BP 144/80; PULSE 81; RESP 16; O2SAT 97
--- NOTE | 2024-04-29 14:01 | P.OP_ITS ---
Date of procedure: 04/29/24 Pre-op Diagnosis:: End-of-life spinal cord stimulator battery Blue system Post-op Diagnosis:: Same Procedure performed:: Replacement spinal cord stimulator battery with a [employer] battery. Surgeon:: Mainor Bradshaw MD IT CONSULTING MANAGER:: Marnie Joe Anesthesia: MAC Estimated blood loss (mL): 5 Clinical Note:: This patient is a pleasant 38-year-old white female who has an Blue spinal cord stimulator system in place. She does have paddle leads in place that were placed at . Her Blue battery is at end-of-life. We are replacing her with a [employer] system to give her better relief of her pain with lead connectors. Operative findings:: None Operative note:: Informed consent was obtained risk and benefits of the procedure were explained to the patient. The patient was taken the operating room placed prone on the procedure table. She was prepped and draped in sterile fashion. C-arm fluoroscopy was used to view the paddle lead which was at the T8 vertebral body. It was also used to view the generator. The skin and subcutaneous tissues were anesthetized using lidocaine. I made an incision and dissected out the spinal cord stimulator generator. I disconnected the leads. I connected the lead connectors to the existing Blue leads. These connectors were then attached to the battery. Impedances were checked and found to be okay. The battery was then placed back in the pocket. The incision was closed with 2-0 Vicryl followed by 4-0 nylon and christa. The patient tolerated the procedure well with no complications. The patient was programmed by the [employer] cash applications representative with good stimulation in all areas of pain. Patient was discharged home neurologic intact with good relief of pain symptoms. Plan and disposition: We will follow-up with this patient in 1 week for wound check and reprogramming. Will follow-up in 2 to 3 weeks for suture and staple removal. Condition: stable Disposition: PACU Complications:: None
[2024-04-29 14:05] VITALS: BP 137/93; PULSE 80; RESP 16; O2SAT 98
[2024-04-29 14:20] VITALS: BP 137/87; PULSE 84; RESP 20; O2SAT 96
== END 2024-04-29 14:49 | disposition home or self-care (01) ==
PROVIDERS: PCP Family Medicine; Visit Provider Anesthesiology
PROC: (CPT 63685; principal; 2024-04-29 12:15)
DX: Z45.42 Encounter for adjustment and management of neurostimulator (principal)
CPT/HCPCS: 63663; 84703; C1820; J1596; J2250; J3010; J3372; J7120; S0028

== ENCOUNTER 2024-05-05 14:36 | Outpatient (POV) | payer MEDICARE, SELFPAY ==
[2024-05-05 15:05] VITALS: BP 139/101; BP 143/95; PULSE 87; RESP 14; O2SAT 97; BMI 34.9
--- NOTE | 2024-05-05 15:51 | EXP.PAIN.SOA ---
[facility] Disclaimer: The information contained in this section may have been updated after the patient was seen, as this information can be updated by other users. Medical History Family history of early CAD Dyspnea SVT (supraventricular tachycardia) History of urinary incontinence History of urinary self-catheterization Emphysema/COPD Sleep apnea Hypertension Spinal cord stimulator status Chronic pain Bipolar 1 disorder Seizures Migraines Depression CHF (congestive heart failure) Arrhythmia Anxiety Surgical History History of wisdom tooth extraction H/O neck surgery Previous back surgery Family History Mother Cancer breast Other Family history of COPD (chronic obstructive pulmonary disease) Family history of diabetes mellitus type II Family history of hypertension Family history of myocardial infarction Social History (Updated 04/22/24 @ 12:41 by Chucho Iyer RN) Smoking Status: Current every day smoker tobacco type: cigarettes packs per day: 1 second hand exposure: Yes alcohol intake: never substance use type: denies use current occupational status: other Travel in the last 8 weeks: None household members: family housing: house current occupational exposures/hazards: No caffeine: Yes PM Subjective & Objective Subjective Subjective:: Patient is a pleasant 38-year-old female who presents today for 1 week postop of her spinal cord stimulator implant. Today she rates her pain an 8 out of 10. She denies any new trauma or injury from this surgery. She does state that the coverage was doing okay following the procedure however feels like today it is working better already. [employer] sales representative is present today to see if we can get better coverage. Patient does also still have her intrathecal pain pump that is working well and denies any issues with her current dosage. Patient is currently managed with fentanyl 500 mcg/mL with a daily dose of 166.68 mcg/day and bupivacaine 5 mg/mL with a daily dose of 1.6668 mg/day. Patient is also managed with Flexeril, gabapentin and ropinirole from our office along with compounded cream. She denies any changes or side effects. Her Juan Luis has been reviewed and is appropriate. Review of Systems: General: No recent weight changes, no fever, no sleep disturbances Respiratory: No cough, no shortness of air, no recurring pulmonary infections Cardiovascular/peripheral vascular: No chest pain, no palpitations, no edema, no shortness of breath Gastrointestinal: No new onset incontinence, normal bowel movements reported Genitourinary: No new onset incontinence Musculoskeletal: Low back pain Psychiatric: [Normal mood/affect] Neurological: [Denies weakness in extremities], [denies balance issues] Pain at rest (0-10 scale): 8 Objective Objective:: Physical Exam: General: Alert and oriented x3, no acute distress, pleasant and cooperative Lungs: Respirations even and unlabored, symmetrical chest expansion Eyes: PERRL Musculoskeletal: Flexion and extension of lumbar [spine] somewhat guarded secondary to pain, [antalgic gait noted] Neurological: Speech clear, no gross sensory deficit Has patient had previous pain injection?: No Conservative treatment options previously tried: Home exercise plan Length of treatment: Longer than 12 weeks Meds Home Medications and Allergies Home Medications ?Medication ?Instructions ?Recorded ?Confirmed ?Type clonazepam 0.5 mg tablet 0.5 mg PO BID PRN Anxiety 12/19/18 05/05/24 History metoprolol tartrate 50 mg tablet 50 mg PO BID heart rate 04/12/19 05/05/24 History trazodone 100 mg tablet 100 - 300 mg PO HS PRN Sleep 04/13/19 05/05/24 History nitrofurantoin 100 mg PO BID . 03/22/21 05/05/24 History monohydrate/macrocrystals 100 mg capsule ondansetron 4 mg disintegrating 4 mg PO Q8HP PRN Nausea #20 tabs 03/22/21 05/05/24 Rx tablet lamotrigine 100 mg tablet 1 mg PO DAILY mood 03/28/22 05/05/24 History duloxetine 60 mg capsule,delayed 60 mg PO DAILY 10/24/22 05/05/24 History release tizanidine 4 mg tablet (Zanaflex) 4 mg PO HS #30 tabs 04/29/23 05/05/24 Rx amitriptyline 10 mg tablet 10 mg PO HS migraines #30 tabs 05/25/23 05/05/24 Rx fentanyl(PF) 90 mcg/60 mL (1.5 20 ml epidural CONT Pain 06/24/23 05/05/24 History mcg/mL)-bupiv 0.125%-NaCl epidural syr cyclobenzaprine 10 mg tablet 10 mg PO TID #90 tabs 03/09/24 05/05/24 Rx gabapentin 800 mg tablet See Rx Instructions .Route 03/09/24 05/05/24 Rx .COMPLEX #90 tabs meloxicam 7.5 mg tablet See Rx Instructions .Route 03/30/24 05/05/24 Rx .COMPLEX #30 tabs ropinirole 0.25 mg tablet See Rx Instructions .Route 03/30/24 05/05/24 Rx .COMPLEX #60 tabs clindamycin HCl 300 mg capsule 300 mg PO TID #21 caps 04/29/24 05/05/24 Rx New Prescriptions to Start Prescriptions: Allergies Allergy/AdvReac Type Severity Reaction Status Date / Time aripiprazole (From Abilify) Allergy Intermediate Seizure Verified 04/29/24 11:14 sulfamethoxazole (From Allergy Rash Verified 04/29/24 11:14 Bactrim) trimethoprim (From Bactrim) Allergy Rash Verified 04/29/24 11:14 Assessment and Plan *Assessment and plan (1) Thoracic radiculopathy: Status: Acute Category: Medical Code(s): M54.14 - Radiculopathy, thoracic region (2) Degenerative disc disease, thoracic: Status: Acute Category: Medical Code(s): M51.34 - Other intervertebral disc degeneration, thoracic region (3) Sacroiliitis: Status: Acute Category: Medical Code(s): M46.1 - Sacroiliitis, not elsewhere classified (4) Lower back pain: Status: Acute Category: Medical Code(s): M54.50 - Low back pain, unspecified Plan Patient's incisions are clean, dry, well-approximated with minimal erythema noted and sutures and christa intact. I did consult the patient that we are going to continue postop restrictions the full 6 weeks including no submerging water until her incisions are fully healed, minimal bending, lifting and twisting and to continue to use her abdominal binder to prevent seroma formation. Patient was able to get better coverage with [employer] sales representative during today's visit. We will plan on having her follow-up in 2 weeks for suture and staple removal as well as additional reprogramming with [employer]. Patient agrees with this plan of care. Patient was counseled that at that visit we will also plan on taking out her sutures and christa. Patient did make mention that in the past time that she has had an episode where she coded when she had her sutures and christa taken out years ago however this was a surgery to have a tumor resected. Patient did want to give us a heads up though as a precaution. Patient will return to clinic in 2 weeks for additional reprogramming of her [employer] stimulator. Patient has been instructed to contact the clinic with any concerns before the next appointment. Dr. Bradshaw has reviewed this note and agrees with this plan of care. This note was dictated using voice recognition software and make contain errors or omissions. All injections are used with Lidocaine, Bupivacaine and Depo Medrol. Occasionally urine drug screen is needed to verify patient's compliance with our office pain contract. This is ordered based off specific treatments related to chronic pain with the potential to abuse certain medications.
== END 2024-05-05 23:59 | disposition home or self-care (01) ==
LOC: SC.PAIN 14:37
PROVIDERS: PCP Family Medicine; Visit Provider Nurse Practitioner Family
DX: M51.14 Intervertebral disc disorders with radiculopathy, thoracic region (principal); M46.1 Sacroiliitis, not elsewhere classified; M54.50 Low back pain, unspecified; F17.210 Nicotine dependence, cigarettes, uncomplicated
CPT/HCPCS: 99212; G0463

== ENCOUNTER 2024-05-19 15:33 | Outpatient (POV) | payer MEDICARE, SELFPAY ==
[2024-05-19 15:49] VITALS: BP 147/95; PULSE 89; RESP 14; O2SAT 97; BMI 35.6
--- NOTE | 2024-05-19 16:11 | EXP.PAIN.SOA ---
[facility] Disclaimer: The information contained in this section may have been updated after the patient was seen, as this information can be updated by other users. Medical History Family history of early CAD Dyspnea SVT (supraventricular tachycardia) History of urinary incontinence History of urinary self-catheterization Emphysema/COPD Sleep apnea Hypertension Spinal cord stimulator status Chronic pain Bipolar 1 disorder Seizures Migraines Depression CHF (congestive heart failure) Arrhythmia Anxiety Surgical History History of wisdom tooth extraction H/O neck surgery Previous back surgery Family History Mother Cancer breast Other Family history of COPD (chronic obstructive pulmonary disease) Family history of diabetes mellitus type II Family history of hypertension Family history of myocardial infarction Social History Smoking Status: Current every day smoker tobacco type: cigarettes packs per day: 1 second hand exposure: Yes alcohol intake: never substance use type: denies use current occupational status: other Travel in the last 8 weeks: None household members: family housing: house current occupational exposures/hazards: No caffeine: Yes Have you lived/traveled outside [place] in past 30 days?: No Contact w/someone who lives/traveled outside [place] past 30 days?: No Exposure to someone with infectious disease in past 14 days?: No Do you have a fever (greater than 100.4 F or 38 C)?: No Have you tested positive for COVID-19: No Exposed to someone with COVID-19 in past 14 days?: No Do you have a sore throat?: No Do you have a cough?: No Do you have any weakness?: No Do you have any diarrhea?: No Are you experiencing any unusual bleeding?: No Do you have any muscle aches/pain?: No Do you have any abdominal pain?: No Are you experiencing loss of taste or smell?: No PM Subjective & Objective Subjective Subjective:: Patient is a pleasant 38-year-old female who presents today for suture and staple removal as well as [employer] stimulator reprogramming. Today she rates her pain a 8 out of 10. She denies any new trauma or injury. She does state that the device does already give better stimulation than the previous Blue device. Patient does also have a intrathecal pain pump in place that does have fentanyl 500 mcg/mL with a daily dose of 166.68 mcg/day and bupivacaine 5 mg/mL with a daily dose of 1.6668 mg/day. She denies any side effects from this medication. Patient is also managed from our office with Flexeril 10 mg 3 times daily, gabapentin 800 mg 3 times daily and ropinirole 0.25 mg twice a day. She denies any side effects from these medications. Patient states that she is unsure if she needs refills or not. Her Juan Luis has been reviewed and is appropriate. Review of Systems: General: No recent weight changes, no fever, no sleep disturbances Respiratory: No cough, no shortness of air, no recurring pulmonary infections Cardiovascular/peripheral vascular: No chest pain, no palpitations, no edema, no shortness of breath Gastrointestinal: No new onset incontinence, normal bowel movements reported Genitourinary: No new onset incontinence Musculoskeletal: Chronic back pain, bilateral leg pain Psychiatric: [Normal mood/affect] Neurological: [Denies weakness in extremities], [denies balance issues] Pain at rest (0-10 scale): 8 Objective Objective:: Physical Exam: General: Alert and oriented x3, no acute distress, pleasant and cooperative Lungs: Respirations even and unlabored, symmetrical chest expansion Eyes: PERRL Musculoskeletal: Flexion and extension of lumbar [spine] somewhat guarded secondary to pain, [antalgic gait noted] Neurological: Speech clear, no gross sensory deficit Skin: Incision site is clean, dry, well-approximated with sutures and christa intact minimal erythema noted Has patient had previous pain injection?: No Conservative treatment options previously tried: Home exercise plan Length of treatment: Longer than 12 weeks Meds Home Medications and Allergies Home Medications ?Medication ?Instructions ?Recorded ?Confirmed ?Type clonazepam 0.5 mg tablet 0.5 mg PO BID PRN Anxiety 12/19/18 05/19/24 History metoprolol tartrate 50 mg tablet 50 mg PO BID heart rate 04/12/19 05/19/24 History trazodone 100 mg tablet 100 - 300 mg PO HS PRN Sleep 04/13/19 05/19/24 History nitrofurantoin 100 mg PO BID . 03/22/21 05/19/24 History monohydrate/macrocrystals 100 mg capsule ondansetron 4 mg disintegrating 4 mg PO Q8HP PRN Nausea #20 tabs 03/22/21 05/19/24 Rx tablet lamotrigine 100 mg tablet 1 mg PO DAILY mood 03/28/22 05/19/24 History duloxetine 60 mg capsule,delayed 60 mg PO DAILY 10/24/22 05/19/24 History release tizanidine 4 mg tablet (Zanaflex) 4 mg PO HS #30 tabs 04/29/23 05/19/24 Rx amitriptyline 10 mg tablet 10 mg PO HS migraines #30 tabs 05/25/23 05/19/24 Rx fentanyl(PF) 90 mcg/60 mL (1.5 20 ml epidural CONT Pain 06/24/23 05/19/24 History mcg/mL)-bupiv 0.125%-NaCl epidural syr cyclobenzaprine 10 mg tablet 10 mg PO TID #90 tabs 03/09/24 05/19/24 Rx gabapentin 800 mg tablet See Rx Instructions .Route 03/09/24 05/19/24 Rx .COMPLEX #90 tabs meloxicam 7.5 mg tablet See Rx Instructions .Route 03/30/24 05/19/24 Rx .COMPLEX #30 tabs ropinirole 0.25 mg tablet See Rx Instructions .Route 03/30/24 05/19/24 Rx .COMPLEX #60 tabs clindamycin HCl 300 mg capsule 300 mg PO TID #21 caps 04/29/24 05/19/24 Rx New Prescriptions to Start Prescriptions: Allergies Allergy/AdvReac Type Severity Reaction Status Date / Time aripiprazole (From Abilify) Allergy Intermediate Seizure Verified 04/29/24 11:14 sulfamethoxazole (From Allergy Rash Verified 04/29/24 11:14 Bactrim) trimethoprim (From Bactrim) Allergy Rash Verified 04/29/24 11:14 Assessment and Plan *Assessment and plan (1) Degenerative disc disease, thoracic: Status: Acute Category: Medical Code(s): M51.34 - Other intervertebral disc degeneration, thoracic region (2) Sacroiliitis: Status: Acute Category: Medical Code(s): M46.1 - Sacroiliitis, not elsewhere classified (3) Low back pain: Status: Acute Category: Medical Code(s): M54.50 - Low back pain, unspecified (4) Degenerative joint disease of cervical and lumbar spine: Status: Acute Category: Medical Code(s): M47.812 - Spondylosis without myelopathy or radiculopathy, cervical region; M47.816 - Spondylosis without myelopathy or radiculopathy, lumbar region (5) Lumbar radiculopathy: Status: Acute Category: Medical Code(s): M54.16 - Radiculopathy, lumbar region Plan Patient was able to be reprogrammed with [employer] public service representative. Patient did get better coverage and we did remove her sutures and christa during today's visit with skin glue and Steri-Strips applied. Patient was counseled to continue her postop restrictions the full 6 weeks. Patient will also be checked to make sure if she needs any refills on her gabapentin and ropinirole or Flexeril. Patient was counseled that we will plan on seeing her back in 1 month for reevaluation of symptoms and plan of care. Patient has been instructed to contact the clinic with any concerns before the next appointment. Dr. Bradshaw has reviewed this note and agrees with this plan of care. This note was dictated using voice recognition software and make contain errors or omissions. All injections are used with Lidocaine, Bupivacaine and Depo Medrol. Occasionally urine drug screen is needed to verify patient's compliance with our office pain contract. This is ordered based off specific treatments related to chronic pain with the potential to abuse certain medications.
== END 2024-05-19 23:59 | disposition home or self-care (01) ==
PROVIDERS: PCP Family Medicine; Visit Provider Nurse Practitioner Family
DX: M51.34 Other intervertebral disc degeneration, thoracic region (principal); M46.1 Sacroiliitis, not elsewhere classified; M54.50 Low back pain, unspecified; M47.812 Spondylosis without myelopathy or radiculopathy, cervical region; M47.26 Other spondylosis with radiculopathy, lumbar region; F17.210 Nicotine dependence, cigarettes, uncomplicated
CPT/HCPCS: 99212; 99213; G0463

== ENCOUNTER 2024-05-20 10:32 | Day surgery (SDC) | payer MEDICARE, SELFPAY ==
[2024-05-20 10:45] VITALS: BP 136/94; PULSE 63; RESP 16; O2SAT 97; BMI 35.6
--- NOTE | 2024-05-20 10:49 | P.PCN_ITS ---
Procedure Date: 05/20/24 Time: 10:50 Anesthesiologist:: Eva Lepe APRN Complications:: None Pre-procedure Diagnosis:: Degenerative disc disease of cervical and lumbar spine with cervical and lumbar radiculopathy Post-procedure Diagnosis:: Same Indications for Procedure:: Patient is a pleasant 38-year-old female who presents today for intrathecal refill and reprogram. Today she rates her pain a 7 out of 10. She denies any new injury or trauma. She does state today she is just having a little bit more pain. Patient did get her stimulator readjusted yesterday and does feel like the programming is doing better. Patient is currently managed with fentanyl 500 mcg/mL with a daily dose of 166.68 mcg/day and bupivacaine 5 mg/mL with a daily dose of 1.6668 mg/day. She denies any side effects. Patient is also managed with gabapentin, ropinirole and Flexeril from our office. Her Juan Luis has been reviewed and is appropriate. Physical Exam: General: Alert and oriented x3, no acute distress, pleasant and cooperative Lungs: Respirations even and unlabored, symmetrical chest expansion Eyes: PERRL Musculoskeletal: Flexion and extension of lumbar [spine] somewhat guarded secondary to pain, [antalgic gait noted] Neurological: Speech clear, no gross sensory deficit Procedure Details:: Informed consent was obtained and the risk and benefits of the procedure were explained to the patient. The patient had noninvasive monitoring placed including noninvasive blood pressure cuff and pulse oximeter. Patient's pump was interrogated. The area over the pump was cleansed with chlorhexidine as a cleansing solution. In sterile fashion the pump was accessed with a 22-gauge needle. Approximately 8 mls of the pump solution was removed and discarded appropriately. The pump was then refilled with 20 mL's of fentanyl 500 mcg/mL and bupivacaine 5 mg/mL. The needle was withdrawn and a bandage was placed over the puncture site. The infusion rate was reprogrammed and continued at its current dosage. The patient tolerated well with no complication. Plan and Disposition:: Patient tolerated the procedure well with no complications and was discharged neurologically intact. Patient will return to clinic on or before their next intrathecal refill date. We will see the patient back in the clinic at the next intrathecal refill. Patient has been instructed to contact the clinic with any concerns before the next appointment. Dr. Bradshaw has reviewed this note and agrees with this plan of care. This note was dictated using voice recognition software and make contain errors or omissions. -- It Is medically necessary for this patient to continue to have their intrathecal pump refilled at regular intervals. This patient had an intrathecal pain pump implanted after meeting criteria of chronic intractable pain for greater than 3 months and failing conservative treatments. Patient has committed and been compliant to the treatment plan and all planned follow up care. Since im plantation of the intrathecal pain pump, the patient has had decreased pain and been more functional. Oral medications have been reduced including intake of oral opioids. Patient continues to do well with intrathecal therapy with decrease in pain symptoms and increase in functional status. Stopping intrathecal medications can lead to life threatening withdrawal, seizures, cardiac arrest, severe pain, and possible . Pumps that are not refilled at regular intervals can be damages and cause and need for replacement. We continually titrate dose and concentration to optimize pain relief and function. We are limited in concentration for certain drugs to safely deliver medications through the pump and stay within the recommendations from the [employer] Consensus Committee Guidelines. Depending on dose and concentration these pumps may need to be refilled sooner than 3 months as we titrate. A UDS is needed to verify patient's compliance with our office pain contract. This is ordered based off specific treatments related to chronic pain with the potential to abuse certain medications.
[2024-05-20 10:54] VITALS: BP 131/93; PULSE 78; RESP 18; O2SAT 96
[2024-05-20 10:56] VITALS: BP 131/93; PULSE 78; RESP 18; O2SAT 96
[2024-05-20 11:10] VITALS: BP 136/94; PULSE 63; RESP 16; O2SAT 97
== END 2024-05-20 11:10 | disposition home or self-care (01) ==
PROVIDERS: PCP Family Medicine; Visit Provider Nurse Practitioner Family
DX: M50.10 Cervical disc disorder with radiculopathy, unspecified cervical region (principal); M51.16 Intervertebral disc disorders with radiculopathy, lumbar region
CPT/HCPCS: 62370

== ENCOUNTER 2024-05-26 13:02 | Outpatient (POV) | payer MEDICARE, SELFPAY ==
--- NOTE | 2024-05-26 14:03 | A.OFFVIS_ITS ---
[facility] Disclaimer: The information contained in this section may have been updated after the patient was seen, as this information can be updated by other users. Medical History Family history of early CAD Dyspnea SVT (supraventricular tachycardia) History of urinary incontinence History of urinary self-catheterization Emphysema/COPD Sleep apnea Hypertension Spinal cord stimulator status Chronic pain Bipolar 1 disorder Seizures Migraines Depression CHF (congestive heart failure) Arrhythmia Anxiety Surgical History History of wisdom tooth extraction H/O neck surgery Previous back surgery Family History Mother Cancer breast Other Family history of COPD (chronic obstructive pulmonary disease) Family history of diabetes mellitus type II Family history of hypertension Family history of myocardial infarction Social History Smoking Status: Current every day smoker tobacco type: cigarettes packs per day: 1 second hand exposure: Yes alcohol intake: never substance use type: denies use current occupational status: other Travel in the last 8 weeks: None household members: family housing: house current occupational exposures/hazards: No caffeine: Yes Have you lived/traveled outside US in past 30 days?: No Contact w/someone who lives/traveled outside US past 30 days?: No Exposure to someone with infectious disease in past 14 days?: No Do you have a fever (greater than 100.4 F or 38 C)?: No Have you tested positive for COVID-19: No Exposed to someone with COVID-19 in past 14 days?: No Do you have a sore throat?: No Do you have a cough?: No Do you have any weakness?: No Do you have any diarrhea?: No Are you experiencing any unusual bleeding?: No Do you have any muscle aches/pain?: No Do you have any abdominal pain?: No Are you experiencing loss of taste or smell?: No PM Subjective & Objective Subjective Subjective:: Patient is a pleasant 38-year-old female who presents today for 1 week follow- up. Today she rates her pain a 6out of 10. She denies any new trauma or injury. She does state that her [place] Lucky[place] stimulation is still doing well. She does state that she is having better improvement with the stimulation in her mid back and lumbar spine and denies it going into her abdomen like the previous Blue stimulator did. She does state that it could use still some additional adjustment and that they are planning on aiming to get improvement into her legs and hips next. Patient does have a intrathecal pain pump of fentanyl 500 mcg/mL with a daily dose of 166.68 mcg/day and bupivacaine 5 mg/mL with a daily dose of 1.6668 mg/day. Patient is also prescribed gabapentin, ropinirole and Flexeril from our office. Patient was recently given a 3-month supply of these medications and does not need any additional refills at this time. Her Juan Luis has been reviewed and is appropriate. Review of Systems: General: No recent weight changes, no fever, no sleep disturbances Respiratory: No cough, no shortness of air, no recurring pulmonary infections Cardiovascular/peripheral vascular: No chest pain, no palpitations, no edema, no shortness of breath Gastrointestinal: No new onset incontinence, normal bowel movements reported Genitourinary: No new onset incontinence Musculoskeletal: Low back pain Psychiatric: [Normal mood/affect] Neurological: [Denies weakness in extremities], [denies balance issues] Pain at rest (0-10 scale): 6 Objective Objective:: Physical Exam: General: Alert and oriented x3, no acute distress, pleasant and cooperative Lungs: Respirations even and unlabored, symmetrical chest expansion Eyes: PERRL Musculoskeletal: Flexion and extension of lumbar [spine] somewhat guarded secondary to pain, [antalgic gait noted] Neurological: Speech clear, no gross sensory deficit Skin: Incision site is clean, dry, well-approximated with [address] Has patient had previous pain injection?: No Conservative treatment options previously tried: Home exercise plan Length of treatment: Longer than 12 weeks Meds Home Medications and Allergies Home Medications ?Medication ?Instructions ?Recorded ?Confirmed ?Type clonazepam 0.5 mg tablet 0.5 mg PO BID PRN Anxiety 12/19/18 05/20/24 History metoprolol tartrate 50 mg tablet 50 mg PO BID heart rate 04/12/19 05/20/24 History trazodone 100 mg tablet 100 - 300 mg PO HS PRN Sleep 04/13/19 05/20/24 History nitrofurantoin 100 mg PO BID . 03/22/21 05/20/24 History monohydrate/macrocrystals 100 mg capsule ondansetron 4 mg disintegrating 4 mg PO Q8HP PRN Nausea #20 tabs 03/22/21 05/20/24 Rx tablet lamotrigine 100 mg tablet 1 mg PO DAILY mood 03/28/22 05/20/24 History duloxetine 60 mg capsule,delayed 60 mg PO DAILY 10/24/22 05/20/24 History release tizanidine 4 mg tablet (Zanaflex) 4 mg PO HS #30 tabs 04/29/23 05/20/24 Rx amitriptyline 10 mg tablet 10 mg PO HS migraines #30 tabs 05/25/23 05/20/24 Rx fentanyl(PF) 90 mcg/60 mL (1.5 20 ml epidural CONT Pain 06/24/23 05/20/24 History mcg/mL)-bupiv 0.125%-NaCl epidural syr meloxicam 7.5 mg tablet See Rx Instructions .Route 03/30/24 05/20/24 Rx .COMPLEX #30 tabs clindamycin HCl 300 mg capsule 300 mg PO TID #21 caps 04/29/24 05/20/24 Rx cyclobenzaprine 10 mg tablet 10 mg PO TID #90 tabs 05/19/24 05/20/24 Rx gabapentin 800 mg tablet See Rx Instructions .Route 05/19/24 05/20/24 Rx .COMPLEX #90 tabs ropinirole 0.25 mg tablet See Rx Instructions .Route 05/19/24 05/20/24 Rx .COMPLEX #60 tabs New Prescriptions to Start Prescriptions: Allergies Allergy/AdvReac Type Severity Reaction Status Date / Time aripiprazole (From Abilify) Allergy Intermediate Seizure Verified 04/29/24 11:14 sulfamethoxazole (From Allergy Rash Verified 04/29/24 11:14 Bactrim) trimethoprim (From Bactrim) Allergy Rash Verified 04/29/24 11:14 Assessment and Plan *Assessment and plan (1) Sacroiliitis: Status: Acute Category: Medical Code(s): M46.1 - Sacroiliitis, not elsewhere classified (2) Thoracic radiculopathy: Status: Acute Category: Medical Code(s): M54.14 - Radiculopathy, thoracic region (3) Lower back pain: Status: Acute Category: Medical Code(s): M54.50 - Low back pain, unspecified (4) Degenerative joint disease of cervical and lumbar spine: Status: Acute Category: Medical Code(s): M47.812 - Spondylosis without myelopathy or radiculopathy, cervical region; M47.816 - Spondylosis without myelopathy or radiculopathy, lumbar region Plan We did remove the 3 christa that we did leave in place over the last week as a precaution and applied skin glue and Steri-Strips. Patient did state that she really did feel like the previous SI and bursa injections have helped and is asking if this is a possibility to get additional injections in future. We did discuss that we can always do these injections from time to time to help improve her overall pain symptoms. Right now she does feel like she is doing well. I did mitochondrial disorders counselor her that she is still on her postop restrictions the full 6 weeks. Patient is scheduled for her next pump refill on June 24 and we will make sure that [employer] insurance claims representative is present that day for additional adjustment in stimulation. Patient agrees with this plan of care. Patient had her last SI injections on March 08. We will see the patient back in the clinic at the next intrathecal refill. Patient has been instructed to contact the clinic with any concerns before the next appointment. Dr. Bradshaw has reviewed this note and agrees with this plan of care. This note was dictated using voice recognition software and make contain errors or omissions. -- It Is medically necessary for this patient to continue to have their intrathecal pump refilled at regular intervals. This patient had an intrathecal pain pump implanted after meeting criteria of chronic intractable pain for greater than 3 months and failing conservative treatments. Patient has committed and been compliant to the treatment plan and all planned follow up care. Since implantation of the intrathecal pain pump, the patient has had decreased pain and been more functional. Oral medications have been reduced including intake of oral opioids. Patient continues to do well with intrathecal therapy with decrease in pain symptoms and increase in functional status. Stopping intrathecal medications can lead to life threatening withdrawal, seizures, cardiac arrest, severe pain, and possible . Pumps that are not refilled at regular intervals can be damages and cause and need for replacement. We continually titrate dose and concentration to optimize pain relief and function. We are limited in concentration for certain drugs to safely deliver medications through the pump and stay within the recommendations from the Polyanalgesic Consensus Committee Guidelines. Depending on dose and concentration these pumps may need to be refilled sooner than 3 months as we titrate. A UDS is needed to verify patient's compliance with our office pain contract. This is ordered based off specific treatments related to chronic pain with the potential to abuse certain medications.
[2024-05-26 14:21] VITALS: BP 121/86; PULSE 98; RESP 16; O2SAT 98; BMI 35.6
== END 2024-05-26 23:59 | disposition home or self-care (01) ==
LOC: SC.PAIN 13:04
PROVIDERS: PCP Family Medicine; Visit Provider Nurse Practitioner Family
DX: M46.1 Sacroiliitis, not elsewhere classified (principal); M54.14 Radiculopathy, thoracic region; M54.50 Low back pain, unspecified; M47.812 Spondylosis without myelopathy or radiculopathy, cervical region; M47.816 Spondylosis without myelopathy or radiculopathy, lumbar region; F17.210 Nicotine dependence, cigarettes, uncomplicated
CPT/HCPCS: 99212; G0463

== ENCOUNTER 2024-06-16 11:58 | Outpatient (CLI) | payer MEDICARE, SELFPAY ==
--- NOTE | 2024-06-16 | XR_ITS ---
FINAL REPORT TECHNIQUE: Chest PA & Lateral CLINICAL HISTORY: BRONCHITIS COMPARISON: 07/16/2023 FINDINGS: 2 views of the chest were performed. The heart size is normal. A thoracic stimulator is present. There is no acute cardiopulmonary process. There are no pleural effusions. There is no pneumothorax. Cervical fusion hardware is present. IMPRESSION: No acute cardiopulmonary process. Reviewed, Interpreted and Dictated by Donte Rodgers MD Transcribed by Aleksandra Kate Authenticated and [facility]
[2024-06-16 12:21] LABS: Coronavirus 19, PCR Not Detected (NotDetected); Human Rhinovirus Not Detected (NotDetected); Influenza A, PCR Not Detected (NotDetected); Influenza B, PCR Not Detected (NotDetected); Respiratory Syncytial Virus Not Detected (NotDetected)
== END 2024-06-16 23:59 | disposition home or self-care (01) ==
LOC: RAD 11:59
PROVIDERS: PCP Family Medicine; Visit Provider Physician Assistant
DX: J40 Bronchitis, not specified as acute or chronic (principal)
CPT/HCPCS: 71046; 87631

== ENCOUNTER 2024-07-01 10:24 | Day surgery (SDC) | payer MEDICARE, SELFPAY ==
--- NOTE | 2024-07-01 10:30 | EXP.HP ---
History of Present Illness *Admission Date: 07/01/24 *Reason for visit:: Intrathecal refill; DDD *History of present illness: Degenerative disc disease [facility] Disclaimer: The information contained in this section may have been updated after the patient was seen, as this information can be updated by other users. Medical History Family history of early CAD Dyspnea SVT (supraventricular tachycardia) History of urinary incontinence History of urinary self-catheterization Emphysema/COPD Sleep apnea Hypertension Spinal cord stimulator status Chronic pain Bipolar 1 disorder Seizures Migraines Depression CHF (congestive heart failure) Arrhythmia Anxiety Surgical History History of wisdom tooth extraction H/O neck surgery Previous back surgery Family History Mother Cancer breast Other Family history of COPD (chronic obstructive pulmonary disease) Family history of diabetes mellitus type II Family history of hypertension Family history of myocardial infarction Social History Smoking Status: Current every day smoker tobacco type: cigarettes packs per day: 1 second hand exposure: Yes alcohol intake: never substance use type: denies use current occupational status: other Travel in the last 8 weeks?: None household members: family housing: house current occupational exposures/hazards: No caffeine: Yes Have you lived/traveled outside US in past 30 days?: No Contact w/someone who lives/traveled outside US past 30 days?: No Exposure to someone with infectious disease in past 14 days?: No Do you have a fever (greater than 100.4 F or 38 C)?: No Have you tested positive for COVID-19?: No Exposed to someone with COVID-19 in past 14 days?: No Do you have a sore throat?: No Do you have a cough?: No Do you have any weakness?: No Do you have any diarrhea?: No Are you experiencing any unusual bleeding?: No Do you have any muscle aches/pain?: No Do you have any abdominal pain?: No Are you experiencing loss of taste or smell?: No Other Medical History Have you received the Flu Vaccine for this season: No Have you received the Pneumonia Vaccine: No Review of Systems Review of Systems Review of systems:: pertinent systems reviewed and negative unless documented below Review of systems (narrative): Review of Systems: General: No recent weight changes, no fever, no sleep disturbances Respiratory: No cough, no shortness of air, no recurring pulmonary infections Cardiovascular/peripheral vascular: No chest pain, no palpitations, no edema, no shortness of breath Gastrointestinal: No new onset incontinence, normal bowel movements reported Genitourinary: No new onset incontinence Musculoskeletal: Chronic back pain Psychiatric: [Normal mood/affect] Neurological: [Denies weakness in extremities], [denies balance issues] Meds Home Medications and Allergies Home Medications ?Medication ?Instructions ?Recorded ?Confirmed ?Type clonazepam 0.5 mg tablet 0.5 mg PO BID PRN Anxiety 12/19/18 05/26/24 History metoprolol tartrate 50 mg tablet 50 mg PO BID heart rate 04/12/19 05/26/24 History trazodone 100 mg tablet 100 - 300 mg PO HS PRN Sleep 04/13/19 05/26/24 History nitrofurantoin 100 mg PO BID . 03/22/21 05/26/24 History monohydrate/macrocrystals 100 mg capsule ondansetron 4 mg disintegrating 4 mg PO Q8HP PRN Nausea #20 tabs 03/22/21 05/26/24 Rx tablet lamotrigine 100 mg tablet 1 mg PO DAILY mood 03/28/22 05/26/24 History duloxetine 60 mg capsule,delayed 60 mg PO DAILY 10/24/22 05/26/24 History release tizanidine 4 mg tablet (Zanaflex) 4 mg PO HS #30 tabs 04/29/23 05/26/24 Rx amitriptyline 10 mg tablet 10 mg PO HS migraines #30 tabs 05/25/23 05/26/24 Rx fentanyl(PF) 90 mcg/60 mL (1.5 20 ml epidural CONT Pain 06/24/23 05/26/24 History mcg/mL)-bupiv 0.125%-NaCl epidural syr meloxicam 7.5 mg tablet See Rx Instructions .Route 03/30/24 05/26/24 Rx .COMPLEX #30 tabs clindamycin HCl 300 mg capsule 300 mg PO TID #21 caps 04/29/24 05/26/24 Rx cyclobenzaprine 10 mg tablet 10 mg PO TID #90 tabs 05/19/24 05/26/24 Rx gabapentin 800 mg tablet See Rx Instructions .Route 05/19/24 05/26/24 Rx .COMPLEX #90 tabs ropinirole 0.25 mg tablet See Rx Instructions .Route 05/19/24 05/26/24 Rx .COMPLEX #60 tabs New Prescriptions to Start Prescriptions: Allergies Allergy/AdvReac Type Severity Reaction Status Date / Time aripiprazole (From Abilify) Allergy Intermediate Seizure Verified 04/29/24 11:14 sulfamethoxazole (From Allergy Rash Verified 04/29/24 11:14 Bactrim) trimethoprim (From Bactrim) Allergy Rash Verified 04/29/24 11:14 Exam Constitutional Constitutional: no acute distress *Routine HEENT Exam Head: Present normocephalic and atraumatic Eye: Present PERRL ENT: Present mucous membranes moist *Routine Neck Exam Neck: Present supple *Routine Respiratory Exam Respiratory: Present CTA bilaterally *Routine Cardiovascular Exam Cardiovascular: Present RRR *Routine Abdominal Exam Abdominal: Present soft *Routine Rectal Exam Rectal:: deferred *Routine Genitalia Exam Genitalia:: normal female Routine Back/Spine/Pelvis Exam Back/Spine: Present pain with flexion *Routine Skin Exam Skin: Present intact and warm *Routine Neurological Exam Neurological: Present alert and oriented X3 Routine Psychiatric Exam Psychiatric: Present normal affect and normal thought process Assessment and Plan *Assessment and plan (1) Degenerative disc disease, thoracic: Status: Acute Category: Medical Code(s): M51.34 - Other intervertebral disc degeneration, thoracic region (2) Thoracic radiculopathy: Status: Acute Category: Medical Code(s): M54.14 - Radiculopathy, thoracic region (3) Sacroiliitis: Status: Acute Category: Medical Code(s): M46.1 - Sacroiliitis, not elsewhere classified (4) Degenerative joint disease of cervical and lumbar spine: Status: Acute Category: Medical Code(s): M47.812 - Spondylosis without myelopathy or radiculopathy, cervical region; M47.816 - Spondylosis without myelopathy or radiculopathy, lumbar region Plan Patient has been instructed to contact the clinic with any concerns before the next appointment. Dr. Bradshaw has reviewed this note and agrees with this plan of care. This note was dictated using voice recognition software and make contain errors or omissions. All injections are used with Lidocaine, Bupivacaine and dexamethasone. Occasionally urine drug screen is needed to verify patient's compliance with our office pain contract. This is ordered based off specific treatments related to chronic pain with the potential to abuse certain medications.
--- NOTE | 2024-07-01 10:37 | P.PCN_ITS ---
Procedure Date: 07/01/24 Time: 10:43 Anesthesiologist:: Eva Lepe APRN Complications:: None Pre-procedure Diagnosis:: Degenerative disc disease, chronic pain syndrome Post-procedure Diagnosis:: Same Indications for Procedure:: Patient is a pleasant 38-year-old female who presents today for intrathecal refill and reprogram. Today she rates her pain a 8 out of 10. She denies any new trauma or injury.She has currently managed with fentanyl 500 mcg/mL with a daily dose of 166.68 mcg/day and bupivacaine 5 mg/mL with a daily dose of 1.6668 mg/day. She is also prescribed Flexeril 10 mg 3 times daily, ropinirole and zabwujxaps002 mg 3 times a day from our office. She denies any side effects. Her Juan Luis has been reviewed and is appropriate. Physical Exam: General: Alert and oriented x3, no acute distress, pleasant and cooperative Lungs: Respirations even and unlabored, symmetrical chest expansion Eyes: PERRL Musculoskeletal: Flexion and extension of lumbar [spine] somewhat guarded secondary to pain, [antalgic gait noted] Neurological: Speech clear, no gross sensory deficit Procedure Details:: Informed consent was obtained and the risk and benefits of the procedure were explained to the patient. The patient had noninvasive monitoring placed including noninvasive blood pressure cuff and pulse oximeter. Patient's pump was interrogated. The area over the pump was cleansed with chlorhexidine as a cleansing solution. In sterile fashion the pump was accessed with a 22-gauge needle. Approximately 5 mls of the pump solution was removed and discarded appropriately. The pump was then refilled with 20 mL's of fentanyl 500 mcg/mL and bupivacaine 5 mg/mL. The needle was withdrawn and a bandage was placed over the puncture site. The infusion rate was reprogrammed and increased to fentanyl 183.04 mcg/day and 1.8304 mg of bupivacaine. The patient tolerated well with no complication. Plan and Disposition:: Patient tolerated the procedure well with no complications and was discharged neurologically intact. Patient will return to clinic on or before their next intrathecal refill date. We will see the patient back in the clinic at the next intrathecal refill. Farhad reddy has been instructed to contact the clinic with any concerns before the next appointment. Dr. Bradshaw has reviewed this note and agrees with this plan of care. This note was dictated using voice recognition software and make contain errors or omissions. -- It Is medically necessary for this patient to continue to have their intrathecal pump refilled at regular intervals. This patient had an intrathecal pain pump implanted after meeting criteria of chronic intractable pain for greater than 3 months and failing conservative treatments. Patient has committed and been compliant to the treatment plan and all planned follow up care. Since implantation of the intrathecal pain pump, the patient has had decreased pain and been more functional. Oral medications have been reduced including intake of oral opioids. Patient continues to do well with intrathecal therapy with decrease in pain symptoms and increase in functional status. Stopping intrathecal medications can lead to life threatening withdrawal, seizures, cardiac arrest, severe pain, and possible . Pumps that are not refilled at regular intervals can be damages and cause and need for replacement. We continually titrate dose and concentration to optimize pain relief and function. We are limited in concentration for certain drugs to safely deliver medications through the pump and stay within the recommendations from the Polyanalgesic Consensus Committee Guidelines. Depending on dose and concentration these pumps may need to be refilled sooner than 3 months as we titrate. A UDS is needed to verify patient's compliance with our office pain contract. This is ordered based off specific treatments related to chronic pain with the potential to abuse certain medications.
[2024-07-01 10:44] VITALS: BP 131/84; PULSE 84; RESP 16; O2SAT 95; BMI 35.1
[2024-07-01 10:45] VITALS: BP 134/92; PULSE 83; RESP 18; O2SAT 96
[2024-07-01 11:09] VITALS: BP 117/68; PULSE 94; RESP 16; O2SAT 99
== END 2024-07-01 11:09 | disposition home or self-care (01) ==
PROVIDERS: PCP Family Medicine; Visit Provider Nurse Practitioner Family
DX: G89.4 Chronic pain syndrome (principal); M51.14 Intervertebral disc disorders with radiculopathy, thoracic region; M46.1 Sacroiliitis, not elsewhere classified; M47.812 Spondylosis without myelopathy or radiculopathy, cervical region; M47.816 Spondylosis without myelopathy or radiculopathy, lumbar region
CPT/HCPCS: 62370

== ENCOUNTER 2024-07-29 11:26 | Day surgery (SDC) | payer MEDICARE, SELFPAY ==
[2024-07-29 11:39] VITALS: BP 144/101; PULSE 92; RESP 16; O2SAT 98; BMI 34.9
--- NOTE | 2024-07-29 11:54 | EXP.PM.HP ---
History of Present Illness *Admission Date: 07/29/24 *Reason for visit:: Intrathecal refill; DDD *History of present illness: Same [facility] Disclaimer: The information contained in this section may have been updated after the patient was seen, as this information can be updated by other users. Medical History Family history of early CAD Dyspnea SVT (supraventricular tachycardia) History of urinary incontinence History of urinary self-catheterization Emphysema/COPD Sleep apnea Hypertension Spinal cord stimulator status Chronic pain Bipolar 1 disorder Seizures Migraines Depression CHF (congestive heart failure) Arrhythmia Anxiety Surgical History History of wisdom tooth extraction H/O neck surgery Previous back surgery Family History Mother Cancer breast Other Family history of COPD (chronic obstructive pulmonary disease) Family history of diabetes mellitus type II Family history of hypertension Family history of myocardial infarction Social History Smoking Status: Current every day smoker tobacco type: cigarettes packs per day: 1 second hand exposure: Yes alcohol intake: never substance use type: denies use current occupational status: other Travel in the last 8 weeks?: None household members: family housing: house current occupational exposures/hazards: No caffeine: Yes Have you lived/traveled outside US in past 30 days?: No Contact w/someone who lives/traveled outside US past 30 days?: No Exposure to someone with infectious disease in past 14 days?: No Do you have a fever (greater than 100.4 F or 38 C)?: No Have you tested positive for COVID-19?: No Exposed to someone with COVID-19 in past 14 days?: No Do you have a sore throat?: No Do you have a cough?: No Do you have any weakness?: No Do you have any diarrhea?: No Are you experiencing any unusual bleeding?: No Do you have any muscle aches/pain?: No Do you have any abdominal pain?: No Are you experiencing loss of taste or smell?: No Other Medical History Have you received the Flu Vaccine for this season: No Have you received the Pneumonia Vaccine: No Review of Systems Review of Systems Review of systems:: pertinent systems reviewed and negative unless documented below Review of systems (narrative): Review of Systems: General: No recent weight changes, no fever, no sleep disturbances Respiratory: No cough, no shortness of air, no recurring pulmonary infections Cardiovascular/peripheral vascular: No chest pain, no palpitations, no edema, no shortness of breath Gastrointestinal: No new onset incontinence, normal bowel movements reported Genitourinary: No new onset incontinence Musculoskeletal: Chronic back pain Psychiatric: [Normal mood/affect] Neurological: [Denies weakness in extremities], [denies balance issues] Meds Home Medications and Allergies Home Medications ?Medication ?Instructions ?Recorded ?Confirmed ?Type clonazepam 0.5 mg tablet 0.5 mg PO BID PRN Anxiety 12/19/18 07/29/24 History metoprolol tartrate 50 mg tablet 50 mg PO BID heart rate 04/12/19 07/29/24 History trazodone 100 mg tablet 100 - 300 mg PO HS PRN Sleep 04/13/19 07/29/24 History nitrofurantoin 100 mg PO BID . 03/22/21 07/29/24 History monohydrate/macrocrystals 100 mg capsule ondansetron 4 mg disintegrating 4 mg PO Q8HP PRN Nausea #20 tabs 03/22/21 07/29/24 Rx tablet lamotrigine 100 mg tablet 1 mg PO DAILY mood 03/28/22 07/29/24 History duloxetine 60 mg capsule,delayed 60 mg PO DAILY 10/24/22 07/29/24 History release tizanidine 4 mg tablet (Zanaflex) 4 mg PO HS #30 tabs 04/29/23 07/29/24 Rx amitriptyline 10 mg tablet 10 mg PO HS migraines #30 tabs 05/25/23 07/29/24 Rx fentanyl(PF) 90 mcg/60 mL (1.5 20 ml epidural CONT Pain 06/24/23 07/29/24 History mcg/mL)-bupiv 0.125%-NaCl epidural syr clindamycin HCl 300 mg capsule 300 mg PO TID #21 caps 04/29/24 07/29/24 Rx cyclobenzaprine 10 mg tablet 10 mg PO TID #90 tabs 05/19/24 07/29/24 Rx gabapentin 800 mg tablet See Rx Instructions .Route 05/19/24 07/29/24 Rx .COMPLEX #90 tabs ropinirole 0.25 mg tablet See Rx Instructions .Route 05/19/24 07/29/24 Rx .COMPLEX #60 tabs meloxicam 7.5 mg tablet See Rx Instructions .Route 07/18/24 07/29/24 Rx .COMPLEX #30 tabs New Prescriptions to Start Prescriptions: Allergies Allergy/AdvReac Type Severity Reaction Status Date / Time aripiprazole (From Abilify) Allergy Intermediate Seizure Verified 04/29/24 11:14 sulfamethoxazole (From Allergy Rash Verified 04/29/24 11:14 Bactrim) trimethoprim (From Bactrim) Allergy Rash Verified 04/29/24 11:14 Exam Data for Last 24 hours Vital signs and Labs for Last 24 Hours: Pulse Resp BP Pulse Ox O2 Del Method 92 H 16 144/101 H 98 Room Air 07/29/24 11:39 07/29/24 11:39 07/29/24 11:39 07/29/24 11:39 07/29/24 11:39 I & O for Last 24 hours: Intake & Output 07/26/24 07/27/24 07/28/24 07/29/24 23:59 23:59 23:59 23:59 Weight 210 lb Constitutional Constitutional: no acute distress *Routine HEENT Exam Head: Present normocephalic and atraumatic Eye: Present PERRL ENT: Present mucous membranes moist *Routine Neck Exam Neck: Present supple *Routine Respiratory Exam Respiratory: Present CTA bilaterally *Routine Cardiovascular Exam Cardiovascular: Present RRR *Routine Abdominal Exam Abdominal: Present soft *Routine Rectal Exam Rectal:: deferred *Routine Genitalia Exam Genitalia:: deferred Routine Back/Spine/Pelvis Exam Back/Spine: Present pain with flexion *Routine Skin Exam Skin: Present intact and warm *Routine Neurological Exam Neurological: Present alert and oriented X3 Routine Psychiatric Exam Psychiatric: Present normal affect and normal thought process Assessment and Plan *Assessment and plan (1) Thoracic radiculopathy: Status: Acute Category: Medical Code(s): M54.14 - Radiculopathy, thoracic region (2) Degenerative disc disease, thoracic: Status: Acute Category: Medical Code(s): M51.34 - Other intervertebral disc degeneration, thoracic region (3) Sacroiliitis: Status: Acute Category: Medical Code(s): M46.1 - Sacroiliitis, not elsewhere classified (4) Degenerative joint disease of cervical and lumbar spine: Status: Acute Category: Medical Code(s): M47.812 - Spondylosis without myelopathy or radiculopathy, cervical region; M47.816 - Spondylosis without myelopathy or radiculopathy, lumbar region Plan Patient has been instructed to contact the clinic with any concerns before the next appointment. Dr. Bradshaw has reviewed this note and agrees with this plan of care. This note was dictated using voice recognition software and make contain errors or omissions. All injections are used with Lidocaine, Bupivacaine and dexamethasone. Occasionally urine drug screen is needed to verify patient's compliance with our office pain contract. This is ordered based off specific treatments related to chronic pain with the potential to abuse certain medications.
--- NOTE | 2024-07-29 11:55 | P.PCN_ITS ---
Procedure Date: 07/29/24 Time: 12:12 Anesthesiologist:: Eva Lepe APRN Complications:: None Pre-procedure Diagnosis:: Degenerative disc disease of cervical and lumbar spine with cervical and lumbar radiculopathy symptoms, chronic pain syndrome Post-procedure Diagnosis:: Same Indications for Procedure:: Patient is a pleasant 39-year-old female who presents today for intrathecal refill and reprogram. Today she rates her pain 8 out of 10. Patient does state that she has had some falls but does not feel like she did anything significant. Patient does state that she was denied her disability and that she has picked up a job at a local [employer] station. Patient does feel like that she has been having more spasms. She does have a [employer] stimulator that is still helping however she has been having trouble getting it to charge. She is currently managed with fentanyl 500 mcg/mL with a daily dose of 183.04 mcg/day and bupivacaine 5 mg/mL with a daily dose of 1.8304 mg/day. She is also managed with Flexeril 10 mg 3 times a day, ropinirole at bedtime and gabapentin 800 mg 3 times a day. She denies any side effects to any of these medications. Her Juan Luis has been reviewed and is appropriate. Physical Exam: General: Alert and oriented x3, no acute distress, pleasant and cooperative Lungs: Respirations even and unlabored, symmetrical chest expansion Eyes: PERRL Musculoskeletal: Flexion and extension of lumbar [spine] somewhat guarded secondary to pain, [antalgic gait noted] Neurological: Speech clear, no gross sensory deficit Procedure Details:: Informed consent was obtained and the risk and benefits of the procedure were explained to the patient. The patient had noninvasive monitoring placed including noninvasive blood pressure cuff and pulse oximeter. Patient's pump was interrogated. The area over the pump was cleansed with chlorhexidine as a cleansing solution. In sterile fashion the pump was accessed with a 22-gauge needle. Approximately 9.2 mls of the pump solution was removed and discarded appropriately. The pump was then refilled with 20 mL's of fentanyl 500 mcg/mL and bupivacaine 5 mg/mL. The needle was withdrawn and a bandage was placed over the puncture site. The infusion rate was reprogrammed and continued at its current dosage. The patient tolerated well with no complication. Plan and Disposition:: Patient tolerated the procedure well with no complications and was discharged neurologically intact. I will reach out to [employer] and see if we can get them to check in with Fiona and see if they can help with the charging as well as getting her reprogrammed. Patient agrees with this plan of care. We will follow-up with her at a later date regarding this. Patient will return to clinic on or before their next intrathecal refill date. We will see the patient back in the clinic at the next intrathecal refill. Patient has been instructed to contact the clinic with any concerns before the next appointment. Dr. Bradshaw has reviewed this note and agrees with this plan of care. This note was dictated using voice recognition software and make contain errors or omissions. -- It Is medically necessary for this patient to continue to have their intrathecal pump refilled at regular intervals. This patient had an intrathecal pain pump implanted after meeting criteria of chronic intractable pain for greater than 3 months and failing conservative treatments. Patient has committed and been compliant to the treatment plan and all planned follow up care. Since implantation of the intrathecal pain pump, the patient has had decreased pain and been more functional. Oral medications have been reduced including intake of oral opioids. Patient continues to do well with intrathecal therapy with decrease in pain symptoms and increase in functional status. Stopping intrathecal medications can lead to life threatening withdrawal, seizures, cardiac arrest, severe pain, and possible . Pumps that are not refilled at regular intervals can be damages and cause and need for replacement. We continually titrate dose and concentration to optimize pain relief and function. We are limited in concentration for certain drugs to safely deliver medications through the pump and stay within the recommendations from the Polyanalges[employer] Consensus Committee Guidelines. Depending on dose and concentration these pumps may need to be refilled sooner than 3 months as we titrate. A UDS is needed to verify patient's compliance with our office pain contract. This is ordered based off specific treatments related to chronic pain with the potential to abuse certain medications.
[2024-07-29 12:13] VITALS: BP 155/96; PULSE 82; RESP 18; O2SAT 97
[2024-07-29 12:29] VITALS: BP 141/95; PULSE 64; RESP 16; O2SAT 100
[2024-08-03 05:08] LABS: Amphetamines IA Negative ng/mL (Cutoff:50); Barbituates IA Negative ug/mL (Cutoff:0.1); Benzodiazepines IA Negative ng/mL (Cutoff:20); Cocaine & Metabolites IA Negative ng/mL (Cutoff:25); Fentanyl, IA Negative ng/mL (Cutoff:1.0); Meperidine, IA Negative ng/mL (Cutoff:100); Methadone IA Negative ng/mL (Cutoff:25); Opiates IA Negative ng/mL (Cutoff:5); Oxycodone IA Negative ng/mL (Cutoff:5); Phencyclidine IA Negative ng/mL (Cutoff:8); Propoxyphene IA Negative ng/mL (Cutoff:50); THC (marijauna) metabolite IA Negative ng/mL (Cutoff:5); Tramadol, IA Negative ng/mL (Cutoff:50)
== END 2024-07-29 12:29 | disposition home or self-care (01) ==
PROVIDERS: PCP Family Medicine; Visit Provider Nurse Practitioner Family
DX: Z45.1 Encounter for adjustment and management of infusion pump (principal); M50.10 Cervical disc disorder with radiculopathy, unspecified cervical region; M51.16 Intervertebral disc disorders with radiculopathy, lumbar region; G89.4 Chronic pain syndrome; I47.10 Supraventricular tachycardia, unspecified; J43.9 Emphysema, unspecified; G47.30 Sleep apnea, unspecified; I11.0 Hypertensive heart disease with heart failure; I50.9 Heart failure, unspecified; F31.9 Bipolar disorder, unspecified; F41.9 Anxiety disorder, unspecified; F17.210 Nicotine dependence, cigarettes, uncomplicated; Z79.899 Other long term (current) drug therapy; Z88.1 Allergy status to other antibiotic agents; Z88.8 Allergy status to other drugs, medicaments and biological substances
CPT/HCPCS: 80307

== ENCOUNTER 2024-08-11 10:06 | Outpatient (POV) | payer MEDICARE, SELFPAY ==
--- OUTSIDE RECORDS SUMMARY | 2024-06-21 10:45 | XMS_ITS ---
[facility] Address [address] [place], [place] [id number] Care Team Providers Care Speeder Worker Name Role Phone Thu Rothman Primary Care [...] Cure Catheters 1 Use as directed 10 Gabonese/6 in. 10/08/2022 Active Combivent Respimat 20-100 MCG/ACT [...] 06/21/2024 Encounters Encounter Location Date Provider Diagnosis [facility] [address] [place], [place] [phone] 06/21/2024 R Tristan Rothman HBP (high blood [...] 60 MG TAKE 1 CAPSULE BY M OUT ONCE DAILY Treatment Notes Assessment Notes HBP (high blood pressure) She will monit or her blood pressure more consistently at home and report consistently elevated readings greater than 140/90 Next Appt Details Follow Up: 4 Weeks, Reason: Provider Name:Thu Dos Santos, 08/11/2024 09:59:00 AM, [address] [place] [address], [address], [place], [place], [phone], Provider Name:Thu Dos Santos, 08/16/2024 11:00:00 AM, [address] [place] [address], [address], [place], [place], [phone], Progress Notes * SMITHA RITCHIEB:1985 (39 yo F)Acc No.[id number]:06/21/2024 Progress Notes Patient: JOSE MARIA COLES Provider: Thu Rothman M.D. :1985 A ge:38 Y S ex:Female Date:06/21/2024 Address:[address] [place], [place] [id number] Subjective: * Chief Complaints: * 1 . [...] HR went up, cough, sore throat, sob- [facility] 02/21/2010, [facility] 03/16/2010, [facility] 02/05- , 04/27-, [facility] 05/01-, Seizures- 05/12/2012, Seizures- [facility] 05/23/2012, work injury, concussion, seizure- [facility] 03/09/2013, High Heart Rate- [facility] 05/2013, Nerve Pain- [facility] 12/2013, Neck, Shoulder, Arm Pain- [facility] 08/2014, Passed Out, Dehydration- [facility] 12/2014, Pneumonia- [facility] 02/08/2015, SOA, Chest pain- [facility] 02/15/2015, Stress Induced Episodes- [facility] 02/2015, 05/2015, [facility]-migraines, stress induced episodes, seizures 08/31, [facility]-attempted suicide, transferred to [facility] 06/03/17, [facility]-chest pain 12/2018, [facility]-spinal cord stimulator malfunction 12/2018, [facility]-overnight due to neck ablasion 04/2019, [facility]-diarrhea, nausea, headache 01/03/2020, [facility]-right sided rib pain, pseudoseizures 03/24/20. * [...] as directed , Notes to Pharmacist: 10 Gabonese/6 in., Taking Meloxicam 7.5 MG Tablet TAKE [...] * Images: Billing Information: * Visit Code: 58306 Office Visit, Est Pt., Level 3. * Procedure Codes: G2211 Complex e/m visit add on. 3074F SYST BP LT 130 MM HG. 3080F DIAST BP = 90 MM HG. * Electronic signature of Thu Rothman MD on 08/11/2024 at 10:11 AM EDT Sign off status: Pending * Provider: Thu Rothman M.D. Date: 0 06/21/2024 Generated for [employer] wally/Ramon/eTransmitting on: 0 08/11/2024 10:11 AM EDT History and Physical Notes * HPI (History [...]
--- OUTSIDE RECORDS SUMMARY | 2024-07-12 07:00 | XMS_ITS ---
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 Name Role Phone Thu Rothman Primary Care Provider [phone] Macario Reza [phone] Allergies Allergen (clinical drug ingredient) Drug/Non Drug Allergy documented on EMR Reaction Allergy Type Onset Date Status aripiprazole Abilify Unknown Drug Allergy Acti ve pregabalin Lyrica swelling Drug Allergy Active REASON FOR VISIT depression and anxiety Encounters Encounter Location Date Provider Diagnosis [facility] [address] [place] [phone] 07/12/2024 Macario Reza Plan Of Treatment Next Appt Details Provider Name:Thu Dos Santos, 08/11/2024 09:59:00 AM, [address], [address], [place], [phone], Provider Name:Thu Dos Santos, 08/16/2024 11:00:00 AM, [address] [facility], [address], [place], [place], [id number], Progress Notes * VIKTOR RITCHIEROWENAB:1985 (39 yo F)Acc No.[id number]:07/12/2024 Progress Notes Patient: JOSE MARIA COLES Provider: Ene Reza M.D. :1985 A ge:39 Y S ex:Female Date:07/12/2024 Address:[place], [id number] Pcp:Thu Rothman Subjective: * Chief Complaints: * [...] HR went up, cough, sore throat, sob- [facility] 02/21/2010, [facility] 03/16/2010, [facility] 02/05- , 04/27-, [facility] 05/01-, Seizures- 05/12/2012, Seizures- [facility] 05/23/2012, work injury, concussion, seizure- [facility] 03/09/2013, High Heart Rate- [facility] 05/2013, Nerve Pain- [facility] 12/2013, Neck, Shoulder, Arm Pain- [facility] 08/2014, Passed Out, Dehydration- [facility] 12/2014, Pneumonia- [facility] 02/08/2015, SOA, Chest pain- [facility] 02/15/2015, Stress Induced Episodes- [facility] 02/2015, 05/2015, [facility] ER-migraines, stress induced episodes, seizures 08/31, [facility] ER-attempted suicide, transferred to [facility] 06/03/17, [facility] ER-chest pain 12/2018, [facility] ER-spinal cord stimulator malfunction 12/2018, [facility] ER-overnight due to neck ablasion 04/2019, [facility] UTC-diarrhea, nausea, headache 01/03/2020, [facility] ER-right sided rib pain, pseudoseizures 03/24/20. [...] Electronic signature of Penny Reza MD on 08/11/2024 at 10:11 AM EDT Sign off status: Pending * Provider: Ene Reza M.D. Date: 0 07/12/2024 Generated for Bassam lo/Ramon/Joon on: 0 08/11/2024 10:11 AM EDT History and Physical Notes * HPI (History of Present Illness) Category Sub-Category Detail Notes Category Not es Psychology depression
--- OUTSIDE RECORDS SUMMARY | 2024-07-27 16:00 | XMS_ITS | Encounter Summary ---
Author Organization [facility] Address [address] [place] [address] Care Team Providers Care Senior Quality Methods Specialist Name Role Phone Kleber Rothman MD Primary Care Provider [phone] Lourdes Velez APRN Unavailable Mirza Davies MD Unavailable [phone]- [phone] Elena Putnam Unavailable [phone] Reason for Referral * Clinic-Administered Medication (Routine) - Pending Review Specialty Diagnoses / Procedures Referred By Contac t Referred To Contact Diagnoses Intractable chronic migraine without aura and without status migrainosus Elena Putnam PA [id number] [place] [address] Phone: tel: fax: Referral ID Status Reason Start Date Expiration Date V isits Requested Visits Authorized [id number] Pending Review 07/27/2024 01/26/2026 1 1 * Other Medical (Routine) - Pending Review Specialty Diagnoses / Procedures Referred By Contac t Referred To Contact Diagnoses Intractable chronic migraine without aura and without status migrainosus Procedures Botox Migraine Elena Putnam PA [address] [address] Phone: tel: fax: Referral ID Status Reason Start Date Expiration Date V isits Requested Visits Authorized [id number] Pending Review 07/27/2024 01/26/2026 1 1 Reason for Visit * Other Medical (Routine) - Closed Specialty Diagnoses / Procedures Referred By Contac t Referred To Contact Neurology Diagnoses Intractable chronic migraine without aura and without status migrainosus Procedures Botox Migraine Elena Putnam PA [address] [facility] [place] [address] Phone: tel: fax: Referral ID Status Reason Start Date Expiration Date Visits Re quested Visits Authorized [id number] Closed 04/20/2024 10/20/2025 1 1 Encounter Details Date Type Department Care Team (Latest Contact Info) Description 07/27/2024 4:00 PM EDT Procedure Visit [facility] [address] [place] [address] Elena Putnam PA [address] [address] Intractable chronic migraine without aura and without status migrainosus (Primary Dx) Social History Tobacco Use Types Packs/Day Years Used Date Smoking Tobacco: Former Cigarettes 0.5 20 2 004 - 2023 Passive Smoke Exposure: Current Smokeless Tobacco: Never Tobacco Cessation:Counseling Given: Not Answered Comments:Vapes Alcohol Use Standard Drinks/Week Comments Not Currently 0 (1 standard drink = 0.6 oz pur e alcohol) PHQ-2 Answer Date Recorded Patient Health Questionnaire-2 Score 2 12/24/2021 CAGE ASSESSMENT Answer Date Recorded Cage unable to access Not on file 11/10/2021 Cage max number of drinks Not on file 2021 Cage Beverages a week Not on file 11/10/2021 Have you ever felt you should CUT down on your d rinking? 0 11/10/2021 Have you been ANNOYED by people criticizing your drinking? 0 11/10/2021 Have you felt GUILTY about your drinking? 0 11/10/2021 Have you had a drink first t myrna in the morning ([employer]) to steady your nerves or to get rid of a hangover? 0 11/10/2021 CAGE Questionnaire Score 0 022 Comments No Sex and Gender Information Value Date Recorded Sex Assigned at Female 03/19/2021 11:34 AM EST Legal Sex Female 6:45 PM EDT Gender Identity Female 03/19/2021 11:34 AM EST Sexual Orientation Choose not to disclose 2021 11:35 AM EST documented as of this encounter Last Filed Vital Signs Vital Sign Reading Time Taken Comments Blood Pressure 128/88 07/27/2024 4:11 PM EDT Pulse 74 07/27/2024 4:11 PM EDT Temperature - - Respiratory Rate - - Oxygen Saturation 97% 07/27/2024 4:11 PM EDT Inhaled Oxygen Concentration - - Weight 95.9 kg (211 lb 6.7 oz) 07/27/2024 4:11 P M EDT Height 165.1 cm (5' 5 ) 07/27/2024 4:11 PM EDT Body Mass Index 35.18 07/27/2024 4:11 PM EDT documented in this encounter Functional Status * Are you deaf or do you have serious difficulty hearing? Answer Date of Assessment Author No 11/14/2021 1:35 PM EDT Van Gilbert RN * Are you blind or do you have serious difficulty seeing, even when wearing glasses? Answer Date of Assessment Author No 11/14/2021 1:35 PM EDT Van Gilbert RN * Do you have serious difficulty walking or climbing stairs? Answer Date of Assessment Author Yes 11/14/2021 1:35 PM EDT Van Gilbert RN * Do you have serious difficulty dressing or bathing? Answer Date of Assessment Author No 11/14/2021 1:35 PM EDT Van Gilbert RN * Because of a physical, mental, or emotional condition, do you have serious difficulty doing errandsalone such as visiting the doctor? Answer Date of Assessment Author No 11/14/2021 1:35 PM EDT Van Gilbert RN documented as of this encounter Mental Status * Because of a physical, mental, or emotional condition, do you have serious difficulty concentrating, remembering, or making decisions? (5 years old or older) Answer Entry Date Author No 11/14/2021 1:35 PM EDT Van Gilbert RN documented in this encounter Miscellaneous Notes * Progress Notes - Elena Putnam PA - 07/27/2024 4:00 PM EDT Patient ID: Fiona Harry is a 39 y.o. female. Procedures Patient ID: Botox Migraine Performed by: GLORIA Mark Authorized by: GLORIA Mark Consent: Consent obtained: Written Consent given by: Patient Risks discussed: Poor cosmetic result, pain, infection and bleeding Procedure details: Toxin (Brand): OnaBoNT-A (Botox) Total units available: 200 Right frontalis: 10 units divided amongst 2 site(s) Left frontalis: 10 units divided amongst 2 site(s) Right spare hand carding: 5 units divided amongst 1 site(s) Left spare hand carding: 5 units divided amongst 1 site(s) Procerus (midline): 5 units divided amongst 1 site(s) Right occipitalis: 15 units divided amongst 3 site(s) Left occipitalis: 15 units divided amongst 3 site(s) Right cervical paraspinal: 10 units divided amongst 2 site(s) Left cervical paraspinal: 10 units divided amongst 2 site(s) Right trapezius: 32.5 units divided amongst 4 site(s) Left trapezius: 32.5 units divided amongst 4 site(s) Right temporalis: 25 units divided amongst 4 site(s) Left temporalis: 25 units divided amongst 4 site(s) Total units injected: 200 Total units wasted: 0 Post-procedure details: Patient tolerance of procedure: Tolerated well, no immediate complications CHEMODENERVATION OF HEAD AND NECK FOR MIGRAINE Diagnosis: Intractable Chronic Migraine without Aura and without Status Migrainosus [G43.719] Treatment Number: 12 Headache days this month: 2 Headache days prior to Botox: 15 Headache hours per day: 4-24 Medications tried: Sumatriptan injections (worked) Sumatriptan tabs (caused nausea), Metoprolol forSVT, Lamictal, Gabapentin, Cymbalta with no change in VENTURA. Headaches have improved, therefore the use of Botulinum toxin is medically indicated and justified. documented in this encounter Plan of Treatment Upcoming Encounters Date Type Department Care Team (Late st Contact Info) Description 09/21/2024 2:00 PM EDT Procedure Visit [place] [facility] [address] [place] [address] Elena Putnam PA [address] [place] [address] Scheduled Orders Name Type Priority Associated Diagnoses Orde r Schedule Botox Migraine Procedures Routine Intractable chronic migraine without aura and without status migrainosus 1 Occurrences starting 07/27/2024 until 01/21/2026 documented as of this encounter Visit Diagnoses Diagnosis Intractable chronic migraine without aura and without status migrainosus- Primary documented in this encounter Administered Medications Inactive Administered Medications - up to 3 most recent administrations Medication Order MAR Action Action Date Dose Rate Site onabotulinumtoxinA (Botox) injection 200 Units 200 Units, Intramuscular, Once, 1 dose, On Thu07/27/24 at 1715, RoutineIndications:Intracta ble chronic migraine without aura and without status migrainosus Given by Other 07/27/2024 4:32 PM EDT 200 Units Other documented in this encounter Additional Health Concerns Assessment Noted Time PHQ-9 Depression Total Score: 18 07/16/ 022 2:58 PM EDT A fall risk assessment has been complete d for the patient 07/27/2024 4:21 PM EDT A Body Mass Index follow-up plan has been documented for the patient 07/27/2024 5:21 PM EDT documented as of this encounter Care Teams Senior Quality Methods Specialist Relationship Specialty Start Date End Date Kleber Rothman MD [address] [place] [id number] PCP - General 06/29/20 Lourdes Velez APRN [address] [place] [address] Nurse Practitioner Neurosurgery 05/07/21 Mirza Davies MD [address] [place] [address] Surgeon Neurosurgery 07/19/21 Elena Putnam PA [address] [place] [address] Physician Home Day Care Provider Neurology 10/23/21 documented as of this encounter
--- OUTSIDE RECORDS SUMMARY | 2024-08-02 07:30 | XMS_ITS ---
Author Organization [facility] Address [address] [place], [place] [address] Care Team Providers Care Screenplay Writer Name Role Phone Thu Rothman Primary Care [...] coli Performing Lab: Notes/Report: Test performed by [employer] [address] [place] [address] , [address], [place] [address] Ermias Severino MD, Adaptive Physical Educator CLIA: [id number] Specimen Source Urine - Void Culture, Urine [...] tab(s) orally once a day 06/21/2021 Not-Taking Problems Problem Type SNOMED Code ICD Code Onset Dates Problem Status W/U Status Risk Notes Problem Obese class II (437707442903 105) BMI 39.0-39.9,a dult (Z68.39) Active confirmed Vital Signs Blood pressure systolic 130 mm Hg 08/03/19 25 Blood pressure diastolic 90 mm Hg 025 Heart Rate 86 /min 08/02/2024 Height 62 in 08/02/2024 Weight 215.6 lbs 08/02/2024 BMI 39.43 kg/m2 08/02/2024 Encounters Encounter Location Date Provider Diagnosis [facility] [address] [facility] [address] [place] [address], [place] [id number] 08/02/2024 R Tristan Rothman Depression with anxi [...] Details Follow Up: 2 Weeks,3 Weeks, Reason: Provider Name:Thu Dos Santos, 08/11/2024 09:59:00 AM, [address] [facility] [address] [facility], [facility] [address], [place], [place], [id number], Provider Name:Thu Dos Santos, 08/16/2024 11:00:00 AM, [address] [facility] [address] [facility], [facility] [address], [place], [place], [id number], Progress Notes * JYOTHI RITCHIE:1985 (39 yo F)Acc No.[id number]:08/02/2024 Progress Notes Patient: Ralph JOSE MARIA DELGADILLO Provider: Thu Rothman M.D. :1985 A ge:39 Y S ex:Female Date:08/02/2024 Address:[facility] [place], [id number] Subjective: * Chief Complaints: * 1 . [...] HR went up, cough, sore throat, sob- [facility] 02/21/2010, [facility] 03/16/2010, [facility] 02/05- , [facility] 04/27-, [facility] 05/01-, Seizures- 05/12/2012, Seizures- [facility] 05/23/2012, work injury, concussion, seizure- [facility] 03/09/2013, High Heart Rate- [facility] 05/2013, Nerve Pain- [facility] 12/2013, Neck, Shoulder, Arm Pain- [facility] 08/2014, Passed Out, Dehydration- [facility] 12/2014, Pneumonia- [facility] 02/08/2015, SOA, Chest pain- [facility] 02/15/2015, Stress Induced Episodes- [facility] 02/2015, 05/2015, [facility]-migraines, stress induced episodes, seizures 08/31, [facility]-attempted suicide, transferred to [facility] 06/03/17, [facility]-chest pain 12/2018, [facility]-spinal cord stimulator malfunction 12/2018, [facility]-overnight due to neck ablasion 04/2019, [facility]-diarrhea, nausea, headache 01/03/2020, [facility]-right sided rib pain, pseudoseizures 03/24/20. [...] as directed , Notes to Pharmacist: 10 Andorran/6 in., Taking Meloxicam 7.5 MG Tablet TAKE [...] tract infection) - N39.0 3 . B OR 39.0-39.9,adult - Z68.39 4 . S upraventricular [...] G 2211 Complex e/[place], [address] Urinalysis, no micro, G8431 CLIN DEPRESSION SCREEN DOC positive, G9902 Pt scrn tbco and id as user * Follow Up: 2 Weeks,3 Weeks * Images: Billing Information: * Visit Code: 43346 Office Visit, Est Pt., Level 3. * Procedure Codes: G2211 Complex e/[place]. [address] Urinalysis, no micro. G8431 CLIN DEPRESSION SCREEN DOC positive. G9902 Pt scrn tbco and id as user. * Electronic signature of Thu Rothman MD on 08/11/2024 at 10:10 AM EDT Sign off status: Pending * Provider: Thu Rothman M.D. Date: 0 08/02/2024 Generated for Bassam lo/Ramon/Alysonitting on: 0 08/11/2024 10:10 AM EDT History and Physical Notes * Examination Category Sub-Category Detail Notes Category Not es General Examination General Appearance: Seems mo re anxious. Tearful at times during the interview.
--- OUTSIDE RECORDS SUMMARY | 2024-08-11 10:11 | XMS_ITS | Clinical Summary ---
Author Organization [facility] Address [address] [place] [address] Care Team Providers Care Credit Administration Manager Name Role Phone Kleber Rothman MD Primary Care Provider [phone] Lourdes Velez APRN Unavailable [phone] Mirza Davies MD Unavailable + [phone] Elena Putnam Unavailable [phone] Allergies Active Allergy Reactions Criticality Noted Date Comments Aripiprazole Other - please docum ent in the comment field,Unknown - Patient states they do not know rxn details High 07/16/2021 Sulfamethoxazole-Trimethoprim Rash Low 2021 Pregabalin Swelling High 07/27/2024 Sulfamethoxazole Rash Low 06/02/2023 Trimethoprim Rash Low 06/02/2023 Medications lamoTRIgine (LaMICtal) 100 MG tablet Take 1 tablet (100 mg) by mouth 2 (two) times a day. 1 Active clonazePAM (KlonoPIN) 0.5 MG tablet Take 1 tablet (0.5 mg) by mouth 2 (two) times a day as needed. 1 Active DULoxetine (Cymbalta) [address] capsule Take 1 capsule (60 mg) by mouth daily. Do not crush or chew. Active acetaminophen (Tylenol) 325 MG tablet Take 1 tablet (325 mg) by mouth every 6 hours as needed for mild pain. Active cyclobenzaprine (Flexeril) 10 MG tablet Take 1 tablet (10 mg) by mouth 3 (three) times a day as needed. 2 Active metoprolol tartrate (Lopressor) 50 MG tablet Take 1 tablet (50 mg) by mouth 2 (two) times a day. 2 Active nitrofurantoin, macrocrystal-monohy drate, (Macrobid) 100 MG capsule Take by mouth 2 (two) times a day. Active HYDROcodone-acetami nophen (Kalama) 7.5-325 MG tablet 2 Active gabapentin (Neurontin) 800 MG tablet Take 1 tablet (800 mg total) by mouth 3 (three) times a day for 14 days. 42 tablet 2 Active furosemide (Lasix) 20 MG tablet Take 1 tablet (20 mg) by mouth as needed. 3 Active meloxicam (Mobic) 7.5 MG tablet Take 1 tablet (7.5 mg) by mouth daily. 3 Active traZODone (Desyrel) 100 MG tablet Take 1 tablet (100 mg) by mouth nightly. 3 Active tiZANidine (Zanaflex) 4 MG tablet 4 Active lisinopril 10 MG tablet Take 1 tablet (10 mg) by mouth 2 (two) times a day. Active rOPINIRole (Requip) 0.25 MG tablet Take 1 tablet (0.25 mg) by mouth daily. 4 Active Implanted pain pump by Implant route 1 (one) time. Active ondansetron ODT (Zofran-ODT) 4 MG disintegrating tablet as needed. 5 Active phentermine (Adipex-P) 37.5 MG tablet Take 1 tablet (37.5 mg) by mouth daily before breakfast. Active amitriptyline (Elavil) 10 MG tabletIndications:I ntractable chronic migraine without aura and without status migrainosus Take 3 tablets by mouth nightly. 270 tablet 5 Active albuterol 108 (90 Base) MCG/ACT inhaler as needed. Active benzonatate (Tessalon) 200 MG capsule as needed. Active venlafaxine XR (Effexor-XR) 37.5 MG 24 hr capsule Take 1 capsule by mouth daily. Active Hospital, Clinic, or Other Facility Administered Medication Ordered Dose Route Frequency Start Date End Date Status sodium chloride (PF) 0.9 % injection 20 mLIndications:Spondylosis of cervical region without myelopathy or radiculopathy 20 mL IK Once 12/17/2021 Active onabotulinumtoxinA (Botox) injection 200 UnitsIndications:Intractabl e chronic migraine without aura and without status migrainosus 200 Units IM Once 07/27/2024 07/27/2024 Ended Active Problems Problem Noted Date Diagnosed Date Spasticity 04/25/2022 Overview (04/25/2022): Added automatically from request for surgery [id number] KEELY (obstructive sleep apnea) 04/13/2022 Obesity (BMI 35.0-39.9 without comorbidity) 10/18 Acute exacerbation of chronic low back pain 10/18 Neurogenic bladder 11/08/2021 Acute cystitis with hematuria 11/08/2021 Intractable low back pain 11/08/2021 Class 2 obesity due to exces s calories without serious comorbidity with body mass index (BMI) of 36.0 to 36.9 in adult 11/08/2021 Cigarette nicotine dependence without complicati on 11/08/2021 Migraine without aura and wi thout status migrainosus, not intractable 05/30/2021 Cervical myelopathy 04/12/2021 Overview (04/21/2021): S/P C5-6 ACDF on 04/20 Pain controlled, ZHEN removed 04/21 Follow-up in 2 weeks in clinc Encounters Date Type Department Care Team Description 07/27/2024 4:00 PM EDT Procedure Visit [facility] [address], [address] [place] [address] Elena Putnam PA Intractable chronic migraine without aura and without status migrainosus (Primary Dx) 07/27/2024 Travel 06/09/2024 Travel 06/08/2024 Telephone [facility] [address] [place] [address] John Ivis E Appointment 05/30/2024 Refill [place] [facility] [address] [place] [address] Elena Putnam PA Intractable chronic migraine without aura and without status migrainosus from Last 3 Months Immunizations Immunization Administration Dates Next Due Td (adult), unspecified 09/05/2014 Tdap 11/18/2023 Family History Medical History Relation Name Comments Migraines Brother Andi Harry Depression Father Rob Harry Heart disease Father Rob Gallaghers Hypertension Father Rob Gallaghers Depression Father's Sister Annette Harry Depression Maternal Grandfather Satnam Vyas Heart disease Maternal Grandfather Satnam Vyas Hypertension Maternal Grandfather Satnam Vyas Hypertension Maternal Grandmother Nichole Vyas Breast cancer Mother Gricel Harry Cancer Mother Gricel Harry Bilateral m asectomy Diabetes Mother Gricel Harry Hypertension Mother Gricel Harry Diabetes Mother's Sister Ekaterina Garza Hypertension Mother's Sister Ekaterina Garza COPD Paternal Grandfather Chucho Harry Heart disease Paternal Grandfather Chucho Kamryn Alzheimer's disease Paternal Grandmother Oxana Jimenez Dillan kunz Relation Name Status Comments Brother Andi Harry Alive Father Rob Gallaghers Father's Sister Annette Gallaghers Maternal Grandfather Satnam Vyas Maternal Grandmother Nichole Vyas Mother Gricel Gallaghers Mother's Sister Ekaterina Garza Alive Paternal Grandfather Chucho Harry Paternal Grandmother Oxana Harry Alive Social History Tobacco Use Types Packs/Day Years [...] drink first t myrna in the morning (EYE-POLICE RECORDS CLERK) to steady your nerves or to get rid of a hangover? 0 11/10/2021 CAGE Questionnaire Score 0 022 Comments No Sex and Gender Information Value Date Recorded Sex Assigned at Female 03/19/2021 11:34 AM EST Legal Sex Female 6:45 PM EDT Gender Identity Female 03/19/2021 11:34 AM EST Sexual Orientation Choose not to disclose 2021 11:35 AM EST Last Filed Vital Signs Vital Sign Reading Time Taken Comments Blood Pressure 128/88 07/27/2024 4:11 PM EDT Pulse 74 07/27/2024 4:11 PM EDT Temperature 36.1 C (96.9 F) 01/17/2022 11:24 AM EST Respiratory Rate 16 01/17/2022 11:24 AM EST Oxygen Saturation 97% 07/27/2024 4:11 PM EDT Inhaled Oxygen Concentration - - Weight 95.9 kg (211 lb 6.7 oz) 07/27/2024 4:11 P M EDT Height 165.1 cm (5' 5 ) 07/27/2024 4:11 PM EDT Body Mass Index 35.18 07/27/2024 4:11 PM EDT Plan of Treatment Upcoming Encounters Date Type Department Care Team (Late st Contact Info) Description 09/21/2024 2:00 PM EDT Procedure Visit [place] [facility] [address] [place] [address] Elena Putnam PA [address] [place] [address] Health Maintenance Due Date Last Done Comments [facility]-Medicare Annual Wellness (AWV) 1985 [facility]-/Child/Adol SDOH Screenings 1985 [facility]-Varicella Vaccines (1 of 2 - 13+ 2-dose series) 07/10/2000 [facility]- SDOH Screenings 07/10/2005 [facility]-Adult SDOH Screenings 07/10/2005 [facility]-Hepatitis B Vaccines (3 of 3 - 3-dose series) 10/08/2006 08/13/2006, 10/21/2005 HPV Vaccines (2 - 3-dose series) 06/22/2007 05/25/2007 [facility]-Pap Smear 07/10/2008 [facility]-Cervical Cancer Screening 07/10/2017 [facility]-HPV/Cotest 07/10/2017 [facility]-Depression Screening 12/24/2022 022, 07/16/2021, 07/16/2021, Additional history exists [id number] Vaccine (2 - 2023- season) 2023 05/23/2020 [facility]-Influenza Vaccine (Season Ended) 2024 10/10/2011 [facility]-DTaP,Tdap,and Td Vaccines (2 - Td or Tdap) 11/17/2033 11/18/2023, 09/05/2014 [facility]-Zoster Vaccines (1 of 2) 07/10/2037 [facility]-HIV Screening Completed 04/07/2021, 12/17/2015 [facility]-Hepatitis C Screening Completed 2021, 08/02/2018, 12/17/2015 [facility]-Obesity Intervention Completed 025, 04/20/2024, 01/13/2024, Additional history exists [facility]-HIB Vaccines Aged Out No longer e ligible based on patient's age to complete this topic [facility]-Hepatitis A Vaccines Aged Out No longer eligible based on patient's age to complete this topic [facility]-IPV Vaccines Aged Out No longer e ligible based on patient's age to complete this topic [facility]-Pneumococcal Vaccine: Pediatrics (0 to 5 Years) and At-Risk Patients (6 to 49 Years) Aged Out No longer eligible based on patient's age to complete this topic [facility]-Rotavirus Vaccines Aged Out No lo nger eligible based on patient's age to complete this topic Medical Devices Implanted Type Area Chart Computer Device Identifier Shelf Expiration Date Model / Serial / Lot Spinal Cord Stimulator Right: Coccyx Graft Tiss T68 Preservon - [id number] - [id number] Implanted:Qty: 1 on 04/20/2021 by Mirza Davies MD at [facility] Spine Cervical [employer]-[id number] 12/11/2025 [id number] / [id number] / [id number] One Level Plate, 12mm - [id number] Implanted:Qty: 1 on 04/20/[address] [facility] Spine Cervical [employer] -[id number] 04/20/2022 [id number] / / Self Drilling Screw 12mm - [id number] Implanted:Qty: 4 on 04/20/[address] [facility] Spine Cervical [employer]ine [facility]-[id number] 04/20/2022 [id number] / / Procedures Procedure Name Priority Date/Time Associated Diagnosis Comments HEPATITIS C ANTIBODY - ED W/REFLEX TO HCV QUANT PCR STAT 04/07/2021 3:49 AM EST HIV 1/2 ANTIBODY/ANTIGEN SCREEN WITH REFLEX TO HIV I/II DIFFERENTIATION STAT 04/07/2021 3:49 AM EST from Last 3 Months or Most Recently Relevant to Health Maintenance Results * HIV 1 & 2 Antibody/Antigen Screen (04/07/2021 3:49 AM EST) Pathologist [facility] HIV 1 & 2 Antibody/Anti gen Screen Nonreactive Nonreactive 04/07/2021 5:32 AM EST [facility] Blood Venous blood specimen / Unknown Venipuncture / Unknown 04/07/2021 3:49 AM EST 04/07/2021 4:02 AM EST us James CASTRO LAB BLOOD ORDERABLES Fi nal Result [facility] [address] [place] [address] * [place] Hepatitis C Antibody (04/07/2021 3:49 AM EST) Pathologist [facility] Hepatitis C Antibody Negative Negative 04/07/2021 5:32 AM EST [employer] [facility] Blood Venous blood specimen / Unknown Venipuncture / Unknown 04/07/2021 3:49 AM EST 04/07/2021 4:02 AM EST us James CASTRO LAB BLOOD ORDERABLES Fi nal Result [facility] [address] [place] [address] from Last 3 Months or Most Recently Relevant to Health Maintenance Insurance MEDICARE Advance Directives * Full Code (Latest Code Status on File) Date Activated Date Inactivated Comments 11/08/2021 5:01 AM 11/14/2021 4:44 PM Question Answer Comments Patient has decision-making capacity? Yes Care Teams Credit Administration Manager Relationship Specialty Start Date End Date Kleber Rothman MD [address] [place] [address] PCP - General 06/29/20 Lourdes Velez APRN [address] [place] [address] Nurse Practitioner Neurosurgery 3/22/22 Mirza Davies MD [address] [facility] [place] [address] Surgeon Neurosurgery 07/19/21 Elena Putnam PA [address] [facility] [place] [address] Physician Shop Service Technician Neurology 10/23/21
--- OUTSIDE RECORDS SUMMARY | 2024-08-11 10:11 | XMS_ITS | Clinical Summary ---
Author Organization [facility] Address [address] [place] [address] Phone Care Team Providers Care Revenue Specialist Name Role Phone Thu Rothman Primary Care Provider [phone] Allergies No known active allergies Medications oxyCODONE-acetam inophen (PERCOCET) 5-325 mg per tablet Take by mouth every 6 hours as needed. Active diazepam (VALIUM) 5 mg tablet Take by mouth every 8 hours. Active gabapentin (NEURONTIN) 800 mg tablet Take 800 mg by mouth 3 times daily. Active metoprolol (LOPRESSOR) 50 mg tablet Take by mouth 2 times daily. Active lamoTRIgine (LAMICTAL) 200 mg tablet Take by mouth 2 times daily. Active FLUoxetine (PROZAC) 40 mg capsule Take 40 mg by mouth 2 times daily. Active Medical History Medical History Date Comments Depression Tachycardia Lipoma Social History Tobacco Use Types Packs/Day Years Used Date Smoking Tobacco: Every Day Cigarettes Tobacco Cessation:Ready to Q uit: No; Counseling Given: Yes Alcohol Use Standard Drinks/Week Comments No 0 (1 standard drink = 0.6 oz pur e alcohol) Comments No Sex and Gender Information Value Date Recorded Sex Assigned at Not on file Legal Sex Female 10:36 AM EDT Gender Identity Not on file Sexual Orientation Not on file Obstetrics History Last Filed Vital Signs Vital Sign Reading Time Taken Comments Blood Pressure 112/70 08/03/2012 1:45 PM EDT Pulse 78 08/03/2012 1:45 PM EDT Temperature 36.8 C (98.3 F) 08/03/2012 10:44 AM EDT Respiratory Rate 18 08/03/2012 1:45 PM EDT Oxygen Saturation 99% 08/03/2012 1:45 PM EDT Inhaled Oxygen Concentration - - Weight - - Height - - Body Mass Index - - Plan of Treatment Health Maintenance Due Date Last Done Comments Annual Wellness Exam 07/10/1990 DTaP/TDaP/Td (1 - Tdap) 07/10/2006 Hepatitis B Vaccine (1 of 3 - 19+ 3-dose series) 07/10/2006 Cervical Cancer Screening 07/10/2008 Pap Smear 07/10/2008 HPV/Pap Cotest 07/10/2017 COVID-19 Vaccine ( - 2023-2 5 season) 2023 Influenza Vaccine (Season Ended) 2024 Meningococcal B Vaccine Aged Out No l onger eligible based on patient's age to complete this topic Pneumococcal Vaccine 0-49 Aged Out No longer eligible based on patient's age to complete this topic Insurance [employer] PPO on file Care Teams Revenue Specialist Relationship Specialty Start Date End Date Thu Rothman [address] [place] [address] PCP - General Family Medicine 1985
--- OUTSIDE RECORDS SUMMARY | 2024-08-11 10:11 | XMS_ITS ---
Author Organization Unknown Allergies, Adverse Reactions and Alerts Date IsAllergic OnsetDate Allergen Reaction Type Severity Braydon rgyCode Legacyallergictoid ReactionCode ReactionCodeSystemID 06/23 00:00 :00 1 Lyrica swelling Side Effec ts [id number] 06/23 00:00 :00 1 Abilify [id number] 06/22 00:00 :00 1 Lyrica swelling Side Effec ts [id number] 06/22 00:00 :00 1 Abilify [id number] 06/22 00:00 :00 1 Lyrica swelling Side Effec ts [id number] 06/22 00:00 :00 1 Abilify [id number] 06/21 00:00 :00 1 Lyrica swelling Side Effec ts [id number] 06/21 00:00 :00 1 Abilify [id number] 06/21 00:00 :00 1 Lyrica swelling Side Effec ts [id number] 06/21 00:00 :00 1 Abilify [id number] 06/17 00:00 :00 1 Lyrica swelling Side Effec ts [id number] 06/17 00:00 :00 1 Abilify [id number] 06/16 00:00 :00 1 Lyrica swelling Side Effec ts [id number] 06/16 00:00 :00 1 Abilify [id number] 06/10 00:00 :00 1 Lyrica swelling Side Effec ts [id number] 06/10 00:00 :00 1 Abilify [id number] 06/01 00:00 :00 1 Lyrica swelling Side Effec ts [id number] 06/01 00:00 :00 1 Abilify [id number]
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
--- NOTE | 2024-08-11 11:07 | XR_ITS ---
FINAL REPORT CLINICAL HISTORY: right sided worsening neck pain, cervical stenosis, radiates to fingers COMPARISON: None FINDINGS: Three views of the cervical spine were obtained. There are postoperative changes from fusion at C5-6. No fracture is present. Alignment is normal. No prevertebral soft tissue swelling is seen. Mild disc space narrowing is noted at C4-5. IMPRESSION: Postoperative changes from fusion with mild degenerative change without malalignment. Reviewed, Interpreted and Dictated by Irma Bear MD Transcribed by Aleksandra Kate Authenticated and [facility]
--- NOTE | 2024-08-11 11:09 | EXP.PAIN.SOA ---
[facility] Disclaimer: The information contained in this section may have been updated after the patient was seen, as this information can be updated by other users. Medical History (Updated 08/11/24 @ 11:13 by Eva Lepe APRN) Family history of early CAD Dyspnea SVT (supraventricular tachycardia) History of urinary incontinence History of urinary self-catheterization Emphysema/COPD Sleep apnea Hypertension Spinal cord stimulator status Chronic pain Bipolar 1 disorder Seizures Migraines Depression CHF (congestive heart failure) Arrhythmia Anxiety Surgical History History of wisdom tooth extraction H/O neck surgery Previous back surgery Family History Mother Cancer breast Other Family history of COPD (chronic obstructive pulmonary disease) Family history of diabetes mellitus type II Family history of hypertension Family history of myocardial infarction Social History Smoking Status: Current every day smoker tobacco type: cigarettes packs per day: 1 second hand exposure: Yes alcohol intake: never substance use type: denies use current occupational status: other Travel in the last 8 weeks?: None household members: family housing: house current occupational exposures/hazards: No caffeine: Yes PM Subjective & Objective Subjective Subjective:: Patient is a pleasant 39-year-old female who presents today for worsening back pain especially in her neck that does radiate down into her right arm with numbness. Patient has had issues with this in the past however not continuously like she is experiencing. She rates that pain a 9 out of 10. Patient does state it is interfering with her ability perform activities of daily living such as cooking and cleaning. Patient does state that it is just a constant numbness that did initially start with her thumb and index finger. She denies any specific falls or additional injuries that started this. Patient does have a longstanding history of chronic neck pain with degenerative changes and does have previous history of surgical intervention. Patient is interested in any help we may be able to provide. Patient did also meet with [employer] for additional reprogramming of her stimulator recently and states that they did get a little bit better however is still managing to get some in her abdomen. Patient would like to see about reprogramming again coming up. Patient is currently managed with fentanyl 500 mcg/mL with a daily dose of 183.04 mcg/day and bupivacaine 5 mg/mL with a daily dose of 1.8304 mg/day. She is also managed with Flexeril 10 mg 3 times a day, ropinirole at bedtime and gabapentin 800 mg 3 times a day. She denies any side effects from these medications. Her Juan Luis has been reviewed and is appropriate. Review of Systems: General: No recent weight changes, no fever, no sleep disturbances Respiratory: No cough, no shortness of air, no recurring pulmonary infections Cardiovascular/peripheral vascular: No chest pain, no palpitations, no edema, no shortness of breath Gastrointestinal: No new onset incontinence, normal bowel movements reported Genitourinary: No new onset incontinence Musculoskeletal: Neck pain, right arm numbness tingling Psychiatric: [Normal mood/affect] Neurological: [Denies weakness in extremities], [denies balance issues] Pain at rest (0-10 scale): 9 Objective Objective:: Physical Exam: General: Alert and oriented x3, no acute distress, pleasant and cooperative Lungs: Respirations even and unlabored, symmetrical chest expansion Eyes: PERRL Musculoskeletal: Flexion and extension of cervical [spine] somewhat guarded secondary to pain, [antalgic gait noted] positive Spurling's test Neurological: Speech clear, no gross sensory deficit Has patient had previous pain injection?: No Conservative treatment options previously tried: Home exercise plan Length of treatment: Longer than 12 weeks Meds Home Medications and Allergies Home Medications ?Medication ?Instructions ?Recorded ?Confirmed ?Type clonazepam 0.5 mg tablet 0.5 mg PO BID PRN Anxiety 12/19/18 07/29/24 History metoprolol tartrate 50 mg tablet 50 mg PO BID heart rate 04/12/19 07/29/24 History trazodone 100 mg tablet 100 - 300 mg PO HS PRN Sleep 04/13/19 07/29/24 History nitrofurantoin 100 mg PO BID . 03/22/21 07/29/24 History monohydrate/macrocrystals 100 mg capsule ondansetron 4 mg disintegrating 4 mg PO Q8HP PRN Nausea #20 tabs 03/22/21 07/29/24 Rx tablet lamotrigine 100 mg tablet 1 mg PO DAILY mood 03/28/22 07/29/24 History duloxetine 60 mg capsule,delayed 60 mg PO DAILY 10/24/22 07/29/24 History release tizanidine 4 mg tablet (Zanaflex) 4 mg PO HS #30 tabs 04/29/23 07/29/24 Rx amitriptyline 10 mg tablet 10 mg PO HS migraines #30 tabs 05/25/23 07/29/24 Rx fentanyl(PF) 90 mcg/60 mL (1.5 20 ml epidural CONT Pain 06/24/23 07/29/24 History mcg/mL)-bupiv 0.125%-NaCl epidural syr clindamycin HCl 300 mg capsule 300 mg PO TID #21 caps 04/29/24 07/29/24 Rx cyclobenzaprine 10 mg tablet 10 mg PO TID #90 tabs 05/19/24 07/29/24 Rx gabapentin 800 mg tablet See Rx Instructions .Route 05/19/24 07/29/24 Rx .COMPLEX #90 tabs ropinirole 0.25 mg tablet See Rx Instructions .Route 05/19/24 07/29/24 Rx .COMPLEX #60 tabs meloxicam 7.5 mg tablet See Rx Instructions .Route 07/18/24 07/29/24 Rx .COMPLEX #30 tabs New Prescriptions to Start Prescriptions: Allergies Allergy/AdvReac Type Severity Reaction Status Date / Time aripiprazole (From Abilify) Allergy Intermediate Seizure Verified 04/29/24 11:14 sulfamethoxazole (From Allergy Rash Verified 04/29/24 11:14 Bactrim) trimethoprim (From Bactrim) Allergy Rash Verified 04/29/24 11:14 Assessment and Plan *Assessment and plan (1) Cervical radiculopathy: Status: Acute Category: Medical Code(s): M54.12 - Radiculopathy, cervical region (2) Neck pain: Status: Acute Category: Medical Code(s): M54.2 - Cervicalgia (3) Degenerative disc disease, cervical: Status: Acute Category: Medical Code(s): M50.30 - Other cervical disc degeneration, unspecified cervical region Plan Patient is experiencing worsening pain in their neck with radiating tingling and burning sensations into their right upper extremity. Patient did have limited range of motion of her cervical spine with a positive Spurling's test. I did discuss with the patient that I do believe they would benefit from a cervical epidural steroid injection. Risk and benefits were discussed with patient and they would like to proceed forward with this plan of care. Patient has tried and failed conservative therapy including oral medications, heat and ice, topicals, physical therapy and continued at home stretching exercise for longer than 12 weeks that was physician guided. Patient is not on any blood thinners. Patient has had longstanding chronic neck pain for longer than a year. Patient does also have a history of previous neck fusion. Due to her worsening numbness I will put an x-ray order today with the plan to proceed forward with advanced imaging of MRI without contrast of her cervical spine. Patient will be scheduled for a ANTONIO C6-C7 under fluoroscopy. Patient denies any blood thinners. Patient has been instructed to contact the clinic with any concerns before the next appointment. Dr. Bradshaw has reviewed this note and agrees with this plan of care. This note was dictated using voice recognition software and make contain errors or omissions. All injections are used with Lidocaine, Bupivacaine and dexamethasone unless otherwise stated as a diagnostic in which it has no steroid. Occasionally urine drug screen is needed to verify patient's compliance with our office pain contract. This is ordered based off specific treatments related to chronic pain with the potential to abuse certain medications.
[2024-08-11 11:40] VITALS: BP 139/76; PULSE 76; RESP 18; O2SAT 97; BMI 35.6
== END 2024-08-11 23:59 | disposition home or self-care (01) ==
PROVIDERS: PCP Family Medicine; Visit Provider Nurse Practitioner Family
DX: M50.123 Cervical disc disorder at C6-C7 level with radiculopathy (principal)
CPT/HCPCS: 72040; 99212; G0463

== ENCOUNTER 2024-08-26 11:25 | Day surgery (SDC) | payer MEDICARE, SELFPAY ==
[2024-08-26 11:45] VITALS: BP 117/83; PULSE 65; RESP 18; O2SAT 96; BMI 35.1
[2024-08-26 11:49] VITALS: BP 140/92; PULSE 81; RESP 18; O2SAT 98
--- NOTE | 2024-08-26 11:58 | EXP.PM.HP ---
History of Present Illness *Admission Date: 08/26/24 *Reason for visit:: Intrathecal refill; DDD *History of present illness: Same [facility] Disclaimer: The information contained in this section may have been updated after the patient was seen, as this information can be updated by other users. Medical History Family history of early CAD Dyspnea SVT (supraventricular tachycardia) History of urinary incontinence History of urinary self-catheterization Emphysema/COPD Sleep apnea Hypertension Spinal cord stimulator status Chronic pain Bipolar 1 disorder Seizures Migraines Depression CHF (congestive heart failure) Arrhythmia Anxiety Surgical History History of wisdom tooth extraction H/O neck surgery Previous back surgery Family History Mother Cancer breast Other Family history of COPD (chronic obstructive pulmonary disease) Family history of diabetes mellitus type II Family history of hypertension Family history of myocardial infarction Social History Smoking Status: Current every day smoker tobacco type: cigarettes packs per day: 1 second hand exposure: Yes alcohol intake: never substance use type: denies use current occupational status: other Travel in the last 8 weeks?: None household members: family housing: house current occupational exposures/hazards: No caffeine: Yes Have you lived/traveled outside [place] in past 30 days?: No Contact w/someone who lives/traveled outside [place] past 30 days?: No Exposure to someone with infectious disease in past 14 days?: No Do you have a fever (greater than 100.4 F or 38 C)?: No Have you tested positive for COVID-19?: No Exposed to someone with COVID-19 in past 14 days?: No Do you have a sore throat?: No Do you have a cough?: No Do you have any weakness?: No Do you have any diarrhea?: No Are you experiencing any unusual bleeding?: No Do you have any muscle aches/pain?: No Do you have any abdominal pain?: No Are you experiencing loss of taste or smell?: No Other Medical History Have you received the Flu Vaccine for this season: No Have you received the Pneumonia Vaccine: No Review of Systems Review of Systems Review of systems:: pertinent systems reviewed and negative unless documented below Review of systems (narrative): Review of Systems: General: No recent weight changes, no fever, no sleep disturbances Respiratory: No cough, no shortness of air, no recurring pulmonary infections Cardiovascular/peripheral vascular: No chest pain, no palpitations, no edema, no shortness of breath Gastrointestinal: No new onset incontinence, normal bowel movements reported Genitourinary: No new onset incontinence Musculoskeletal: Chronic back pain Psychiatric: [Normal mood/affect] Neurological: [Denies weakness in extremities], [denies balance issues] Meds Home Medications and Allergies Home Medications ?Medication ?Instructions ?Recorded ?Confirmed ?Type clonazepam 0.5 mg tablet 0.5 mg PO BID PRN Anxiety 12/19/18 08/26/24 History metoprolol tartrate 50 mg tablet 50 mg PO BID heart rate 04/12/19 08/26/24 History trazodone 100 mg tablet 100 - 300 mg PO HS PRN Sleep 04/13/19 08/26/24 History nitrofurantoin 100 mg PO BID . 03/22/21 08/26/24 History monohydrate/macrocrystals 100 mg capsule ondansetron 4 mg disintegrating 4 mg PO Q8HP PRN Nausea #20 tabs 03/22/21 08/26/24 Rx tablet lamotrigine 100 mg tablet 1 mg PO DAILY mood 03/28/22 08/26/24 History tizanidine 4 mg tablet (Zanaflex) 4 mg PO HS #30 tabs 04/29/23 08/26/24 Rx amitriptyline 10 mg tablet 10 mg PO HS migraines #30 tabs 05/25/23 08/26/24 Rx fentanyl(PF) 90 mcg/60 mL (1.5 20 ml epidural CONT Pain 06/24/23 08/26/24 History mcg/mL)-bupiv 0.125%-NaCl epidural syr cyclobenzaprine 10 mg tablet 10 mg PO TID #90 tabs 05/19/24 08/26/24 Rx gabapentin 800 mg tablet See Rx Instructions .Route 05/19/24 08/26/24 Rx .COMPLEX #90 tabs ropinirole 0.25 mg tablet See Rx Instructions .Route 05/19/24 08/26/24 Rx .COMPLEX #60 tabs meloxicam 7.5 mg tablet See Rx Instructions .Route 07/18/24 08/26/24 Rx .COMPLEX #30 tabs venlafaxine 150 mg 150 mg PO DAILY 08/26/24 08/26/24 History capsule,extended release 24 hr (Effexor XR) New Prescriptions to Start Prescriptions: Allergies Allergy/AdvReac Type Severity Reaction Status Date / Time aripiprazole (From Abilify) Allergy Intermediate Seizure Verified 04/29/24 11:14 sulfamethoxazole (From Allergy Rash Verified 04/29/24 11:14 Bactrim) trimethoprim (From Bactrim) Allergy Rash Verified 04/29/24 11:14 Exam Data for Last 24 hours Vital signs and Labs for Last 24 Hours: Pulse Resp BP Pulse Ox O2 Del Method 65 18 117/83 96 Room Air 08/26/24 11:45 08/26/24 11:45 08/26/24 11:45 08/26/24 11:45 08/26/24 11:45 I & O for Last 24 hours: Intake & Output 08/23/24 08/24/24 08/25/24 08/26/24 23:59 23:59 23:59 23:59 Weight 211 lb Constitutional Constitutional: no acute distress *Routine HEENT Exam Head: Present normocephalic and atraumatic Eye: Present PERRL ENT: Present mucous membranes moist *Routine Neck Exam Neck: Present supple *Routine Respiratory Exam Respiratory: Present CTA bilaterally *Routine Cardiovascular Exam Cardiovascular: Present RRR *Routine Abdominal Exam Abdominal: Present soft *Routine Rectal Exam Rectal:: deferred *Routine Genitalia Exam Genitalia:: deferred Routine Back/Spine/Pelvis Exam Back/Spine: Present pain with flexion *Routine Skin Exam Skin: Present intact and dry *Routine Neurological Exam Neurological: Present alert and oriented X3 Routine Psychiatric Exam Psychiatric: Present normal affect and normal thought process Assessment and Plan *Assessment and plan (1) Degenerative disc disease, cervical: Status: Acute Category: Medical Code(s): M50.30 - Other cervical disc degeneration, unspecified cervical region (2) Cervical radiculopathy: Status: Acute Category: Medical Code(s): M54.12 - Radiculopathy, cervical region (3) Thoracic radiculopathy: Status: Acute Category: Medical Code(s): M54.14 - Radiculopathy, thoracic region (4) Degenerative disc disease, thoracic: Status: Acute Category: Medical Code(s): M51.34 - Other intervertebral disc degeneration, thoracic region (5) Degenerative joint disease of cervical and lumbar spine: Status: Acute Category: Medical Code(s): M47.812 - Spondylosis without myelopathy or radiculopathy, cervical region; M47.816 - Spondylosis without myelopathy or radiculopathy, lumbar region Plan Patient has been instructed to contact the clinic with any concerns before the next appointment. Dr. Bradshaw has reviewed this note and agrees with this plan of care. This note was dictated using voice recognition software and make contain errors or omissions. All injections are used with Lidocaine, Bupivacaine and dexamethasone. Occasionally urine drug screen is needed to verify patient's compliance with our office pain contract. This is ordered based off specific treatments related to chronic pain with the potential to abuse certain medications.
--- NOTE | 2024-08-26 12:00 | EXP.PAIN.PRO ---
Procedure Date: 08/26/24 Time: 12:15 Anesthesiologist:: Eva Lepe APRN Complications:: None Pre-procedure Diagnosis:: Degenerative disc disease of cervical, thoracic and lumbar spine with cervical, thoracic and lumbar radiculopathy symptoms, chronic pain syndrome Post-procedure Diagnosis:: Same Indications for Procedure:: Patient is a pleasant 39-year-old female who presents today for intrathecal refill and reprogram. Today she rates her pain a 9 out of 10. She states she is still having the worsening pain that continues in her neck and radiates primarily down the right arm to her fingertips with numbness and tingling. Patient states that she has been bad and not called to get her MRI scheduled. 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 Patient does states she is very tender all around her left shoulder and that it is interfering with her ability perform activities of daily living such as cooking and cleaning. Patient is interested in additional injection therapy. Patient is currently managed with fentanyl 500 mcg/mL with a daily dose of 183.04 micrograms per day with bupivacaine 5 mg/mL with a daily dose of 1.8304 mg/day. Patient is also managed with gabapentin 800 mg 3 times a day Flexeril 10 mg 3 times a day and ropinirole at bedtime. Physical Exam: General: Alert and oriented x3, no acute distress, pleasant and cooperative Lungs: Respirations even and unlabored, symmetrical chest expansion Eyes: PERRL Musculoskeletal: Flexion and extension of lumbar [spine] somewhat guarded secondary to pain, [antalgic gait noted] point tenderness along left trapezius and left rhomboid muscles Neurological: Speech clear, no gross sensory deficit Procedure Details:: informed consent was obtained and the risk and benefits of the procedure were explained to the patient. The patient had noninvasive monitoring placed including noninvasive blood pressure cuff and pulse oximeter. Patient's pump was interrogated. The area over the pump was cleansed with chlorhexidine as a cleansing solution. . In sterile fashion the pump was accessed with a 22-gauge needle. Approximately 9.2 mls of the pump solution was removed and discarded appropriately. The pump was then refilled with 20 mL's of fentanyl 500 mcg/mL and bupivacaine 5 mg/mL. The needle was withdrawn and a bandage was placed over the puncture site. The infusion rate was reprogrammed and continued at its current dose. The patient tolerated well with no complication. Plan and Disposition:: Patient tolerated the procedure well with no complications and was discharged neurologically intact. Patient is experiencing worsening pain in her left shoulder muscles with point tenderness along her left trapezius and left rhomboid muscles. I did discuss with patient that she would benefit from trigger point injections at these locations. Risk and benefits were discussed with patient and she would like to proceed forward with this plan of care. Patient has tried and failed conservative therapy including oral medication, heat and ice, topicals, at home stretching exercise for longer than 12 weeks. Patient does have a longstanding history of chronic neck pain with radicular symptoms and has even had previous neck surgery. Patient will be scheduled for trigger point injections of her left trapezius and left rhomboid muscles. Patient will return to clinic on or before their next intrathecal refill date. We will see the patient back in the clinic at the next intrathecal refill. Patient has been instructed to contact the clinic with any concerns before the next appointment. Dr. Bradshaw has reviewed this note and agrees with this plan of care. This note was dictated using voice recognition software and make contain errors or omissions. -- It Is medically necessary for this patient to continue to have their intrathecal pump refilled at regular intervals. This patient had an intrathecal pain pump implanted after meeting criteria of chronic intractable pain for greater than 3 months and failing conservative treatments. Patient has committed and been compliant to the treatment plan and all planned follow up care. Since implantation of the intrathecal pain pump, the patient has had decreased pain and been more functional. Oral medications have been reduced including intake of oral opioids. Patient continues to do well with intrathecal therapy with decrease in pain symptoms and increase in functional status. Stopping intrathecal medications can lead to life threatening withdrawal, seizures, cardiac arrest, severe pain, and possible . Pumps that are not refilled at regular intervals can be damages and cause and need for replacement. We continually titrate dose and concentration to optimize pain relief and function. We are limited in concentration for certain drugs to safely deliver medications through the pump and stay within the recommendations from the Polyanalgesic Consensus Committee Guidelines. Depending on dose and concentration these pumps may need to be refilled sooner than 3 months as we titrate. A UDS is needed to verify patient's compliance with our office pain contract. This is ordered based off specific treatments related to chronic pain with the potential to abuse certain medications.
[2024-08-26 12:20] VITALS: BP 134/82; PULSE 77; RESP 18; O2SAT 95
== END 2024-08-26 12:20 | disposition home or self-care (01) ==
PROVIDERS: PCP Family Medicine; Visit Provider Nurse Practitioner Family
DX: M50.10 Cervical disc disorder with radiculopathy, unspecified cervical region (principal); Z45.1 Encounter for adjustment and management of infusion pump; M51.14 Intervertebral disc disorders with radiculopathy, thoracic region; M51.16 Intervertebral disc disorders with radiculopathy, lumbar region; M47.22 Other spondylosis with radiculopathy, cervical region; M47.26 Other spondylosis with radiculopathy, lumbar region; G89.4 Chronic pain syndrome; F41.9 Anxiety disorder, unspecified; F31.9 Bipolar disorder, unspecified; I11.0 Hypertensive heart disease with heart failure; I50.9 Heart failure, unspecified; J43.9 Emphysema, unspecified; G43.909 Migraine, unspecified, not intractable, without status migrainosus; R56.9 Unspecified convulsions; G47.30 Sleep apnea, unspecified; F17.210 Nicotine dependence, cigarettes, uncomplicated; Z96.82 Presence of neurostimulator; Z88.1 Allergy status to other antibiotic agents; Z88.2 Allergy status to sulfonamides; Z88.8 Allergy status to other drugs, medicaments and biological substances; Z79.52 Long term (current) use of systemic steroids; Z79.899 Other long term (current) drug therapy
CPT/HCPCS: 62370

== ENCOUNTER 2024-09-06 13:58 | Day surgery (SDC) | payer MEDICARE, SELFPAY ==
[2024-09-06 14:03] VITALS: BP 125/84; PULSE 79; RESP 18; O2SAT 98; BMI 33.3
[2024-09-06] MEDS: DEXAMETHASONE 10MG/ML 1ML VIAL 10 MG (14:17)
[2024-09-06 14:19] VITALS: BP 125/84; PULSE 79; RESP 18; O2SAT 98
[2024-09-06 14:21] VITALS: BP 125/84; PULSE 79; RESP 18; O2SAT 98
--- NOTE | 2024-09-06 14:21 | P.PCN_ITS ---
Procedure Date: 09/06/24 Time: 14:15 Anesthesiologist:: Jae Marino CRNA Complications:: None Pre-procedure Diagnosis:: Degenerative disc cervical spine multilevels. Cervical radiculopathy. Cervical spondylosis. Multilevel cervical disc bulge. Cervical postlaminectomy syndrome. Post-procedure Diagnosis:: Same. Indications for Procedure:: Patient is a pleasant 39-year-old female who comes our clinic today for cervical epidural steroid injection. Patient describes posterior cervical neck pain as constant, dull, aching. She reports bilateral shoulder and arm radicular symptoms left greater than right. She rates her pain 6/10. Procedure Details:: Procedure:Cervical epidural steroid injection Informed consent was obtained and the risks and benefits of the procedure were explained to the patient. The patient was taken to the procedure room and noninvasive monitors placed, including noninvasive blood pressure cuff and pulse oximeter. The neck was prepped using Chloraprep as a cleansing solution. The C6- C7 interspace was viewed using fluroscopy. The skin and subcutaneous tissues were anesthetized using lidocaine 1.5% and a 25-gauge needle. After this an 18- gauge Touhy epidural needle was placed into the C6-C7 interspace under fluroscopy guidance and advanced using loss of resistance to air until the epidural space was encountered. After confirmation of needle placement in the epidural space using contrast dye, dexamethasone 10 mg ( 1 ML) was incrementally injected into the cervical epidural space.~ The patient tolerated the procedure well with no complications. The patient was observed in the Pain Clinic and then discharged home neurologically intact. Plan and Disposition:: Patient was discharged without incident.
[2024-09-06] MEDS: IOPAMIDOL-200 (41%);10ML VIAL 3 ML IV (14:24)
[2024-09-06 14:38] VITALS: BP 129/86; PULSE 76; RESP 16; O2SAT 97
== END 2024-09-06 14:38 | disposition home or self-care (01) ==
PROVIDERS: PCP Family Medicine; Visit Provider Nurse Anesthetist, Certified Registered
DX: M50.30 Other cervical disc degeneration, unspecified cervical region (principal); M51.34 Other intervertebral disc degeneration, thoracic region; M47.812 Spondylosis without myelopathy or radiculopathy, cervical region; M54.14 Radiculopathy, thoracic region; M54.12 Radiculopathy, cervical region; I11.0 Hypertensive heart disease with heart failure; I50.9 Heart failure, unspecified; I47.10 Supraventricular tachycardia, unspecified; J43.9 Emphysema, unspecified; F41.9 Anxiety disorder, unspecified; F31.9 Bipolar disorder, unspecified; G89.29 Other chronic pain; G47.30 Sleep apnea, unspecified; G43.909 Migraine, unspecified, not intractable, without status migrainosus; F17.210 Nicotine dependence, cigarettes, uncomplicated; Z88.2 Allergy status to sulfonamides; Z88.8 Allergy status to other drugs, medicaments and biological substances; Z88.1 Allergy status to other antibiotic agents
CPT/HCPCS: 62321; J1100; Q9966

== ENCOUNTER 2024-09-09 13:20 | Day surgery (SDC) | payer MEDICARE, SELFPAY ==
[2024-09-09 13:25] VITALS: BP 128/87; PULSE 83; RESP 18; O2SAT 98; BMI 34.1
--- NOTE | 2024-09-09 13:36 | EXP.PAIN.PRO ---
Procedure Date: 09/09/24 Time: 13:35 Anesthesiologist:: Eva Lepe APRN Complications:: None Pre-procedure Diagnosis:: Myofascial pain, left shoulder pain, degenerative disc disease of cervical and lumbar spine with cervical and lumbar radiculopathy symptoms Post-procedure Diagnosis:: Same Indications for Procedure:: Patient is a pleasant 39-year-old female who presents today for trigger point injections of her left trapezius and left rhomboid muscles. Today she rates her pain a 5 out of 10. Patient denies any side effects. Patient is currently managed with intrathecal fentanyl 500 mcg/mL with a daily dose of 183.04 mcg/day and bupivacaine 5 mg/mL with a daily dose of 1.8304 mg/day. She is also managed with gabapentin 800 mg 3 times a day, Flexeril 10 mg 3 times a day and ropinirole. Her Juan Luis has been reviewed and is appropriate. Physical Exam: General: Alert and oriented x3, no acute distress, pleasant and cooperative Lungs: Respirations even and unlabored, symmetrical chest expansion Eyes: PERRL Musculoskeletal: Flexion and extension of left shoulder somewhat guarded secondary to pain, [antalgic gait noted] Neurological: Speech clear, no gross sensory deficit Procedure Details:: Patient did have noninvasive blood pressure cuff applied and pulse oximeter. Patient was placed in a sitting position and palpated along her left trapezius and left rhomboid muscles. Areas of point tenderness were marked and using a sterile 25-gauge needle approximately 10 mL of 0.25% bupivacaine, 1% lidocaine and 10 mg dexamethasone were incrementally injected into her left trapezius and left rhomboid muscles. Needle was removed and sterile bandages applied. Patient tolerated the procedure well with no complications and was discharged neurologically intact. Plan and Disposition:: Patient tolerated the procedure well with no complications and was discharged neurologically intact. Patient does have a upcoming follow-up appointment for cervical epidural follow-up and we will not give any additional appointments today. We will review efficacy at that same time. Patient has been instructed to contact the clinic with any concerns before the next appointment. Dr. Bradshaw has reviewed this note and agrees with this plan of care. This note was dictated using voice recognition software and make contain errors or omissions. All injections are used with Lidocaine, Bupivacaine and dexamethasone. Occasionally urine drug screen is needed to verify patient's compliance with our office pain contract. This is ordered based off specific treatments related to chronic pain with the potential to abuse certain medications.
[2024-09-09] MEDS: BUPIVACAINE 0.25% 10ML INJ 25 MG IJ (13:38)
[2024-09-09] MEDS: LIDOCAINE 1% 5ML PF VIAL 5 ML (13:38)
[2024-09-09 13:39] VITALS: BP 131/83; PULSE 84; RESP 18; O2SAT 96
[2024-09-09] MEDS: DEXAMETHASONE 10MG/ML 1ML VIAL 10 MG (13:39)
[2024-09-09 13:41] VITALS: BP 131/83; PULSE 84; RESP 18; O2SAT 96
[2024-09-09 13:57] VITALS: BP 124/78; PULSE 85; RESP 18; O2SAT 97
== END 2024-09-09 13:57 | disposition home or self-care (01) ==
PROVIDERS: PCP Family Medicine; Visit Provider Nurse Practitioner Family
DX: M79.18 Myalgia, other site (principal); M50.10 Cervical disc disorder with radiculopathy, unspecified cervical region; M51.16 Intervertebral disc disorders with radiculopathy, lumbar region; F41.9 Anxiety disorder, unspecified; F31.9 Bipolar disorder, unspecified; I11.0 Hypertensive heart disease with heart failure; I50.9 Heart failure, unspecified; J43.9 Emphysema, unspecified; J44.9 Chronic obstructive pulmonary disease, unspecified; G40.909 Epilepsy, unspecified, not intractable, without status epilepticus; G47.30 Sleep apnea, unspecified; I47.10 Supraventricular tachycardia, unspecified; Z97.8 Presence of other specified devices; F17.200 Nicotine dependence, unspecified, uncomplicated; Z88.1 Allergy status to other antibiotic agents; Z88.2 Allergy status to sulfonamides; Z88.8 Allergy status to other drugs, medicaments and biological substances; Z79.899 Other long term (current) drug therapy
CPT/HCPCS: 20552; J0665; J1100; J2003

== ENCOUNTER 2024-09-23 10:24 | Day surgery (SDC) | payer MEDICARE, SELFPAY ==
--- NOTE | 2024-09-23 10:37 | P.PCN_ITS ---
Procedure Date: 09/23/24 Time: 11:01 Anesthesiologist:: Eva Lepe APRN Complications:: None Pre-procedure Diagnosis:: Degenerative disc disease of cervical thoracic and lumbar spine with cervical thoracic and lumbar radiculopathy symptoms, chronic pain syndrome Post-procedure Diagnosis:: Same Indications for Procedure:: Patient is a pleasant 39-year-old female who presents today for intrathecal refill and reprogram. She rates her pain today as 7 out of 10. She denies any new falls or injuries. She does state that she still having overall worse pain throughout her neck mid back and low back and does have radiating symptoms into her legs. Patient is asking if there is any additional options we may be able to do. She is currently managed with fentanyl 500 mcg/mL with a daily dose of 183.04 mcg/day and bupivacaine 5 mg/mL with a daily dose of 1.8304 mg/day. She is also prescribed gabapentin 800 mg 3 times a day, Flexeril 10 mg 3 times a day and ropinirole at bedtime from our office. She denies any side effects. Her Juan Luis has been reviewed and is appropriate. Physical Exam: General: Alert and oriented x3, no acute distress, pleasant and cooperative Lungs: Respirations even and unlabored, symmetrical chest expansion Eyes: PERRL Musculoskeletal: Flexion and extension of lumbar [spine] somewhat guarded secondary to pain, [antalgic gait noted] Neurological: Speech clear, no gross sensory deficit Procedure Details:: Informed consent was obtained and the risk and benefits of the procedure were explained to the patient. The patient had noninvasive monitoring placed including noninvasive blood pressure cuff and pulse oximeter. Patient's pump was interrogated. The area over the pump was cleansed with chlorhexidine as a cleansing solution. In sterile fashion the pump was accessed with a 22-gauge needle. Approximately 9.5 mls of the pump solution was removed and discarded appropriately. The pump was then refilled with 20 mL's of fentanyl 500 mcg/mL and bupivacaine 5 mg/mL. The needle was withdrawn and a bandage was placed over the puncture site. The infusion rate was reprogrammed and changed to flex dosing with a small increase of 203.54 mcg/day. The patient tolerated well with no complication. Plan and Disposition:: Patient tolerated the procedure well with no complications and was discharged neurologically intact. Patient was counseled to call her office if she ends up having issues with the flex dosing and we can either switch her back to continuous or make additional adjustments on the dosing. Patient agrees with this plan of care. Patient did make mention that she has still not been able to get her MRI and that she has tried calling. She states that she is not sure if she will need a new order for this imaging. Patient will return to clinic on or before their next intrathecal refill date. We will see the patient back in the clinic at the next intrathecal refill. Patient has been instructed to contact the clinic with any concerns before the next appointment. Dr. Bradshaw has reviewed this note and agrees with this plan of care. This note was dictated using voice recognition software and make contain errors or omissions. -- It Is medically necessary for this patient to continue to have their intrathecal pump refilled at regular intervals. This patient had an intrathecal pain pump implanted after meeting criteria of chronic intractable pain for greater than 3 months and failing conservative treatments. Patient has committed and been compliant to the treatment plan and all planned follow up care. Since implantati on of the intrathecal pain pump, the patient has had decreased pain and been more functional. Oral medications have been reduced including intake of oral opioids. Patient continues to do well with intrathecal therapy with decrease in pain symptoms and increase in functional status. Stopping intrathecal medications can lead to life threatening withdrawal, seizures, cardiac arrest, severe pain, and possible . Pumps that are not refilled at regular intervals can be damages and cause and need for replacement. We continually titrate dose and concentration to optimize pain relief and function. We are limited in concentration for certain drugs to safely deliver medications through the pump and stay within the recommendations from the Polyanalgesic Consensus Committee Guidelines. Depending on dose and concentration these pumps may need to be refilled sooner than 3 months as we titrate. A UDS is needed to verify patient's compliance with our office pain contract. This is ordered based off specific treatments related to chronic pain with the potential to abuse certain medications.
[2024-09-23 10:39] VITALS: BP 108/73; PULSE 57; RESP 18; O2SAT 97; BMI 32.3
[2024-09-23 10:46] VITALS: BP 130/75; PULSE 88; RESP 18; O2SAT 98
[2024-09-23 11:05] VITALS: BP 125/88; PULSE 80; RESP 18; O2SAT 100
== END 2024-09-23 11:05 | disposition home or self-care (01) ==
PROVIDERS: PCP Family Medicine; Visit Provider Nurse Practitioner Family
DX: Z45.1 Encounter for adjustment and management of infusion pump (principal); M51.14 Intervertebral disc disorders with radiculopathy, thoracic region; M50.10 Cervical disc disorder with radiculopathy, unspecified cervical region; M51.16 Intervertebral disc disorders with radiculopathy, lumbar region; G89.4 Chronic pain syndrome; F41.9 Anxiety disorder, unspecified; F31.9 Bipolar disorder, unspecified; J43.9 Emphysema, unspecified; J44.9 Chronic obstructive pulmonary disease, unspecified; I10 Essential (primary) hypertension; G40.909 Epilepsy, unspecified, not intractable, without status epilepticus; G47.30 Sleep apnea, unspecified; I47.10 Supraventricular tachycardia, unspecified; F17.210 Nicotine dependence, cigarettes, uncomplicated; Z88.1 Allergy status to other antibiotic agents; Z88.2 Allergy status to sulfonamides; Z88.8 Allergy status to other drugs, medicaments and biological substances; Z79.899 Other long term (current) drug therapy
CPT/HCPCS: 62370

== ENCOUNTER 2024-10-05 10:01 | Outpatient (POV) | payer MEDICARE, SELFPAY ==
--- OUTSIDE RECORDS SUMMARY | 2024-07-12 07:00 | XMS_ITS ---
Author Organization [facility] [address] [facility] [address] [place] [id number] Care Team Providers Care Gandy Dancer Name Role Phone Thu Rothman Primary Care Provider Macario Reza [phone] Allergies Allergen (clinical drug ingredient) Drug/Non Drug Allergy documented on EMR Reaction Allergy Type Onset Date Status aripiprazole Abilify Unknown Drug Allergy Acti ve pregabalin Lyrica swelling Drug Allergy Active REASON FOR VISIT depression and anxiety Encounters Encounter Location Date Provider Diagnosis [facility] [address] [facility] [address] [facility] [address] [place] [phone] 07/12/2024 Macario Reza Plan Of Treatment Next Appt Details Provider Name:Thu Dos Santos, 11/29/2024 11:00:00 AM, [address], [address], [place], [place], [id number], Progress Notes * VIKTOR RITCHIEROWENAB:1985 (39 yo F)Acc No.[id number]:07/12/2024 Progress Notes Patient: JOSE MARIA COLES Provider: Ene Reza M.D. :1985 A ge:39 Y S ex:Female Date:07/12/2024 Address:[address] [facility] [place], [id number] Pcp:Thu Rothman Subjective: * Chief Complaints: * [...] HR went up, cough, sore throat, sob- [facility] 02/21/2010, [facility] 03/16/2010, [facility] 02/05- , 04/27-, [facility] 05/01-, Seizures- 05/12/2012, Seizures- [facility] 05/23/2012, work injury, concussion, seizure- [facility] 03/09/2013, High Heart Rate- [facility] 05/2013, Nerve Pain- [facility] 12/2013, Neck, Shoulder, Arm Pain- [facility] 08/2014, Passed Out, Dehydration- [facility] 12/2014, Pneumonia- [facility] 02/08/2015, SOA, Chest pain- [facility] 02/15/2015, Stress Induced Episodes- [facility] 02/2015, 05/2015, [facility] ER-migraines, stress induced episodes, seizures 08/31, [facility] ER-attempted suicide, transferred to [facility] 06/03/17, [facility] ER-chest pain 12/2018, [facility] ER-spinal cord stimulator malfunction 12/2018, [facility] ER-overnight due to neck ablasion 04/2019, [facility] UTC-diarrhea, nausea, headache 01/03/2020, [facility] ER-right sided rib pain, pseudoseizures 03/24/20. * [...] Electronic signature of Penny Reza MD on 10/05/2024 at 11:18 AM EDT Sign off status: Pending * Provider: Ene Reza M.D. Date: 0 07/12/2024 Generated for Bassam lo/Ramon/Alysonitting on: 0 10/05/2024 11:18 AM EDT History and Physical Notes * HPI (History of Present Illness) Category Sub-Category Detail Notes Category Not es Psychology depression
--- OUTSIDE RECORDS SUMMARY | 2024-08-02 07:30 | XMS_ITS ---
Author Organization [facility] Address [address] [place], [place] [id number] Care Team Providers Care Arborist Name Role Phone Thu Rothman Primary Care [...] coli Performing Lab: Notes/Report: Test performed by [employer] [address] [place] [address] , [address], [place] [address] Ermias Severino MD, Card Cutter Helper CLIA: [id number] Specimen Source Urine - Void Culture, Urine [...] Status Risk Notes Problem Obese class II (922399592241 105) BMI 39.0-39.9,a dult (Z68.39) Active confirmed Vital Signs Blood pressure systolic 130 mm Hg 08/03/19 25 Blood pressure diastolic 90 mm Hg 025 Heart Rate 86 /min 08/02/2024 Height 62 in 08/02/2024 Weight 215.6 lbs 08/02/2024 BMI 39.43 kg/m2 08/02/2024 Encounters Encounter Location Date Provider Diagnosis [facility] [address] [facility] [address] [place] [address], [place] [phone] 08/02/2024 R Tristan Rothman Depression with anxi [...] 11/29/2024 11:00:00 AM, [address] [facility], [address] , [place], [place], [id number], Progress Notes * SMITHA RITCHIEB:1985 (39 yo F)Acc No.[id number]:08/02/2024 Progress Notes Patient: VIKTOR COLESSEA Provider: Thu Rothman M.D. :1985 A ge:39 Y S ex:Female Date:08/02/2024 Address:[place], [id number] Subjective: * Chief Complaints: * 1 . [...] no R deana. n o H juan franicsco. G ASTROENTEROLOGY: no N ausea. n o [...] HR went up, cough, sore throat, sob- [place] [facility] 02/21/2010, [facility] 03/16/2010, [facility] 02/05- , 04/27-, [facility] 05/01-, Seizures- [facility] 05/12/2012, Seizures- [facility] 05/23/2012, work injury, concussion, seizure- [facility] 03/09/2013, High Heart Rate- [facility] 05/2013, Nerve Pain- [facility] 12/2013, Neck, Shoulder, Arm Pain- [facility] 08/2014, Passed Out, Dehydration- [facility] 12/2014, Pneumonia- [facility] 02/08/2015, SOA, Chest pain- [facility] 02/15/2015, Stress Induced Episodes- [facility] 02/2015, 05/2015, [facility]-migraines, stress induced episodes, seizures 08/31, [facility]-attempted suicide, transferred to [facility] 06/03/17, [facility]-chest pain 12/2018, [facility]-spinal cord stimulator malfunction 12/2018, [facility]-overnight due to neck ablasion 04/2019, [facility]-diarrhea, nausea, headache 01/03/2020, [facility]-right sided rib pain, pseudoseizures [...] as directed , Notes to Pharmacist: 10 Colombian/6 in., Taking Meloxicam 7.5 MG Tablet TAKE [...] tract infection) - N39.0 3 . B [place] 39.0-39.9,adult - Z68.39 4 . S upraventricular [...] G 2211 Complex e/[place], [address] Urinalysis, no micro, G8431 CLIN DEPRESSION SCREEN DOC positive, G9902 Pt scrn tbco and id as user * Follow Up: 2 Weeks,3 Weeks * Images: Billing Information: * Visit Code: 92815 Office Visit, Est Pt., Level 3. * Procedure Codes: G2211 Complex e/[place]. [address] Urinalysis, no micro. G8431 CLIN DEPRESSION SCREEN DOC positive. G9902 Pt scrn tbco and id as user. * Electronic signature of Thu Rothman MD on 10/05/2024 at 11:17 AM EDT Sign off status: Pending * Provider: Thu Rothman M.D. Date: 08/02/2024 Generated for Bassam lo/Ramon/Alysonitting on: 0 10/05/2024 11:17 AM EDT History and Physical Notes * Examination Category Sub-Category Detail Notes Category Not es General Examination General Appearance: Seems mo re anxious. Tearful at times during the interview.
--- OUTSIDE RECORDS SUMMARY | 2024-08-16 07:00 | XMS_ITS ---
[facility] Address [address] [place] [phone] Care Team Providers Care Gallery Or Museum Technician Name Role Phone Thu Rothman Primary Care [...] Cure Catheters 1 Use as directed 10 Nigerian/6 in. 10/08/2022 Active hydrOXYzine HCl 25 MG [...] Provider Diagnosis [facility] [address] [facility] [address] [place], [place] [phone] 08/16/2024 Thu Rothman Depression with anxiety F41.8 [...] Notes Assessment Notes Depression with anxiety Continue patent counsel ing sessions as scheduled Next Appt Details Follow Up: 3 Months, Sooner as needed, Reason: Provider Name:Thu Dos Santos, 11/29/2024 11:00:00 AM, [address], [address], [place], [place], [phone], Progress Notes * ERMA SMITHAB:1985 (39 yo F)Acc No.[id number]:08/16/2024 Patient: JOSE MARIA COLES Provider: Thu Rothman M.D. :1985 A ge:39 Y S ex:Female Date:08/16/2024 Address:[address] [place] [address], [id number] Subjective: * Chief Complaints: * 1 . [...] HR went up, cough, sore throat, sob- [facility] 02/21/2010, [facility] 03/16/2010, [facility] 02/05- , 04/27-, [facility] 05/01-, Seizures- 05/12/2012, Seizures- [facility] 05/23/2012, work injury, concussion, seizure- [facility] 03/09/2013, High Heart Rate- [facility] 05/2013, Nerve Pain- [facility] 12/2013, Neck, Shoulder, Arm Pain- [facility] 08/2014, Passed Out, Dehydration- [facility] 12/2014, Pneumonia- [facility] 02/08/2015, SOA, Chest pain- [facility] 02/15/2015, Stress Induced Episodes- [facility] 02/2015, 05/2015, [facility]-migraines, stress induced episodes, seizures 08/31, [facility]-attempted suicide, transferred to [facility] 06/03/17, [facility]-chest pain 12/2018, [facility]-spinal cord stimulator malfunction 12/2018, [facility]-overnight due to neck ablasion 04/2019, [facility], [place]/2020, [facility]-right sided rib pain, pseudoseizures 03/24/20. [...] as directed , Notes to Pharmacist: 10 Nigerian/6 in., Taking Meloxicam 7.5 MG Tablet TAKE [...] Temp: 97.6, BP: 130/70, HR: 78, Nurse: kai, Ht: 62, BMI:38.66. * Examination: G eneral [...] * Images: Billing Information: * Visit Code: 71726 Office Visit, Est Pt., Level 3. * [...] Rothman M.D. Date: 08/16/2024 Generated for Bassam lo/Ramon/Joon on: 10/05/2024 11:17 AM EDT History and Physical [...]
[2024-10-05 10:10] VITALS: BP 113/79; PULSE 87; RESP 18; O2SAT 95; BMI 34.1
--- OUTSIDE RECORDS SUMMARY | 2024-10-05 11:18 | XMS_ITS | Clinical Summary ---
Author Organization [facility] Address [address] [place] [address] Care Team Providers Care Design Transferrer Name Role Phone Unavailable Primary Care Provider Unavailabl e Allergies Active Allergy Reactions Criticality Noted Date Comments Aripiprazole Other (See Comments) 06/05/2017 Seizure activity Medications clonazePAM (KLONOPIN) 1 MG tablet Take 1 mg by mouth 2 (two) times daily as needed for Anxiety Active levomilnacipran ER (FETZIMA) 80 MG CAP SR24 Take by mouth Active lamoTRIgine (LAMICTAL) 100 MG tablet Take 100 mg by mouth daily Active nitrofurantoin, macrocrystal-mo nohydrate, (MACROBID) 100 MG capsule Take 100 mg by mouth nightly Active metoprolol, TOPROL-XL, 50 MG 24 hr tablet Take 50 mg by mouth 2 (two) times daily Active SUMAtriptan (IMITREX) 50 MG tablet Take 50 mg by mouth nightly MAXIMUM DOSE 200 mg in 24 hours Active traZODone (DESYREL) 100 MG tablet Take 100 mg by mouth nightly Active ondansetron (ZOFRAN) 8 MG tablet Take by mouth every 8 (eight) hours as needed for Nausea Active Social History Tobacco Use Types Packs/Day Years Used Date Smoking Tobacco: Never Assessed Comments No Sex and Gender Information Value Date Recorded Sex Assigned at Not on file Legal Sex Female 11:07 PM EDT Gender Identity Not on file Sexual Orientation Not on file Last Filed Vital Signs Vital Sign Reading Time Taken Comments Blood Pressure 114/70 06/06/2017 1:51 AM EDT Pulse 65 06/06/2017 1:51 AM EDT Temperature 36.9 C (98.4 F) 06/05/2017 11:29 PM EDT Respiratory Rate 18 06/06/2017 1:51 AM EDT Oxygen Saturation 98% 06/06/2017 1:51 AM EDT Inhaled Oxygen Concentration - - Weight 70.3 kg (155 lb) 06/05/2017 11:12 PM EDT Height 165.1 cm (5' 5 ) 06/05/2017 11:12 PM EDT Body Mass Index 25.79 06/05/2017 11:12 PM EDT Plan of Treatment Health Maintenance Due Date Last Done Comments Hepatitis B (HepB) Vaccine ( 1 of 3 - 19+ 3-dose series) 07/10/2006 Tdap/Td Vaccine >11 yo (1 - Tdap) 07/10/2006 Cervical Cancer Screening 07/10/2008 HPV Vaccine (1 - 3-dose SCDM series) 07/10/2014 Annual SDOH Screening 02/17/2024 Influenza Vaccine (#1) 2024 Haemophilus Influenzae Type B (Hib) Vaccine Aged Out No longer eligible b ased on patient's age to complete this topic Hepatitis A (HepA) Vaccine Aged Out N o longer eligible based on patient's age to complete this topic Meningococcal ACWY Aged Out No longer eligible based on patient's age to complete this topic Pneumococcal Vaccines 6-49 yo Risk Aged Out No longer eligible based on patient's age to complete this topic Polio (IPV) Aged Out No longer eligi ble based on patient's age to complete this topic Rotavirus (RV) Vaccine Aged Out No lo nger eligible based on patient's age to complete this topic Insurance MEDICARE
--- OUTSIDE RECORDS SUMMARY | 2024-10-05 11:18 | XMS_ITS | Encounter Summary ---
Author Organization [facility] Address [address] [place] [address] Care Team Providers Care Quality Assurance Qa Lab Technician Name Role Phone Klbeer Rothman MD Primary Care Provider + [phone] Lourdes Velez APRN Unavailable [phone] Mirza Davies MD Unavailable + [phone] Elena Putnam Unavailable [phone] Reason for Visit * Reason Comments Med Refill Encounter Details Date Type Department Care Team (Late st Contact Info) Description 09/07/2024 Refill [place] [facility] [address] [place] [address] Elena Putnam PA [address] [place] [address] Intractable chronic migraine without aura and [...] drink first t myrna in the morning (EYE-SOFTWARE SUPPORT ENGINEER) to steady your nerves or to get [...] of Assessment Author No 11/14/2021 1:35 PM Van Oneill RN * Are you blind or do you have serious difficulty seeing, even when wearing glasses? Answer Date of Assessment Author No 11/14/2021 1:35 PM Van Oneill RN * Do you have serious difficulty walking or climbing stairs? Answer Date of Assessment Author Yes 11/14/2021 1:35 PM Van Oneill RN * Do you have serious difficulty dressing or bathing? Answer Date of Assessment Author No 11/14/2021 1:35 PM Van Oneill RN * Because of a physical, mental, or emotional condition, do you have serious difficulty doing errandsalone such as visiting the doctor? Answer Date of Assessment Author No 11/14/2021 1:35 PM Van Oneill RN documented as of this encounter Mental Status * Because of a physical, mental, or emotional condition, do you have serious difficulty concentrating, remembering, or making decisions? (5 years old or older) Answer Entry Date Author No 11/14/2021 1:35 PM EDT Gilbert, Ang elik P, RN documented in this encounter Miscellaneous Notes * Telephone Encounter - Parrish Donahue PharmD - 09/11/2024 6:00 PM EDT 1 medication(s) has been approved per protocol. documented in this encounter Plan of Treatment Upcoming Encounters Date Type Department Care Team (Late st Contact Info) Description 10/26/2024 1:30 PM EDT Procedure Visit [place] [facility] [address] [place] [address] Elena Putnam PA [address] [place] [address] documented as of this encounter Visit Diagnoses Diagnosis Intractable chronic migraine without aura and without status migrainosus- Primary documented in this encounter Additional Health Concerns Assessment Noted Time PHQ-9 Depression Total Score: 18 022 2:58 PM EDT A fall risk assessment has been complete d for the patient 07/27/2024 4:21 PM EDT A Body Mass Index follow-up plan has been documented for the patient 07/27/2024 5:21 PM EDT documented as of this encounter Care Teams Quality Assurance Qa Lab Technician Relationship Specialty Start Date End Date Kleber Rothman MD [address] [place] [address] PCP - General 06/29/20 Lourdes Velez APRN [address] [place] [address] Nurse Practitioner Neurosurgery 05/07/21 Mirza Davies MD [address] [place] [address] Surgeon Neurosurgery 6/3/22 Elena Putnam PA [address] [address] Physician Wet End Supervisor Neurology 10/23/21 documented as of this encounter
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
--- OUTSIDE RECORDS SUMMARY | 2024-10-05 11:18 | XMS_ITS | Clinical Summary ---
Author Organization [facility] Address [address] [place] [address] Care Team Providers Care Splicer Machine Operator Name Role Phone Kleber Rothman MD Primary Care Provider [phone] Lourdes Velez APRN Unavailable [phone] Mirza Davies MD Unavailable + [phone] Elena Putnam Unavailable [phone] Allergies Active Allergy Reactions Criticality Noted [...] by mouth 2 (two) times a day. 01/16/20 21 Active clonazePAM (KlonoPIN) 0.5 MG tablet Take 1 tablet (0.5 mg) by mouth 2 (two) times a day as needed. 01/13/20 21 Active DULoxetine (Cymbalta) [address] capsule Take 1 capsule (60 mg) by mouth daily. Do not crush or chew. Active acetaminophen (Tylenol) 325 MG tablet Take 1 tablet (325 mg) by mouth every 6 hours as needed for mild pain. Active cyclobenzaprine (Flexeril) 10 MG tablet Take 1 tablet (10 mg) by mouth 3 (three) times a day as needed. 08/23/19 Active metoprolol tartrate (Lopressor) 50 MG tablet Take 1 tablet (50 mg) by mouth 2 (two) times a day. 08/23/19 Active nitrofurantoin, macrocrystal-monoh ydrate, (Macrobid) 100 MG capsule Take by mouth 2 (two) times a day. Active HYDROcodone-acetam inophen ([place]) 7.5-325 MG tablet 01/15/20 Active gabapentin (Neurontin) 800 MG tablet Take 1 tablet (800 mg total) by mouth 3 (three) times a day for 14 days. 42 tablet 02/08/20 Active furosemide (Lasix) 20 MG tablet Take 1 tablet (20 mg) by mouth as needed. 01/08/20 Active meloxicam (Mobic) 7.5 MG tablet Take 1 tablet (7.5 mg) by mouth daily. 02/11/20 23 Active traZODone (Desyrel) 100 MG tablet Take 1 tablet (100 mg) by mouth nightly. 02/11/20 23 Active tiZANidine (Zanaflex) 4 MG tablet 04/29/19 24 Active lisinopril 10 MG tablet Take 1 tablet (10 mg) by mouth 2 (two) times a day. Active rOPINIRole (Requip) 0.25 MG tablet Take 1 tablet (0.25 mg) by mouth daily. 12/02/19 24 Active Implanted pain pump by Implant route 1 (one) time. Active ondansetron ODT (Zofran-ODT) 4 MG disintegrating tablet as needed. 04/15/19 25 Active phentermine (Adipex-P) 37.5 MG tablet Take 1 tablet (37.5 mg) by mouth daily before breakfast. Active albuterol 108 (90 Base) MCG/ACT inhaler as needed. Active benzonatate (Tessalon) 200 MG capsule as needed. 06/17/19 25 Active venlafaxine XR (Effexor-XR) 37.5 MG 24 hr capsule Take 1 capsule by mouth daily. Active amitriptyline (Elavil) 10 MG tabletIndications: Intractable chronic migraine without aura and without status migrainosus TAKE 3 TABLETS BY MOUTH ONCE DAILY NIGHTLY. 270 tablet 09/12/19 Active amitriptyline (Elavil) 10 MG tabletIndications: Intractable chronic migraine without aura and without status migrainosus Take 3 tablets by mouth nightly. 270 tablet 06/02/19 25 025 Discontinued Hospital, Clinic, or Other Facility Administered Medication Ordered Dose Route Frequency Start Date End Date Status sodium chloride (PF) 0.9 % injection 20 mLIndications:Spondylosis of cervical region without myelopathy or radiculopathy 20 mL IK Once 12/17/2021 Active Active Problems Problem Noted Date Diagnosed Date Spasticity 04/25/2022 Overview (04/25/2022): Added automatically from request for surgery [id number] KEELY (obstructive sleep apnea) 04/13/2022 Obesity (BMI [...] Encounters Date Type Department Care Team Description 09/07/2024 Refill [facility] [address], [facility] [place] [address] Elena Putnam PA Intractable chronic migraine without aura and without status migrainosus (Primary Dx) 07/27/2024 4:00 PM EDT Procedure Visit [facility] [address] [place] [id number] Elena Putnam PA Intractable chronic migraine without aura and without status migrainosus (Primary Dx) 07/27/2024 Travel from Last 3 Months Immunizations Immunization Administration Dates Next Due Td (adult), unspecified 09/05/2014 Tdap 11/18/2023 Family History Medical History Relation Name Comments Migraines Brother Andi Harry Depression Father Rob Harry Heart disease Father Rob Harry Hypertension Father Rob Harry Depression Father's Sister Annette Harry Depression Maternal Grandfather Satnam Lilliam Heart disease Maternal Grandfather Satnam Vyas Hypertension Maternal Grandfather Satnam Vyas Hypertension Maternal Grandmother Nichole Whatleyshaji Breast cancer Mother Gricel Harry Cancer Mother Gricel Harry Bilateral m asectomy Diabetes Mother Gricel Harry Hypertension Mother Gricel Harry Diabetes Mother's Sister Ekaterina Garza Hypertension Mother's Sister Ekaterina Garza COPD Paternal Grandfather Chucho Gallaghers Heart disease Paternal Grandfather Chucho Harry Alzheimer's disease Paternal Grandmother Oxana Jimenez Dillan kunz Relation Name Status Comments Brother Andi Harry Alive Father Rob Gallaghers Father's Sister Annette Gallaghers Maternal Grandfather Satnam Whatleyflacaariane Maternal Grandmother Nichole Vyas Mother Gricel Harry Mother's Sister Ekaterina Garza Alive Paternal Grandfather Chucho Harry Paternal Grandmother Oxana Harry Alive Social History Tobacco Use Types Packs/Day Years Used Date Smoking Tobacco: Former Cigarettes 0.5 20 2 - 2023 Passive Smoke Exposure: Current Smokeless [...] drink first t myrna in the morning ([employer]) to steady your nerves or to get [...] Visit [place] [facility] [address] [place] [address] Elena Putnam PA [address] [place] [address] Health Maintenance Due Date Last Done Comments [...] 12/24/2022 022, 07/16/2021, 07/16/2021, Additional history exists [id number] Vaccine (2 - 2023- season) 2023 05/23/2020 [facility]-Influenza Vaccine (#1) 2024 10/10/2011 [facility]-DTaP,Tdap,and Td Vaccines (2 - [...] this topic Medical Devices Implanted Type Area Lasting Room Supervisor Device Identifier Shelf Expiration Date Model / Serial / Lot Spinal Cord Stimulator Right: Coccyx Graft Tiss T68 Preservon - [id number] - [id number] Implanted:Qty: 1 on 04/20/2021 by Mirza Davies MD at [facility] Spine Cervical [facility]-[id number] 12/11/2025 [id number] / [id number] / [id number] One Level Plate, 12mm - [id number] Implanted:Qty: 1 on 04/20/2021 at [facility] Spine Cervical [id number] 04/20/2022 [id number] / / Self Drilling Screw 12mm - [id number] Implanted:Qty: 4 on 04/20/2021 at [facility] Spine Cervical [id number] 04/20/2022 [id number] / / Procedures Procedure Name Priority Date/Time Associated Diagnosis Comments HEPATITIS C ANTIBODY - ED W/REFLEX TO HCV QUANT PCR STAT 04/07/2021 3:49 AM EST HIV 1/2 ANTIBODY/ANTIGEN SCREEN WITH REFLEX TO HIV I/II DIFFERENTIATION STAT 04/07/2021 3:49 AM EST from Last 3 Months or Most Recently Relevant to Health Maintenance Results * HIV 1 & 2 Antibody/Antigen Screen (04/07/2021 3:49 AM EST) HIV 1 & 2 Antibody/Anti gen Screen Nonreactive Nonreactive 04/07/2021 5:32 AM EST [facility] Blood Venous blood specimen / Unknown Venipuncture / Unknown 04/07/2021 3:49 AM EST 04/07/2021 4:02 AM EST James [facility] BLOOD ORDERABLES Fi nal Result [facility] [address] [place] [address] * [place] Hepatitis C Antibody (04/07/2021 3:49 AM EST) Hepatitis C Antibody Negative Negative 04/07/2021 5:32 AM EST [facility] Blood Venous blood specimen / Unknown Venipuncture / Unknown 04/07/2021 3:49 AM EST 04/07/2021 4:02 AM EST James [facility] BLOOD ORDERABLES Fi nal Result [facility] [address] [place] [address] from Last 3 Months or Most Recently Relevant to Health Maintenance Insurance MEDICARE Advance Directives * Full Code (Latest Code Status on File) Date Activated Date Inactivated Comments 11/08/2021 5:01 AM 11/14/2021 4:44 PM Question Answer Comments Patient has decision-making capacity? Yes Care Teams Splicer Machine Operator Relationship Specialty Start Date End Date Kleber Rothman MD [address] [place] [address] PCP - General 06/29/20 Lourdes Velez APRN [address] [place] [address] Nurse Practitioner Neurosurgery 05/07/21 Mirza Davies MD [address] [place] [address] Surgeon Neurosurgery 07/19/21 Elena Putnam PA [address] [phone] Physician Insurance Follow Up Rep Neurology 10/23/21
--- OUTSIDE RECORDS SUMMARY | 2024-10-05 11:18 | XMS_ITS | Clinical Summary ---
Author Organization [facility] Address [address] [place] [address] Phone Care Team Providers Care Oracle Dba Name Role Phone Thu Rothman Primary Care Provider [phone] Allergies No known active allergies Medications oxyCODONE-acetam [...] Smear 07/10/2008 HPV/Pap Cotest 07/10/2017 COVID-19 Vaccine (1 - 2023-2 5 season) 2023 Influenza Vaccine (#1) 2024 Meningococcal B Vaccine Aged Out No l onger eligible based on patient's age to complete this topic Pneumococcal Vaccine 0-49 Aged Out No longer eligible based on patient's age to complete this topic Insurance [employer] PPO on file Care Teams Oracle Dba Relationship Specialty Start Date End Date Thu Rothman [address] [place] [address] PCP - General Family Medicine 1985
--- NOTE | 2024-10-05 11:22 | EXP.PAIN.SOA ---
[facility] Disclaimer: The information contained in this section may have been updated after the patient was seen, as this information can be updated by other users. Medical History Family history of early CAD Dyspnea SVT (supraventricular tachycardia) History of urinary incontinence History of urinary self-catheterization Emphysema/COPD Sleep apnea Hypertension Spinal cord stimulator status Chronic pain Bipolar 1 disorder Seizures Migraines Depression CHF (congestive heart failure) Arrhythmia Anxiety Surgical History History of wisdom tooth extraction H/O neck surgery Previous back surgery Family History Mother Cancer breast Other Family history of COPD (chronic obstructive pulmonary disease) Family history of diabetes mellitus type II Family history of hypertension Family history of myocardial infarction Social History (Updated 09/23/24 @ 10:39 by Gail Souza RN) Smoking Status: Current every day smoker tobacco type: cigarettes packs per day: 1 second hand exposure: Yes alcohol intake: never substance use type: denies use current occupational status: other Travel in the last 8 weeks?: None household members: family housing: house current occupational exposures/hazards: No caffeine: Yes Have you lived/traveled outside US in past 30 days?: No Contact w/someone who lives/traveled outside US past 30 days?: No Exposure to someone with infectious disease in past 14 days?: No Do you have a fever (greater than 100.4 F or 38 C)?: No Have you tested positive for COVID-19?: No Exposed to someone with COVID-19 in past 14 days?: No Do you have a sore throat?: No Do you have a cough?: No Do you have any weakness?: No Do you have any diarrhea?: No Are you experiencing any unusual bleeding?: No Do you have any muscle aches/pain?: No Do you have any abdominal pain?: No Are you experiencing loss of taste or smell?: No PM Subjective & Objective Subjective Subjective:: Patient is a pleasant 39-year-old female who presents today for additional reprogramming with [employer]. Patient did meet with them and did have her stimulator adjusted but it was causing worsening pain into her left upper ribs and even some heartburn. Patient did state that the pain was severe and was brought to tears. Patient did sit in our office for some time with the programming turned off and did state that she was feeling better already. Patient has had in the past stimulation into her ribs that is very bothersome to her even with her prior stimulator with [employer]. Patient denies any new falls or injuries. Patient does have a intrathecal pump in place and denies any side effects from this medication. Her Juan Luis has been reviewed and is appropriate. Review of Systems: General: No recent weight changes, no fever, no sleep disturbances Respiratory: No cough, no shortness of air, no recurring pulmonary infections Cardiovascular/peripheral vascular: No chest pain, no palpitations, no edema, no shortness of breath Gastrointestinal: No new onset incontinence, normal bowel movements reported Genitourinary: No new onset incontinence Musculoskeletal: Left-sided rib pain, GERD symptoms Psychiatric: [Normal mood/affect] Neurological: [Denies weakness in extremities], [denies balance issues] Pain at rest (0-10 scale): 8 Objective Objective:: Physical Exam: General: Alert and oriented x3, no acute distress, pleasant and cooperative Lungs: Respirations even and unlabored, symmetrical chest expansion Eyes: PERRL Musculoskeletal: Flexion and extension of thoracic [spine] somewhat guarded secondary to pain, [antalgic gait noted] Neurological: Speech clear, no gross sensory deficit Has patient had previous pain injection?: No Conservative treatment options previously tried: Home exercise plan Length of treatment: Longer than 12 weeks Meds Home Medications and Allergies Home Medications ?Medication ?Instructions ?Recorded ?Confirmed ?Type clonazepam 0.5 mg tablet 0.5 mg PO BID PRN Anxiety 12/19/18 09/09/24 History metoprolol tartrate 50 mg tablet 50 mg PO BID heart rate 04/12/19 09/09/24 History trazodone 100 mg tablet 100 - 300 mg PO HS PRN Sleep 04/13/19 09/09/24 History nitrofurantoin 100 mg PO BID . 03/22/21 09/09/24 History monohydrate/macrocrystals 100 mg capsule ondansetron 4 mg disintegrating 4 mg PO Q8HP PRN Nausea #20 tabs 03/22/21 09/09/24 Rx tablet lamotrigine 100 mg tablet 1 mg PO DAILY mood 03/28/22 09/09/24 History tizanidine 4 mg tablet (Zanaflex) 4 mg PO HS #30 tabs 04/29/23 09/09/24 Rx amitriptyline 10 mg tablet 10 mg PO HS migraines #30 tabs 05/25/23 09/09/24 Rx fentanyl(PF) 90 mcg/60 mL (1.5 20 ml epidural CONT Pain 06/24/23 09/09/24 History mcg/mL)-bupiv 0.125%-NaCl epidural syr cyclobenzaprine 10 mg tablet 10 mg PO TID #90 tabs 05/19/24 09/09/24 Rx gabapentin 800 mg tablet See Rx Instructions .Route 05/19/24 09/09/24 Rx .COMPLEX #90 tabs venlafaxine 150 mg 150 mg PO DAILY 08/26/24 09/09/24 History capsule,extended release 24 hr (Effexor XR) ropinirole 0.25 mg tablet See Rx Instructions .Route 09/19/24 Rx .COMPLEX #60 tabs meloxicam 7.5 mg tablet See Rx Instructions .Route 09/30/24 Rx .COMPLEX #30 tabs prednisone 20 mg tablet 20 mg PO BID #10 tabs 10/05/24 Rx New Prescriptions to Start Prescriptions: prednisone Eva Lepe Allergies Allergy/AdvReac Type Severity Reaction Status Date / Time aripiprazole (From Abilify) Allergy Intermediate Seizure Verified 04/29/24 11:14 sulfamethoxazole (From Allergy Rash Verified 04/29/24 11:14 Bactrim) trimethoprim (From Bactrim) Allergy Rash Verified 04/29/24 11:14 Assessment and Plan *Assessment and plan (1) Thoracic radiculopathy: Status: Acute Category: Medical Code(s): M54.14 - Radiculopathy, thoracic region (2) Degenerative disc disease, thoracic: Status: Acute Category: Medical Code(s): M51.34 - Other intervertebral disc degeneration, thoracic region Plan Patient did stay in our office for more than 30 minutes with the stimulation already turned off and had already noticed improvement from the prior symptoms. I did discuss with the patient that I do believe it was just very aggravating and that hopefully she continues to ease back down to her baseline. Patient was counseled that if the pain does start to increase and having more symptoms of the GERD or upper chest area to not question it but to present to the ER for evaluation. I will send in a 5-day dose of prednisone 20 mg twice daily and patient will return to clinic on Thursday for additional evaluation. Patient agrees with this plan of care. Patient has been instructed to contact the clinic with any concerns before the next appointment. Dr. Bradshaw has reviewed this note and agrees with this plan of care. This note was dictated using voice recognition software and make contain errors or omissions. All injections are used with Lidocaine, Bupivacaine and dexamethasone. Occasionally urine drug screen is needed to verify patient's compliance with our office pain contract. This is ordered based off specific treatments related to chronic pain with the potential to abuse certain medications.
--- NOTE | 2024-10-05 14:31 | PC.NURSE ---
Pt states pain under her L breast and in between her breasts began during reprogramming of [employer] with [employer] representative. Pt reports no pain in those areas prior to. Pt given cool rag for neck and face while sitting in wheelchair in clinic. Pt sat down wheelchair for approx 30 minutes still reporting pain. Was able to help pt focus on deep breathing exercises when initially encountered pt r/t pt tearful and was having rapid respirations. Once pt was able to calm down she was able to describe pain better. Did offer multiple times that pt could be evaluated in ER, pt declined going to ER for evaluation. Pt seen by provider HORACIO Dong in clinic, who did caution pt that if pain worsened, continued for long period of time or changed to go to ER for evaluation. Pt was able to ambulated independently in office prior to leaving. Pt did report pain has decreased a small amount, she just really wants to go home . Pt take to her vehicle via wheelchair. Pt stood from wheelchair independently. Pt educated if she had concerns, worsening or changing pain to go to ER for evaluation. Pt given follow up appt for Tuesday 10/10 in office per HORACIO Dong request. Pt cautioned to contact her office if she has sooner needs.
--- NOTE | 2024-10-05 14:39 | PC.NURSE ---
called to check on pt at approx 1430, no answer, vm left requesting a return call.
== END 2024-10-05 23:59 | disposition home or self-care (01) ==
PROVIDERS: PCP Family Medicine; Visit Provider Nurse Practitioner Family
DX: M51.24 Other intervertebral disc displacement, thoracic region (principal)
CPT/HCPCS: 99212; G0463

== ENCOUNTER 2024-10-10 13:09 | Outpatient (POV) | payer MEDICARE, SELFPAY ==
--- OUTSIDE RECORDS SUMMARY | 2024-07-12 07:00 | XMS_ITS ---
Author Organization [facility] Address [address] [facility] [address] [facility] [address] [place] [phone] Care Team Providers Care Day Care Provider Name Role Phone Thu Rothman Primary Care Provider Macario Reza [phone] Allergies Allergen (clinical drug ingredient) Drug/Non Drug Allergy documented on EMR Reaction Allergy Type Onset Date Status aripiprazole Abilify Unknown Drug Allergy Acti ve pregabalin Lyrica swelling Drug Allergy Active REASON FOR VISIT depression and anxiety Encounters Encounter Location Date Provider Diagnosis [facility] [address] [facility] [address] [place] [phone] 07/12/2024 Macario Reza Plan Of Treatment Next Appt Details Provider Name:Thu Dos Santos, 11/29/2024 11:00:00 AM, [address], [address], [place], [place], [phone], Progress Notes * VIKTOR RITCHIEROWENAB:1985 (39 yo F)Acc No.[id number]:07/12/2024 Progress Notes Patient: JOSE MARIA COLES Provider: Ene Reza M.D. :1985 A ge:39 Y S ex:Female Date:07/12/2024 Address:[address] [facility] [place], [id number] Pcp:Thu Rothman Subjective: * Chief Complaints: * [...] HR went up, cough, sore throat, sob- [facility] 02/21/2010, [facility] 03/16/2010, [facility] 02/05- , 04/27-, [facility] 05/01-, Seizures- 05/12/2012, Seizures- [facility] 05/23/2012, work injury, concussion, seizure- [facility] 03/09/2013, High Heart Rate- [facility] 05/2013, Nerve Pain- [facility] 12/2013, Neck, Shoulder, Arm Pain- [facility] 08/2014, Passed Out, Dehydration- [facility] 12/2014, Pneumonia- [facility] 02/08/2015, SOA, Chest pain- [facility] 02/15/2015, Stress Induced Episodes- [facility] 02/2015, 05/2015, [facility] ER-migraines, stress induced episodes, seizures 08/31, [facility] ER-attempted suicide, transferred to [facility] 06/03/17, [facility] ER-chest pain 12/2018, [facility] ER-spinal cord stimulator malfunction 12/2018, [facility] ER-overnight due to neck ablasion 04/2019, [facility] UTC-diarrhea, nausea, headache 01/03/2020, [facility] ER-right sided rib pain, pseudoseizures [...] Electronic signature of Penny Reza MD on 10/10/2024 at 01:16 PM EDT Sign off status: Pending * Provider: Ene Reza M.D. Date: 0 07/12/2024 Generated for Bassam lo/Ramon/Joon on: 0 10/10/2024 01:16 PM EDT History and Physical Notes * HPI (History of Present Illness) Category Sub-Category Detail Notes Category Not es Psychology depression
--- OUTSIDE RECORDS SUMMARY | 2024-08-02 07:30 | XMS_ITS ---
Author Organization [facility] Address [address] [place], [place] [address] Care Team Providers Care Box Tender Name Role Phone Thu Rothman Primary Care Provider [phone] Allergies Allergen (clinical drug ingredient) Drug/Non Drug [...] coli Performing Lab: Notes/Report: Test performed by [employer] [address] [place] [address] , [address], [place] [address] Ermias Severino MD, Radio Announcer CLIA: [id number] Specimen Source Urine - Void Culture, Urine [...] Status Risk Notes Problem Obese class II (438849931151 105) BMI 39.0-39.9,a dult (Z68.39) Active confirmed Vital Signs Weight 215.6 lbs 08/02/2024 Blood pressure systolic 130 mm Hg 08/03/19 25 Blood pressure diastolic 90 mm Hg 025 Heart Rate 86 /min 08/02/2024 Height 62 in 08/02/2024 BMI 39.43 kg/m2 08/02/2024 Encounters Encounter Location Date Provider Diagnosis [facility] [address] [facility] [address] [place] [address], [place] [id number] 08/02/2024 R Tristan Rothman Depression with anxi [...] Weeks,3 Weeks, Reason: Provider Name:Thu Dos Santos, 11/29/2024 11:00:00 AM, [address] [facility], [address] , [place], [place], [phone], Progress Notes * SMITHA RITCHIEB:1985 (39 yo F)Acc No.[id number]:08/02/2024 Progress Notes Patient: VIKTOR COLESSEA Provider: Thu Rothman M.D. :1985 A ge:39 Y S ex:Female Date:08/02/2024 Address:[place], [id number] Subjective: * Chief Complaints: * 1 . [...] placed Dr Lima 12/17/2015, EGD - Dr. Godoman 2015, Cervical spine ablation x2 03/2019, Spinal cord stimulator removed 04/27/2019, Spinal cord stimulator replaced - 06/2019, C5-6 fusion/ / Dr. Calderón 04/20/2021, Epidural in C5-6// Dr. Lima 10/05/2021, Pain Pump Implanted - Dr. Bradshaw 05/2022. * Hospitalization/Major Diagno stic Procedure: H it by Car 1997, BP/ HR went up, cough, sore throat, sob- [place] [facility] 02/21/2010, [facility] 03/16/2010, [facility] 02/05- , 04/27-, [facility] 05/01-, Seizures- [facility] 05/12/2012, Seizures- [facility] 05/23/2012, work injury, concussion, seizure- [facility] 03/09/2013, High Heart Rate- [facility] 05/2013, Nerve Pain- [facility] 12/2013, Neck, Shoulder, Arm Pain- [facility] 08/2014, Passed Out, Dehydration- [facility] 12/2014, Pneumonia- [facility] 02/08/2015, SOA, Chest pain- [facility] 02/15/2015, Stress Induced Episodes- [facility] 02/2015, 05/2015, [facility]-migraines, stress induced episodes, seizures 08/31, [facility]-attempted suicide, transferred to [facility] 06/03/17, [facility]-chest pain 12/2018, [facility]-spinal cord stimulator malfunction 12/2018, [facility]-overnight due to neck ablasion 04/2019, [facility]-diarrhea, nausea, headache 01/03/2020, [facility]-right sided rib pain, pseudoseizures 03/24/20. [...] as directed , Notes to Pharmacist: 10 Armenian/6 in., Taking Meloxicam 7.5 MG Tablet TAKE [...] tract infection) - N39.0 3 . B NE 39.0-39.9,adult - Z68.39 4 . S upraventricular [...] G 2211 Complex e/[place], [address] Urinalysis, no micro, G8431 CLIN DEPRESSION SCREEN DOC positive, G9902 Pt scrn tbco and id as user * Follow Up: 2 Weeks,3 Weeks * Images: Billing Information: * Visit Code: 22489 Office Visit, Est Pt., Level 3. * Procedure Codes: G2211 Complex e/[place]. [address] Urinalysis, no micro. G8431 CLIN DEPRESSION SCREEN DOC positive. G9902 Pt scrn tbco and id as user. * Electronic signature of Thu Rothman MD on 10/10/2024 at 01:15 PM EDT Sign off status: Pending * Provider: Thu Rothman M.D. Date: 0 08/02/2024 Generated for Bassam lo/Ramon/Joon on: 0 10/10/2024 01:15 PM EDT History and Physical Notes * Examination Category Sub-Category Detail Notes Category Not es General Examination General Appearance: Seems mo re anxious. Tearful at times during the interview.
--- OUTSIDE RECORDS SUMMARY | 2024-08-16 07:00 | XMS_ITS ---
[facility] [address] [place] [phone] Care Team Providers Care Reactor Fueling Supervisor Name Role Phone Thu Rothman Primary Care Provider [phone] Allergies Allergen (clinical drug ingredient) Drug/Non Drug [...] Cure Catheters 1 Use as directed 10 German/6 in. 10/08/2022 Active hydrOXYzine HCl 25 MG [...] a day as needed Active Vital Signs Weight 211.4 lbs 08/16/2024 Blood pressure systolic 130 mm Hg 08/17/19 25 Blood pressure diastolic 70 mm Hg 025 Heart Rate 78 /min 08/16/2024 Height 62 in 08/16/2024 BMI 38.66 kg/m2 08/16/2024 Encounters Encounter Location Date Provider Diagnosis [facility] [address] [facility] [address] [place], [place] [phone] 08/16/2024 Thu Rothman Depression with anxiety F41.8 [...] Notes Assessment Notes Depression with anxiety Continue veterans' counselor ing sessions as scheduled Next Appt Details Follow Up: 3 Months, Sooner as needed, Reason: Provider Name:Thu Dos Santos, 11/29/2024 11:00:00 AM, [address], [address], [place], [place], [phone], Progress Notes * ERMA SMITHAB:1985 (39 yo F)Acc No.[id number]:08/16/2024 Patient: JOSE MARIA COLES Provider: Thu Rothman M.D. :1985 A ge:39 Y S ex:Female Date:08/16/2024 Address:[address] [place] [address], [id number] Subjective: * Chief Complaints: * 1 . [...] HR went up, cough, sore throat, sob- [facility] 02/21/2010, [facility] 03/16/2010, [facility] 02/05- , 04/27-, [facility] 05/01-, Seizures- 05/12/2012, Seizures- [facility] 05/23/2012, work injury, concussion, seizure- [facility] 03/09/2013, High Heart Rate- [facility] 05/2013, Nerve Pain- [facility] 12/2013, Neck, Shoulder, Arm Pain- [facility] 08/2014, Passed Out, Dehydration- [facility] 12/2014, Pneumonia- [facility] 02/08/2015, SOA, Chest pain- [facility] 02/15/2015, Stress Induced Episodes- [facility] 02/2015, 05/2015, [facility]-migraines, stress induced episodes, seizures 08/31, [facility]-attempted suicide, transferred to [facility] 06/03/17, [facility]-chest pain 12/2018, [facility]-spinal cord stimulator malfunction 12/2018, [facility]-overnight due to neck ablasion 04/2019, [facility], nausea, headache 01/03/2020, [facility]-right sided rib pain, pseudoseizures 03/24/20. [...] as directed , Notes to Pharmacist: 10 German/6 in., Taking Meloxicam 7.5 MG Tablet TAKE [...] * Images: Billing Information: * Visit Code: 00013 Office Visit, Est Pt., Level 3. * [...] Date: 08/16/2024 Generated for Bassam lo/Ramon/Joon on: 0 10/10/2024 [...]
--- OUTSIDE RECORDS SUMMARY | 2024-10-10 13:15 | XMS_ITS | Clinical Summary ---
Author Organization [facility] Address [address] [place] [address] Care Team Providers Care Inside Sales Supervisor Name Role Phone Unavailable Primary Care Provider [...]
--- OUTSIDE RECORDS SUMMARY | 2024-10-10 13:15 | XMS_ITS | Clinical Summary ---
Author Organization [facility] Address [address] [place] [address] Care Team Providers Care Nutrition Educator Name Role Phone Kleber Rothman MD Primary Care Provider [phone] Lourdes Velez APRN Unavailable [phone] Mirza Davies MD Unavailable + [phone] Elena Putnam Unavailable [phone] Allergies Active Allergy Reactions Criticality Noted [...] (two) times a day. Active HYDROcodone-acetam inophen ([place]) 7.5-325 MG tablet 01/15/20 Active gabapentin (Neurontin) [...] (04/25/2022): Added automatically from request for surgery [id number] KEELY (obstructive sleep apnea) 04/13/2022 Obesity (BMI [...] Type Department Care Team Description 09/07/2024 Refill [facility] [address], [place] [address] Elena Putnam PA Intractable chronic migraine without aura and without status migrainosus (Primary Dx) 07/27/2024 4:00 PM EDT Procedure Visit [facility] [address], [address] [place] [phone] Elena Putnam PA Intractable chronic migraine without [...] drink first t myrna in the morning (EYE-WORKERS COMPENSATION ANALYST) to steady your nerves or to get [...] Visit [place] [facility] [address] [place] [address] Elena Putnam PA [address] [place] [address] Health Maintenance Due Date Last Done Comments [...] 12/24/2022 022, 07/16/2021, 07/16/2021, Additional history exists [id number] Vaccine (2 - 2023- season) 2023 05/23/2020 [...] this topic Medical Devices Implanted Type Area Medical Device Sales Consultant Device Identifier Shelf Expiration Date Model / Serial / Lot Spinal Cord Stimulator Right: Coccyx Graft Tiss T68 Preservon - [id number] - [id number] Implanted:Qty: 1 on 04/20/2021 by Mirza Davies MD at [facility] Spine Cervical [facility]-[id number] 12/11/2025 [id number] / [id number] / [id number] One Level Plate, 12mm - [id number] Implanted:Qty: 1 on 04/20/2021 at [facility] Spine Cervical [id number] 04/20/2022 [id number] / / Self Drilling Screw 12mm - [id number] Implanted:Qty: 4 on 04/20/2021 at [facility] Spine Cervical [id number] 04/20/2022 [id number] / / Procedures Procedure Name Priority Date/Time [...] BLOOD ORDERABLES Fi nal Result [facility] [address] [place] [address] * [place] Hepatitis C Antibody (04/07/2021 3:49 AM EST) Hepatitis C Antibody Negative Negative 04/07/2021 5:32 AM EST [facility] Blood Venous blood specimen / Unknown Venipuncture / Unknown 04/07/2021 3:49 AM EST 04/07/2021 4:02 AM EST [facility] BLOOD ORDERABLES Fi nal Result [facility] [address] [place] [address] from Last 3 Months or Most Recently Relevant to Health Maintenance Insurance MEDICARE Advance Directives * Full Code (Latest Code Status on File) Date Activated Date Inactivated Comments 11/08/2021 5:01 AM 11/14/2021 4:44 PM Question Answer Comments Patient has decision-making capacity? Yes Care Teams Nutrition Educator Relationship Specialty Start Date End Date Kleber Rothman MD [address] [place] [address] PCP - General 06/29/20 Lourdes Velez APRN [address] [place] [address] Nurse Practitioner Neurosurgery 05/07/21 Mirza Davies MD [address] [place] [address] Surgeon Neurosurgery 07/19/21 Elena Putnam PA [address] [phone] Physician Leaf Coverer Neurology 10/23/21
--- OUTSIDE RECORDS SUMMARY | 2024-10-10 13:15 | XMS_ITS | Clinical Summary ---
Author Organization [facility] Address [address] [place] [address] Phone Care Team Providers Care Metal Fabricating Supervisor Name Role Phone Thu Rothman Primary Care Provider [phone] Allergies No known active allergies Medications oxyCODONE-acetam [...] Insurance [employer] PPO on file Care Teams Metal Fabricating Supervisor Relationship Specialty Start Date End Date Thu Rothman [address] [place] [address] PCP - General Family Medicine 1985
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
--- OUTSIDE RECORDS SUMMARY | 2024-10-10 13:16 | XMS_ITS | Encounter Summary ---
Author Organization [facility] Address [address] [place] [address] Care Team Providers Care Coke Loader Name Role Phone Kleber Rothman MD Primary Care Provider + [phone] Lourdes Velez APRN Unavailable [phone] Mirza Davies MD Unavailable + [phone] Elena Putnam Unavailable [phone] Reason for Visit * Reason Comments Med Refill Encounter Details Date Type Department Care Team (Late st Contact Info) Description 09/07/2024 [facility]ill [place] [facility] [address] [place] [address] Elena Putnam PA [address] [place] [address] Intractable chronic migraine without aura [...] drink first t myrna in the morning (EYE-LAUNCHMAN) to steady your nerves or to get [...] Visit [place] [facility] [address] [place] [address] Elena Putnam PA [address] [place] [address] documented as of this encounter [...] documented as of this encounter Care Teams Coke Loader Relationship Specialty Start Date End Date Kleber Rothman MD [address] [place] [address] PCP - General 06/29/20 Lourdes Velez APRN [address] [place] [address] Nurse Practitioner Neurosurgery 05/07/21 Mirza Davies MD [address] [place] [address] Surgeon Neurosurgery 6/3/22 Elena Putnam PA [address] [address] Physician Animal Rehabilitator Neurology 10/23/21 documented as of this encounter
[2024-10-10 13:34] VITALS: BP 121/82; PULSE 73; RESP 14; O2SAT 97; BMI 34.9
--- NOTE | 2024-10-10 14:50 | P.PCN_ITS ---
Procedure Date: 10/10/24 Time: 14:50 Anesthesiologist:: Eva Lepe APRN Complications:: None Pre-procedure Diagnosis:: Degenerative disc disease of lumbar spine with lumbar radiculopathy symptoms, chronic pain syndrome Post-procedure Diagnosis:: Same Indications for Procedure:: Patient is a pleasant 39-year-old female who presents today for follow-up regarding her spinal cord stimulator. Patient does rate her pain today a 7 out of 10. She does state that the prednisone we sent in last week did help and that overall she felt like the reprogramming of the stimulator made her more anxious and then having the increased pain there along her ribs just really aggravated and caused additional pain. Patient states that she did have her stimulator off for a few days but ended up turning it back on and does feel like it is helping. Patient does also make mention that is changing to the flex dosing on her pump did really seem to help additionally. She is requesting if we can do a small increase today. Patient is currently managed with fentanyl 500 mcg/day with a daily dose of 203.57 mcg/day and bupivacaine 5 mg/mL with a daily dose of 2.0357 mg/day. She denies any side effects. Her Juan Luis has been reviewed and is appropriate. Physical Exam: General: Alert and oriented x3, no acute distress, pleasant and cooperative Lungs: Respirations even and unlabored, symmetrical chest expansion Eyes: PERRL Musculoskeletal: Flexion and extension of lumbar [spine] somewhat guarded secondary to pain, [antalgic gait noted] Neurological: Speech clear, no gross sensory deficit Procedure Details:: Informed consent was obtained and the risk and benefits of the procedure were explained to the patient. Patient did have noninvasive monitoring was placed including noninvasive blood pressure cuff and pulse oximeter. Patient's pump wa s interrogated and was reprogrammed to flex dosing to 213.63 mcg/day of fentanyl and 2.1363 mg/day of bupivacaine. The patient tolerated the procedure well with no complications. Plan and Disposition:: Patient tolerated the procedure well with no complications and was discharged neurologically intact. We did discuss at length regarding the reprogramming of her stimulator and I do fully believe that it just aggravated her overall ribs along the left side and then cause worsening pain. Patient was counseled that we will be very mindful in future when reprogramming about turning the device up for capture. We will continue to follow-up regarding this. Patient will return to clinic on or before their next intrathecal refill date. We will see the patient back in the clinic at the next intrathecal refill. Patient has been instructed to contact the clinic with any concerns before the next appointment. Dr. Bradshaw has reviewed this note and agrees with this plan of care. This note was dictated using voice recognition software and make contain errors or omissions. -- It Is medically necessary for this patient to continue to have their intrathecal pump refilled at regular intervals. This patient had an intrathecal pain pump implanted after meeting criteria of chronic intractable pain for greater than 3 months and failing conservative treatments. Patient has committed and been compliant to the treatment plan and all planned follow up care. Since implantation of the intrathecal pain pump, the patient has had decreased pain and been more functional. Oral medications have been reduced including intake of oral opioids. Patient continues to do well with intrathecal therapy with decrease in pain symptoms and increase in functional status. Stopping intrathecal medications can lead to life threatening withdrawal, seizures, cardiac arrest, severe pain, and possible . Pumps that are not refilled at regular intervals can be damages and cause and need for replacement. We continually titrate dose and concentration to optimize pain relief and function. We are limited in concentration for certain drugs to safely deliver medications through the pump and stay within the recommendations from the Polyanalges[employer] Consensus Committee Guidelines. Depending on dose and concentration these pumps may need to be refilled sooner than 3 months as we titrate. A UDS is needed to verify patient's compliance with our office pain contract. This is ordered based off specific treatments related to chronic pain with the potential to abuse certain medications.
== END 2024-10-10 23:59 | disposition home or self-care (01) ==
PROVIDERS: PCP Family Medicine; Visit Provider Nurse Practitioner Family
DX: M51.16 Intervertebral disc disorders with radiculopathy, lumbar region (principal); G89.4 Chronic pain syndrome
CPT/HCPCS: 62368; 99212; 99213; G0463

== ENCOUNTER 2024-11-18 11:08 | Outpatient (CLI) | payer MEDICARE, SELFPAY ==
--- OUTSIDE RECORDS SUMMARY | 2024-10-26 13:30 | XMS_ITS | Encounter Summary ---
Author Organization [facility] Address [address] [place] [address] Care Team Providers Care Puncher And Fastener Name Role Phone Kleber Rothman MD Primary Care Provider [phone] Lourdes Velez APRN Unavailable [phone] Mirza Davies MD Unavailable +- [phone] Elena Putnam Unavailable [phone] Reason for Referral * Other Medical (Routine) - Pending Review Specialty Diagnoses / Procedures Referred By Contac t Referred To Contact Diagnoses Intractable chronic migraine without aura and without status migrainosus Procedures Botox Migraine Elena Putnam PA [address] [place] [address] Phone: tel: fax: Referral ID Status Reason Start Date Expiration Date V isits Requested Visits Authorized [id number] Pending Review 10/26/2024 04/27/2026 1 1 * Clinic-Administered Medication (Routine) - Closed Specialty Diagnoses / Procedures Referred By Contac t Referred To Contact Diagnoses Intractable chronic migraine without aura and without status migrainosus Procedures [place] INJECTION,ONABOTULINUMTOXINA Elena Putnam PA [address] [address] Phone: tel: fax: Referral ID Status Reason Start Date Expiration Date Visits Re quested Visits Authorized [id number] Closed 10/26/2024 04/27/2026 1 1 Reason for Visit * Other Medical (Routine) - Closed Specialty Diagnoses / Procedures Referred By Contjennifer t Referred To Contact Neurology Diagnoses Intractable chronic migraine without aura and without status migrainosus Procedures Botox Migraine Elena Putnam PA [address] [address] Phone: tel: fax: Referral ID Status Reason Start Date Expiration Date Visits Re quested Visits Authorized [id number] Closed 07/27/2024 01/26/2026 1 1 Encounter Details Date Type Department Care Team (Latest Contact Info) Description 10/26/2024 1:30 PM EDT Procedure [facility] [place] [facility] [address] [place] [address] Elena Putnam PA [address] [address] Intractable chronic migraine without aura [...] drink first t myrna in the morning (EYE-CONTROL BOARD OPERATOR) to steady your nerves or to get [...] Sign Reading Time Taken Comments Blood Pressure 128/80 10/26/2024 2:12 PM EDT Pulse 75 10/26/2024 2:12 PM EDT Temperature - - Respiratory Rate - - Oxygen Saturation 99% 10/26/2024 2:12 PM EDT Inhaled Oxygen Concentration - - Weight 95.3 kg (210 lb) 10/26/2024 2:12 PM EDT Height 165.1 cm (5' 5 ) 10/26/2024 2:12 PM EDT Body Mass Index 34.95 10/26/2024 2:12 PM EDT documented in this encounter Functional [...] Progress Notes - Elena Putnam PA - 10/26/2024 1:30 PM EDT Patient ID: Fiona Harry is [...] 10 units divided amongst 2 site(s) Right mold presser: 5 units divided amongst 1 site(s) Left mold presser: 5 units divided amongst 1 site(s) Procerus [...] and without Status Migrainosus [G43.719] Treatment Number: 13 Headache days this month: 2 Headache days [...] Care Team (Late st Contact Info) Description 02/01/2025 2:30 PM EST Procedure [facility] [place] [facility] [address] [place] [address] Elena Putnam PA [address] [place] [address] Scheduled Orders Name Type Priority Associated Diagnoses Orde r Schedule Botox Migraine Procedures Routine Intractable chronic migraine without aura and without status migrainosus Expected: 01/24/2025, Expires: 04/28/2026 documented as of this encounter Visit Diagnoses Diagnosis Intractable chronic migraine without aura and without status migrainosus- Primary documented in this encounter Administered Medications Inactive Administered Medications - up to 3 most recent administrations Medication Order MAR Action Action Date Dose Rate Site onabotulinumtoxinA (Botox) injection 200 Units 200 Units, Intramuscular, Once, 1 dose, On Thu10/26/24 at 1515, RoutineIndications:Intracta ble chronic migraine without aura and without status migrainosus Given by Other 10/26/2024 2:22 PM EDT 200 Units Other documented in this encounter Additional Health Concerns Assessment Noted Time PHQ-9 Depression Total Score: 18 022 2:58 PM EDT A fall risk assessment has been complete d for the patient 10/26/2024 2:12 PM EDT A Body Mass Index follow-up plan has been documented for the patient 10/26/2024 3:51 PM EDT documented as of this encounter Care Teams Puncher And Fastener Relationship Specialty Start Date End Date Kleber Rothman MD [address] [place] [address] PCP - General 06/29/20 Lourdes Velez APRN [address] [place] [address] Nurse Practitioner Neurosurgery 05/07/21 Mirza Davies MD [address] [place] [address] Surgeon Neurosurgery 07/19/21 Elena Putnam PA [address] [place] [address] Physician Transport Specialist Neurology 10/23/21 documented as of this encounter
--- OUTSIDE RECORDS SUMMARY | 2024-11-18 11:12 | XMS_ITS | Clinical Summary ---
Author Organization [facility] Address [address] [place], [place] [id number] Care Team Providers Care Public Health Aides Teacher Name Role Phone Unavailable Primary Care Provider [...]
--- OUTSIDE RECORDS SUMMARY | 2024-11-18 11:12 | XMS_ITS | Encounter Summary ---
Author Organization [facility] Address [address] [place] [address] Care Team Providers Care Grease Man Name Role Phone Kleber Rothman MD Primary Care Provider +- [phone] Lourdes Velez APRN Unavailable [phone] Mirza Dvaies MD Unavailable + [phone] Elena Putnam Unavailable [phone] Reason for Referral * Consultation (Routine) - Authorized Specialty Diagnoses / Procedures Referred By Yaquelin fletcher Referred To Contact Pain Medicine Diagnoses Intractable chronic migraine without aura and without status migrainosus Myofascial pain Julianne Barragan PA [address] [place] [address] Phone: tel: fax: Referral ID Status Reason Start Date Expiration Date Visits Requested Visits Authorized [id number] Authorized Specialty Services Required 11/14/2024 05/16/2026 1 1 Scheduling Instructions [facility]ORAC[facility] Encounter Details Date Type Department Care Team (Late st Contact Info) Description 11/14/2024 Orders Only [place] [facility] [address] [place] [address] Julianne Barragan, GLORIA [address] [place] [address] Intractable chronic migraine without aura and without status migrainosus (Primary Dx); Myofascial pain Social History Tobacco Use Types Packs/Day Years [...] drink first t myrna in the morning (EYE-CONSTRUCTION RIGGER) to steady your nerves or to get [...] Visit [place] [facility] [address] [place] [address] Elena Putnam PA [address] [place] [address] Scheduled Referrals Name Type Priority Associated Diagnoses Order Schedule Ambulatory referral to Pain Medicine Outpatient Referral Routine Intractable chronic migraine without aura and without status migrainosus Myofascial pain Expected: 11/14/2024 (Approximate), Expires: 05/18/2026 documented as of this encounter Visit Diagnoses Diagnosis Intractable chronic migraine without aura and without status migrainosus- Primary Myofascial pain Unspecified myalgia and myositis documented in this encounter Additional Health Concerns Assessment Noted Time PHQ-9 Depression Total Score: 18 022 2:58 PM EDT A fall risk assessment has been complete d for the patient 10/26/2024 2:12 PM EDT A Body Mass Index follow-up plan has been documented for the patient 10/26/2024 3:51 PM EDT documented as of this encounter Care Teams Grease Man Relationship Specialty Start Date End Date Kleber Rothman MD [address] [place] [address] PCP - General 06/29/20 Lourdes Velez APRN [address] [place] [address] Nurse Practitioner Neurosurgery 05/07/21 Mirza Davies MD [address] [place] [address] Surgeon Neurosurgery 07/19/21 Elena Putnam PA [address] [place] [address] Physician Analyzer Sales Neurology 10/23/21 documented as of this encounter
--- OUTSIDE RECORDS SUMMARY | 2024-11-18 11:12 | XMS_ITS | Clinical Summary ---
Author Organization [facility] Address [address] [place] [address] Care Team Providers Care Distribution Collection Operator Name Role Phone Kleber Rothman MD Primary Care Provider [phone] Lourdes Velez APRN Unavailable [phone] Mirza Davies MD Unavailable + [phone] Elena Putnam Unavailable [phone] Allergies Active Allergy Reactions Criticality Noted [...] (two) times a day. Active HYDROcodone-acetami nophen (Lutz) 7.5-325 MG tablet 2 Active gabapentin (Neurontin) [...] benzonatate (Tessalon) 200 MG capsule as needed. 5 Active venlafaxine XR (Effexor-XR) 37.5 MG 24 hr capsule Take 1 capsule by mouth daily. Active amitriptyline (Elavil) 10 MG tabletIndications:I ntractable chronic migraine without aura and without status migrainosus TAKE 3 TABLETS BY MOUTH ONCE DAILY NIGHTLY. 270 tablet Active hydrOXYzine HCl (Atarax) 25 MG tablet 1 tablet. Active venlafaxine XR (Effexor-XR) 150 MG 24 hr capsule 1 capsule. Active Hospital, Clinic, or Other Facility Administered Medication Ordered Dose Route Frequency Start Date End Date Status sodium chloride (PF) 0.9 % injection 20 mLIndications:Spondylosis of cervical region without myelopathy or radiculopathy 20 mL IK Once 12/17/2021 Active onabotulinumtoxinA (Botox) injection 200 UnitsIndications:Intractabl e chronic migraine without aura and without status migrainosus 200 Units IM Once 10/26/2024 10/26/2024 Ended Active Problems Problem Noted Date Diagnosed Date KEELY (obstructive sleep apnea) 04/13/2022 Obesity (BMI 35.0-39.9 without comorbidity) 10/18 Acute exacerbation of chronic low back pain 10/18 Neurogenic bladder 11/08/2021 Intractable low back pain 11/08/2021 Class [...] removed 04/21 Follow-up in 2 weeks in [facility] Resolved Problems Problem Noted Date Diagnosed Date Resolved Date Spasticity 04/25/2022 11/06/2024 Overview (04/25/2022): Added automatically from request for surgery [id number] Acute cystitis with hematuria 11/08/2021 11/06/2024 Encounters Date Type Department Care Team Description 11/14/2024 Orders Only [place] [facility] [address] [place] [address] Julianne Barragan PA Intractable chronic migraine without aura and without status migrainosus (Primary Dx); Myofascial pain 10/26/2024 1:30 PM EDT Procedure Visit [facility] [address], [address] [place] [address] Elena Putnam PA Intractable chronic migraine without aura and without status migrainosus (Primary Dx) 10/26/2024 Travel 09/07/2024 Refill [facility] [address], [address] [place] [address] Elena Putnam PA Intractable chronic migraine without aura and without status migrainosus (Primary Dx) from Last 3 Months Immunizations Immunization Administration Dates Next Due Td (adult), unspecified 09/05/2014 Tdap 11/18/2023 Family History Medical History Relation Name Comments Migraines Brother Andi Harry Depression Father Rob Harry Heart disease Father Rob Harry Hypertension Father Rob Gallaghers Depression Father's Sister Annette Harry Depression Maternal Grandfather Satnam Vyas Heart disease Maternal Grandfather Satnam Vyas Hypertension Maternal Grandfather Satnam Vyas Hypertension Maternal Grandmother Nichole Vyas Breast cancer Mother Gricel Harry Cancer Mother Gricel Harry Bilateral m asectomy Diabetes Mother Gricel Harry Hypertension Mother Gricel Gallaghers Diabetes Mother's Sister Ekaterina Garza Hypertension Mother's Sister Ekaterina Garza COPD Paternal Grandfather Chucho Harry Heart disease Paternal Grandfather Chucho Harry Alzheimer's disease Paternal Grandmother Oxana Barbaraparth kunz Relation Name Status Comments Brother Andi Gallaghers Alive Father Robbrandon ZamanHarry Father's Sister Annette Gallaghers Maternal Grandfather Satnam Vyas Maternal Grandmother Nichole Vyas Mother Gricel Gallaghers Mother's Sister Ekaterina Garza Alive Paternal Grandfather Chucho Gallaghers Paternal Grandmother Oxana Jimenez Kamryn Alive Social History Tobacco Use Types Packs/Day [...] drink first t myrna in the morning (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) to steady your nerves or to get [...] Pulse 75 10/26/2024 2:12 PM EDT Temperature 36.1 C (96.9 F) 01/17/2022 11:24 AM EST Respiratory Rate 16 01/17/2022 11:24 AM EST Oxygen Saturation 99% 10/26/2024 2:12 PM EDT Inhaled Oxygen Concentration - - Weight 95.3 kg (210 lb) 10/26/2024 2:12 PM EDT Height 165.1 cm (5' 5 ) 10/26/2024 2:12 PM EDT Body Mass Index 34.95 10/26/2024 2:12 PM EDT Plan of Treatment Upcoming Encounters Date Type Department Care Team (Late st Contact Info) Description 02/01/2025 2:30 PM EST Procedure [facility] [place] [facility] [address], [address] [place] [address] IndyElena paula PA [address] [place] [address] Health Maintenance Due Date Last [...] 12/24/2022 022, 07/16/2021, 07/16/2021, Additional history exists [id number] Vaccine (2 - 2024- season) 2024 05/23/2020 [facility]-Influenza Vaccine (#1) 2024 10/10/2011 [facility]-DTaP,Tdap,and Td Vaccines (2 - Td or Tdap) 11/17/2033 11/18/2023, 09/05/2014 [facility]-Zoster Vaccines (1 of 2) 07/10/2037 [facility]-HIV Screening Completed 04/07/2021, 12/17/2015 [facility]-Hepatitis C Screening Completed 2021, 08/02/2018, 12/17/2015 [facility]-Obesity Intervention Completed 025, 07/27/2024, 04/20/2024, Additional history exists [facility]-HIB Vaccines Aged Out [...] this topic Medical Devices Implanted Type Area Lining Feller Blindstitch Device Identifier Shelf Expiration Date Model / Serial / Lot Spinal Cord Stimulator Right: Coccyx Graft Tiss T68 Preservon - [id number] - [id number] Implanted:Qty: 1 on 04/20/2021 by Mirza Davies MD at [id number] 12/11/2025 [id number] / [id number] / [id number] One Level Plate, 12mm - [id number] Implanted:Qty: 1 on 04/20/2021 at [facility] Spine Cervical DePuy Spine [id number] 04/20/2022 [id number] / / Self Drilling Screw 12mm - [id number] Implanted:Qty: 4 on 04/20/2021 at [facility] Spine Cervical DePuy Spine [employer] [id number] 04/20/2022 [id number] / / Procedures Procedure Name Priority Date/Time [...] Fi nal Result [facility] [address] [place] [address] * [place] Hepatitis C Antibody (04/07/2021 3:49 AM EST) Hepatitis C Antibody Negative Negative 04/07/2021 5:32 AM EST [facility]ALTH[facility] Blood Venous blood specimen / Unknown Venipuncture / Unknown 04/07/2021 3:49 AM EST 04/07/2021 4:02 AM EST us James [facility] BLOOD ORDERABLES Fi nal Result [facility] [address] [place] [address] from Last 3 Months or Most Recently Relevant to Health Maintenance Insurance MEDICARE Advance Directives * Full Code (Latest Code Status on File) Date Activated Date Inactivated Comments 11/08/2021 5:01 AM 11/14/2021 4:44 PM Question Answer Comments Patient has decision-making capacity? Yes Care Teams Distribution Collection Operator Relationship Specialty Start Date End Date Kleber Rothman MD [address] [address] PCP - General 06/29/20 Lourdes Velez APRN [address] [place] [address] Nurse Practitioner Neurosurgery 05/07/21 Mirza Davies MD [address] [address] Surgeon Neurosurgery 07/19/21 Elena Putnam PA [address] [address] Physician Top Lift And Automatic Window Repairer Neurology 10/23/21
--- OUTSIDE RECORDS SUMMARY | 2024-11-18 11:12 | XMS_ITS | Clinical Summary ---
Author Organization [facility] Address [address] [place] [address] Phone Care Team Providers Care Marble Setter Helper Name Role Phone Thu Rothman Primary Care Provider [phone] Allergies No known active allergies Medications oxyCODONE-acetam [...] COVID-19 Vaccine (1 - 2023-2 5 season) 2024 Influenza Vaccine (#1) 2024 Meningococcal B Vaccine Aged Out No l onger eligible based on patient's age to complete this topic Pneumococcal Vaccine 0-49 Aged Out No longer eligible based on patient's age to complete this topic Insurance [employer] PPO on file Care Teams Marble Setter Helper Relationship Specialty Start Date End Date Thu Rothman [address] [place] [id number] PCP - General Family Medicine 1985
--- OUTSIDE RECORDS SUMMARY | 2024-11-18 11:12 | XMS_ITS | Encounter Summary ---
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) to steady your nerves or to get [...] Visit [place] [facility] [address] [place] [address] Elena Putnam PA [address] [place] [address] documented as of this encounter [...] documented as of this encounter Care Teams Brick Unloader Tender Relationship Specialty Start Date End Date Kleber Rothman MD [address] [place] [address] PCP - General 06/29/20 Lourdes Velez APRN [address] [place] [address] Nurse Practitioner Neurosurgery 05/07/21 Mirza Davies MD [address] [place] [address] Surgeon Neurosurgery 07/19/21 Elena Putnam PA [address] [place] [address] Physician Director Industrial Nursing Neurology 10/23/21 documented as of this encounter
[2024-11-22 20:11] LABS: Amphetamines IA Negative ng/mL (Cutoff:50); Barbituates IA Negative ug/mL (Cutoff:0.1); Benzodiazepines IA Negative ng/mL (Cutoff:20); Cocaine & Metabolites IA Negative ng/mL (Cutoff:25); Fentanyl, IA Negative ng/mL (Cutoff:1.0); Meperidine, IA Negative ng/mL (Cutoff:100); Methadone IA Negative ng/mL (Cutoff:25); Opiates IA Negative ng/mL (Cutoff:5); Oxycodone IA Negative ng/mL (Cutoff:5); Phencyclidine IA Negative ng/mL (Cutoff:8); Propoxyphene IA Negative ng/mL (Cutoff:50); THC (marijauna) metabolite IA Negative ng/mL (Cutoff:5); Tramadol, IA Negative ng/mL (Cutoff:50)
== END 2024-11-18 23:59 | disposition home or self-care (01) ==
LOC: LAB 11:10
PROVIDERS: PCP Family Medicine; Visit Provider Nurse Practitioner Family
DX: Z79.891 Long term (current) use of opiate analgesic (principal)
CPT/HCPCS: 80307

== ENCOUNTER 2024-11-29 13:42 | Day surgery (SDC) | payer MEDICARE, SELFPAY ==
[2024-11-29 13:58] VITALS: BP 133/85; PULSE 72; RESP 18; O2SAT 99; BMI 35.2
--- NOTE | 2024-11-29 14:10 | EXP.PAIN.PRO ---
Procedure Date: 11/29/24 Time: 14:00 Anesthesiologist:: John Marino CRNA Complications:: None Pre-procedure Diagnosis:: Degenerative disc disease lumbar spine multilevels. Lumbar radiculopathy. Lumbar postlaminectomy syndrome. Lumbar spondylosis. Multilevel lumbar facet arthropathy. Post-procedure Diagnosis:: Same. Indications for Procedure:: Patient is a 39-year-old female comes our clinic today for lumbar epidural steroid injections L4-5 level. Patient describes low lumbar back pain as well as bilateral hip and leg radicular symptoms. We maintain the patient with intrathecal pain pump. According to the patient she is experiencing breakthrough pain. Procedure Details:: Procedure: Lumbar epidural steroid injection under fluoroscopy Informed consent was obtained and the risks and benefits of the procedure were explained to the patient. The patient was taken to the procedure room and noninvasive monitors placed, including noninvasive blood pressure cuff and pulse oximeter. The back was viewed using C-arm Fluoroscopy and prepped using Chloraprep as a cleansing solution and the L4-L5 interspace was palpated. Skin and subcutaneous tissues were anesthetized using lidocaine 1.5% and a 25-gauge needle. After this, an 18-gauge Touhy epidural needle was placed into the L4-L5 interspace and advanced using fluoroscopic guidance and loss of resistance to air until the epidural space was encountered. After confirmation of needle placement in the epidural space, with dye, a solution containing normal saline, 3 mL and dexamethasone 10 mg were incrementally injected into the lumbar epidural space. The patient tolerated the procedure well with no complications. The patient was observed in the Pain Clinic and then discharged home neurologically intact. Plan and Disposition:: Patient was discharged without incident.
[2024-11-29] MEDS: DEXAMETHASONE 10MG/ML 1ML VIAL 10 MG (14:16)
[2024-11-29 14:17] VITALS: BP 131/89; PULSE 73; RESP 16; O2SAT 99
[2024-11-29 14:21] VITALS: BP 140/84; PULSE 67; RESP 18; O2SAT 96
[2024-11-29 14:28] VITALS: BP 140/84; PULSE 67; RESP 18; O2SAT 96
== END 2024-11-29 14:17 | disposition home or self-care (01) ==
PROVIDERS: PCP Family Medicine; Visit Provider Nurse Anesthetist, Certified Registered
DX: M51.16 Intervertebral disc disorders with radiculopathy, lumbar region (principal); M47.26 Other spondylosis with radiculopathy, lumbar region; M96.1 Postlaminectomy syndrome, not elsewhere classified; F41.9 Anxiety disorder, unspecified; I11.0 Hypertensive heart disease with heart failure; G43.909 Migraine, unspecified, not intractable, without status migrainosus; I50.9 Heart failure, unspecified; R56.9 Unspecified convulsions; F17.210 Nicotine dependence, cigarettes, uncomplicated; G47.30 Sleep apnea, unspecified; F31.9 Bipolar disorder, unspecified; Z97.8 Presence of other specified devices; Z96.82 Presence of neurostimulator; Z88.1 Allergy status to other antibiotic agents; Z88.2 Allergy status to sulfonamides; Z88.8 Allergy status to other drugs, medicaments and biological substances; Z79.1 Long term (current) use of non-steroidal anti-inflammatories (NSAID); Z79.899 Other long term (current) drug therapy
CPT/HCPCS: 62323; J1100

== ENCOUNTER 2025-01-10 10:01 | Day surgery (SDC) | payer MEDICARE, SELFPAY ==
[2025-01-10 10:18] VITALS: BP 96/71; PULSE 81; RESP 16; O2SAT 96; BMI 34.7
--- NOTE | 2025-01-10 10:24 | P.PCN_ITS ---
Procedure Date: 01/10/25 Time: 10:15 Anesthesiologist:: John Marino CRNA Complications:: None Pre-procedure Diagnosis:: Degenerative disc cervical spine multilevels. Cervical radiculopathy. Post-procedure Diagnosis:: Same. Indications for Procedure:: Patient is a 39-year-old female who comes our clinic today for cervical epidural steroid injection. She describes cervical neck pain as well as bilateral arm radicular symptoms at times. Patient has received cervical epidural steroid injections in the past. However, when asked today the patient cannot remember if she got relief or not. We do manage the patient with intrathecal fentanyl and bupivacaine. Procedure Details:: Procedure:Cervical epidural steroid injection Informed consent was obtained and the risks and benefits of the procedure were explained to the patient. The patient was taken to the procedure room and noninvasive monitors placed, including noninvasive blood pressure cuff and pulse oximeter. The neck was prepped using Chloraprep as a cleansing solution. The C6- C7 interspace was viewed using fluroscopy. The skin and subcutaneous tissues were anesthetized using lidocaine 1.5% and a 25-gauge needle. After this an 18- gauge Touhy epidural needle was placed into the C6-C7 interspace under fluroscopy guidance and advanced using loss of resistance to air until the epidural space was encountered. After confirmation of needle placement in the epidural space using contrast dye, dexamethasone 10 mg ( 1 ML) was incrementally injected into the cervical epidural space.~ The patient tolerated the procedure well with no complications. The patient was observed in the Pain Clinic and then discharged home neurologically intact. Plan and Disposition:: Patient was discharged without incident.
[2025-01-10] MEDS: DEXAMETHASONE 10MG/ML 1ML VIAL 10 MG (10:25)
[2025-01-10 10:26] VITALS: BP 116/63; PULSE 74; RESP 18; O2SAT 98
[2025-01-10 10:28] VITALS: BP 116/63; PULSE 74; RESP 18; O2SAT 98
[2025-01-10] MEDS: IOPAMIDOL-200 (41%);10ML VIAL 10 ML IV (10:31)
[2025-01-10 10:32] VITALS: BP 114/71; PULSE 86; RESP 16; O2SAT 99
== END 2025-01-10 10:32 | disposition home or self-care (01) ==
PROVIDERS: PCP Family Medicine; Visit Provider Nurse Anesthetist, Certified Registered
DX: M50.123 Cervical disc disorder at C6-C7 level with radiculopathy (principal); F41.9 Anxiety disorder, unspecified; F31.9 Bipolar disorder, unspecified; I11.0 Hypertensive heart disease with heart failure; I50.9 Heart failure, unspecified; J43.9 Emphysema, unspecified; G43.909 Migraine, unspecified, not intractable, without status migrainosus; Z82.49 Family history of ischemic heart disease and other diseases of the circulatory system; Z83.6 Family history of other diseases of the respiratory system; F17.210 Nicotine dependence, cigarettes, uncomplicated; Z88.2 Allergy status to sulfonamides; Z88.8 Allergy status to other drugs, medicaments and biological substances; Z79.899 Other long term (current) drug therapy
CPT/HCPCS: 62321; J1100; Q9966

== ENCOUNTER 2025-01-10 10:38 | Outpatient (CLI) | payer MEDICARE, SELFPAY ==
--- OUTSIDE RECORDS SUMMARY | 2025-01-10 10:45 | XMS_ITS | Clinical Summary ---
Author Organization [facility] Address [address] [place] [address] Phone Care Team Providers Care [place] Name Role Phone Thu Rothman Primary Care Provider [phone] Allergies No known active allergies Medications oxyCODONE-acetam [...] HPV/Pap Cotest 07/10/2017 COVID-19 Vaccine (1 - 2024-2 6 season) 2024 Influenza Vaccine (#1) 2024 Meningococcal B Vaccine Aged Out No l onger eligible based on patient's age to complete this topic Pneumococcal Vaccine 0-49 Aged Out No longer eligible based on patient's age to complete this topic Insurance [employer] PPO on file Care Teams [place] Relationship Specialty Start Date End Date Thu Rothman [address] [place] [id number] PCP - General Family Medicine 1985
--- OUTSIDE RECORDS SUMMARY | 2025-01-10 10:45 | XMS_ITS | Encounter Summary ---
Author Organization [facility] Address [address] [place] [address] Care Team Providers Care Boat Garnisher Name Role Phone Kleber Rothman MD Primary Care Provider [phone]- [phone] Lourdes Velez APRN Unavailable [phone] Mirza Davies MD Unavailable + [phone] Elena Putnam Unavailable [phone] Reason for Referral * Consultation (Routine) - Authorized Specialty Diagnoses / Procedures Referred By Yaquelin fletcher Referred To Contact Pain Medicine Diagnoses Intractable chronic migraine without aura and without status migrainosus Myofascial pain Julianne Barragan PA [address] [place] [address] Phone: tel: fax: Referral ID Status Reason Start Date Expiration Date Visits Requested Visits Authorized [id number] Authorized Specialty Services Required 11/14/2024 05/16/2026 1 1 Scheduling Instructions [facility] Encounter Details Date Type Department Care Team (Late st Contact Info) Description 11/14/2024 Orders Only [place] [facility] [address] [place] [address] Julianne Barragan, GLORIA [address] [place] [address] Intractable chronic migraine without aura [...] drink first t myrna in the morning (EYE-BENDING ROLL HAND) to steady your nerves or to get [...] Visit [place] [facility] [address] [place] [address] Elena Putnam PA [address] [place] [address] Scheduled Referrals Name Type Priority Associated Diagnoses [...] documented as of this encounter Care Teams Boat Garnisher Relationship Specialty Start Date End Date Kleber Rothman MD [address] [place] [address] PCP - General 06/29/20 Lourdes Velez APRN [address] [place] [id number] Nurse Practitioner Neurosurgery 05/07/21 Mirza Davies MD [address] [place] [address] Surgeon Neurosurgery 07/19/21 Elena Putnam PA [address] [place] [address] Physician News Reel Cameraman Neurology 10/23/21 documented as of this encounter
--- OUTSIDE RECORDS SUMMARY | 2025-01-10 10:45 | XMS_ITS | Clinical Summary ---
Author Organization [facility] Address [address] [place] [address] Care Team Providers Care Multiple Slide Operator Name Role Phone Kleber Rothman MD Primary Care Provider [phone] Lourdes Velez APRN Unavailable [phone] Mirza Davies MD Unavailable + [phone] Elena Putnam Unavailable +[phone] Allergies Active Allergy Reactions Criticality Noted [...] (two) times a day. 08/23/19 Active nitrofurantoin, macrocrystal-mono hydrate, (Macrobid) 100 MG capsule Take by mouth 2 (two) times a day. Active HYDROcodone-aceta minophen ([place]) 7.5-325 MG tablet 01/15/20 Active gabapentin (Neurontin) [...] Take 1 capsule by mouth daily. Active hydrOXYzine HCl (Atarax) 25 MG tablet 1 tablet. 08/03/19 Active venlafaxine XR (Effexor-XR) 150 MG 24 hr capsule 1 capsule. 10/19/19 25 Active SUMAtriptan (Imitrex) 20 MG/ACT nasal sprayIndications: Intractable chronic migraine without aura and without status migrainosus Administer 1 spray into one nostril as needed for migraine. Do not exceed 1 spray in 24 hours. 6 each 2 11/30/19 25 Active amitriptyline (Elavil) 10 MG tabletIndications :Intractable chronic migraine without aura and without status migrainosus TAKE THREE (3) TABLETS BY MOUTH ONCE DAILY NIGHTLY. 270 tablet 12/24/19 25 Active amitriptyline (Elavil) 10 MG tabletIndications :Intractable chronic migraine without aura and without status migrainosus TAKE 3 TABLETS BY MOUTH ONCE DAILY NIGHTLY. 270 tablet 09/12/19 25 2024 Discontinued Hospital, Clinic, or Other Facility Administered [...] removed 04/21 Follow-up in [address] [facility] Resolved Problems Problem Noted Date Diagnosed Date Resolved Date Spasticity 04/25/2022 11/06/2024 Overview (04/25/2022): Added automatically from request for surgery [id number] Acute cystitis with hematuria 11/08/2021 11/06/2024 Encounters Date Type Department Care Team Description 12/23/2024 Refill [place] [address], [facility] [place] [phone] Elena Putnam PA Intractable chronic migraine without aura and without status migrainosus 11/29/2024 Orders Only [place] [address], [address] [place] [phone] Elena Putnam PA Intractable chronic migraine without aura and without status migrainosus (Primary Dx) 11/23/2024 Telephone [place] [address], [address] [place] [phone] Elena Putnam PA 11/14/2024 Orders Only [address], [address] [place] [phone] Julianne Barragan PA Intractable chronic migraine without aura and without status migrainosus (Primary Dx); Myofascial pain 10/26/2024 1:30 PM EDT Procedure Visit [place] [address], [address] [place] [phone] Elena Putnam PA Intractable chronic migraine without aura and without status migrainosus (Primary Dx) 10/26/2024 Travel from Last 3 Months Immunizations Immunization Administration Dates Next Due Td (adult), unspecified 09/05/2014 Tdap 11/18/2023 Family History Medical History Relation Name Comments Migraines Brother Andi Zamanricks Depression Father Rob Harry Heart disease Father Rob Harry Hypertension Father Rob Gallaghers Depression Father's Sister Annette Zamanricks Depression Maternal Grandfather Satnam Vyas Heart disease [...] Chucho Harry Alzheimer's disease Paternal Grandmother Oxana kunz Relation Name Status Comments Brother Andi Harry Alive Father Rob Harry Father's Sister Annette Harry Maternal Grandfather Satnam Vyas Maternal Grandmother Nichole Vyas Mother Gricel Harry [...] drink first t myrna in the morning (EYE-CAMPUS RECRUITING INTERN) to steady your nerves or to get [...] Visit [place] [facility] [address], [address] [place] [address] IndyElena paula PA [address] [place] [address] Health Maintenance Due Date Last Done Comments [facility]icare Annual Wellness (AWV) 1987 [facility]-/Child/Adol SDOH Screenings [...] 12/24/2022 022, 07/16/2021, 07/16/2021, Additional history exists [id number] Vaccine (2 - season) 2024 05/23/2020 [facility]-Influenza Vaccine (#1) 2024 [...] this topic Medical Devices Implanted Type Area [place] Device Identifier Shelf Expiration Date Model / Serial / Lot Spinal Cord Stimulator Right: Coccyx Graft Tiss T68 Preservon - [id number] - [id number] Implanted:Qty: 1 on 04/20/2021 by Mirza Davies MD at [id number] 12/11/2025 [id number] / [id number] / [id number] One Level Plate, 12mm - [id number] Implanted:Qty: 1 on 04/20/2021 at [facility] Spine Cervical [employer] [id number] 04/20/2022 [id number] / / Self Drilling Screw 12mm - [id number] Implanted:Qty: 4 on 04/20/2021 at [facility] Spine Cervical [employer] [id number] 04/20/2022 [id number] / / Procedures Procedure Name Priority Date/Time [...] CASTRO LAB BLOOD ORDERABLES Fi nal Result Performing Organization Address City/[facility]/ZIP Co de Phone Number [facility] [address] [place] [address] * [place] Hepatitis C Antibody (04/07/2021 3:49 AM EST) Pathologist [facility] Hepatitis C Antibody Negative Negative 04/07/2021 5:32 AM EST [facility] Blood Venous blood specimen / Unknown Venipuncture / Unknown 04/07/2021 3:49 AM EST 04/07/2021 4:02 AM EST James CASTRO LAB BLOOD ORDERABLES Fi nal Result [facility] [address] [place] [address] from Last 3 Months or Most Recently Relevant to Health Maintenance Insurance MEDICARE Advance Directives * Full Code (Latest Code Status on File) Date Activated Date Inactivated Comments 11/08/2021 5:01 AM 11/14/2021 4:44 PM Question Answer Comments Patient has decision-making capacity? Yes Care Teams Multiple Slide Operator Relationship Specialty Start Date End Date Kleber Rothman MD [address] [place] [id number] PCP - General 06/29/20 Lourdes Velez APRN [address] [place] [address] Nurse Practitioner Neurosurgery 05/07/21 Mirza Davies MD [address] [place] [address] Surgeon Neurosurgery 07/19/21 Elena Putnam PA [address] [place] [address] Physician Strip Cleaner Neurology 10/23/21
--- OUTSIDE RECORDS SUMMARY | 2025-01-10 10:45 | XMS_ITS | Encounter Summary ---
Author Organization [facility] Address [address] [place] [address] Care Team Providers Care Web Sizer Name Role Phone Kleber Rothman MD Primary Care Provider + [phone] Lourdes Velez APRN Unavailable [phone] Mirza Davies MD Unavailable + [phone] Elena Putnam Unavailable [phone] Encounter Details Date Type Department Care Team (Late st Contact Info) Description 11/23/2024 Telephone [facility] [address], [address] [place] [address] Elena Putnam PA [address] [place] [address] Social History Tobacco Use Types Packs/Day Years [...] drink first t myrna in the morning (EYE-CLASSIFIER OPERATOR) to steady your nerves or to [...] Entry Date Author No 11/14/2021 1:35 PM Van Oneill RN documented in this encounter Miscellaneous Notes * Telephone Encounter - Frieda Maria - 11/23/2024 4:07 PM EDT Patient Phone Message Reason for Call: Patient calling states lots of pressure in back of head and left eye blood shot , states not feeling well since injection please call to advise Best contact number and optimal time of day to reach caller: [phone] Note: Please do not reply to this message. Follow-up communication and further actions as a result of this message need to be communicated with the patient directly, if the patient is not active onMyChart. If the patient is active on MyChart, they will receive notification of the communication/outcome via [employer]. documented in this encounter Plan of Treatment Upcoming Encounters Date Type Department Care Team (Late st Contact Info) Description 02/01/2025 2:30 PM EST Procedure [facility] [address], [address] [place] [address] Elena Putnam PA [address] [facility] [address] [place] [address] documented as of this encounter [...] documented as of this encounter Care Teams Web Sizer Relationship Specialty Start Date End Date Kleber Rothman MD [address] [place] [address] PCP - General 06/29/20 Lourdes Velez APRN [address] [place] [address] Nurse Practitioner Neurosurgery 05/07/21 Mirza Davies MD [address] [facility] [place] [address] Surgeon Neurosurgery 07/19/21 Elena Putnam PA [address] [facility] [place] [address] Physician Communication Lecturer Neurology 10/23/21 documented as of this encounter
--- OUTSIDE RECORDS SUMMARY | 2025-01-10 10:45 | XMS_ITS | Encounter Summary ---
Author Organization [facility] Address [address] [place] [address] Care Team Providers Care Comic Book Designer Name Role Phone Kleber Rothman MD Primary Care Provider + [phone] Lourdes Velez APRN Unavailable [phone] Mirza Davies MD Unavailable + [phone] Elena Putnam Unavailable [phone] Encounter Details Date Type Department Care Team (Late st Contact Info) Description 11/29/2024 Orders Only [place] [facility] [address], [address] [place] [address] Elena Putnam PA [address] [place] [address] Intractable chronic migraine without aura [...] drink first t myrna in the morning (EYE-SOFTBALL CORE MOLDER) to steady your nerves or to get [...] Date Author No 11/14/2021 1:35 PM Van Onelil RN documented in this encounter Miscellaneous Notes * Progress Notes - Indy, Elena M, PA - 11/29/2024 10:32 AM EDT Patient had not had a rescue medication. She had previously been on Sumatriptan injection. She requested the NS. Of note, she was given Nurtec samples by her PCP. If they work better, I will be happy to send in script. Diagnosis Plan 1. Intractable chronic migraine without aura and without status migrainosus SUMAtriptan (Imitrex) 20 MG/ACT nasal spray documented in this encounter Plan of Treatment Upcoming Encounters Date Type Department Care Team (Late st Contact Info) Description 02/01/2025 2:30 PM EST Procedure Visit [place] [facility] [address], [address] [place] [address] Elena Putnam PA [address] [address] documented as of this encounter Visit [...] documented as of this encounter Care Teams Comic Book Designer Relationship Specialty Start Date End Date Kleber Rothman MD [address] [place] [address] PCP - General 06/29/20 Lourdes Velez APRN [address] [facility] [address] [place] [phone] Nurse Practitioner Neurosurgery 05/07/21 Mirza Davies MD [address] [place] [address] Surgeon Neurosurgery 07/19/21 Elena Putnam PA [address] [place] [address] Physician Project Control Analyst Neurology 10/23/21 documented as of this encounter
--- OUTSIDE RECORDS SUMMARY | 2025-01-10 10:45 | XMS_ITS | Encounter Summary ---
Author Organization [facility] Address [address] [place] [address] Care Team Providers Care Psychology Instructor Name Role Phone Kleber Rothman MD Primary Care Provider + [phone] Lourdes Velez APRN Unavailable [phone] Mirza Davies MD Unavailable + [phone] Elena Putnam Unavailable [phone] Reason for Visit * Reason Comments Med Refill Encounter Details Date Type Department Care Team (Late st Contact Info) Description 12/23/2024 Refill [place] [facility] [address], [address] [place] [address] Elena Putnam PA [address] [place] [address] Intractable chronic migraine without aura and without status migrainosus Social History Tobacco Use Types Packs/Day Years [...] drink first t myrna in the morning (EYE-ESTHETICIAN MAKEUP ARTIST) to steady your nerves or to get [...] encounter Miscellaneous Notes * Telephone Encounter - Crystal Morrison, PharmD - 12/23/2024 11:10 AM EST Refill request does not meet protocol. Sending to clinic for review. Additional info: Clarification required: Medication not mentioned in plan of most recent clinic note.. Not mentioned in procedure visit notes. Last seen for office visit in 2021 documented in this encounter Plan of Treatment Upcoming Encounters Date Type Department Care Team (Late st Contact Info) Description 02/01/2025 2:30 PM EST Procedure Visit [place] [facility] [address], [address] [place] [address] Elena Putnam PA [address] [place] [address] documented as of this encounter Visit Diagnoses Diagnosis Intractable chronic migraine without aura and without status migrainosus documented in this encounter Additional Health Concerns Assessment Noted Time PHQ-9 Depression Total Score: 18 022 2:58 PM EDT A fall risk assessment has been complete d for the patient 10/26/2024 2:12 PM EDT A Body Mass Index follow-up plan has been documented for the patient 10/26/2024 3:51 PM EDT documented as of this encounter Care Teams Psychology Instructor Relationship Specialty Start Date End Date Kleber Rothman MD [address] [place] [address] PCP - General 06/29/20 Lourdes Velez APRN [address] [place] [address] Nurse Practitioner Neurosurgery 05/07/21 Mirza Davies MD [address] [place] [address] Surgeon Neurosurgery 07/19/21 Elena Putnam PA [address] [place] [address] Physician Behavior Therapist Neurology 10/23/21 documented as of this encounter
--- OUTSIDE RECORDS SUMMARY | 2025-01-10 10:45 | XMS_ITS | Clinical Summary ---
Author Organization [facility] Address [address] [place], [place] [address] Care Team Providers Care Director Of Strategic Programs Name Role Phone Unavailable Primary Care Provider [...]
--- NOTE | 2025-01-10 11:00 | US_ITS ---
PROCEDURE: US TRANSVAGINAL CLINICAL INDICATION: evaluate and treat COMPARISON: US US TRANSVAGINAL from 10/29/2022 FINDINGS: Transvaginal sonographic images of the pelvis were obtained. UTERUS: 7.9 cm x 4.6 cmx 4.2cm anteverted with a combined endometrial thickness of 7.1mm. LEFT OVARY: 1.7 cmx2.8 cmx3.0cm with a volume of 7.3ml. There are 2 small follicles in the left ovary and the largest measures 1.3 cm. RIGHT OVARY: 1.9 cmx 2.4cmx1.4cm with a volume of 3.1ml. There is a follicle in the right ovary measuring 2.0 cm x 1.2 cm x 1.6 cm. Both ovaries are seen and appear normal. Doppler flow to both ovaries are seen. There is no fluid in the cul-de-sac. IMPRESSION: 1. Anteverted uterus normal in shape and size. The endometrium appears normal and measures 7.1 mm. 2. Both ovaries are seen and appear normal. The right ovary has a 2.0 cm follicle in the left ovary has 2 small follicles. 3. It was noted by the platform mill supervisor that the ovaries lie close to the uterus posteriorly. 4. No fluid in the cul-de-sac. Dictated by: Bairon Bro MD 01/10/2025 14:09 Bairon Bro MD in OV 01/10/2025 14:09
== END 2025-01-10 23:59 | disposition home or self-care (01) ==
LOC: RAD 10:39
PROVIDERS: PCP Family Medicine; Visit Provider Obstetrics & Gynecology
DX: N83.02 Follicular cyst of left ovary (principal); N83.01 Follicular cyst of right ovary; N93.9 Abnormal uterine and vaginal bleeding, unspecified; R10.20 Pelvic and perineal pain unspecified side; N85.4 Malposition of uterus
CPT/HCPCS: 76830

== ENCOUNTER 2025-01-25 18:48 | Emergency (ER) | payer MEDICARE, SELFPAY ==
--- OUTSIDE RECORDS SUMMARY | 2024-03-08 09:30 | XMS_ITS ---
[facility] [address] [place], [place] [id number] Care Team Providers [facility] Specialist Name Role Phone Thu Rothman Primary Care Provider Allergies Allergen (clinical drug ingredient) Drug/Non Drug Allergy documented on EMR Reaction Allergy Type Onset Date Status aripiprazole Abilify Unknown Drug Allergy Acti ve pregabalin Lyrica swelling Drug Allergy Active Results Component Value Reference Range Notes Holter Monitor- 48 hour Reviewed date:04/01/2024 12:22:06 PM Interpretation: Performing Lab: Notes/Report: REASON FOR VISIT f/u tachycardia, lump in arm pit area Medications Medication SIG (Take, Route, Frequency, Duration) Notes Start Date End Date Status Trulance 3 MG 1 tab(s) orally once a day 06/21/2021 Not-Taking Valium 5 MG 1 tab(s) orally every 8 hours Not-Taking HYDROcodone-Acetaminoph en 7.5-325 MG 1 tab(s) orally two times a day as needed 03/17/2022 Not-Taking SUMAtriptan Succinate 50 MG 1 tab(s) orally as directed Not-Taking Lisinopril 10 MG TAKE 1 TABLET BY MOUTH ONCE DAILY; Duration: 30 Active DULoxetine HCl 60 MG TAKE 1 CAPSULE BY MOUTH ONCE DAILY; Duration: 30 days Active clonazePAM 0.5 MG 1 tab(s) orally 2 times a day prn; Duration: 30 day(s) 12/01/2023 Active Metoprolol Tartrate 50 MG 1 tab(s) Orally Twice a day; Duration: 30 day(s) Active traZODone HCl 100 MG 1 tablet at bedtime Orally Once a day; Duration: 30 day(s) Active lamoTRIgine 100 MG TAKE 1 TABLET BY MOUTH TWICE DAILY; Duration: 30 days Active Phentermine HCl 37.5 MG 1 tablet before breakfast Orally Once a day 08/27/2023 Active Cyclobenzaprine HCl 10 MG 1 tab(s) orally three times a day as needed Active Furosemide 20 MG TAKE 1 TABLET BY MOUTH ONCE DAILY NEEDED; Duration: 30 days Active Combivent Respimat 20-100 MCG/ACT 1 puff(s) inhaled 4 times a day 08/07/2021 Active Meloxicam 7.5 MG TAKE 1 TABLET BY MOUTH ONCE DAILY WITH FOOD; Duration: 30 days Active Cure Catheters 1 Use as directed 10 Cymraes/6 in. 10/08/2022 Active Ondansetron 4 MG 1 tab(s) orally 3 times a day prn; Duration: 30 day(s) Active MiraLax - DIRECTED ORALLY ONCE A DAY; Duration: 7 DAY(S) 06/21/2021 Active Gabapentin 800 MG 1 cap(s) orally 3 times a day Active Albuterol Sulfate HFA 108 (90 Base) MCG/ACT 1 puff as needed Inhalation every 4 hrs Active Trulance 3 MG 1 tab(s) orally once a day 08/07/2021 Active Vital Signs Blood pressure systolic 128 mm Hg 03/08/19 25 Blood pressure diastolic 88 mm Hg 025 Heart Rate 75 /min 03/08/2024 Height 62 in 03/08/2024 Weight 213 lbs 03/08/2024 BMI 38.95 kg/m2 03/08/2024 Encounters Encounter Location Date Provider Diagnosis [facility] [address] [facility] [address] [place] [address], DARIELA [phone] 03/08/2024 R Tristan Rothman Tachycardia R00.0 Assessments Encounter Date Diagnosis (ICD Code) Assessment Notes Treatment Notes Treatment Clinical Notes Section Notes 03/08/2024 Tachycardia (ICD-10 - R00.0) Plan Of Treatment Next Appt Details Follow Up: via phone to repo rt test results, Reason: Progress Notes * SMITHA RITCHIEB:1985 (39 yo F)Acc No.[id number]:03/08/2024 Progress Notes Patient: Ralph JOSE MARIA DELGADILLO Provider: Thu Rothman M.D. :1985 A ge:38 Y S ex:Female Date:03/08/2024 Address[facility] [id number] Subjective: * Chief Complaints: * 1 . F/u tachycardia, lump in arm pit area. * HPI: C ardiology: She comes in complaining of frequent tachypalpitations where she feels her heart racing. No associated chest pain or shortness of breath. Her smart watch has recorded heart rates in the 160s while at rest. She states episodes last several minutes to a few hours. D ermatology: Pt has a lump on the right arm pit. Pts sts that she feels like it is HS coming up but pt continues to bother it. * ROS: D ERMATOLOGY: no R deana. n o H juan francisco. G ASTROENTEROLOGY: no N ausea. n o V omiting. n o D iarrhea.? U ROLOGY: no D ifficulty urinating. n o B lood in urine. * Medical History: S VT, Bipolar disorder, Intrathecal lipoma, tethered cord - s/p resection, Neurogenic bowel and bladder, Complex Regional Pain Syndrome, Migraine headache, Lower extremity weakness, Cervical spinal stenosis at C5-6 by MRI 2015, + H. pylori 2016 - treated by Dr. Goodman, Hx of pseudoseizures, Sleep apnea, Depression with anxiety. * Surgical History: [facility]-Intrathecal lipoma debulked, L4-S1 Laminectomy-Dr Barry 04/27/2012, spinal cord stimulator placed Dr Lima 12/17/2015, EGD - Dr. Goodman 2015, Cervical spine ablation x2 03/2019, Spinal cord stimulator removed 04/27/2019, Spinal cord stimulator replaced - [facility] 06/2019 , C5-6 fusion/ / Dr. Calderón 04/20/2021, Epidural in C5-6// Dr. Lima 10/05/2021, Pain Pump Implanted - Dr. Bradshaw 05/2022. * Hospitalization/Major Diagno stic Procedure: H it by [facility] 1997, BP/ HR went up, cough, sore throat, sob- [facility] 02/21/2010, [facility] 03/16/2010, [facility] 02/05- , [facility] 04/27-, [facility] 05/01-, Seizures- 05/12/2012, Seizures- [facility] 05/23/2012, work injury, concussion, seizure- [facility] 03/09/2013, High Heart Rate- [facility] 05/2013, Nerve Pain- [facility] 12/2013, Neck, Shoulder, Arm Pain- [facility] 08/2014, Passed Out, Dehydration- [facility] 12/2014, Pneumonia- [facility] 02/08/2015, SOA, Chest pain- [facility] 02/15/2015, Stress Induced Episodes- [facility] 02/2015, 05/2015, [facility]-migraines, stress induced episodes, seizures 08/31, [facility]-attempted suicide, transferred to [facility] 06/03/17, [facility]-chest pain 12/2018, [facility]-spinal cord stimulator malfunction 12/2018, [facility]-overnight due to neck ablasion 04/2019, [facility]di[place], nausea, headache 01/03/2020, [facility]-right sided rib pain, pseudoseizures 03/24/20. * Family History: F ather: alive, Fused ankle, Hypertension, ASCVD s/p coronary stents. M other: alive, Hypertension, Diabetes, high cholestrol, breast cancer. P aternal Grand Father: . P aternal Grand Mother: . M aternal Grand Father: alive. M aternal Grand Mother: alive.?1 brother(s) . . * Social History: C URRENT TOBACCO USE S moking Status: Patient does smoke, packs per day: 1, Smoking preference: cigarettes. C affeine: yes, frequency: daily Diet Mt Dew. Exercise: no. Home smoke detector use: yes. Past smoking status: no, Smoking status: Patient does smoke, Packs per day: 1, Since age of: 18, Smoking preference: cigarettes. Alcohol: No. * Medications: T aking Albuterol Sulfate HFA 108 (90 Base) MCG/ACT Aerosol Solution 1 puff as needed Inhalation every 4 hrs , Taking Trulance 3 MG Tablet 1 tab(s) orally once a day , Taking Gabapentin 800 MG Tablet 1 cap(s) orally 3 times a day , Taking MiraLax - POWDER FOR RECONSTITUTION DIRECTED ORALLY ONCE A DAY , Taking Ondansetron 4 MG Tablet Disintegrating 1 tab(s) orally 3 times a day prn , Taking Cure Catheters 1 1 Use as directed , Notes to Pharmacist: 10 Cymraes/6 in., Taking Meloxicam 7.5 MG Tablet TAKE 1 TABLET BY MOUTH ONCE DAILY WITH FOOD , Taking Combivent Respimat 20-100 MCG/ACT Aerosol Solution 1 puff(s) inhaled 4 times a day , Taking Furosemide 20 MG Tablet TAKE 1 TABLET BY MOUTH ONCE DAILY NEEDED , Taking Cyclobenzaprine HCl 10 MG Tablet 1 tab(s) orally three times a day as needed , Taking Phentermine HCl 37.5 MG Tablet 1 tablet before breakfast Orally Once a day , Taking lamoTRIgine 100 MG Tablet TAKE 1 TABLET BY MOUTH TWICE DAILY , Taking traZODone HCl 100 MG Tablet 1 tablet at bedtime Orally Once a day , Taking Metoprolol Tartrate 50 MG Tablet 1 tab(s) Orally Twice a day , Taking clonazePAM 0.5 MG Tablet 1 tab(s) orally 2 times a day prn , Taking DULoxetine HCl 60 MG Capsule Delayed Release Particles TAKE 1 CAPSULE BY MOUTH ONCE DAILY , Taking Lisinopril 10 MG Tablet TAKE 1 TABLET BY MOUTH ONCE DAILY , Not-Taking SUMAtriptan Succinate 50 MG Tablet 1 tab(s) orally as directed , Not-Taking HYDROcodone-Acetaminophen 7.5-325 MG Tablet 1 tab(s) orally two times a day as needed , Not-Taking Valium 5 MG Tablet 1 tab(s) orally every 8 hours , Not-Taking Trulance 3 MG Tablet 1 tab(s) orally once a day , Discontinued Macrobid 100 MG Capsule 1 cap(s) orally once a day , Medication List reviewed and reconciled with the patient * Allergies: A bilify, Lyrica: swelling - Side Effects. Objective: * Vitals: W t:213, Temp:98.1, BP:128/88, HR:75, Nurse:DEBI, Ht: 62, BMI:38.95. * Examination: C ardiology: General Appearance: p leasant, NAD. C arotid upstroke:?normal, no bruits. H eart sounds: R RR, normal S1, S2. M urmur, click , gallop:?none. L ungs: c lear, no rales or wheezes. E xtremities: n o leg edema. D ermatology: Extremities: I n the right axilla, there is a single 0.5 cm reddened and slightly tender sweat gland. No drainage.. Assessment: * Assessment: 1. T achycardia - R00.0 (Primary) Plan: * Treatment: * Procedure Codes: G 2211 Complex e/m visit add on * Follow Up: v ia phone to report test results * Images: Billing Information: * Visit Code: 93018 Office Visit, Est Pt., Level 3. * Procedure Codes: G2211 Complex e/m visit add on. * Electronic signature of Thu Rothman MD on 01/25/2025 at 07:58 PM EST Sign off status: Pending * Provider: Thu Rothman M.D. Date: 0 03/08/2024 Generated for Bassam lo/Ramon/eTransmitting on: 03/28/2024 07:58 PM EST History and Physical Notes * HPI (History of Present Illness) Category Sub-Category Detail Notes Category Not es Dermatology Pt has a lump o n the right arm pit. Pts sts that she feels like it is HS coming up but pt continues to bother it Examination Category Sub-Category Detail Notes Category Not es Cardiology Lungs: clear, no rales or wheezes Heart sounds: RRR, normal S1, S2 Carotid upstroke: normal, no bruits Extremities: no leg edema Murmur, click , gallop: none General Appearance: pleasant, NAD Dermatology Extremities: In the right axi lla, there is a single 0.5 cm reddened and slightly tender sweat gland. No drainage.
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
--- OUTSIDE RECORDS SUMMARY | 2024-07-12 06:00 | XMS_ITS ---
Author Organization [facility] Address [address] [id number] Care Team Providers Care Organic Lab Worker Name Role Phone Thu Rothman Primary Care Provider Macario Reza [phone] Allergies Allergen (clinical drug ingredient) Drug/Non Drug Allergy documented on EMR Reaction Allergy Type Onset Date Status aripiprazole Abilify Unknown Drug Allergy Acti ve pregabalin Lyrica swelling Drug Allergy Active REASON FOR VISIT depression and anxiety Encounters Encounter Location Date Provider Diagnosis [facility] [address] [facility] [address] [phone] 07/12/2024 Macario Reza Plan Of Treatment No Information Progress Notes * SMITHA RITCHIEB:1985 (39 yo F)Acc No.[id number]:07/12/2024 Progress Notes Patient: JOSE MARIA COLES Provider: Ene Reza M.D. :1985 A ge:39 Y S ex:Female Date:07/12/2024 Address:[address] [facility] [facility] [place], [id number] Pcp:Thu Rothman Subjective: * Chief Complaints: * 1 . Depression and anxiety. * HPI: P sychology: 39 year old female presents with c/o depression. * ROS: D ERMATOLOGY: no R deana. n o H juan francisco. G ASTROENTEROLOGY: no N ausea. n o V omiting. U ROLOGY: no D ifficulty urinating. n [...] HR went up, cough, sore throat, sob- [facility] 02/21/2010, [facility] 03/16/2010, [facility] 02/05- , 04/27-, [facility] 05/01-, Seizures- 05/12/2012, Seizures- [facility] 05/23/2012, work injury, concussion, seizure- [facility] 03/09/2013, High Heart Rate- [facility] 05/2013, Nerve Pain- [facility] 12/2013, Neck, Shoulder, Arm Pain- [facility] 08/2014, Passed Out, Dehydration- [facility] 12/2014, Pneumonia- [facility] 02/08/2015, SOA, Chest pain- [facility] 02/15/2015, Stress Induced Episodes- [facility] 02/2015, 05/2015, [facility] ER-migraines, stress induced episodes, seizures 08/31, [facility] ER-attempted suicide, transferred to [facility] 06/03/17, [facility] ER-chest pain 12/2018, [facility] ER-spinal cord stimulator malfunction 12/2018, [facility] ER-overnight due to neck ablasion 04/2019, [facility] UTC-diarrhea, nausea, headache 01/03/2020, [facility] ER-right sided rib pain, pseudoseizures 03/24/20. [...] 18, Smoking preference: cigarettes. Alcohol: No. * Allergies: A bilify, Lyrica: swelling - Side Effects. Objective: * Vitals: Assessment: Plan: * Treatment: * Images: Billing Information: * Visit Code: * Procedure Codes: * Electronic signature of Penny Reza MD on 01/25/2025 at 08:02 PM EST Sign off status: Pending * Provider: Ene Reza M.D. Date: 0 07/12/2024 Generated for Bassam lo/Ramon/Alysonitting on: 1 03/28/2024 08:02 PM EST History and Physical Notes * HPI (History of Present Illness) Category Sub-Category Detail Notes Category Not es Psychology depression
--- OUTSIDE RECORDS SUMMARY | 2024-08-02 06:30 | XMS_ITS ---
[facility] [address] [place], [place] [id number] Care Team Providers Care Swamper Name Role Phone Thu Rothman Primary Care Provider Allergies Allergen (clinical drug ingredient) Drug/Non Drug Allergy documented on EMR Reaction Allergy Type Onset Date Status aripiprazole Abilify Unknown Drug Allergy Acti ve pregabalin Lyrica swelling Drug Allergy Active Results Component Value Reference Range Notes Urinalysis - Inhouse Reviewed date:08/07/2024 10:00:09 PM Interpretation: Performing Lab: Notes/Report: Color/Clarity howard Leuk Neg Nitrite Pos Urobili 3.2 Protein Trace pH 5.5 Blood Trace-Intact Sp. Gr. 1.025 Ketone Trace Bili Neg Gluc Neg P-Culture, Urine Reviewed date:08/07/2024 10:00:09 PM Interpretation:E. coli Performing Lab: Notes/Report: Test performed by [facility] [address] [place] [address] , [address], [place] [address] Ermias Severino MD, Dormitory Keeper CLIA: [id number] Specimen Source Urine - Void Culture, Urine See Below See Microbiol ogy Report Escherichia coli 50,000-100,000 CFU/m l Escherichia coli Sensitivity Panel See Below ____ Organism E. coli Antibiotic INTERP ____ Amikacin S Ampicillin S Aztreonam S Cefepime S Cefoxitin S Ceftazidime S Ceftriaxone S Cefuroxime S Ciprofloxacin S Ertapenem S Gentamicin S Imipenem S Levofloxacin S Meropenem S Nitrofurantoin R Piperacillin/Tazo S Tetracycline S Tobramycin S Trimeth/Sulfa S ___ S=SUSCEPTIBLE I=INTERMEDIATE R=RESISTANT REASON FOR VISIT depression, anxiety, med check Medications Medication SIG (Take, Route, Frequency, Duration) Notes Start Date End Date Status SUMAtriptan Succinate 50 MG 1 tab(s) orally as directed Not-Taking traZODone HCl 100 MG 1 tablet at bedtime Orally Once a day; Duration: 30 days Active Nitrofurantoin Monohyd Macro 100 MG TAKE 1 CAPSULE BY MOUTH ONCE A DAY; Duration: 30 Prophylaxis Active HYDROcodone-Acetaminop hen 7.5-325 MG 1 tab(s) orally two times a day as needed 03/17/2022 Not-Taking Valium 5 MG 1 tab(s) orally every 8 hours Not-Taking Furosemide 20 MG TAKE 1 TABLET BY MOUTH ONCE DAILY NEEDED; Duration: 30 Active Lisinopril 10 MG 1 tablet Orally Once a day; Duration: 30 days Active Metoprolol Tartrate 50 MG TAKE 1 TABLET BY MOUTH TWICE DAILY; Duration: 30 Active Albuterol Sulfate HFA 108 (90 Base) MCG/ACT 1-2 puffs as needed Inhalation every 4 hrs, prn Active Ondansetron 4 MG 1 tab(s) orally 3 times a day prn; Duration: 30 day(s) Active Meloxicam 7.5 MG TAKE 1 TABLET BY MOUTH ONCE DAILY WITH FOOD; Duration: 30 days Active Combivent Respimat 20-100 MCG/ACT 1 puff(s) inhaled 4 times a day 08/07/2021 Active Cyclobenzaprine HCl 10 MG 1 tab(s) orally three times a day as needed Active Phentermine HCl 37.5 MG 1 tablet before breakfast Orally Once a day 08/27/2023 Not-Taking Albuterol Sulfate HFA 108 (90 Base) MCG/ACT 1 puff as needed Inhalation every 4 hrs Active Trulance 3 MG 1 tab(s) orally once a day 08/07/2021 Not-Taking Gabapentin 800 MG 1 cap(s) orally 3 times a day Active MiraLax - DIRECTED ORALLY ONCE A DAY; Duration: 7 DAY(S) 06/21/2021 Active Cure Catheters 1 Use as directed in. 10/08/2022 Active lamoTRIgine 100 MG TAKE 1 TABLET BY MOUTH TWICE DAILY Active clonazePAM 0.5 MG 1 tab(s) orally 2 times a day prn 07/26/2024 Active Venlafaxine HCl ER 75 MG 1 cap daily x 1 week then 2 caps daily Orally Once a day; Duration: 30 days 08/02/2024 Active hydrOXYzine HCl 25 MG 1 tab Orally q6h prn anxiety 08/02/2024 Active Trulance 3 MG 1 tab(s) orally once a day 06/21/2021 Not-Taking Vital Signs Blood pressure systolic 130 mm Hg 08/03/19 25 Blood pressure diastolic 90 mm Hg 025 Heart Rate 86 /min 08/02/2024 Height 62 in 08/02/2024 Weight 215.6 lbs 08/02/2024 BMI 39.43 kg/m2 08/02/2024 Encounters Encounter Location Date Provider Diagnosis [facility] [address] [place], [place] [id number] 08/02/2024 R Tristan Rothman Depression with anxi ety F41.8 ; UTI (lower urinary tract infection) N39.0 ; BMI 39.0-39.9,adult Z68.39 ; Supraventricular tachycardia, unspecified I47.10 ; Tobacco use disorder F17.200 and Spina bifida, unspecified hydrocephalus presence, unspecified spinal region Q05.9 Assessments Encounter Date Diagnosis (ICD Code) Assessment Notes Treatment Notes Treatment Clinical Notes Section Notes 08/02/2024 Depression with anxiety (ICD-10 - F41.8) 08/02/2024 UTI (lower urinary tract infection) (ICD-10 - N39.0) Will await culture results 08/02/2024 BMI 39.0-39.9,adult (ICD-10 - Z68.39) 08/02/2024 Supraventricular tachycardia, unspecified (ICD-10 - I47.10) 08/02/2024 Tobacco use disorder (ICD-10 - F17.200) 08/02/2024 Spina bifida, unspecified hydrocephalus presence, unspecified spinal region (ICD-10 - Q05.9) Plan Of Treatment Medication Medication Name Sig Start Date Stop Date Notes Venlafaxine HCl ER 37.5 MG TAKE 1 CAPSUL E BY MOUTH ONCE DAILY lamoTRIgine 100 MG TAKE 1 TABLET BY MARILYN TH TWICE DAILY clonazePAM 0.5 MG 1 tab(s) orally 2 ti mes a day prn 07/26/2024 Venlafaxine HCl ER 75 MG 1 cap daily x 1 week then 2 caps daily Orally Once a day; Duration: 30 days 08/02/2024 hydrOXYzine HCl 25 MG 1 tab Orally q6h prn anxiety 025 Treatment Notes Assessment Notes UTI (lower urinary tract infection) Will await culture results Next Appt Details Follow Up: 2 Weeks,3 Weeks, Reason: Progress Notes * NATHEN RITCHIEALEXIAB:1985 (39 yo F)Acc No.[id number]:08/02/2024 Progress Notes Patient: JOSE MARIA COLES Provider: Thu Rothman M.D. :1985 A ge:39 Y S ex:Female Date:08/02/2024 Address:[address] [place] [address] [id number] Subjective: * Chief Complaints: * 1 . Depression, anxiety, med check. * HPI: P sychology: She returns today for follow-up on her depression and anxiety. She has not done well with the switch to the Effexor but is only on 37.5 mg. She states her depression has been worse and she has had several episodes of anxiety. She apparently has had some conflict with her mother and with her significant other as well. She feels financial stress. She apparently was turned down for her disability determination. U rology: She complains of dark, malodorous urine. She continues to self cath. * ROS: D ERMATOLOGY: no R deana. [...] went up, cough, sore throat, sob- [facility] 02/21/2010, [facility] 03/16/2010, [facility] 02/05- , [facility] 04/27-, [facility] 05/01-, Seizures- 05/12/2012, Seizures- [facility] 05/23/2012, work injury, concussion, seizure- [facility] 03/09/2013, High Heart Rate- [facility] ER 05/2013, Nerve Pain- [facility] 12/2013, Neck, Shoulder, Arm Pain- [facility] 08/2014, Passed Out, Dehydration- [facility] 12/2014, Pneumonia- [facility] 02/08/2015, SOA, Chest pain- [facility] 02/15/2015, Stress Induced Episodes- [facility] 02/2015, 05/2015, [facility] ER-migraines, stress induced episodes, seizures 08/31, [facility] ER-attempted suicide, transferred to [facility] 06/03/17, [facility] ER-chest pain 12/2018, [facility] ER-spinal cord stimulator malfunction 12/2018, [facility] ER-overnight due to neck ablasion 04/2019, [facility] UTC-diarrhea, nausea, headache 01/03/2020, [facility] ER-right sided rib pain, pseudoseizures 03/24/20. [...] needed Inhalation every 4 hrs , Taking Gabapentin 800 MG Tablet 1 cap(s) orally 3 times a day , Taking MiraLax - POWDER FOR RECONSTITUTION DIRECTED ORALLY ONCE A DAY , Taking Cure Catheters 1 1 Use as directed , Notes to Pharmacist: 10 Russian/6 in., Taking Meloxicam 7.5 MG Tablet TAKE 1 TABLET BY MOUTH ONCE DAILY WITH FOOD , Taking Combivent Respimat 20-100 MCG/ACT Aerosol Solution 1 puff(s) inhaled 4 times a day , Taking Cyclobenzaprine HCl 10 MG Tablet 1 tab(s) orally three times a day as needed , Taking Ondansetron 4 MG Tablet Disintegrating 1 tab(s) orally 3 times a day prn , Taking Furosemide 20 MG Tablet TAKE 1 TABLET BY MOUTH ONCE DAILY NEEDED , Taking Albuterol Sulfate HFA 108 (90 Base) MCG/ACT Aerosol Solution 1-2 puffs as needed Inhalation every 4 hrs, prn , Taking Lisinopril 10 MG Tablet 1 tablet Orally Once a day , Taking lamoTRIgine 100 MG Tablet TAKE 1 TABLET BY MOUTH TWICE DAILY , Taking Metoprolol Tartrate 50 MG Tablet TAKE 1 TABLET BY MOUTH TWICE DAILY , Taking Venlafaxine HCl ER 37.5 MG Capsule Extended Release 24 Hour TAKE 1 CAPSULE BY MOUTH ONCE DAILY , Taking clonazePAM 0.5 MG Tablet 1 tab(s) orally 2 times a day prn , Taking traZODone HCl 100 MG Tablet 1 tablet at bedtime Orally Once a day , Taking Nitrofurantoin Monohyd Macro 100 MG Capsule TAKE 1 CAPSULE BY MOUTH ONCE A DAY , Notes to Pharmacist: Prophylaxis, Not-Taking Trulance 3 MG Tablet 1 tab(s) orally once a day , Not-Taking Phentermine HCl 37.5 MG Tablet 1 tablet before breakfast Orally Once a day , Not-Taking SUMAtriptan Succinate 50 MG Tablet 1 tab(s) orally as directed , Not-Taking HYDROcodone-Acetaminophen 7.5-325 MG Tablet 1 tab(s) orally two times a day as needed , Not-Taking Valium 5 MG Tablet 1 tab(s) orally every 8 hours , Not-Taking Trulance 3 MG Tablet 1 tab(s) orally once a day , Discontinued Benzonatate 200 MG Capsule 1 capsule as needed Orally Three times a day , Medication List reviewed and reconciled with the patient * Allergies: A bilify, Lyrica: swelling - Side Effects. Objective: * Vitals: W t: 215.6, Temp: 98.2, BP: 130/90, HR: 86, Nurse: SONA, Ht: 62, BMI:39.43. * Examination: G eneral Examination: General Appearance: S eems more anxious. Tearful at times during the interview.. Assessment: * Assessment: 1. D epression with anxiety - F41.8 (Primary) 2 . U TI (lower urinary tract infection) - N39.0 3 . B LA 39.0-39.9,adult - Z68.39 4 . S upraventricular tachycardia, unspecified - I47.10 5 . T obacco use disorder - F17.200 6 . S guo bifida, unspecified hydrocephalus presence, unspecified spinal region - Q05.9 Plan: * Treatment: 2. U TI (lower urinary tract infection) L AB: Urinalysis - Inhouse (Collection Date & Time - 08/02/2024) Value Reference Range C olor/Clarity howard * L euk Neg * N itrite Pos * U robili 3.2 * P rotein Trace * p H 5.5 * B lood Trace-Intact * S p. Gr. 1.025 * K etone Trace * B axel Neg * G josh Neg * Alyce Darnell 08/02/2024 05:43: 34 PM EDT > Thu Rothman 08/07/2024 09:59:38 PM EDT > See phone encounter ?LAB: P-Culture, Urine (Collection Date & Time - 08/03/2024 08:22 AM)?E. coli* Value Reference Range C ulture, Urine See Below - * S pecimen Source Urine - Void - * S ensitivity Panel See Below - * E scherichia coli 50,000-100,000 CFU/ml Escherichia coli - * Thu Rothman 08/07/2024 09:59:38 PM EDT > See phone encounter Notes: Will await culture results?? * Procedure Codes: G 2211 Complex e/[place], [address] Urinalysis, no micro, G8431 CLIN DEPRESSION SCREEN DOC positive, G9902 Pt scrn tbco and id as user * Follow Up: 2 Weeks,3 Weeks * Images: Billing Information: * Visit Code: 59232 Office Visit, Est Pt., Level 3. * Procedure Codes: G2211 Complex e/[place]. [address] Urinalysis, no micro. G8431 CLIN DEPRESSION SCREEN DOC positive. G9902 Pt scrn tbco and id as user. * Electronic signature of Thu Rothman MD on 01/25/2025 at 08:01 PM EST Sign off status: Pending * Provider: Thu Rothman M.D. Date: 0 08/02/2024 Generated for Printi ng/Faxing/eTransmitting on: 1 03/28/2024 08:01 PM EST History and Physical Notes * Examination Category Sub-Category Detail Notes Category Not es General Examination General Appearance: Seems mo re anxious. Tearful at times during the interview.
--- OUTSIDE RECORDS SUMMARY | 2024-08-16 06:00 | XMS_ITS ---
[facility] Address [address] [place] [phone] Care Team Providers Care Ecommerce Analyst Name Role Phone Thu Rothman Primary Care Provider Allergies Allergen (clinical drug ingredient) Drug/Non Drug Allergy documented on EMR Reaction Allergy Type Onset Date Status aripiprazole Abilify Unknown Drug Allergy Acti ve pregabalin Lyrica swelling Drug Allergy Active REASON FOR VISIT 2 weeks Medications Medication SIG (Take, Route, Frequency, Duration) Notes Start Date End Date Status Meloxicam 7.5 MG TAKE 1 TABLET BY MOUTH ONCE DAILY WITH FOOD; Duration: 30 days Active Combivent Respimat 20-100 MCG/ACT 1 puff(s) inhaled 4 times a day 08/07/2021 Active Cure Catheters 1 Use as directed 10 Filipino/6 in. 10/08/2022 Active hydrOXYzine HCl 25 MG 1 tab Orally q6h prn anxiety Active MiraLax - DIRECTED ORALLY ONCE A DAY; Duration: 7 DAY(S) 06/21/2021 Active lamoTRIgine 100 MG TAKE 1 TABLET BY MOUTH TWICE DAILY Active clonazePAM 0.5 MG 1 tab(s) orally 2 times a day prn Active Albuterol Sulfate HFA 108 (90 Base) MCG/ACT 1 puff as needed Inhalation every 4 hrs Active Gabapentin 800 MG 1 cap(s) orally 3 times a day Active Venlafaxine HCl ER 150 MG 1 capsule with food Orally Once a day; Duration: 30 days 08/16/2024 Active Trulance 3 MG 1 tab(s) orally once a day 06/21/2021 Not-Taking HYDROcodone-Acetaminop hen 7.5-325 MG 1 tab(s) orally two times a day as needed 03/17/2022 Not-Taking Valium 5 MG 1 tab(s) orally every 8 hours Not-Taking SUMAtriptan Succinate 50 MG 1 tab(s) orally as directed Not-Taking Nitrofurantoin Monohyd Macro 100 MG TAKE 1 CAPSULE BY MOUTH ONCE A DAY; Duration: 30 Prophylaxis Active Trulance 3 MG 1 tab(s) orally once a day 08/07/2021 Not-Taking Phentermine HCl 37.5 MG 1 tablet before breakfast Orally Once a day 08/27/2023 Not-Taking Cefuroxime Axetil 500 MG 1 tablet Orally every 12 hrs 08/07/2024 Not-Taking traZODone HCl 100 MG 1 tablet at bedtime Orally Once a day; Duration: 30 days Active Furosemide 20 MG TAKE 1 TABLET BY MOUTH ONCE DAILY NEEDED; Duration: 30 Active Albuterol Sulfate HFA 108 (90 Base) MCG/ACT 1-2 puffs as needed Inhalation every 4 hrs, prn Active Ondansetron 4 MG 1 tab(s) orally 3 times a day prn; Duration: 30 day(s) Active Lisinopril 10 MG 1 tablet Orally Once a day; Duration: 30 days Active Metoprolol Tartrate 50 MG TAKE 1 TABLET BY MOUTH TWICE DAILY; Duration: 30 Active Cyclobenzaprine HCl 10 MG 1 tab(s) orally three times a day as needed Active Vital Signs Blood pressure systolic 130 mm Hg 08/17/19 25 Blood pressure diastolic 70 mm Hg 025 Heart Rate 78 /min 08/16/2024 Height 62 in 08/16/2024 Weight 211.4 lbs 08/16/2024 BMI 38.66 kg/m2 08/16/2024 Encounters Encounter Location Date Provider Diagnosis [facility] [address] [facility] [address] [place], [place] [phone] 08/16/2024 Thu Rothman Depression with anxiety F41.8 Assessments Encounter Date Diagnosis (ICD Code) Assessment Notes Treatment Notes Treatment Clinical Notes Section Notes 08/16/2024 Depression with anxiety (ICD-10 - F41.8) Continue counseling sessions as scheduled Plan Of Treatment Medication Medication Name Sig Start Date Stop Date Notes Venlafaxine HCl ER 75 MG 1 cap daily x 1 week then 2 caps daily Orally Once a day hydrOXYzine HCl 25 MG 1 tab Orally q6h prn anxiety lamoTRIgine 100 MG TAKE 1 TABLET BY TWICE DAILY clonazePAM 0.5 MG 1 tab(s) orally 2 ti mes a day prn Venlafaxine HCl ER 150 MG 1 capsule with food Orally Once a day; Duration: 30 days 08/16/2024 Treatment Notes Assessment Notes Depression with anxiety 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 :1985 A ge:39 Y S ex:Female Date:08/16/2024 Address:[address] [place] [address] [id number] Subjective: * Chief Complaints: * 1 . 2 weeks. * HPI: P sychology: 39 year old female presents with c/o Anxiety P t is here today for a 2 week f/u on anxiety and depression. Pt sts she is continuing on her Effexor medication and sts she thinks she is doing better on the medication now. P t sts she is now on the 2nd week of the medication and sts her dosage increased to 150 mg. She has started back with counseling sessions which also have helped and plans to continue this. * ROS: D ERMATOLOGY: no R deana. [...] Cervical spinal stenosis at C5-6 by MRI 2016, + H. pylori 2016 - treated by [...] HR went up, cough, sore throat, sob- [facility]2010[facility], [facility] 02/05- , 04/27-, [facility] 05/01-, Seizures- 05/12/2012, Seizures- [facility] 05/23/2012, work injury, concussion, seizure- [facility] 03/09/2013, High Heart Rate- [facility] 05/2013, Nerve Pain- [facility] 12/2013, Neck, Shoulder, Arm Pain- [facility] 08/2014, Passed Out, Dehydration- [facility] 12/2014, Pneumonia- [facility] 02/08/2015, SOA, Chest pain- [facility] 02/15/2015, Stress Induced Episodes- [facility] 02/2015, 05/2015, [facility]-migraines, stress induced episodes, seizures 08/31, [facility]-attempted suicide, transferred to [facility] 06/03/17, [facility]-chest pain 12/2018, [facility]-spinal cord stimulator malfunction 12/2018, [facility]-overnight due to neck ablasion 04/2019, [facility]di[place], nausea, headache 01/03/2020, [facility]-right sided rib pain, pseudoseizures 03/24/20. [...] as directed , Notes to Pharmacist: 10 Filipino/6 in., Taking Meloxicam 7.5 MG Tablet TAKE [...] tablet Orally Once a day , Taking Metoprolol Tartrate 50 MG Tablet TAKE 1 TABLET BY MOUTH TWICE DAILY , Taking traZODone HCl 100 MG Tablet 1 tablet at bedtime Orally Once a day , Taking Nitrofurantoin Monohyd Macro 100 MG Capsule TAKE 1 CAPSULE BY MOUTH ONCE A DAY , Notes to Pharmacist: Prophylaxis, Taking lamoTRIgine 100 MG Tablet TAKE 1 TABLET BY MOUTH TWICE DAILY , Taking clonazePAM 0.5 MG Tablet 1 tab(s) orally 2 times a day prn , Taking Venlafaxine HCl ER 75 MG Capsule Extended Release 24 Hour 1 cap daily x 1 week then 2 caps daily Orally Once a day , Taking hydrOXYzine HCl 25 MG Tablet 1 tab Orally q6h prn anxiety , Not-Taking Cefuroxime Axetil 500 MG Tablet 1 tablet Orally every 12 hrs , Not-Taking Trulance 3 MG Tablet 1 [...] Side Effects. Objective: * Vitals: W t: 211.4, Temp: 97.6, BP: 130/70, HR: 78, Nurse: willa, Ht: 62, BMI:38.66. * Examination: G eneral Examination: General Appearance: A ffect improved. Much less anxious. Some decreased eye contact. C hest: n ormal shape and expansion. H eart: R SR. Assessment: * Assessment: 1. D epression with anxiety - F41.8 (Primary) Plan: * Treatment: * Procedure Codes: G 2211 Complex e/m visit add on, G8783 BP SCR PRFRM RCMDD DEFIND SCR INTVL, G8752 MOST RECENT SYSTOLIC BP < 140MM HG, G8754 MOST RECENT DIASTOLIC BP < 90MM HG, G8431 CLIN DEPRESSION SCREEN DOC positive * Follow Up: 3 Months, Sooner as needed * Images: Billing Information: * Visit Code: 92572 Office Visit, Est Pt., Level 3. * Procedure Codes: G2211 Complex e/m visit add on. G8783 BP SCR PRFRM RCMDD DEFIND SCR INTVL. G8752 MOST RECENT SYSTOLIC BP < 140MM HG. G8754 MOST RECENT DIASTOLIC BP < 90MM HG. G8431 CLIN DEPRESSION SCREEN DOC positive. * Electronic signature of Thu Rothman MD on 01/25/2025 at 08:00 PM EST Sign off status: Pending * Provider: Thu Rothman M.D. Date: 08/16/2024 Generated for Bassam lo/Faxing/eTransmitting on: 1 03/28/2024 08:00 PM EST History and Physical Notes * HPI (History of Present Illness) Category Sub-Category Detail Notes Category Not es Psychology Anxiety Pt is here today for a 2 week f/u on anxiety and depression. Pt sts she is continuing on her Effexor medication and sts she thinks she is doing better on the medication now. Pt sts she is now on the 2nd week of the medication and sts her dosage increased to 150 mg She has started back with counseling sessions which also have helped and plans to continue this. Examination Category Sub-Category Detail Notes Category Not es General Examination Heart: RSR General Appearance: Affect improved. Muc h less anxious. Some decreased eye contact Chest: normal shape and exp ansion
--- OUTSIDE RECORDS SUMMARY | 2024-10-10 09:50 | XMS_ITS ---
[facility] Address [address] [place] [id number] Care Team Providers Care Solar Installation Foreman Name Role Phone Thu Rothman Primary Care Provider [phone] Coty Rowell Unavailable [phone] Allergies Allergen (clinical drug ingredient) Drug/Non Drug Allergy documented on EMR Reaction Allergy Type Onset Date Status aripiprazole Abilify Unknown Drug Allergy Acti ve pregabalin Lyrica swelling Drug Allergy Active Results Component Value Reference Range Notes Urinalysis - Inhouse Reviewed date:10/14/2024 03:56:21 PM Interpretation: Performing Lab: Notes/Report: Color/Clarity yellow/clear Leuk neg Nitrite pos Urobili 3.2 Protein neg pH 6.0 Blood trace Sp. Gr. 1.025 Ketone trace Bili neg Gluc neg CBC Venipuncture (in house) Reviewed date:10/14/2024 03:54:24 PM Interpretation:WBC 13.9 Performing Lab: Notes/Report: WBC 13.9 wbc 13.9 3.5 - 10 lymph 10.7 15 - 50 mid 3.4 2 - 15 gran 85.9 35 - 80 rbc 4.79 3.5 - 5.5 hgb 14.8 11.5 - 16.5 hct 42.7 35 - 55 mcv 89.1 75 - 100 mch 31.0 25 - 35 mchc 34.8 31 - 38 platlet 326 100 - 400 P-Comprehensive Metabolic Pa bradly (CMP) Reviewed date:10/14/2024 03:56:02 PM Interpretation: Performing Lab: Notes/Report: Test performed by [facility], [address], [place] [address] Ermias Severino MD, Air Defense Artillery Officer CLIA: [id number] Sodium 137 135-145 mmol/L Potassium 4.8 3.5-5.3 mmol/L Chloride 102 97-108 mmol/L CO2 22 20-32 mmol/L Glucose 121 65-99 mg/dL BUN 23 6-20 mg/dL Creatinine 0.77 0.50-1.00 mg/dL Calcium 9.8 8.6-10.4 mg/dL eGFR by Creatinine 102 >59 mL/min/1.73m2 Protein 7.2 6.0-8.3 g/dL Albumin 4.5 3.5-5.3 g/dL Alkaline Phosphatase 63 35-121 IU/L ALT (SGPT) 15 <5-47 IU/L AST (SGOT) 11 <5-40 IU/L Bilirubin, Total <0.2 <0.2-1.2 mg/dL A/G Ratio 1.7 1.1-2.5 P-Culture, Urine Reviewed date:10/14/2024 03:55:34 PM Interpretation:E coli Performing Lab: Notes/Report: Test performed by [facility], [address] , [address], [place] [address] Ermias Severino MD, Air Defense Artillery Officer CLIA: [id number] Specimen Source Urine - Void Culture, Urine See Below See Microbiol ogy Report Escherichia coli >100,000 CFU/ml Escherichia coli Sensitivity Panel See Below Organism E. coli Antibiotic INTERP Amikacin S Ampicillin S Aztreonam S Cefepime S Cefoxitin S Ceftazidime S Ceftriaxone S Cefuroxime S Ciprofloxacin S Ertapenem S Gentamicin S Imipenem S Levofloxacin S Meropenem S Nitrofurantoin R Piperacillin/Tazo S Tetracycline S Tobramycin S Trimeth/Sulfa S S=SUSCEPTIBLE I=INTERMEDIATE R=RESISTANT REASON FOR VISIT Possible UTI, Not Feeling Well Medications Medication SIG (Take, Route, Frequency, Duration) Notes Start Date End Date Status lamoTRIgine 100 MG 1 tablet Orally twice a day; Duration: 30 days Active Lisinopril 10 MG 1 tablet Orally Once a day; Duration: 30 days Active Metoprolol Tartrate 50 MG 1 tablet with food Orally Twice a day; Duration: 30 days Active clonazePAM 0.5 MG 1 tab(s) orally 2 times a day prn; Duration: 30 days 08/29/2024 Active Venlafaxine HCl ER 150 MG 1 capsule with food Orally Once a day; Duration: 30 days 08/16/2024 Active hydrOXYzine HCl 25 MG 1 tab Orally q6h prn anxiety Active Nitrofurantoin Monohyd Macro 100 MG TAKE 1 CAPSULE BY MOUTH ONCE A DAY; Duration: 30 Prophylaxis Active traZODone HCl 100 MG 1 tablet at bedtime Orally Once a day; Duration: 30 days Active Combivent Respimat 20-100 MCG/ACT 1 puff(s) inhaled 4 times a day 08/07/2021 Active Albuterol Sulfate HFA 108 (90 Base) MCG/ACT 1-2 puffs as needed Inhalation every 4 hrs, prn Active Furosemide 20 MG TAKE 1 TABLET BY MOUTH ONCE DAILY NEEDED; Duration: 30 Active Ondansetron 4 MG 1 tab(s) orally 3 times a day prn; Duration: 30 day(s) Active Cyclobenzaprine HCl 10 MG 1 tab(s) orally three times a day as needed Active Meloxicam 7.5 MG TAKE 1 TABLET BY MOUTH ONCE DAILY WITH FOOD; Duration: 30 days Active Cure Catheters 1 Use as directed [place]/6 in. 10/08/2022 Active Gabapentin 800 MG 1 cap(s) orally 3 times a day Active MiraLax - DIRECTED ORALLY ONCE A DAY; Duration: 7 DAY(S) 06/21/2021 Active Albuterol Sulfate HFA 108 (90 Base) MCG/ACT 1 puff as needed Inhalation every 4 hrs Active Ciprofloxacin HCl 500 MG 1 tablet Orally every 12 hrs; Duration: 7 days 10/10/2024 Active Vital Signs Blood pressure systolic 120 mm Hg 10/11/19 25 Blood pressure diastolic 80 mm Hg 025 Heart Rate 63 /min 10/10/2024 Height 62 in 10/10/2024 Weight 211.8 lbs 10/10/2024 BMI 38.73 kg/m2 10/10/2024 Encounters Encounter Location Date Provider Diagnosis [facility] [address] [facility] [address] [id number] 10/10/2024 Coty Rowell Acute urinary tract infection N39.0 Assessments Encounter Date Diagnosis (ICD Code) Assessment Notes Treatment Notes Treatment Clinical Notes Section Notes 10/10/2024 Acute urinary tract infection (ICD-10 - N39.0) good water intake; continue with self caths using sterile technique Plan Of Treatment Medication Medication Name Sig Start Date Stop Date Notes Ciprofloxacin HCl 500 MG 1 tablet Orally every 12 hrs; Duration: 7 days 10/10/2024 Treatment Notes Assessment Notes Acute urinary tract infection good water intake; continue with self caths using sterile technique Next Appt Details Follow Up: after completion of ABX with repeat UA, Reason: Progress Notes * ERMA NATHENADOB:1985 (39 yo F)Acc No.[id number]:10/10/2024 Progress Notes Patient: JOSE MARIA COLES Provider: CEE Garcia :1985 A ge:39 Y S ex:Female Date:10/10/2024 Address:[address] [place] [address] [id number] Pcp:Thu Rothman Subjective: * Chief Complaints: * 1 . Possible UTI, Not Feeling Well. * HPI: U rology: Pt states she can not feel what's going on. Pt states she is not sure of buring, frequent or pressure. Denies : Urine Odor. * ROS: D ERMATOLOGY: no R deana. n o H juan francisco. G ASTROENTEROLOGY: no N ausea. n o V omiting. U ROLOGY: no B lood in urine. n o F requent urination. ? * Medical History: S VT, Bipolar disorder, [...] HR went up, cough, sore throat, sob- [facility] 02/21/2010, [facility] 03/16/2010, [facility] 02/05- , 04/27-, [facility] 05/01-, Seizures- 05/12/2012, Seizures- [facility] 05/23/2012, work injury, concussion, seizure- [facility] 03/09/2013, High Heart Rate- [facility] 05/2013, Nerve Pain- [facility] 12/2013, Neck, Shoulder, Arm Pain- [facility] 08/2014, Passed Out, Dehydration- [facility] 12/2014, Pneumonia- [facility] 02/08/2015, SOA, Chest pain- [facility] 02/15/2015, Stress Induced Episodes- [facility] 02/2015, 05/2015, [facility] ER-migraines, stress induced episodes, seizures 08/31, [facility] ER-attempted suicide, transferred to [facility] 06/03/17, [facility] ER-chest pain 12/2018, [facility] ER-spinal cord stimulator malfunction 12/2018, [facility] ER-overnight due to neck ablasion 04/2019, [facility] UTC-diarrhea, nausea, headache 01/03/2020, [facility] ER-right sided rib pain, pseudoseizures 03/24/20. [...] as directed , Notes to Pharmacist: 10 [place]undian/6 in., Taking Meloxicam 7.5 MG Tablet TAKE [...] Inhalation every 4 hrs, prn , Taking traZODone HCl 100 MG Tablet 1 tablet at bedtime Orally Once a day , Taking Nitrofurantoin Monohyd Macro 100 MG Capsule TAKE 1 CAPSULE BY MOUTH ONCE A DAY , Notes to Pharmacist: Prophylaxis, Taking hydrOXYzine HCl 25 MG Tablet 1 tab Orally q6h prn anxiety , Taking Venlafaxine HCl ER 150 MG Capsule Extended Release 24 Hour 1 capsule with food Orally Once a day , Taking clonazePAM 0.5 MG Tablet 1 tab(s) orally 2 times a day prn , Taking Lisinopril 10 MG Tablet 1 tablet Orally Once a day , Taking lamoTRIgine 100 MG Tablet 1 tablet Orally twice a day , Taking Metoprolol Tartrate 50 MG Tablet 1 tablet with food Orally Twice a day , Discontinued Cefuroxime Axetil 500 MG Tablet 1 tablet Orally every 12 hrs , Discontinued Trulance 3 MG Tablet 1 tab(s) orally once a day , Discontinued Phentermine HCl 37.5 MG Tablet 1 tablet before breakfast Orally Once a day , Discontinued SUMAtriptan Succinate 50 MG Tablet 1 tab(s) orally as directed , Discontinued HYDROcodone-Acetaminophen 7.5-325 MG Tablet 1 tab(s) orally two times a day as needed , Discontinued Valium 5 MG Tablet 1 tab(s) orally every 8 hours , Discontinued Trulance 3 MG Tablet 1 tab(s) orally once a day , Medication List reviewed and reconciled with the patient * Allergies: A bilify, Lyrica: swelling - Side Effects. Objective: * Vitals: W t: 211.8, Temp: 97.9, BP: 120/80, HR: 63, Nurse: carolee, Ht: 62, BMI:38.73. * Examination: G eneral Examination: General Appearance: N AD, appears healthy, alert, pleasant, Color good. H EENT: s clera and conjunctiva clear, PERRLA, TM's normal, translucent. O ral cavity: m ucosa moist and WNL, no erythema. N jen: s upple, no lymphadenopathy. Heart: R RR. L ungs: C TAB A&P. A bdomen: b owel sounds present, soft.?Neurologic Exam: a lert and oriented. Assessment: * Assessment: 1. A cute urinary tract infection - N39.0 (Primary) Plan: * Treatment: Value Reference Range C ulture, Urine See Below - * S pecimen Source Urine - Void - * S ensitivity Panel See Below - * E scherichia coli >100,000 CFU/ml Escherichia coli - * Coty Rowell 10/14/2024 07:59:02 AM EDT >on Coty Pickard 10/14/2024 03:54:33 PM EDT >I spoke with pt and results reported to pt; toRTC for UA about 1 week after finishing ABX ?LAB: CBC Venipuncture (in house) (Collection Date & Time - 10/10/2024)?WBC 13.9* Value Reference Range w bc 13.9 3.5 - 10 * l ymph 10.7 15 - 50 * m id 3.4 2 - 15 * g ran 85.9 35 - 80 * r bc 4.79 3.5 - 5.5 * h gb 14.8 11.5 - 16.5 * h ct 42.7 35 - 55 * m cv 89.1 75 - 100 * m ch 31.0 25 - 35 * m chc 34.8 31 - 38 * p latlet 326 100 - 400 * Natalie Boudreaux 10/10/2024 0 4:52:32 PM EDT >Coty Rowell 10/14/2024 03:51:27 PM EDT >I spoke with pt and reported results ?LAB: P-Comprehensive Metabolic Panel (CMP) (Collection Date & Time - 10/11/2024 08:29 AM)* Value Reference Range A /G Ratio 1.7 1.1-2.5 - * A lbumin 4.5 3.5-5.3 - g/dL * A lkaline Phosphatase 63 35-121 - IU/L * A LT (SGPT) 15 <5-47 - IU/L * A ST (SGOT) 11 <5-40 - IU/L * B ilirubin, Total <0.2 <0.2-1.2 - mg/dL * B UN 23 H 6-20 - mg/dL * C alcium 9.8 8.6-10.4 - mg/dL * C hloride 102 97-108 - mmol/L * C O2 22 20-32 - mmol/L * C reatinine 0.77 0.50-1.00 - mg/dL * G lucose 121 H 65-99 - mg/dL * P otassium 4.8 3.5-5.3 - mmol/L * S odium 137 135-145 - mmol/L * P rotein 7.2 6.0-8.3 - g/dL * e GFR by Creatinine 102 >59 - mL/min/1.73m2 * Coty Rowell 10/14/2024 03:53:19 PM EDT >I spoke with pt and reported results Notes: good water intake; continue with self caths using sterile technique?? * Labs: * L ab: Urinalysis - Inhouse (Collection Date & Time - 10/10/2024) Value Reference Range C olor/Clarity yellow/clear * L euk neg * N itrite pos * U robili 3.2 * P rotein neg * p H 6.0 * B lood trace * S p. Gr. 1.025 * K etone trace * B axel neg * G josh neg * Natalie Boudreaux 10/10/2024 0 3:22:03 PM EDT > Provider reviewed results while patient in office.Coty Rowell 10/14/2024 03:56:17 PM EDT > * Procedure Codes: G 2211 Complex e/[place], [address] Urinalysis, no micro, 41825 CBC WITH AUTO DIFF, 40202 VENIPUNCT, ROUTINE* * Follow Up: a fter completion of ABX with repeat UA * Images: Billing Information: * Visit Code: 44899 Office Visit, Est Pt., Level 3. * Procedure Codes: G2211 Complex e/[place]. [address] Urinalysis, no micro. 48119 CBC WITH AUTO DIFF. 78341 VENIPUNCT, ROUTINE*. * Electronic signature of Minerva Rowell APRN on 01/25/2025 at 08:01 PM EST Sign off status: Pending * Provider: CEE Garcia Date: 0 10/10/2024 Generated for Bassam lo/Ramon/eTransmitting on: 1 03/28/2024 08:01 PM EST History and Physical Notes * HPI (History of Present Illness) Category Sub-Category Detail Notes Category Not es Urology Urine Odor Examination Category Sub-Category Detail Notes Category Not es General Examination HEENT: sclera and c onjunctiva clear, PERRLA, TM's normal, translucent Heart: RRR Lungs: CTAB A&P Abdomen: bowel sounds present , soft General Appearance: NAD, appears healthy , alert, pleasant, Color good Neurologic Exam: alert and oriented Neck: supple, no lymphaden opathy Oral cavity: mucosa moist and WNL , no erythema
--- OUTSIDE RECORDS SUMMARY | 2024-10-19 08:30 | XMS_ITS ---
[facility] Address [address] [place] [id number] Care Team Providers Care Bankruptcy Manager Name Role Phone Thu Rothman Primary Care Provider Macrina Farrell Unavailable [phone] Allergies Allergen (clinical drug ingredient) Drug/Non Drug Allergy documented on EMR Reaction Allergy Type Onset Date Status aripiprazole Abilify Unknown Drug Allergy Acti ve pregabalin Lyrica swelling Drug Allergy Active Results Component Value Reference Range Notes Urinalysis - Inhouse Reviewed date:10/20/2024 12:47:37 PM Interpretation: Performing Lab: Notes/Report: Color/Clarity Dark Yellow/Clear Leuk Neg Nitrite Neg Urobili 3.2 Protein 1+ pH 5.5 Blood Neg Sp. Gr. >=1.030 Ketone Neg Bili Neg Gluc Neg CBC Fingerstick (in house) Reviewed date:10/20/2024 11:46:09 AM Interpretation: Performing Lab: Notes/Report: wbc 8.6 3.5 - 10 lym 31.8 15 - 50 mid 6.7 2 - 15 gran 61.5 35 - 80 rbc 4.45 3.5 - 5.5 hgb 13.7 11.5 - 16.5 hct 39.9 35 - 55 mcv 89.6 75 - 100 mch 30.8 25 - 35 mchc 34.4 31 - 38 plat 222 100 - 400 P-Culture, Urine Reviewed date:10/21/2024 03:43:57 PM Interpretation:no growth Performing Lab: Notes/Report: Test performed by [facility] [address] [place] [address] , [address], [place] [address] Ermias Severino MD, Pediatrics Hospitalist CLIA: [id number] Specimen Source Urine - Void Culture, Urine See Below Final Report : No growth REASON FOR VISIT 9 day f/u Medications Medication SIG (Take, Route, Frequency, Duration) Notes Start Date End Date Status lamoTRIgine 100 MG 1 tablet Orally twice a day; Duration: 30 days Active traZODone HCl 100 MG 1 tablet at bedtime Orally Once a day; Duration: 30 days Active Ondansetron 4 MG 1 tab(s) orally 3 times a day prn; Duration: 30 days Active Metoprolol Tartrate 50 MG 1 tablet with food Orally Twice a day; Duration: 30 days Active Venlafaxine HCl ER 150 MG 1 capsule with food Orally Once a day; Duration: 30 days 08/16/2024 Active hydrOXYzine HCl 25 MG 1 tab Orally q6h prn anxiety Active Nitrofurantoin Monohyd Macro 100 MG TAKE 1 CAPSULE BY MOUTH ONCE A DAY; Duration: 30 Prophylaxis Active Lisinopril 10 MG 1 tablet Orally Once a day; Duration: 30 days Active clonazePAM 0.5 MG 1 tab(s) orally 2 times a day prn; Duration: 30 days 08/29/2024 Active Furosemide 20 MG TAKE 1 TABLET BY MOUTH ONCE DAILY NEEDED; Duration: 30 Active Cyclobenzaprine HCl 10 MG 1 tab(s) orally three times a day as needed Active Albuterol Sulfate HFA 108 (90 Base) MCG/ACT 1-2 puffs as needed Inhalation every 4 hrs, prn Active Combivent Respimat 20-100 MCG/ACT 1 puff(s) inhaled 4 times a day 08/07/2021 Active Meloxicam 7.5 MG TAKE 1 TABLET BY MOUTH ONCE DAILY WITH FOOD; Duration: 30 days Active Gabapentin 800 MG 1 cap(s) orally 3 times a day Active Albuterol Sulfate HFA 108 (90 Base) MCG/ACT 1 puff as needed Inhalation every 4 hrs Active Cure Catheters 1 Use as directed 10 Italian/6 in. 10/08/2022 Active MiraLax - DIRECTED ORALLY ONCE A DAY; Duration: 7 DAY(S) 06/21/2021 Active Vital Signs Blood pressure systolic 118 mm Hg 10/20/19 25 Blood pressure diastolic 68 mm Hg 025 Heart Rate 79 /min 10/19/2024 Height 62 in 10/19/2024 Weight 209 lbs 10/19/2024 BMI 38.22 kg/m2 10/19/2024 Encounters Encounter Location Date Provider Diagnosis [facility] [address] [place] [place] [id number] 10/19/2024 Macrina Rogersmumtaz Acute UTI N39.0 and Nausea R11.0 Assessments Encounter Date Diagnosis (ICD Code) Assessment Notes Treatment Notes Treatment Clinical Notes Section Notes 10/19/2024 Acute UTI (ICD-10 - N39.0) 10/19/2024 Nausea (ICD-10 - R11.0) Plan Of Treatment Medication Medication Name Sig Start Date Stop Date Notes Ondansetron 4 MG 1 tab(s) orally 3 ti mes a day prn; Duration: 30 days Next Appt Details Follow Up: via phone to repo rt test results, Reason: Progress Notes * RITCHIENATHENADOB:1985 (39 yo F)Acc No.[id number]:10/19/2024 Patient: Ralph DELGADILLO JOSE MARIA Provider: GLORIA Diez :1985 A ge:39 Y S ex:Female Date:10/19/2024 Address:[address] [place] [address] [place], [id number] Pcp:Thu Rothman Subjective: * Chief Complaints: * 1 . 9 day f/u. * HPI: U rology: 39 year old female presents with c/o UTI P t was here 10/10 for UTI. Pt states she does know feel much different. Pt states still has stomach pain. Denies : Urine Odor. * ROS: D [...] HR went up, cough, sore throat, sob- [facility] 02/21/2010, [facility] 03/16/2010, [facility] 02/05- , 04/27-, [facility] 05/01-, Seizures- 05/12/2012, Seizures- [facility] 05/23/2012, work injury, concussion, seizure- [facility] 03/09/2013, High Heart Rate- [facility] 05/2013, Nerve Pain- [facility] 12/2013, Neck, Shoulder, Arm Pain- [facility] 08/2014, Passed Out, Dehydration- [facility] 12/2014, Pneumonia- [facility] 02/08/2015, SOA, Chest pain- [facility] 02/15/2015, Stress Induced Episodes- [facility] 02/2015, 05/2015, [facility] ER-migraines, stress induced episodes, seizures 08/31, [facility] ER-attempted suicide, transferred to [facility] 06/03/17, [facility] ER-chest pain 12/2018, [facility] ER-spinal cord stimulator malfunction 12/2018, [facility] ER-overnight due to neck ablasion 04/2019, [facility]di[facility], nausea, headache 01/03/2020, [facility] ER-right sided rib pain, pseudoseizures 03/24/20. [...] as directed , Notes to Pharmacist: 10 Italian/6 in., Taking Meloxicam 7.5 MG Tablet TAKE [...] Inhalation every 4 hrs, prn , Taking Nitrofurantoin Monohyd Macro 100 MG [...] with food Orally Twice a day , Taking traZODone HCl 100 MG Tablet 1 tablet at bedtime Orally Once a day , Taking lamoTRIgine 100 MG Tablet 1 tablet Orally twice a day , Discontinued Ciprofloxacin HCl 500 MG Tablet 1 tablet Orally every 12 hrs , Medication List reviewed and reconciled with the patient * Allergies: A bilify, Lyrica: swelling - Side Effects. Objective: * Vitals: W t: 209, Temp: 97.7, BP: 118/68, HR: 79, Nurse: pe, Ht: 62, BMI:38.22. * Examination: G eneral Examination: General Appearance: N AD. C hest: n ormal shape and expansion. H eart: R SR. L ungs: c lear to auscultation. A bdomen: b owel sounds present, soft and nontender. Assessment: * Assessment: 1. A cute UTI - N39.0 (Primary) 2 . N ausea - R11.0 Plan: * Treatment: Value Reference Range C ulture, Urine See Below - * S pecimen Source Urine - Void - * Macrina Farrell 10/21/2024 09 :16:54 AM EDT >Please let patient know her urine cx showed no growthHougTrinity 10/21/2024 03:43:37 PM EDT > pt informed ?LAB: Urinalysis - Inhouse (Collection Date & Time - 10/19/2024)* Value Reference Range C olor/Clarity Dark Yellow/Clear * L euk Neg * N itrite Neg * U robili 3.2 * P rotein 1+ * p H 5.5 * B lood Neg * S p. Gr. >=1.030 * K etone Neg * B axel Neg * G josh Neg * Alyce Darnell 10/19/2024 02:23:5 4 PM EDT > Provider reviewed results while patient in office. ?LAB: CBC Fingerstick (in house) (Collection Date & Time - 10/19/2024)* Value Reference Range w bc 8.6 3.5 - 10 * l ym 31.8 15 - 50 * m id 6.7 2 - 15 * g ran 61.5 35 - 80 * r bc 4.45 3.5 - 5.5 * h gb 13.7 11.5 - 16.5 * h ct 39.9 35 - 55 * m cv 89.6 75 - 100 * m ch 30.8 25 - 35 * m chc 34.4 31 - 38 * p lat 222 100 - 400 * Alyce Darnell 10/19/2024 02:25:1 9 PM EDT > Provider reviewed results while patient in office. 2.?Nausea? Refill Ondansetron Tablet Disintegrating, 4 MG, 1 tab(s), orally, 3 times a day prn, 30 days, 20, Refills 1.?? * Procedure Codes: G 2211 Complex e/[place], [address] Urinalysis, no micro, [address] CAPILLARY BLOOD DRAW, 20042 CBC WITH AUTO DIFF * Follow Up: v ia phone to report test results * Images: Billing Information: * Visit Code: 63267 Office Visit, Est Pt., Level 3. * Procedure Codes: G2211 Complex e/[place]. [address] Urinalysis, no micro. 21248 CAPILLARY BLOOD DRAW. 72169 CBC WITH AUTO DIFF. * Electronic signature of GLORIA Veras on 01/25/2025 at 08:02 PM EST Sign off status: Pending * Provider: GLORIA Diez Date: 0 10/19/2024 Generated for Bassam lo/Ramon/eTransmitting on: 1 03/28/2024 08:02 PM EST History and Physical Notes * HPI (History of Present Illness) Category Sub-Category Detail Notes Category Not es Urology Urine Odor UTI Pt was here 10/10 for UTI. Pt states she does know feel much different. Pt states still has stomach pain Examination Category Sub-Category Detail Notes Category Not es General Examination Heart: RSR Lungs: clear to auscultatio n Abdomen: bowel sounds present , soft and nontender General Appearance: NAD Chest: normal shape and exp ansion
--- OUTSIDE RECORDS SUMMARY | 2024-11-24 06:45 | XMS_ITS ---
[facility] Address [address] [id number] Care Team Providers Care Print Color Matcher Name Role Phone Thu Rothman Primary Care Provider [phone] Juaquin Macario Unavailable [phone] Allergies Allergen (clinical drug ingredient) Drug/Non Drug Allergy documented on EMR Reaction Allergy Type Onset Date Status aripiprazole Abilify Unknown Drug Allergy Acti ve pregabalin Lyrica swelling Drug Allergy Active REASON FOR VISIT check up Medications Medication SIG (Take, Route, Frequency, Duration) Notes Start Date End Date Status Combivent Respimat 20-100 MCG/ACT 1 puff(s) inhaled 4 times a day 08/07/2021 Active Nitrofurantoin Monohyd Macro 100 MG TAKE 1 CAPSULE BY MOUTH ONCE A DAY; Duration: 30 Prophylaxis Active Albuterol Sulfate HFA 108 (90 Base) [...] Cure Catheters 1 Use as directed 10 Hebrew/6 in. 10/08/2022 Active MiraLax - DIRECTED ORALLY [...] Twice a day; Duration: 30 days Active lamoTRIgine 100 MG 1 tablet Orally twice a day; Duration: 30 days Active Nurtec 75 MG 1 tablet on the tongue and allow to dissolve Orally 11/24/2024 Active Venlafaxine HCl ER 150 MG 1 capsule with food Orally Once a day; Duration: 30 days Active Lisinopril 10 MG 1 tablet Orally Once a day; Duration: 30 days Active clonazePAM 0.5 MG 1 tab(s) orally 2 times a day prn; Duration: 30 days 11/03/2024 Active Ondansetron 4 MG 1 tab(s) orally 3 times a day prn; Duration: 30 days Active hydrOXYzine HCl 25 MG 1 tab Orally q6h prn anxiety Active Problems Problem Type SNOMED Code ICD Code Onset Dates Problem Status W/U Status Risk Notes Problem Refractory migraine (662628913) Intractable migraine without status migrainosus, unspecified migraine type (G43.919) Active confirmed Vital Signs Blood pressure systolic 120 mm Hg 11/25/19 25 Blood pressure diastolic 70 mm Hg 025 Heart Rate 87 /min 11/24/2024 Height 62 in 11/24/2024 Weight 211.4 lbs 11/24/2024 BMI 38.66 kg/m2 11/24/2024 Encounters Encounter Location Date Provider Diagnosis [facility] [address] [place], [place] [id number] 11/24/2024 Macario Reza Intractable migraine without status migrainosus, unspecified migraine type G43.919 Assessments Encounter Date Diagnosis (ICD Code) Assessment Notes Treatment Notes Treatment Clinical Notes Section Notes 11/24/2024 Intractable migraine without status migrainosus, unspecified migraine type (ICD-10 - G43.919) Plan Of Treatment Medication Medication Name Sig Start Date Stop Date Notes Nurtec 75 MG 1 tablet on the tong ue and allow to dissolve Orally 11/24/2024 Next Appt Details Follow Up: as scheduled,and prn, Reason: Progress Notes * JYOTHI RITCHIE:1985 (39 yo F)Acc No.[id number]:11/24/2024 Progress Notes Patient: H ENDRICKS, JOSE MARIA Provider: Ene Reza M.D. :1985 A ge:39 Y S ex:Female Date:11/24/2024 Address:[facility] [place], [id number] Pcp:Thu Rothman Subjective: * Chief Complaints: * 1 . Check up. * HPI: C ardiology: 39 year old female presents with c/o Headaches P t presents today for a check up. Pt sts she had Botox injections for her migraines a week ago. Pt sts she still has migraines. She has not called the neurologist back to let them know about the headache. N jen: c/o pain P t sts she is having bad pain in her neck head and between her eyes. Pt sts laying down and sitting up she has pain as well. * ROS: D ERMATOLOGY: no R deana. [...] up, cough, sore throat, sob- [facility] 02/21/2010, [facility] 03/16/2010, [facility] 02/05- , [facility] 04/27-, [facility] 05/01-, Seizures- 05/12/2012, Seizures- [facility] 05/23/2012, work injury, concussion, seizure- [facility] 03/09/2013, High Heart Rate- [facility] 05/2013, Nerve Pain- [facility] 12/2013, Neck, Shoulder, Arm Pain- [facility] 08/2014, Passed Out, Dehydration- [facility] 12/2014, Pneumonia- [facility] 02/08/2015, SOA, Chest pain- [facility] 02/15/2015, Stress Induced Episodes- [facility] 02/2015, 05/2015, [facility]-migraines, stress induced episodes, seizures 08/31, [facility]-attempted suicide, transferred to [facility] 06/03/17, [facility]-chest pain 12/2018, [facility]-spinal cord stimulator malfunction 12/2018, [facility]-overnight due to neck ablasion 04/2019, [facility]-diarrhea, nausea, headache 01/03/2020, [facility]-right sided rib pain, pseudoseizures 03/24/20. * Family History: F ather: alive, Fused ankle, Hypertension, ASCVD s/p coronary stents. M other: alive, Hypertension, Diabetes, high cholestrol, breast cancer. P aternal Grand Father: . P aternal Grand Mother: . M aternal Grand Father: alive. M aternal Grand Mother: alive.?1 brother(s) . . * Social History: C URRENT TOBACCO USE: Yes S moking Status: Patient does smoke, packs [...] as directed , Notes to Pharmacist: 10 Hebrew/6 in., Taking Meloxicam 7.5 MG Tablet TAKE 1 TABLET BY MOUTH ONCE DAILY WITH FOOD , Taking Combivent Respimat 20-100 MCG/ACT Aerosol Solution 1 puff(s) inhaled 4 times a day , Taking Cyclobenzaprine HCl 10 MG Tablet 1 tab(s) orally three times a day as needed , Taking Furosemide 20 MG Tablet TAKE [...] tab Orally q6h prn anxiety , Taking Ondansetron 4 MG Tablet Disintegrating 1 tab(s) orally 3 times a day prn , Taking clonazePAM 0.5 MG Tablet 1 tab(s) orally 2 times a day prn , Taking Lisinopril 10 MG Tablet 1 tablet Orally Once a day , Taking traZODone HCl 100 MG Tablet 1 tablet at bedtime Orally Once a day , Taking lamoTRIgine 100 MG Tablet 1 tablet Orally twice a day , Taking Metoprolol Tartrate 50 MG Tablet 1 tablet with food Orally Twice a day , Taking Venlafaxine HCl ER 150 MG Capsule Extended Release 24 Hour 1 capsule with food Orally Once a day , Medication List reviewed and reconciled with the patient * Allergies: A bilify, Lyrica: swelling - Side Effects. Objective: * Vitals: W t: 211.4, Temp: 97.6, BP: 120/70, HR: 87, Nurse: , Ht: 62, BMI:38.66. * Examination: G eneral Examination: General Appearance: N AD. N eurologic Exam: I ntact, gait normal. Assessment: * Assessment: 1. I ntractable migraine without status migrainosus, unspecified migraine type - G43.919 (Primary) Plan: * Treatment: * Procedure Codes: G 2211 Complex e/m visit add on, 3074F SYST BP LT 130 MM HG, 3078F DIAST BP < 80 MM HG * Follow Up: a s scheduled,and prn * Images: Billing Information: * Visit Code: 77859 Office Visit, Est Pt., Level 3. * Procedure Codes: G2211 Complex e/m visit add on. 3074F SYST BP LT 130 MM HG. 3078F DIAST BP < 80 MM HG. * Electronic signature of Penny Reza MD on 01/25/2025 at 08:01 PM EST Sign off status: Pending * Provider: Ene Reza M.D. Date: 1 Generated for Bassam lo/Ramon/Marthasmitting on: 1 03/28/2024 08:01 PM EST History and Physical Notes * HPI (History of Present Illness) Category Sub-Category Detail Notes Category Not es Cardiology Headaches Pt presents to y for a check up. Pt sts she had Botox injections for her migraines a week ago. Pt sts she still has migraines. She has not called the neurologist back to let them know about the headache Neck pain Pt sts she is bahena ving bad pain in her neck head and between her eyes. Pt sts laying down and sitting up she has pain as well Examination Category Sub-Category Detail Notes Category Not es General Examination General Appearance: NAD Neurologic Exam: Intact, gait normal
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
[2025-01-25 19:46] VITALS: BP 116/72; PULSE 98; RESP 16; TEMP 37.1; O2SAT 97; BMI 34.1
[2025-01-25 19:53] VITALS: BP 117/75; PULSE 95; RESP 18; TEMP 36.9; O2SAT 95
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
[2025-01-25 20:56] VITALS: BP 99/65; PULSE 91; RESP 20; TEMP 36.8; O2SAT 99
--- NOTE | 2025-01-26 00:26 | [facility].EDGENADL ---
Discharge Plan Disposition Patient Disposition: Home, Self-Care Condition: Good Prescriptions Prescriptions: No Action lisinopril 10 mg tablet 10 mg PO DAILY sumatriptan 20 mg/actuation spray,non-aerosol 20 mg intranasal ONCE PRN (Reason: .) gabapentin 800 mg tablet See Rx Instructions .ROUTE .COMPLEX Qty: 90 2RF Dose Instruction: TAKE 1 TABLET BY MOUTH THREE TIMES A DAY FOR PAIN MAY CAUSE DROWSINESS Rx Instructions: TAKE 1 TABLET BY MOUTH THREE TIMES A DAY FOR PAIN MAY CAUSE DROWSINESS ropinirole 0.25 mg tablet See Rx Instructions .ROUTE .COMPLEX Qty: 60 2RF Dose Instruction: TAKE 1 TABLET BY MOUTH TWICE DAILY Rx Instructions: TAKE 1 TABLET BY MOUTH TWICE DAILY meloxicam 7.5 mg tablet See Rx Instructions .ROUTE .COMPLEX Qty: 30 2RF Dose Instruction: TAKE ONE (1) TABLET BY MOUTH ONCE DAILY Rx Instructions: TAKE ONE (1) TABLET BY MOUTH ONCE DAILY ondansetron 4 MG tablet,disintegrating 4 mg PO Q8HP PRN (Reason: Nausea) Qty: 20 0RF cyclobenzaprine 10 mg tablet 10 mg PO TID Qty: 90 2RF clonazepam 0.5 MG tablet 0.5 mg PO BID PRN (Reason: Anxiety) metoprolol tartrate 50 MG tablet 50 mg PO BID trazodone 100 MG tablet 100 - 300 mg PO HS PRN (Reason: Sleep) lamotrigine 100 mg tablet 1 mg PO DAILY amitriptyline 10 mg tablet 10 mg PO HS Qty: 30 2RF fentanyl (PF)-bupivacaine-NaCl 1.5 mcg/mL- 0.125 % Syringe 20 ml epidural CONT Rx Instructions: ACTUAL DOSING IS FENTANYL 500MCG/ML, BUPIVACAINE 5MG/ML SEE EMR FOR CURRENT DAILY DOSE. venlafaxine [Effexor XR] 150 mg Capsule,Extended Release 24hr 150 mg PO DAILY Referrals Follow up/Referrals: Kleber Rothman MD [Primary Care Provider, Medical] - See instructions Activity Restrictions/Add. Instructions Additional Instructions/Restrictions: Please follow up with your pain doctor tomorrow and return to the ER if you have any new or worsening symptoms. Clinical Impressions Clinical Impression: Chronic pain Qualifiers: Chronic pain type: other chronic pain Qualified Code(s): G89.29 - Other chronic pain Stand Alone Forms Stand Alone Forms: Work/School Release Print Language Print Language: Maori Discharge ED Provider: Jeff Ernst General Adult HPI General Chief complaint: PAIN Stated complaint: withdraws from pain pump pt of bux Time Seen by Provider: 01/25/25 20:12 Mode of Arrival: Wheelchair Source of Information: Patient, Significant Other and Parent(s) Description of Symptoms (Recalled from ER Triage Doc. by RN): Pt reports uncontrolled pain, and has implanted pain pump and spinal stimulator. Pt states she has seen pain mgt today but was unable to get her meds, they go back 01/25/2025 to get meds refilled. History of Present Illness HPI narrative: This is a 39-year-old female patient, with past medical history notable for an epidural lipoma with subsequent cauda equina syndrome s/p resection, who is now presenting to the emergency department today for evaluation of back pain. The patient tells me that she has a intrathecal pain pump that is managed by Dr. Burgos. She states that she started having her pump alarm a couple of days ago and when her pump begins alarming this means that she is running out fentanyl. She presented to the pain clinic and they did not have any fentanyl in stock so they decreased her fentanyl dosing from 500 mcg/day to 188 mcg/day and attempt to reserve the remainder of her fentanyl in the pump until they got a new shipment of fentanyl in stock. The patient tells me that since they have decreased her amount of fentanyl she has had worsening back pain and tonight her pain became unbearable. Related Data Home Medications ?Medication ?Instructions ?Recorded ?Confirmed clonazepam 0.5 mg tablet 0.5 mg PO BID PRN Anxiety 12/19/18 01/25/25 metoprolol tartrate 50 mg tablet 50 mg PO BID heart rate 04/12/19 01/25/25 trazodone 100 mg tablet 100 - 300 mg PO HS PRN Sleep 04/13/19 01/25/25 lamotrigine 100 mg tablet 1 mg PO DAILY mood 03/28/22 01/25/25 fentanyl(PF) 90 mcg/60 mL (1.5 20 ml epidural CONT Pain 06/24/23 01/25/25 mcg/mL)-bupiv 0.125%-NaCl epidural syr venlafaxine 150 mg 150 mg PO DAILY 08/26/24 01/25/25 capsule,extended release 24 hr (Effexor XR) lisinopril 10 mg tablet 10 mg PO DAILY 01/06/25 01/25/25 sumatriptan 20 mg/actuation nasal 20 mg intranasal ONCE PRN . 01/06/25 01/25/25 spray Previous Rx's ?Medication ?Instructions ?Recorded ondansetron 4 mg disintegrating 4 mg PO Q8HP PRN Nausea #20 tabs 03/22/21 tablet amitriptyline 10 mg tablet 10 mg PO HS migraines #30 tabs 05/25/23 cyclobenzaprine 10 mg tablet 10 mg PO TID #90 tabs 05/19/24 gabapentin 800 mg tablet See Rx Instructions .Route 11/02/24 .COMPLEX #90 tabs ropinirole 0.25 mg tablet See Rx Instructions .Route 11/14/24 .COMPLEX #60 tabs meloxicam 7.5 mg tablet See Rx Instructions .Route 12/28/24 .COMPLEX #30 tabs Allergies Allergy/AdvReac Type Severity Reaction Status Date / Time aripiprazole (From Abilify) Allergy Intermediate Seizure Verified 01/10/25 09:25 sulfamethoxazole (From Allergy Rash Verified 01/10/25 09:25 Bactrim) trimethoprim (From Bactrim) Allergy Rash Verified 01/10/25 09:25 [facility] Disclaimer: The information contained in this section may have been updated after the patient was seen, as this information can be updated by other users. Medical History Family history of early CAD Dyspnea SVT (supraventricular tachycardia) History of urinary incontinence History of urinary self-catheterization Emphysema/COPD Sleep apnea Hypertension Spinal cord stimulator status Chronic pain Bipolar 1 disorder Seizures Migraines Depression CHF (congestive heart failure) Arrhythmia Anxiety Surgical History History of wisdom tooth extraction H/O neck surgery FUSION Previous back surgery SPINAL CORD TUMOR DEBULKING, x8 surgeries Family History Mother Cancer breast Other Family history of COPD (chronic obstructive pulmonary disease) Family history of diabetes mellitus type II Family history of hypertension Family history of myocardial infarction Social History Smoking Status: Current every day smoker tobacco type: cigarettes packs per day: 1 second hand exposure: Yes alcohol intake: never substance use type: denies use current occupational status: other Travel in the last 8 weeks?: None household members: family housing: house current occupational exposures/hazards: No caffeine: Yes Have you lived/traveled outside [place] in past 30 days?: No Contact w/someone who lives/traveled outside [place] past 30 days?: No Exposure to someone with infectious disease in past 14 days?: No Do you have a fever (greater than 100.4 F or 38 C)?: No Have you tested positive for COVID-19?: No Exposed to someone with COVID-19 in past 14 days?: No Do you have a sore throat?: No Do you have a cough?: No Do you have any weakness?: No Do you have any diarrhea?: No Are you experiencing any unusual bleeding?: No Do you have any muscle aches/pain?: No Do you have any abdominal pain?: No Are you experiencing loss of taste or smell?: No Other Medical History Have you received the Flu Vaccine for this season: No Have you received the Pneumonia Vaccine: No ROS Obtained: Yes Systems reviewed as appropriate & no additional complaints except as documented Physical Exam General General appearance: other (See MDM) Respiratory Respiratory exam: Present other (See MDM) Cardiovascular Cardiovascular exam: Present other (See MDM) Neurological Exam Neurological exam: Present other (See MDM) Medical Decision Making Medical Records Medical records reviewed: Yes I reviewed the patient's medical records. Screening: Per USPSTF and CDC recommendations, given the prevalence of disease in our region, it is our hospital?s policy to screen for HIV and viral Hepatitis for all patients aged 18 and over and those with ongoing risk factors. Juan Luis Inquiry Pt receiving controlled substance: No Juan Luis was queried for this patient: No Vital Signs: 01/25/25 19:46 01/25/25 19:53 01/25/25 20:56 Temperature 98.7 F 98.5 F 98.2 F Temperature Source Oral Oral Pulse Rate 95 H 91 H Pulse Rate [Left] 98 H Respiratory Rate 16 18 20 Blood Pressure 117/75 99/65 L Blood Pressure [Right Arm] 116/72 Blood Pressure Mean [Right Arm] 86 Blood Pressure Source [Right Arm] Automatic Cuff Blood Pressure Position [Right Arm] Sitting 02 Sat by Pulse Oximetry 97 95 Oxygen Delivery Method Room Air Room Air Room Air Medical Decision Narrative: In summary, this is a 39-year-old female patient who is presenting to the emergency department today for evaluation of back pain. Pain has exacerbated in the setting of her intrathecal fentanyl pain pump being decreased from 500 mcg/day to 188 mcg/day until the pain clinic gets a new shipment of fentanyl to refill her pain pump. On initial evaluation of the patient she is extremely somnolent and is sleeping and snoring. She is difficult to arouse. She is hemodynamically stable, however her pressures are soft. Otherwise physical exam is unremarkable. Differential diagnosis includes chronic back pain, opiate withdrawal, medication adverse effect, among others. Prior to arrival to the emergency department the patient had taken 300 mg of gabapentin and several milligrams of Klonopin to help with her pain. This explains her somnolence on exam. During my interview the patient she did intermittently wake up, however she appeared very sleepy. Due to this overall appearance of did not feel that it was appropriate to administer a third sedating substance to the patient while she already currently appears quite sedated from the gabapentin and Klonopin that she took prior to arrival. She did asked me to prescribe her opiate medication that she can orange picker from the pharmacy to take throughout the evening until she can follow-up with the pain clinic tomorrow to have her intrathecal pain pump refill. However, the pharmacy is currently closed at this hour of the night so by the time she would be able to have this medication filled in the morning it would nearly be the time of her appointment, therefore I do not feel inclined to prescribe her narcotics to the pharmacy this evening. I did offer to treat the patient with nonsedating substances including muscle relaxers, anti-inflammatories, and steroids. The patient did not want to pursue treatment with any of these modalities as she states that they have not worked for her in the past. Therefore the patient was ultimately discharged in stable condition with instructions to follow-up with the pain clinic tomorrow. Critical Care Critical Care Time Critical Care Time: No
== END 2025-01-25 21:00 | disposition home or self-care (01) ==
PROVIDERS: Emergency Provider Student in an Organized Health Care Education/Training Program; PCP Family Medicine
DX: R40.0 Somnolence (principal); M54.50 Low back pain, unspecified; G89.29 Other chronic pain
CPT/HCPCS: 99282